=== PATIENT | female | born 1945 | race Caucasian/White ===

== ENCOUNTER 2017-07-25 11:30 | Outpatient (RCR) | payer MEDICARE, OTHER, SELFPAY ==
--- NOTE | 2017-07-02 10:59 | HP.PTEVAL ---
Patient's Visit Information MARLINE WOOD is a 72 year old F referred to Physical Therapy by MD ARCELIA Camacho with a diagnosis of Left Knee Pain. Date of Evaluation: 07/02/17 Physical Therapist: Riddhi Mcmahan - Visit Plan Frequency: 2x /Week Duration: 4 Weeks Plan: Focus on LE and core s/s- HEP with silver sneakers - Subjective Subjective: Left knee pain started about 4 weeks ago- insidious onset. Was going to [employer] and was finding herself sitting down and then limping at the end of the class. Went and saw MD who took x-rays and diagnosed with arthritis- gave her anti-inflammatries and sent her to PT. Pain is located along the back of the knee on the medial side- radiates down the lateral side of the calf. Eases: rolling over in bed, getting off her leg, anti-inflammatories Best: 0/10 Agg: walking to much, being on it, exercise class Worst: 8/10 Describes pain as achy and uncomfortable. Sleep: hard to get comfortable but does not wake her up. Feels its getting better. She goes to [employer] 3x a week on land (MWF). 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 Meds: metroprolol, atorvastatin, allopurinol, quinapril, amlodypine, pioglitazone - Objective posture: FH, RS, Increased kyphosis. Gait: no deviation noted. Stairs: asc/desc 8 recip with 2 HR but poor control. HR/TR: able- reports discomfort with TR. Balance: unable to SLS but can weight shift. Palpation: tender along posterior hamstring. ROM: 0-110 degrees. Strength: Ankle: 5/5, Knee: 4/5, Hip: 4/5 throughout Core: poor - Goals Goal 1:: Patient will be I with HEP and progression Goal Time Frame: 4-6 Weeks Goal 2:: Patient will asc/desc 8 stairs recip with 1 HR and good control Goal Time Frame: 4-6 Weeks Goal 3:: Patient will demo 4+/5 strength in all deficit areas to ease ADL's. Goal Time Frame: 4-6 Weeks Goal 4:: Patient will report 0/10 pain for 1 week with return to all normal activities. Goal Time Frame: 4-6 Weeks - Rehabilitation Potential Physical Therapy Diagnosis: Patient presents with hypomobility- she has decreased strength and muscular endurance- leading to poor posture and increased pain with ADL's. Rehabilitation Potential: Good - Anticipated Interventions Patient/Client Instruction: Educate patient on: Benefits of Fitness Program For the Purpose of:: To improve performance and independence with ADL's Therapeutic Exercise to Include: Strength training, Endurance training, Balance training, Agility training, Body mechanics, Postural training, Flexibilty training, Gait and locomotor training, Dynamic Lumbar Stabilization For the Purpose of:: To improve muscle performance and motor function TENS: Yes Cryotherapy (ice pack, ice massage): Yes Thermo therapy (hot pack): Yes Ultrasound (thermal/non thermal): Yes For the Purpose of:: To decrease pain, To decrease swelling/inflammation Thank you for the opportunity to evaluate your patient. For Medicare and Medicare HMO plans, please review the plan of care and approve it. It will need to be FAXED BACK to us at [phone] for Medicare purposes. Please let me know if there are questions or concerns regarding this plan of care. Physician Signature: Date:
--- NOTE | 2017-07-25 11:52 | HP.PTDCSUM_ITS ---
HP - PT D/C Summary It has been my pleasure to treat MARLINE WOOD under orders from Tara Estrada MD, for the diagnosis of Left Knee Pain for a total of 7 visit(s). Discharge Date: Please see the following information for a summary of their discharge status. - Subjective Subjective: Patient reports that the knee is a lot better. No pain when doing ADL's but does have achy pains. Feels its OA. [place] some exercises to keep the strength. Does silver sneakers 3x a week and went back yesterday and didn' t feel she was limping. - Pain L knee Pain Intensity (Out of 10): 1 - Overall Improvement % Improvement: 100 - Objective Objective/Function: Posture: good throughout. Gait: no deviation noted. Stairs :asc/desc 8 recip with 1 HR. Strength:4+/5 throughout - Goals Goal 1:: Patient will be I with HEP and progression Goal Progress: Goal Met Goal 2:: Patient will asc/desc 8 stairs recip with 1 HR and good control Goal Progress: Goal Met Goal 3:: Patient will demo 4+/5 strength in all deficit areas to ease ADL's. Goal Progress: Goal Met Goal 4:: Patient will report 0/10 pain for 1 week with return to all normal activities. Goal Progress: Goal Met - Plan Plan: Discharge to HEP - D/C Information If there are questions or concerns regarding this patient's physical therapy, please feel free to call me at [phone]. Thank you for the referral of this patient. Sincerely, Riddhi Mcmahan
== END 2017-07-25 14:49 | disposition home or self-care (01) ==
LOC: PT 11:30
PROVIDERS: Family Provider Nurse Practitioner Family; PCP Nurse Practitioner Family; Visit Provider Family Medicine
DX: M79.605 Pain in left leg (principal)
CPT/HCPCS: 97110; 97161; 97530

== ENCOUNTER → 2017-12-02 09:41 | Outpatient (CLI) | payer MEDICARE, OTHER, SELFPAY ==
--- NOTE | 2017-12-02 09:41 | DT_ITS ---
This patient was seen during an EMR downtime November 25, 2017 - December 02, 2017. This patient may have a combination of paper and electronic documentation or all paper documentation. All documentation is viewable within the e-chart portion of [facility] for each patient visit.
--- NOTE | 2017-12-02 09:45 | ECHOD_ITS ---
Version 2 Reason For Study: SOB Procedure This was a 2D Doppler, Color Flow transthoracic echocardiogram. Exam performed in department. Left Ventricle Normal LV size. Mild concentric left ventricular hypertrophy. Left ventricular systolic function is normal. The estimated ejection fraction is 63 %. Transmitral diastolic flow velocities suggest mild (stage 1) diastolic dysfunction (reversed pattern). No regional wall motion abnormalities noted. Right Ventricle Normal RV size. Normal systolic function. Atria Normal left atrium. Normal right atrium. Mitral Valve There is mild mitral annular calcification. Mild (1+) eccentric mitral valve insufficiency. Tricuspid Valve Normal tricuspid valve. Unable to estimate RV systolic pressure due to inadequate jet, pulmonary artery pressure probably normal. Aortic Valve Trisinus/trileaflet aortic valve. Mild focal aortic valve calcification. Peak aortic valve gradient 55 mmHg. Mean aortic valve gradient 30 mmHg. Calculated aortic valve area (continuity equation) is 1.1 cm2. Pulmonic Valve Normal pulmonic valve. Great Vessels Normal aortic root. The pulmonary artery is normal size. Normal inferior vena cava. Pericardium/Pleural No pericardial effusion. MMode/2D Measurements & Calculations LVIDd: 4.7 cm IVSd: 1.3 cm LVOT diam: 2.0 cm LVIDs: 2.5 cm LVPWd: 1.4 cm LVOT area: 3.0 cm2 RVDd: 3.1 cm FS: 47.3 % Ao root diam: 3.2 cm LAV(MOD-bp): 68.4 ml LA A4 area: 22.2 cm2 LA dimension: 4.8 cm LAV(MOD-bp) Indexed: 33.0 ml/m2 LAV(MOD-sp2): 60.3 ml LAV(MOD-sp4): 72.1 ml RA A4 area: 13.0 cm2 Doppler Measurements & Calculations MV E max mundo: 75.9 cm/sec Lat Peak E' Mundo: 5.2 cm/sec Med Peak E' Mundo: 6.3 cm/sec MV A max mundo: 96.3 cm/sec E/E' lat: 14.7 E/E' med: 12.1 MV E/A: 0.79 Ao V2 max: 369.9 cm/sec AI max mundo: 406.0 cm/sec LV V1 max: 130.5 cm/sec Ao max P.9 mmHg AI max P.9 mmHg LV V1 max P.8 mmHg Ao V2 mean: 261.5 cm/sec AI dec slope: 159.9 cm/sec2 LV V1 mean P.5 mmHg Ao mean P.3 mmHg AI P1/2t: 743.8 msec LV V1 mean: 87.5 cm/sec Ao V2 VTI: 99.1 cm LV V1 VTI: 37.6 cm KATHY(I,D): 1.1 cm2 KATHY(V,D): 1.1 cm2 SV(LVOT): 113.1 ml PA V2 max: 114.4 cm/sec Interpretation Summary Normal LV size. Mild concentric left ventricular hypertrophy. Left ventricular systolic function is normal. The estimated ejection fraction is 63 %. Transmitral diastolic flow velocities suggest mild (stage 1) diastolic dysfunction (reversed pattern). Mild (1+) eccentric mitral valve insufficiency. Calculated aortic valve area (continuity equation) is 1.1 cm2. Mild focal aortic valve calcification. Ordering Physician: Venkata Lopez Referring Physician: Frank Ramirez Performed By: Claire Blair RDCS
== END ==
PROVIDERS: Family Provider Nurse Practitioner Family; PCP Nurse Practitioner Family; Visit Provider Internal Medicine Cardiovascular Disease
DX: I35.0 Nonrheumatic aortic (valve) stenosis (principal); I10 Essential (primary) hypertension
CPT/HCPCS: 93306

== ENCOUNTER → 2018-04-09 14:14 | Outpatient (CLI) | payer MEDICARE, OTHER, SELFPAY ==
[2018-04-09 15:38] LABS: Hematocrit 37.1 % (37-47); Hemoglobin 11.6 g/dl (12.0-15.0); Mean Corp Hgb Conc 31.3 g/gl (32-36); Mean Corpuscular Hgb 30.9 pg (27.0-32.0); Mean Corpuscular Volume 98.7 fL (81-99); Platelet Count 302 K/mm3 (150-450); RBC Distribution Width CV 13.5 % (11.6-14.6); RBC Distribution Width SD 47.2 fl (35.1-43.9); Red Blood Count 3.76 M/mm3 (4.2-5.4); White Blood Count 7.6 K/mm3 (4.4-11.0)
[2018-04-09 15:50] LABS: Albumin, Serum 3.6 g/dL (3.2-5.0); BUN 42 mg/dL (7-18); BUN/Creat Ratio 23.6 RATIO (10-20); Calcium,Total 9.7 mg/dL (8.5-10.1); Chloride 105 mmol/L (98-107); Creatinine, Serum 1.78 mg/dL (0.55-1.02); EST Glomerular Filtration Rate 30 mL/min (>60); Est Glom Filt Rate - Afr Amer 36 mL/min (>60); Glucose 101 mg/dL (74-106); Phosphorus 4.1 mg/dL (2.5-4.9); Potassium 4.1 mmol/L (3.5-5.1); Sodium Level 142 mmol/L (136-145)
[2018-04-09 15:51] LABS: Microalbumin,Random Urine 85.2 mg/L (NO RANGE EST.); Microalbumin:Creatinine Ratio 70.4 mg/g CRE (<30 mg/g CRE)
[2018-04-09 15:54] LABS: Scan Indicated on CBC? Y/N NO
[2018-04-09 16:04] LABS: PTHIN 40.1 pg/mL (18.4-80.1); Vitamin D,25 Hydroxy 38.4 ng/mL (29.95-100.01)
== END ==
PROVIDERS: Family Provider Nurse Practitioner Family; PCP Nurse Practitioner Family; Referring Provider Internal Medicine Nephrology; Visit Provider Internal Medicine Nephrology
DX: N18.3 Chronic kidney disease, stage 3 (moderate) (principal)
CPT/HCPCS: 36415; 80069; 82043; 82306; 82570; 83970; 85027

== ENCOUNTER → 2018-12-16 | Outpatient (CLI) | payer MEDICARE, SELFPAY ==
[2018-07-18 08:27] VITALS: BMI 46.3
--- NOTE | 2018-12-16 12:55 | ECHOCS_ITS ---
Reason For Study: MURMUR Procedure This was a 2D Doppler, Color Flow transthoracic echocardiogram. Exam performed in department. Left Ventricle Normal LV size. Left ventricular systolic function is normal. The estimated ejection fraction is 65 %. Stage 2 diastolic dysfunction. No regional wall motion abnormalities noted. Right Ventricle Normal RV size. Normal systolic function. Atria Normal left atrium. Normal right atrium. Mitral Valve There is mild to moderate mitral annular calcification. Mild (1+) eccentric mitral valve insufficiency. Tricuspid Valve Normal tricuspid valve. Aortic Valve Trisinus/trileaflet aortic valve. Peak aortic valve gradient 67 mmHg. Mean aortic valve gradient 40 mmHg. Calculated aortic valve area (continuity equation) is 0.8 cm2. Severe aortic stenosis. Mild (1+) aortic valve insufficiency. Pulmonic Valve The pulmonic valve is not well visualized. Great Vessels Normal aortic root. Pericardium/Pleural No pericardial effusion. Medication 22 gauge I.V. with prn adaptor inserted into right arm. Diluted definity 3ml given slow IV push to enhance endocardial definition. MMode/2D Measurements & Calculations LVIDd: 5.0 cm IVSd: 0.96 cm LVOT diam: 2.0 cm LVIDs: 3.1 cm LVPWd: 0.96 cm RVDd: 3.4 cm FS: 38.7 % LVOT area: 3.0 cm2 Ao root diam: 3.0 cm LAV(MOD-bp): 52.5 ml LVAd ap4: 27.3 cm2 LAV(MOD-bp) Indexed: 25.0 ml/m2 EDV(MOD-sp4): 76.5 ml LAV(MOD-sp2): 59.7 ml EDV(sp4-el): 77.8 ml LAV(MOD-sp4): 42.9 ml LVAs ap4: 14.1 cm2 ESV(MOD-sp4): 26.1 ml ESV(sp4-el): 25.0 ml EF(MOD-sp4): 66.0 % EF(sp4-el): 67.9 % SV(MOD-sp4): 50.5 ml SV(sp4-el): 52.8 ml LA A4 area: 16.2 cm2 LA dimension(2D): 4.0 cm RA A4 area: 15.1 cm2 Time Measurements MV dec time: 0.19 sec Doppler Measurements & Calculations MV E max mundo: 94.5 cm/sec Lat Peak E' Mundo: 7.4 cm/sec Med Peak E' Mundo: 6.2 cm/sec MV A max mundo: 106.7 cm/sec E/E' lat: 12.7 E/E' med: 15.1 MV E/A: 0.89 Ao V2 max: 409.7 cm/sec AI max mundo: 481.8 cm/sec LV V1 max: 107.8 cm/sec Ao max P.2 mmHg AI max P.9 mmHg LV V1 max P.6 mmHg Ao V2 mean: 307.2 cm/sec AI dec slope: 280.6 cm/sec2 LV V1 mean P.6 mmHg Ao mean P.8 mmHg AI P1/2t: 502.9 msec LV V1 mean: 76.0 cm/sec Ao V2 VTI: 119.6 cm LV V1 VTI: 31.8 cm KATHY(I,D): 0.80 cm2 KATHY(V,D): 0.79 cm2 SV(LVOT): 96.1 ml PA V2 max: 114.0 cm/sec Interpretation Summary Normal LV size. Left ventricular systolic function is normal. The estimated ejection fraction is 65 %. Stage 2 diastolic dysfunction. Mean aortic valve gradient 40 mmHg. Calculated aortic valve area (continuity equation) is 0.8 cm2. Severe aortic stenosis. Compared to the previous the AV is worse. Ordering Physician: Venkata Lopez Referring Physician: Venkata Lopez Performed By: Cathy Torres RDCS
== END | disposition home or self-care (01) ==
LOC: CVS 12:54
PROVIDERS: Family Provider Nurse Practitioner Family; PCP Nurse Practitioner Family; Referring Provider Internal Medicine Cardiovascular Disease; Visit Provider Internal Medicine Cardiovascular Disease
DX: I35.0 Nonrheumatic aortic (valve) stenosis (principal)
CPT/HCPCS: 93306; Q9957; A4216; C8929

== ENCOUNTER → 2019-01-15 | Outpatient (CLI) | payer MEDICARE, OTHER, SELFPAY ==
[2018-07-18 08:27] VITALS: BMI 46.3
[2019-01-15 13:56] LABS: Hemoglobin 11.7 g/dL (12.0-15.0); Mean Corp Hgb Conc 31.6 g/dL (32-36); Mean Corpuscular Hgb 30.5 pg (27.0-32.0); Mean Corpuscular Volume 96.6 fL (81-99); Mean Platelet Vol. 9.6 fl (6.2-12.0); Platelet Count 295 K/mm3 (150-450); RBC Distribution Width CV 13.3 % (11.6-14.6); RBC Distribution Width SD 47.2 fl (35.1-43.9); Red Blood Count 3.83 M/mm3 (4.2-5.4); White Blood Count 8.5 K/mm3 (4.4-11.0)
[2019-01-15 14:03] LABS: Albumin, Serum 3.6 g/dL (3.2-5.0); BUN 37 mg/dL (7-18); BUN/Creat Ratio 21.8 RATIO (10-20); Calcium,Total 9.4 mg/dL (8.5-10.1); Chloride 105 mmol/L (98-107); EST Glomerular Filtration Rate 31 mL/min (>60); Est Glom Filt Rate - Afr Amer 38 mL/min (>60); Glucose 145 mg/dL (74-106); Phosphorus 3.7 mg/dL (2.5-4.9); Sodium Level 142 mmol/L (136-145)
[2019-01-15 14:15] LABS: PTHIN 45.1 pg/mL (18.4-80.1); Vitamin D,25 Hydroxy 31.1 ng/mL (29.95-100.01)
[2019-01-15 14:30] LABS: Protein, Urine (Random) 25.5 mg/dL (<11.9); Protein:Creat Ratio 159 mg/g CRE (0-200)
== END | disposition home or self-care (01) ==
LOC: LAB 13:22
PROVIDERS: Family Provider Nurse Practitioner Family; PCP Nurse Practitioner Family; Referring Provider Internal Medicine Nephrology; Visit Provider Internal Medicine Nephrology
DX: N18.3 Chronic kidney disease, stage 3 (moderate) (principal)
CPT/HCPCS: 36415; 80069; 82306; 82570; 83970; 84156; 85027

== ENCOUNTER → 2019-07-10 09:45 | Outpatient (CLI) | payer MEDICARE, OTHER, SELFPAY ==
[2019-01-20 12:41] VITALS: BMI 45.1
--- NOTE | 2019-07-10 09:47 | ECHOD_ITS ---
Reason For Study: AV DEISORDER Procedure This was a 2D Doppler, Color Flow transthoracic echocardiogram. The study was technically difficult. Exam performed in department. Left Ventricle Normal LV size. Moderate concentric left ventricular hypertrophy. Left ventricular systolic function is normal. The estimated ejection fraction is 65 %. No regional wall motion abnormalities noted. Right Ventricle Normal RV size. Normal systolic function. Atria Normal left atrium. Normal right atrium. Mitral Valve There is mild to moderate mitral annular calcification. Mild (1+) eccentric mitral valve insufficiency. Tricuspid Valve Normal tricuspid valve. Aortic Valve Trisinus/trileaflet aortic valve. Mild focal aortic valve calcification. Peak aortic valve gradient 53 mmHg. Mean aortic valve gradient 33.8 mmHg. Moderate aortic stenosis. Calculated aortic valve area (continuity equation) is 1,0 cm2. Mild (1+) aortic valve insufficiency. Pulmonic Valve Normal pulmonic valve. Great Vessels Normal aortic root. The pulmonary artery is normal size. Normal inferior vena cava. Pericardium/Pleural No pericardial effusion. MMode/2D Measurements & Calculations LVIDd: 4.7 cm IVSd: 1.4 cm LVOT diam: 2.0 cm LVIDs: 2.9 cm LVPWd: 1.4 cm LVOT area: 3.0 cm2 RVDd: 3.2 cm FS: 37.5 % Ao root diam: 2.9 cm LAV(MOD-bp): 58.2 ml LA A4 area: 16.8 cm2 LAV(MOD-bp) Indexed: 27.9 ml/m2 LAV(MOD-sp2): 73.5 ml LAV(MOD-sp4): 43.9 ml LA dimension(2D): 4.8 cm RA A4 area: 9.9 cm2 Time Measurements MV dec time: 0.17 sec Doppler Measurements & Calculations MV E max mundo: 88.1 cm/sec Lat Peak E' Mundo: 4.0 cm/sec Med Peak E' Mundo: 6.8 cm/sec MV A max mundo: 105.9 cm/sec E/E' lat: 22.0 E/E' med: 13.0 MV E/A: 0.83 MV V2 max: 93.2 cm/sec Ao V2 max: 364.8 cm/sec AI max mundo: 402.1 cm/sec MV max P.5 mmHg Ao max P.3 mmHg AI max P.7 mmHg MV V2 mean: 53.1 cm/sec Ao V2 mean: 279.6 cm/sec AI dec slope: 216.4 cm/sec2 MV mean P.3 mmHg Ao mean P.8 mmHg AI P1/2t: 544.1 msec MV V2 VTI: 35.6 cm Ao V2 VTI: 101.5 cm MVA(VTI): 2.9 cm2 KATHY(I,D): 1.0 cm2 KATHY(V,D): 0.98 cm2 LV V1 max: 118.7 cm/sec SV(LVOT): 104.5 ml MV P1/2t-pr_phl: 68.2 msec LV V1 max P.6 mmHg LV V1 mean P.1 mmHg LV V1 mean: 83.8 cm/sec LV V1 VTI: 34.7 cm Interpretation Summary Normal LV size. Moderate concentric left ventricular hypertrophy. Left ventricular systolic function is normal. The estimated ejection fraction is 65 %. Moderate aortic stenosis. Mild (1+) aortic valve insufficiency. There is mild to moderate mitral annular calcification. Mild (1+) eccentric mitral valve insufficiency. Compared to prior study, there is no significant change. Ordering Physician: Lucien Grossman/Venkata Lopez Referring Physician: CANDICE SHANNON Performed By: Laura Tirado, RDCS, RVT
== END ==
PROVIDERS: Family Provider Nurse Practitioner Family; PCP Nurse Practitioner Family; Referring Provider Nurse Practitioner Family; Visit Provider Nurse Practitioner Family
DX: I35.0 Nonrheumatic aortic (valve) stenosis (principal); R06.09 Other forms of dyspnea
CPT/HCPCS: 93306

== ENCOUNTER → 2019-07-17 11:40 | Outpatient (CLI) | payer MEDICARE, OTHER, SELFPAY ==
[2019-01-20 12:41] VITALS: BMI 45.1
[2019-07-17 12:36] LABS: Hematocrit 36.3 % (37-47); Hemoglobin 11.5 g/dL (12.0-15.0); Mean Corp Hgb Conc 31.7 g/dL (32-36); Mean Corpuscular Hgb 30.4 pg (27.0-32.0); Mean Platelet Vol. 9.8 fl (6.2-12.0); Platelet Count 276 K/mm3 (150-450); RBC Distribution Width CV 13.3 % (11.6-14.6); RBC Distribution Width SD 47.4 fl (35.1-43.9); Red Blood Count 3.78 M/mm3 (4.2-5.4); White Blood Count 6.9 K/mm3 (4.4-11.0)
[2019-07-17 12:47] LABS: Protein, Urine (Random) 26.2 mg/dL (<11.9); Protein:Creat Ratio 213 mg/g CRE (0-200)
[2019-07-17 13:16] LABS: Albumin, Serum 3.4 g/dL (3.2-5.0); BUN 43 mg/dL (7-18); BUN/Creat Ratio 23.6 RATIO (10-20); Calcium,Total 9.6 mg/dL (8.5-10.1); Chloride 105 mmol/L (98-107); Creatinine, Serum 1.82 mg/dL (0.55-1.02); EST Glomerular Filtration Rate 29 mL/min (>60); Est Glom Filt Rate - Afr Amer 35 mL/min (>60); Glucose 136 mg/dL (74-106); Phosphorus 3.5 mg/dL (2.5-4.9); Sodium Level 140 mmol/L (136-145)
[2019-07-17 13:23] LABS: Vitamin D,25 Hydroxy 35.4 ng/mL (29.95-100.01)
[2019-07-17 13:24] LABS: PTHIN 27.4 pg/mL (18.4-80.1)
== END ==
PROVIDERS: PCP Nurse Practitioner Family; Referring Provider Internal Medicine Nephrology; Visit Provider Internal Medicine Nephrology
DX: E55.9 Vitamin D deficiency, unspecified (principal); N18.3 Chronic kidney disease, stage 3 (moderate)
CPT/HCPCS: 36415; 80069; 82306; 82570; 83970; 84156; 85027

== ENCOUNTER → 2019-11-23 | Outpatient (CLI) | payer MEDICARE, OTHER, SELFPAY ==
[2019-11-23 06:13] VITALS: BMI 44.6
[2019-11-23 11:44] LABS: Hematocrit 38.6 % (37-47); Mean Corp Hgb Conc 31.1 g/dL (32-36); Mean Corpuscular Hgb 30.2 pg (27.0-32.0); Mean Corpuscular Volume 97.2 fL (81-99); Mean Platelet Vol. 9.5 fl (6.2-12.0); Platelet Count 299 K/mm3 (150-450); RBC Distribution Width CV 12.9 % (11.6-14.6); RBC Distribution Width SD 46.2 fl (35.1-43.9); Red Blood Count 3.97 M/mm3 (4.2-5.4); White Blood Count 6.8 K/mm3 (4.4-11.0)
[2019-11-23 12:25] LABS: AST(SGOT) 22 U/L (15-37); Alanine Aminotransfer ALT/SGPT 25 U/L (13-56); Albumin, Serum 3.5 g/dL (3.2-5.0); Alkaline Phosphatase 71 U/L (45-117); Anion Gap 7 (5-15); BUN 38 mg/dL (7-18); BUN/Creat Ratio 21.7 RATIO (10-20); Calcium,Total 9.5 mg/dL (8.5-10.1); Chloride 107 mmol/L (98-107); Cholesterol 146 mg/dL (200); Creatinine, Serum 1.75 mg/dL (0.55-1.02); EST Glomerular Filtration Rate 30 mL/min (>60); Est Glom Filt Rate - Afr Amer 37 mL/min (>60); Globulin 3.6 g/dL (2.2-4.2); Glucose 123 mg/dL (74-106); High Density Lipoprotein 50 mg/dL; Protein, Total 7.1 g/dL (6.4-8.2); Sodium Level 142 mmol/L (136-145); Triglycerides 99 mg/dL; Uric Acid 5.7 mg/dL (2.6-6.0); Very Low Density Lipoprotein 20 mg/dL (5-40)
[2019-11-23 13:30] LABS: Hemoglobin A1c 5.8 % (3.8-5.6)
== END | disposition home or self-care (01) ==
LOC: LAB 11:11
PROVIDERS: PCP Nurse Practitioner Family; Referring Provider Nurse Practitioner Family; Visit Provider Nurse Practitioner Family
DX: E11.9 Type 2 diabetes mellitus without complications (principal); I10 Essential (primary) hypertension; E78.5 Hyperlipidemia, unspecified; E55.9 Vitamin D deficiency, unspecified; M10.00 Idiopathic gout, unspecified site
CPT/HCPCS: 36415; 80053; 80061; 82306; 83036; 84550; 85027

== ENCOUNTER → 2020-01-15 | Outpatient (CLI) | payer MEDICARE, OTHER, SELFPAY ==
[2019-11-23 06:13] VITALS: BMI 44.6
[2020-01-15 14:49] LABS: Hematocrit 37.4 % (37-47); Hemoglobin 11.8 g/dL (12.0-15.0); Mean Corp Hgb Conc 31.6 g/dL (32-36); Mean Corpuscular Hgb 30.9 pg (27.0-32.0); Mean Corpuscular Volume 97.9 fL (81-99); Mean Platelet Vol. 9.7 fl (6.2-12.0); Platelet Count 308 K/mm3 (150-450); RBC Distribution Width CV 13.1 % (11.6-14.6); RBC Distribution Width SD 46.6 fl (35.1-43.9); Red Blood Count 3.82 M/mm3 (4.2-5.4)
[2020-01-15 15:22] LABS: Protein, Urine (Random) 22.3 mg/dL (<11.9); Protein:Creat Ratio 250 mg/g CRE (0-200)
[2020-01-15 15:24] LABS: PTHIN 34.3 pg/mL (18.4-80.1)
[2020-01-15 15:26] LABS: Albumin, Serum 3.5 g/dL (3.2-5.0); BUN 43 mg/dL (7-18); Calcium,Total 9.4 mg/dL (8.5-10.1); Chloride 105 mmol/L (98-107); Creatinine, Serum 1.79 mg/dL (0.55-1.02); EST Glomerular Filtration Rate 29 mL/min (>60); Est Glom Filt Rate - Afr Amer 36 mL/min (>60); Glucose 107 mg/dL (74-106); Phosphorus 3.7 mg/dL (2.5-4.9); Sodium Level 139 mmol/L (136-145)
[2020-01-15 15:27] LABS: Vitamin D,25 Hydroxy 50.5 ng/mL
== END | disposition home or self-care (01) ==
LOC: LAB 14:14
PROVIDERS: PCP Nurse Practitioner Family; Referring Provider Internal Medicine Nephrology; Visit Provider Internal Medicine Nephrology
DX: N18.3 Chronic kidney disease, stage 3 (moderate) (principal); E55.9 Vitamin D deficiency, unspecified
CPT/HCPCS: 36415; 80069; 82306; 82570; 83970; 84156; 85027

== ENCOUNTER → 2020-05-26 11:37 | Outpatient (CLI) | payer MEDICARE, OTHER, SELFPAY ==
[2020-03-03 13:00] VITALS: BMI 42.7
[2020-05-26 12:07] LABS: Hematocrit 37.3 % (37-47); Hemoglobin 11.1 g/dL (12.0-15.0); Mean Corp Hgb Conc 29.8 g/dL (32-36); Mean Corpuscular Hgb 29.8 pg (27.0-32.0); Mean Platelet Vol. 9.3 fl (6.2-12.0); Platelet Count 295 K/mm3 (150-450); RBC Distribution Width CV 13.2 % (11.6-14.6); RBC Distribution Width SD 48.4 fl (35.1-43.9); Red Blood Count 3.73 M/mm3 (4.2-5.4); White Blood Count 7.5 K/mm3 (4.4-11.0)
[2020-05-26 12:45] LABS: Vitamin D,25 Hydroxy 51.5 ng/mL
[2020-05-26 12:47] LABS: Hemoglobin A1c 5.5 % (3.8-5.6)
[2020-05-26 13:03] LABS: AST(SGOT) 23 U/L (15-37); Alanine Aminotransfer ALT/SGPT 23 U/L (13-56); Albumin, Serum 3.6 g/dL (3.2-5.0); Alkaline Phosphatase 75 U/L (45-117); Anion Gap 4 (5-15); BUN 37 mg/dL (7-18); BUN/Creat Ratio 22.6 RATIO (10-20); Calcium,Total 9.4 mg/dL (8.5-10.1); Chloride 108 mmol/L (98-107); Cholesterol 146 mg/dL (200); Creatinine, Serum 1.64 mg/dL (0.55-1.02); EST Glomerular Filtration Rate 33 mL/min (>60); Est Glom Filt Rate - Afr Amer 39 mL/min (>60); Globulin 3.5 g/dL (2.2-4.2); Glucose 118 mg/dL (74-106); High Density Lipoprotein 54 mg/dL; Potassium 4.1 mmol/L (3.5-5.1); Protein, Total 7.1 g/dL (6.4-8.2); Sodium Level 140 mmol/L (136-145); Triglycerides 90 mg/dL; Very Low Density Lipoprotein 18 mg/dL (5-40)
== END ==
PROVIDERS: PCP Nurse Practitioner Family; Referring Provider Nurse Practitioner Family; Visit Provider Nurse Practitioner Family
DX: E78.5 Hyperlipidemia, unspecified (principal); I12.9 Hypertensive chronic kidney disease with stage 1 through stage 4 chronic kidney disease, or unspecified chronic kidney disease; E11.22 Type 2 diabetes mellitus with diabetic chronic kidney disease; N18.4 Chronic kidney disease, stage 4 (severe)
CPT/HCPCS: 36415; 80053; 80061; 82306; 83036; 85027

== ENCOUNTER → 2020-07-12 11:55 | Outpatient (CLI) | payer MEDICARE, OTHER, SELFPAY ==
[2020-03-03 13:00] VITALS: BMI 42.7
[2020-07-12 12:41] LABS: Protein, Urine (Random) 31.3 mg/dL (<11.9); Protein:Creat Ratio 202 mg/g CRE (0-200)
[2020-07-12 13:06] LABS: Anion Gap 4 (5-15); BUN 38 mg/dL (7-18); BUN/Creat Ratio 21.1 RATIO (10-20); Calcium,Total 9.3 mg/dL (8.5-10.1); Chloride 106 mmol/L (98-107); EST Glomerular Filtration Rate 29 mL/min (>60); Est Glom Filt Rate - Afr Amer 35 mL/min (>60); Glucose 120 mg/dL (74-106); Potassium 3.8 mmol/L (3.5-5.1); Sodium Level 138 mmol/L (136-145)
== END ==
PROVIDERS: PCP Nurse Practitioner Family; Visit Provider Internal Medicine Nephrology
DX: N18.30 Chronic kidney disease, stage 3 unspecified (principal); R80.9 Proteinuria, unspecified
CPT/HCPCS: 36415; 80048; 82570; 84156

== ENCOUNTER 2020-08-22 08:51 | Outpatient (RCR) | payer MEDICARE, OTHER, SELFPAY ==
[2020-03-03 13:00] VITALS: BMI 42.7
== END 2020-08-22 23:59 ==
LOC: IMMUN 08:51
PROVIDERS: PCP Nurse Practitioner Family; Visit Provider Family Medicine
DX: Z23 Encounter for immunization (principal)
CPT/HCPCS: 0011A; 0012A

== ENCOUNTER → 2020-08-25 14:41 | Outpatient (CLI) | payer MEDICARE, OTHER, SELFPAY ==
[2020-03-03 13:00] VITALS: BMI 42.7
[2020-08-25 15:08] LABS: Hematocrit 39.8 % (37-47); Hemoglobin 12.2 g/dL (12.0-15.0); Mean Corp Hgb Conc 30.7 g/dL (32-36); Mean Corpuscular Hgb 30.3 pg (27.0-32.0); Mean Platelet Vol. 9.5 fl (6.2-12.0); Platelet Count 306 K/mm3 (150-450); RBC Distribution Width CV 12.8 % (11.6-14.6); RBC Distribution Width SD 46.5 fl (35.1-43.9); Red Blood Count 4.02 M/mm3 (4.2-5.4); White Blood Count 7.5 K/mm3 (4.4-11.0)
[2020-08-25 15:23] LABS: Hemoglobin A1c 5.6 % (3.8-5.6)
[2020-08-25 16:09] LABS: ALB/GLOB Ratio 0.9 RATIO (0.9-2.4); AST(SGOT) 23 U/L (15-37); Alanine Aminotransfer ALT/SGPT 22 U/L (13-56); Albumin, Serum 3.5 g/dL (3.2-5.0); Alkaline Phosphatase 84 U/L (45-117); Anion Gap 9 (5-15); BUN 40 mg/dL (7-18); Calcium,Total 9.8 mg/dL (8.5-10.1); Chloride 104 mmol/L (98-107); Creatinine, Serum 1.82 mg/dL (0.55-1.02); EST Glomerular Filtration Rate 29 mL/min (>60); Est Glom Filt Rate - Afr Amer 35 mL/min (>60); Globulin 3.7 g/dL (2.2-4.2); Glucose 135 mg/dL (74-106); Protein, Total 7.2 g/dL (6.4-8.2); Sodium Level 140 mmol/L (136-145)
== END ==
PROVIDERS: PCP Nurse Practitioner Family; Visit Provider Nurse Practitioner Family
DX: I12.9 Hypertensive chronic kidney disease with stage 1 through stage 4 chronic kidney disease, or unspecified chronic kidney disease (principal); E11.22 Type 2 diabetes mellitus with diabetic chronic kidney disease; N18.4 Chronic kidney disease, stage 4 (severe); D58.2 Other hemoglobinopathies
CPT/HCPCS: 36415; 80053; 83036; 85027

== ENCOUNTER → 2020-11-25 11:48 | Outpatient (CLI) | payer MEDICARE, OTHER, SELFPAY ==
[2020-03-03 13:00] VITALS: BMI 42.7
[2020-11-25 12:43] LABS: Hematocrit 37.6 % (37-47); Hemoglobin 11.9 g/dL (12.0-15.0); Mean Corp Hgb Conc 31.6 g/dL (32-36); Mean Corpuscular Hgb 30.4 pg (27.0-32.0); Mean Corpuscular Volume 96.2 fL (81-99); Mean Platelet Vol. 9.8 fl (6.2-12.0); Platelet Count 320 K/mm3 (150-450); RBC Distribution Width CV 12.9 % (11.6-14.6); RBC Distribution Width SD 45.2 fl (35.1-43.9); Red Blood Count 3.91 M/mm3 (4.2-5.4)
[2020-11-25 13:02] LABS: Hemoglobin A1c 5.7 % (3.8-5.6)
[2020-11-25 13:08] LABS: PTHIN 29.9 pg/mL (18.4-80.1)
[2020-11-25 13:13] LABS: Vitamin D,25 Hydroxy 39.2 ng/mL
[2020-11-25 13:18] LABS: ALB/GLOB Ratio 0.9 RATIO (0.9-2.4); AST(SGOT) 21 U/L (15-37); Alanine Aminotransfer ALT/SGPT 22 U/L (13-56); Albumin, Serum 3.4 g/dL (3.2-5.0); Alkaline Phosphatase 80 U/L (45-117); Anion Gap 7 (5-15); BUN 37 mg/dL (7-18); BUN/Creat Ratio 19.9 RATIO (10-20); Calcium,Total 9.5 mg/dL (8.5-10.1); Chloride 106 mmol/L (98-107); Cholesterol 146 mg/dL (200); Creatinine, Serum 1.86 mg/dL (0.55-1.02); EST Glomerular Filtration Rate 28 mL/min (>60); Est Glom Filt Rate - Afr Amer 34 mL/min (>60); Globulin 3.6 g/dL (2.2-4.2); Glucose 107 mg/dL (74-106); High Density Lipoprotein 53 mg/dL; Magnesium 2.2 mg/dL (1.6-2.6); Potassium 4.3 mmol/L (3.5-5.1); Sodium Level 141 mmol/L (136-145); T4 Free Direct 1.11 ng/dL (0.76-1.46); Thyroid Stim Hormone (TSH) 2.34 uIU/mL (0.358-3.74); Triglycerides 106 mg/dL; Very Low Density Lipoprotein 21 mg/dL (5-40)
[2020-11-30 20:28] LABS: Renin, Plasma 1.603 ng/mL/hr (0.167-5.380)
== END ==
PROVIDERS: PCP Nurse Practitioner Family; Visit Provider Nurse Practitioner Family
DX: E78.5 Hyperlipidemia, unspecified (principal); E21.3 Hyperparathyroidism, unspecified; E55.9 Vitamin D deficiency, unspecified; N18.4 Chronic kidney disease, stage 4 (severe); I12.9 Hypertensive chronic kidney disease with stage 1 through stage 4 chronic kidney disease, or unspecified chronic kidney disease; E11.22 Type 2 diabetes mellitus with diabetic chronic kidney disease
CPT/HCPCS: 36415; 80053; 80061; 82306; 83036; 83735; 83970; 84244; 84439; 84443; 85027

== ENCOUNTER → 2021-01-10 11:35 | Outpatient (CLI) | payer MEDICARE, OTHER, SELFPAY ==
[2020-03-03 13:00] VITALS: BMI 42.7
[2021-01-10 12:01] LABS: Hematocrit 35.9 % (37-47); Hemoglobin 11.5 g/dL (12.0-15.0); Mean Corpuscular Hgb 30.4 pg (27.0-32.0); Mean Platelet Vol. 9.6 fl (6.2-12.0); Platelet Count 307 K/mm3 (150-450); RBC Distribution Width CV 12.9 % (11.6-14.6); RBC Distribution Width SD 44.7 fl (35.1-43.9); Red Blood Count 3.78 M/mm3 (4.2-5.4); White Blood Count 7.8 K/mm3 (4.4-11.0)
[2021-01-10 12:38] LABS: Albumin, Serum 3.2 g/dL (3.2-5.0); BUN 28 mg/dL (7-18); BUN/Creat Ratio 17.2 RATIO (10-20); Calcium,Total 9.4 mg/dL (8.5-10.1); Chloride 107 mmol/L (98-107); Creatinine, Serum 1.63 mg/dL (0.55-1.02); EST Glomerular Filtration Rate 33 mL/min (>60); Est Glom Filt Rate - Afr Amer 40 mL/min (>60); Glucose 111 mg/dL (74-106); Sodium Level 140 mmol/L (136-145)
[2021-01-10 12:44] LABS: Vitamin D,25 Hydroxy 40.6 ng/mL
[2021-01-10 13:34] LABS: Protein, Urine (Random) 62.6 mg/dL (<11.9); Protein:Creat Ratio 362 mg/g CRE (0-200)
== END ==
PROVIDERS: PCP Nurse Practitioner Family; Referring Provider Internal Medicine Nephrology; Visit Provider Internal Medicine Nephrology
DX: E55.9 Vitamin D deficiency, unspecified (principal); N18.32 Chronic kidney disease, stage 3b; R80.9 Proteinuria, unspecified
CPT/HCPCS: 36415; 80069; 82306; 82570; 83970; 84156; 85027

== ENCOUNTER → 2021-03-20 12:57 | Outpatient (CLI) | payer MEDICARE, OTHER, SELFPAY ==
--- NOTE | 2021-03-20 13:01 | ECHOD_ITS ---
Reason For Study: Procedure This was a 2D Doppler, Color Flow transthoracic echocardiogram. Exam performed in department. Left Ventricle Normal LV size. Moderate concentric left ventricular hypertrophy. Left ventricular systolic function is normal. Stage 1 diastolic dysfunction. No regional wall motion abnormalities noted. Right Ventricle Normal RV size. Normal systolic function. Atria Normal left atrium. Normal right atrium. Mitral Valve Normal mitral valve. Tricuspid Valve Normal tricuspid valve. Aortic Valve Trisinus/trileaflet aortic valve. Moderate focal aortic valve calcification. Peak aortic valve gradient 63 mmHg. Mean aortic valve gradient 28 mmHg. Moderate aortic stenosis. Mild (1+) aortic valve insufficiency. Great Vessels Normal aortic root. The pulmonary artery is normal size. Normal inferior vena cava. Pericardium/Pleural No pericardial effusion. MMode/2D Measurements & Calculations LVIDd: 4.7 cm IVSd: 1.4 cm LVOT diam: 2.0 cm LVIDs: 2.7 cm LVPWd: 1.3 cm LVOT area: 3.0 cm2 FS: 41.0 % LA dimension: 4.5 cm LAV(MOD-bp): 60.2 ml LA A4 area: 19.9 cm2 LAV(MOD-bp) Indexed: 29.6 ml/m2 LAV(MOD-sp2): 61.6 ml LAV(MOD-sp4): 58.3 ml RA A4 area: 13.7 cm2 Time Measurements MV dec time: 0.21 sec Doppler Measurements & Calculations MV E max mundo: 85.2 cm/sec Lat Peak E' Mundo: 4.3 cm/sec Med Peak E' Mundo: 5.5 cm/sec MV A max mundo: 111.0 cm/sec E/E' lat: 20.0 E/E' med: 15.5 MV E/A: 0.77 MV V2 max: 115.6 cm/sec MV P1/2t max mundo: 109.8 cm/sec Ao V2 max: 395.7 cm/sec MV max P.3 mmHg MV P1/2t: 61.6 msec Ao max P.1 mmHg MV V2 mean: 73.2 cm/sec MV dec slope: 522.3 cm/sec2 Ao V2 mean: 244.6 cm/sec MV mean P.4 mmHg MVA(P1/2t): 3.6 cm2 Ao mean P.7 mmHg MV V2 VTI: 48.1 cm Ao V2 VTI: 109.5 cm MVA(VTI): 2.0 cm2 KATHY(I,D): 0.87 cm2 KATHY(V,D): 0.86 cm2 AI max mundo: 443.5 cm/sec LV V1 max: 113.1 cm/sec SV(LVOT): 95.2 ml AI max P.7 mmHg LV V1 max P.1 mmHg LV V1 mean P.7 mmHg AI dec slope: 225.6 cm/sec2 LV V1 mean: 76.8 cm/sec AI P1/2t: 575.7 msec LV V1 VTI: 31.8 cm ECHO/Echo Complete Interpretation Summary Normal LV size. Moderate concentric left ventricular hypertrophy. Left ventricular systolic function is normal. Stage 1 diastolic dysfunction. Moderate focal aortic valve calcification. Mean aortic valve gradient 28 mmHg. Moderate aortic stenosis. Compared to the previous the aortic valve mechanics probably the same. Ordering Physician: Iman Bains Referring Physician: Frank Ramirez Performed By: Yvan Santos RCS
== END ==
PROVIDERS: PCP Nurse Practitioner Family; Referring Provider Nurse Practitioner Gerontology; Visit Provider Nurse Practitioner Gerontology
DX: I35.2 Nonrheumatic aortic (valve) stenosis with insufficiency (principal)
CPT/HCPCS: 93306

== ENCOUNTER → 2021-05-29 11:50 | Outpatient (CLI) | payer MEDICARE, OTHER, SELFPAY ==
[2021-05-29 12:22] LABS: Hematocrit 33.4 % (37-47); Hemoglobin 10.7 g/dL (12.0-15.0); Mean Corpuscular Hgb 30.5 pg (27.0-32.0); Mean Corpuscular Volume 95.2 fL (81-99); Mean Platelet Vol. 9.3 fl (6.2-12.0); Platelet Count 323 K/mm3 (150-450); RBC Distribution Width CV 13.4 % (11.6-14.6); RBC Distribution Width SD 46.5 fl (35.1-43.9); Red Blood Count 3.51 M/mm3 (4.2-5.4); White Blood Count 7.8 K/mm3 (4.4-11.0)
[2021-05-29 12:44] LABS: Hemoglobin A1c 5.7 % (3.8-5.6)
[2021-05-29 13:02] LABS: PTHIN 36.7 pg/mL (18.4-80.1)
[2021-05-29 13:06] LABS: Vitamin D,25 Hydroxy 38.9 ng/mL
[2021-05-29 13:28] LABS: ALB/GLOB Ratio 0.9 RATIO (0.9-2.4); AST(SGOT) 27 U/L (15-37); Alanine Aminotransfer ALT/SGPT 26 U/L (13-56); Albumin, Serum 3.5 g/dL (3.2-5.0); Alkaline Phosphatase 82 U/L (45-117); Anion Gap 9 (5-15); BUN 42 mg/dL (7-18); BUN/Creat Ratio 22.2 RATIO (10-20); Calcium,Total 9.7 mg/dL (8.5-10.1); Chloride 107 mmol/L (98-107); Cholesterol 132 mg/dL (200); Creatinine, Serum 1.89 mg/dL (0.55-1.02); EST Glomerular Filtration Rate 28 mL/min (>60); Est Glom Filt Rate - Afr Amer 33 mL/min (>60); Globulin 3.7 g/dL (2.2-4.2); Glucose 125 mg/dL (74-106); High Density Lipoprotein 56 mg/dL; Potassium 4.2 mmol/L (3.5-5.1); Protein, Total 7.2 g/dL (6.4-8.2); Sodium Level 143 mmol/L (136-145); T4 Free Direct 1.39 ng/dL (0.76-1.46); Thyroid Stim Hormone (TSH) 1.98 uIU/mL (0.358-3.74); Triglycerides 108 mg/dL; Very Low Density Lipoprotein 22 mg/dL (5-40)
[2021-06-06 15:27] LABS: Renin, Plasma 1.284 ng/mL/hr (0.167-5.380)
== END ==
PROVIDERS: PCP Nurse Practitioner Family; Visit Provider Nurse Practitioner Family
DX: E78.5 Hyperlipidemia, unspecified (principal); I12.9 Hypertensive chronic kidney disease with stage 1 through stage 4 chronic kidney disease, or unspecified chronic kidney disease; E11.22 Type 2 diabetes mellitus with diabetic chronic kidney disease; E21.3 Hyperparathyroidism, unspecified; N18.4 Chronic kidney disease, stage 4 (severe); E55.9 Vitamin D deficiency, unspecified
CPT/HCPCS: 36415; 80053; 80061; 82306; 83036; 83970; 84244; 84439; 84443; 85027

== ENCOUNTER 2021-06-29 13:26 | Outpatient (CLI) | payer MEDICARE, OTHER, SELFPAY ==
[2021-06-29 14:24] LABS: Hematocrit 36.9 % (37-47); Hemoglobin 11.4 g/dL (12.0-15.0); Mean Corp Hgb Conc 30.9 g/dL (32-36); Mean Corpuscular Hgb 29.5 pg (27.0-32.0); Mean Corpuscular Volume 95.6 fL (81-99); Mean Platelet Vol. 9.9 fl (6.2-12.0); Platelet Count 343 K/mm3 (150-450); RBC Distribution Width CV 13.6 % (11.6-14.6); RBC Distribution Width SD 47.7 fl (35.1-43.9); RET-HE 33.9 pg (30-35); Red Blood Count 3.86 M/mm3 (4.2-5.4); Reticulocyte Count 2.32 % (0.5-1.5); White Blood Count 8.9 K/mm3 (4.4-11.0)
[2021-06-29 15:52] LABS: ALB/GLOB Ratio 0.8 RATIO (0.9-2.4); AST(SGOT) 21 U/L (15-37); Alanine Aminotransfer ALT/SGPT 25 U/L (13-56); Albumin, Serum 3.4 g/dL (3.2-5.0); Alkaline Phosphatase 85 U/L (45-117); Anion Gap 5 (5-15); BUN 35 mg/dL (7-18); BUN/Creat Ratio 20.3 RATIO (10-20); Calcium,Total 9.5 mg/dL (8.5-10.1); Chloride 107 mmol/L (98-107); Creatinine, Serum 1.72 mg/dL (0.55-1.02); EST Glomerular Filtration Rate 31 mL/min (>60); Est Glom Filt Rate - Afr Amer 37 mL/min (>60); Ferritin 308 ng/mL (8-252); Glucose 125 mg/dL (74-106); Iron 49 ug/dL (50-170); Iron Binding Capacity,Total 337 ug/dL (250-450); PERCENT IRON SATURATION 14.5 % (15.0-55.0); Potassium 4.1 mmol/L (3.5-5.1); Protein, Total 7.4 g/dL (6.4-8.2); Sodium Level 141 mmol/L (136-145)
== END 2021-06-29 23:59 | disposition short-term general hospital (02) ==
LOC: LAB 13:30
PROVIDERS: PCP Nurse Practitioner Family; Referring Provider Nurse Practitioner Family; Visit Provider Nurse Practitioner Family
DX: N18.4 Chronic kidney disease, stage 4 (severe) (principal); D63.1 Anemia in chronic kidney disease
CPT/HCPCS: 36415; 80053; 82728; 82746; 83540; 83550; 85027; 85045

== ENCOUNTER 2021-08-17 13:43 | Outpatient (CLI) | payer MEDICARE, OTHER, SELFPAY ==
[2021-08-17 14:28] LABS: Hematocrit 35.8 % (37-47); Hemoglobin 11.1 g/dL (12.0-15.0); Mean Corpuscular Hgb 29.2 pg (27.0-32.0); Mean Corpuscular Volume 94.2 fL (81-99); Platelet Count 301 K/mm3 (150-450); RBC Distribution Width CV 13.5 % (11.6-14.6); White Blood Count 6.6 K/mm3 (4.4-11.0)
[2021-08-17 14:59] LABS: Iron 47 ug/dL (50-170); Iron Binding Capacity,Total 307 ug/dL (250-450); PERCENT IRON SATURATION 15.3 % (15.0-55.0)
== END 2021-08-17 23:59 | disposition home or self-care (01) ==
LOC: LAB 13:45
PROVIDERS: PCP Nurse Practitioner Family; Referring Provider Nurse Practitioner Family; Visit Provider Nurse Practitioner Family
DX: R19.5 Other fecal abnormalities (principal); D50.9 Iron deficiency anemia, unspecified
CPT/HCPCS: 36415; 83540; 83550; 85027

== ENCOUNTER → 2021-11-28 | Outpatient (CLI) | payer MEDICARE, OTHER, SELFPAY ==
[2021-11-28 12:35] LABS: Hemoglobin 11.8 g/dL (12.0-15.0); Mean Corp Hgb Conc 31.9 g/dL (32-36); Mean Corpuscular Hgb 30.1 pg (27.0-32.0); Mean Corpuscular Volume 94.4 fL (81-99); Platelet Count 303 K/mm3 (150-450); RBC Distribution Width CV 13.2 % (11.6-14.6); RBC Distribution Width SD 45.5 fl (35.1-43.9); Red Blood Count 3.92 M/mm3 (4.2-5.4); White Blood Count 7.4 K/mm3 (4.4-11.0)
[2021-11-28 13:00] LABS: PTHIN 18.3 pg/mL (18.4-80.1)
[2021-11-28 13:04] LABS: Vitamin D,25 Hydroxy 49.5 ng/mL
[2021-11-28 13:07] LABS: AST(SGOT) 20 U/L (15-37); Alanine Aminotransfer ALT/SGPT 23 U/L (13-56); Albumin, Serum 3.5 g/dL (3.2-5.0); Alkaline Phosphatase 76 U/L (45-117); Anion Gap 7 (5-15); BUN 45 mg/dL (7-18); BUN/Creat Ratio 20.4 RATIO (10-20); Calcium,Total 10.1 mg/dL (8.5-10.1); Chloride 106 mmol/L (98-107); Cholesterol 145 mg/dL (200); Creatinine, Serum 2.21 mg/dL (0.55-1.02); EST Glomerular Filtration Rate 23 mL/min (>60); Est Glom Filt Rate - Afr Amer 28 mL/min (>60); Globulin 3.6 g/dL (2.2-4.2); Glucose 105 mg/dL (74-106); High Density Lipoprotein 58 mg/dL; Potassium 4.3 mmol/L (3.5-5.1); Protein, Total 7.1 g/dL (6.4-8.2); Sodium Level 141 mmol/L (136-145); Thyroid Stim Hormone (TSH) 2.24 uIU/mL (0.358-3.74); Triglycerides 85 mg/dL; Uric Acid 6.1 mg/dL (2.6-6.0); Very Low Density Lipoprotein 17 mg/dL (5-40)
[2021-11-28 13:21] LABS: Hemoglobin A1c 5.7 % (3.8-5.6)
== END | disposition home or self-care (01) ==
PROVIDERS: PCP Nurse Practitioner Family; Visit Provider Nurse Practitioner Family
DX: I12.9 Hypertensive chronic kidney disease with stage 1 through stage 4 chronic kidney disease, or unspecified chronic kidney disease (principal); E11.22 Type 2 diabetes mellitus with diabetic chronic kidney disease; N18.4 Chronic kidney disease, stage 4 (severe); E21.3 Hyperparathyroidism, unspecified; E78.5 Hyperlipidemia, unspecified; E55.9 Vitamin D deficiency, unspecified; M10.00 Idiopathic gout, unspecified site
CPT/HCPCS: 36415; 80053; 80061; 82306; 83036; 83970; 84443; 84550; 85027

== ENCOUNTER → 2022-01-31 | Outpatient (CLI) | payer MEDICARE, OTHER, SELFPAY ==
[2022-01-31 11:34] LABS: Protein, Urine (Random) 106.5 mg/dL (<11.9); Protein:Creat Ratio 852 mg/g CRE (0-200)
[2022-01-31 11:40] LABS: Anion Gap 6 (5-15); BUN 45 mg/dL (7-18); BUN/Creat Ratio 20.1 RATIO (10-20); Calcium,Total 10.5 mg/dL (8.5-10.1); Chloride 106 mmol/L (98-107); Creatinine, Serum 2.24 mg/dL (0.55-1.02); EST Glomerular Filtration Rate 23 mL/min (>60); Est Glom Filt Rate - Afr Amer 27 mL/min (>60); Glucose 121 mg/dL (74-106); Potassium 4.2 mmol/L (3.5-5.1); Sodium Level 141 mmol/L (136-145)
== END | disposition home or self-care (01) ==
PROVIDERS: PCP Nurse Practitioner Family; Visit Provider Internal Medicine Nephrology
DX: N18.32 Chronic kidney disease, stage 3b (principal)
CPT/HCPCS: 36415; 80048; 82570; 84156

== ENCOUNTER → 2022-03-16 | Outpatient (CLI) | payer MEDICARE, OTHER, SELFPAY ==
--- NOTE | 2022-03-16 11:56 | ECHOD_ITS ---
Reason For Study: Murmur Procedure This was a 2D Doppler, Color Flow transthoracic echocardiogram. Exam performed in department. Left Ventricle Normal LV size. Moderate concentric left ventricular hypertrophy. Left ventricular systolic function is normal. The estimated ejection fraction is 65 %. Stage 2 diastolic dysfunction. No regional wall motion abnormalities noted. Right Ventricle Normal RV size. Normal systolic function. Atria Normal left atrium. Normal right atrium. Mitral Valve There is moderate mitral annular calcification. Mild (1+) eccentric mitral valve insufficiency. Tricuspid Valve Normal tricuspid valve. Moderate (2+) tricuspid valve insufficiency. Pulmonary artery systolic pressure is 74 mmHg. Moderate pulmonary hypertension. Aortic Valve Trisinus/trileaflet aortic valve. Moderate diffuse aortic valve thickening. Peak aortic valve gradient 73 mmHg. Mean aortic valve gradient 43 mmHg. Moderately severe aortic stenosis. Mild (1+) aortic valve insufficiency. Pulmonic Valve Normal pulmonic valve. Great Vessels Normal aortic root. The pulmonary artery is normal size. Normal inferior vena cava. Pericardium/Pleural No pericardial effusion. Cystic liver noted. MMode/2D Measurements & Calculations LVIDd: 5.0 cm IVSd: 1.5 cm LVOT diam: 2.0 cm LVIDs: 3.0 cm LVPWd: 1.3 cm LVOT area: 3.0 cm2 RVDd: 3.3 cm FS: 40.5 % Ao root diam: 2.9 cm LAV(MOD-bp): 71.7 ml LVAd ap4: 21.9 cm2 LAV(MOD-bp) Indexed: 35.4 ml/m2 LVLd ap4: 7.7 cm LAV(MOD-sp2): 70.9 ml EDV(MOD-sp4): 51.6 ml LAV(MOD-sp4): 72.7 ml EDV(sp4-el): 53.1 ml LVAs ap4: 11.1 cm2 LVLs ap4: 6.3 cm ESV(MOD-sp4): 16.7 ml ESV(sp4-el): 16.4 ml EF(MOD-sp4): 67.5 % EF(sp4-el): 69.1 % SV(MOD-sp4): 34.8 ml SV(sp4-el): 36.7 ml LA A4 area: 22.7 cm2 LA dimension(2D): 4.7 cm RA A4 area: 11.8 cm2 Doppler Measurements & Calculations MV E max mundo: 100.4 cm/sec Lat Peak E' Mundo: 3.9 cm/sec Med Peak E' Mundo: 5.2 cm/sec MV A max mundo: 113.9 cm/sec E/E' lat: 25.8 E/E' med: 19.3 MV E/A: 0.88 Ao V2 max: 427.0 cm/sec AI max mundo: 426.6 cm/sec LV V1 max: 146.4 cm/sec Ao max P.0 mmHg AI max P.8 mmHg LV V1 max P.6 mmHg Ao V2 mean: 315.7 cm/sec LV V1 mean P.5 mmHg Ao mean P.3 mmHg AI dec slope: 253.8 cm/sec2 LV V1 mean: 112.2 cm/sec Ao V2 VTI: 124.0 cm AI P1/2t: 492.3 msec LV V1 VTI: 44.3 cm KATHY(I,D): 1.1 cm2 KATHY(V,D): 1.0 cm2 SV(LVOT): 133.1 ml PA V2 max: 107.1 cm/sec TR max mundo: 406.1 cm/sec TR max P.0 mmHg ECHO/Echo Complete Interpretation Summary Normal LV size. Moderate concentric left ventricular hypertrophy. Left ventricular systolic function is normal. The estimated ejection fraction is 65 %. Stage 2 diastolic dysfunction. Moderate diffuse aortic valve thickening. Mean aortic valve gradient 43 mmHg. Mild (1+) aortic valve insufficiency. Moderately severe aortic stenosis Moderate pulmonary hypertension. Ordering Physician: Venkata Lopez Referring Physician: Frank Ramirez Performed By: Rosalina Grossman, CORINE, RVT
== END | disposition home or self-care (01) ==
LOC: CVS 11:55
PROVIDERS: PCP Nurse Practitioner Family; Visit Provider Internal Medicine Cardiovascular Disease
DX: R01.1 Cardiac murmur, unspecified (principal); I35.2 Nonrheumatic aortic (valve) stenosis with insufficiency
CPT/HCPCS: 93306

== ENCOUNTER 2022-03-28 06:21 | Day surgery (SDC) | payer MEDICARE, OTHER, SELFPAY ==
[2022-03-27 07:26] VITALS: BMI 40.2
[2022-03-28 06:33] LABS: Hematocrit 34.5 % (37-47); Hemoglobin 10.9 g/dL (12.0-15.0); Mean Corp Hgb Conc 31.6 g/dL (32-36); Mean Corpuscular Hgb 30.1 pg (27.0-32.0); Mean Corpuscular Volume 95.3 fL (81-99); Platelet Count 346 K/mm3 (150-450); RBC Distribution Width CV 13.1 % (11.6-14.6); RBC Distribution Width SD 45.6 fl (35.1-43.9); Red Blood Count 3.62 M/mm3 (4.2-5.4); White Blood Count 8.1 K/mm3 (4.4-11.0)
[2022-03-28 06:46] LABS: Anion Gap 6 (5-15); BUN 45 mg/dL (7-18); BUN/Creat Ratio 23.9 RATIO (10-20); Chloride 109 mmol/L (98-107); Creatinine, Serum 1.88 mg/dL (0.55-1.02); EST Glomerular Filtration Rate 28 mL/min (>60); Est Glom Filt Rate - Afr Amer 34 mL/min (>60); Estimated Creatinine Clearance 20.45 ml/min; Glucose 121 mg/dL (74-106); Sodium Level 144 mmol/L (136-145)
--- NOTE | 2022-03-28 10:45 | OP.PCM_ITS ---
Problems Associated Problem List Diagnoses (1) Right renal artery stenosis: Report of Operation Date of Procedure: 03/28/22 Pre-Operative Diagnosis: Artery stenosis with hypertension and chronic kidney disease Post-Operative Diagnosis: The same Surgery/Procedure Performed:: 1. Ultrasound-guided access retrograde right common femoral artery. 2. Aortogram with selective right renal artery angiogram. 3. Stent the left renal artery with a 5 x 15 express SD and post balloon with this 5.5 Jerry balloon. 4. Closure with Mynx Surgeon: Albert Rose Type of Anesthesia: IV Sedation Description of Procedure: Patient brought to the [employer]. Underwent appropriate timeout consent. Underwent sedation. Was prepped and draped in a sterile fashion. We did ultrasound-guided access retrograde right common femoral artery. Put a 6 Fijian sheath in. Put a Glidewire and then a 6 RDC guiding catheter. We given 5000 units of heparin. Using the guide and a catheter guide into the renal artery. We took an oblique view and appeared to have a moderate to severe proximal focal stenosis. We can see plaque along this area. Try to bring in a quick cross catheter and I cannot pass through this stenosis in the ankle. Eventually switched over to an angled glide cath and wire and got this down into the renal artery. We then predilated with a 4 mm Jerry and then brought in the 5 x 15 express SD. We overinflated it. We then brought in a 5.5 balloon and overinflated as well. Completion was much improved with brisk flow through here and much improved filling up to the renal artery. Removed out the wire and catheter and then deployed a minx with good hemostasis. Brought to recovery stable condition. Sedation: This 76-year-old female underwent moderate sedation given by Dr. Albert Rose. She was monitored EKG blood pressure and pulse ox for over the 30 minutes of the procedure. See the EMR for the complete record.
== END 2022-03-28 15:20 | disposition home or self-care (01) ==
LOC: CLSP 06:23
PROVIDERS: PCP Nurse Practitioner Family; Referring Provider Surgery Vascular Surgery; Visit Provider Surgery Vascular Surgery
DX: I70.1 Atherosclerosis of renal artery (principal); I12.9 Hypertensive chronic kidney disease with stage 1 through stage 4 chronic kidney disease, or unspecified chronic kidney disease; N18.9 Chronic kidney disease, unspecified; Z79.899 Other long term (current) drug therapy; Z79.82 Long term (current) use of aspirin
CPT/HCPCS: 36251; 36415; 37236; 76937; 80048; 85027; 99152; 99153; C1725; C1760; J7040; Q9967; C1769; C1876; C1887

== ENCOUNTER → 2022-05-09 | Outpatient (CLI) | payer MEDICARE, OTHER, SELFPAY ==
[2022-05-09 10:02] LABS: Absolute Lymphocyte Count 0.68 X10^3/uL (0.83-4.51); Absolute Neutrophil Count 5.1 X10^3/uL (2.0-7.7); Basophil# 0.09 X10^3/uL; Basophil% 1.3 % (0-1); Eosinophil# 0.28 X10^3/uL; Eosinophils% 4.2 % (0-5); Hematocrit 31.6 % (37-47); Hemoglobin 9.7 g/dL (12.0-15.0); Lymphocyte # 0.68 X10^3/ul (0.83-4.51); Lymphocyte % 10.1 % (19-41); Mean Corp Hgb Conc 30.7 g/dL (32-36); Mean Corpuscular Hgb 30.4 pg (27.0-32.0); Mean Corpuscular Volume 99.1 fL (81-99); Mean Platelet Vol. 9.6 fl (6.2-12.0); Monocyte# 0.52 X10^3/uL; Monocyte% 7.8 % (0-10); NRBC Flagged by Analyzer 0 % (0-5); Neutrophil # 5.09 X10^3/uL (2.7-7.7); Platelet Count 292 K/mm3 (150-450); RBC Distribution Width CV 13.9 % (11.6-14.6); RBC Distribution Width SD 50.7 fl (35.1-43.9); Red Blood Count 3.19 M/mm3 (4.2-5.4); White Blood Count 6.7 K/mm3 (4.4-11.0)
[2022-05-09 10:23] LABS: Protein, Urine (Random) 145.5 mg/dL (<11.9); Protein:Creat Ratio 1491 mg/g CRE (0-200)
[2022-05-09 10:32] LABS: Vitamin D,25 Hydroxy 46.4 ng/mL
[2022-05-09 10:37] LABS: Anion Gap 9 (5-15); BUN 43 mg/dL (7-18); BUN/Creat Ratio 20.6 RATIO (10-20); Calcium,Total 10.2 mg/dL (8.5-10.1); Chloride 108 mmol/L (98-107); Creatinine, Serum 2.09 mg/dL (0.55-1.02); EST Glomerular Filtration Rate 25 mL/min (>60); Est Glom Filt Rate - Afr Amer 30 mL/min (>60); Glucose 141 mg/dL (74-106); Sodium Level 143 mmol/L (136-145)
[2022-05-09 10:38] LABS: PTHIN 30.5 pg/mL (18.4-80.1)
[2022-05-10 13:07] LABS: PROEL- A/G Ratio 1.3 (0.7-1.7); PROEL- Albumin 3.5 g/dL (2.9-4.4); PROEL- Alpha-1 Globulin 0.3 g/dL (0.0-0.4); PROEL- Alpha-2 Globulin 0.8 g/dL (0.4-1.0); PROEL- Beta Globulin 0.9 g/dL (0.7-1.3); PROEL- Gamma Globulin 0.7 g/dL (0.4-1.8); PROEL- Globulin, Total 2.7 g/dL (2.2-3.9); PROEL- TOTAL PROTEIN 6.2 g/dL (6.0-8.5)
== END | disposition home or self-care (01) ==
LOC: LAB 09:33
PROVIDERS: Internal Medicine Cardiovascular Disease; PCP Nurse Practitioner Family; Visit Provider Internal Medicine Nephrology
DX: N18.32 Chronic kidney disease, stage 3b (principal); R80.9 Proteinuria, unspecified; E55.9 Vitamin D deficiency, unspecified
CPT/HCPCS: 36415; 80048; 82306; 82570; 83970; 84156; 84165; 85025

== ENCOUNTER 2022-05-28 09:26 | Day surgery (SDC) | payer MEDICARE, OTHER, SELFPAY ==
--- NOTE | 2022-05-18 08:10 | RAD_ITS ---
EXAM: XR CHEST, 2 VIEWS CLINICAL INDICATION: sob TECHNIQUE: Frontal and lateral views of the chest. This report was created using [employer] report generation technology. COMPARISON: None. FINDINGS: LUNGS AND PLEURAL SPACES: Bilateral interstitial thickening the lungs which may represent acute or chronic interstitial lung disease. Blunting of the right costophrenic sulci consistent with minimal fluid or pleural scarring. No pneumothorax. HEART: Normal heart size. MEDIASTINUM: No mediastinal or hilar mass. BONES/JOINTS: No acute abnormality. SOFT TISSUES: Normal. RAD/Chest PA and Lateral IMPRESSION: Diffuse interstitial lung disease. Electronically Signed: Clark Kaminski MD at 9:35 EST ,
[2022-05-24 08:37] VITALS: BMI 42.9
--- NOTE | 2022-05-25 16:30 | HP.PCM_ITS ---
History and Physical Date of Admission: 05/28/22 MARLINE WOOD, is a 77 F who presents to the [facility] today for a left heart catheterization. She has a history of aortic valve stenosis, hypertension, hyperlipidemia, and diabetes type 2. From a cardiac standpoint, the patient is doing well. She denies any palpitations, chest pain, pressure or heaviness. She denies SOB, Orthopnea, and PND. She does not have bleeding issues; no blood in urine, stool or nosebleeds. She denies any decrease in energy level, myalgias, or claudication. She does not have edema, or sudden weight gain. She denies dizziness, lightheadedness, syncopal or near syncopal episodes, and headaches. She did see the vascular surgeon and had a bilateral renal artery duplex which demonstrated significant arterial stenosis involving the right renal artery. She is scheduled to see the vascular surgeon for a stent procedure. She denies any chest pain or paroxysmal nocturnal dyspnea or pedal edema. She completed an echocardiogram on 03/16/2022 that showed ejection fraction 65%, stage II diastolic dysfunction, no regional wall motion abnormalities, moderate tricuspid valve insufficiency, RVSP 74 mmHg, moderately severe aortic valve stenosis with a peak aortic valve gradient 73 mmHg, mean aortic valve gradient 43 mmHg, and aortic valve area 1.1/1.0 cm?, and mild aortic valve insufficiency. As part of aortic valve replacement work-up, she will proceed with heart catheterization. Her heart catheterization was delayed on account of renal artery stent placement with Dr. Rose. Intake Vital Signs: See EMR Intake Visit Reasons: [facility] Allergies erythromycin base [From Erythrocin] Allergy (Verified 03/13/22 12:29) Unknown Macrolide Antibiotics Allergy (Verified 03/13/22 12:29) Unknown Penicillins Allergy (Verified 03/13/22 12:29) Unknown Medications See EMR Ejection fraction %: 65 to 70 [facility] Medical History Anemia Chronic kidney disease (CKD) Chronic kidney disease (CKD) stage G3b/A1, moderately decreased glomerular filtration rate (GFR) between 30-44 mL/min/1.73 square meter and albuminuria creatinine ratio less than 30 mg/g Essential (primary) hypertension H/O renal calculi Hyperlipidemia Hyperparathyroidism Nonrheumatic aortic (valve) stenosis with insufficiency Obesity Obesity due to excess calories Right renal artery stenosis Type 2 diabetes mellitus without complications Surgical History H/O bilateral salpingectomy Hx of cholecystectomy Social History Smoking Status: Never smoker alcohol intake: current alcohol intake frequency: holidays/special occasions only ROS Const Const: Negative for fatigue, weakness, headache(s), frequent falls, difficulty sleeping or excessive sweating Eyes Eyes: Negative for loss of peripheral vision, transient loss of vision, blurry vision, double vision or tunnel vision ENT ENT: Negative for headache(s), dizziness, Nosebleed/epistaxis or balance problems Cardio Chest Pain: No Palpitations: No Edema: None Muscle aches with walking: None Resp Respiratory: Negative for SOB with activity, SOB at rest, SOB orthopnea\SOB lying down, Cough or paroxysmal nocturnal dyspnea GI GI: Negative nausea, vomiting, heartburn or black,tarry stools : Negative for hematuria Musc Musc: Negative for muscle aches/ myalgia, muscle weakness, joint pain or balance problems Skin Skin: Negative non-healing lesions, rash or unusual bruising Neuro Neuro: Negative for dizziness, lightheadedness, near syncope, syncope, orthostatic symptoms, frequent falls, headache(s), weakness, confusion, memory loss, blurry vision, double vision, vertigo or lack of coordination Shiv Hematologic/Lymphatic: Negative for easy bleeding or easy bruising Endo Endo: Negative for fatigue, excessive sweating, flushing or increased thirst/drinking Psych Psych: Negative for anxiety or depression Allergy Allergy/Immunology: Negative for hives and Negative for rash Cardiology Exam Const Appearance: cooperative and no acute distress Nutritional Appearance: obese Orientation: alert and oriented x3 Head Head: normal to inspection Ears: hearing grossly normal bilaterally Nose: external nose normal Face and Sinus: face symmetric Eyes General: appearance normal, both eyes and all related structures Eyelids: eyelids normal Conjunctivae: conjunctivae normal Pupils: PERRL and pupil size EOM: EOM intact bilaterally Neck Neck: normal visual inspection Carotids: Negative bruit Chest Chest inspection: normal inspection of the chest and normal respiratory effort Auscultation: Bilateral: Clear to Auscultation Cardio Palpation: normal PMI Rate: regular rate Rhythm: regular rhythm Heart sounds: S1 normal, S2 normal and murmur; Negative rub or gallop Murmur: Grade 4/6, harsh, mid systolic, LLSB and sternal notch GI GI: normal to inspection, soft and obese; Negative no hepatosplenomegaly Neuro General: patient alert, patient oriented x3 and CN's II-XI intact bilaterally Skin Skin: no rashes or lesions noted Extremities Pulses: Normal: Right Posterior Tibial Pulse, Left Posterior Tibial Pulse, Right Radial Pulse and Left Radial Pulse Lower Extremity Edema: None: Bilateral Psych Psychological: normal affect Supplemental Info Supplemental Information RENAL ARTERY DUPLEX 12/29/21 CONCLUSION Summary: 1. Hemodynamically significant arterial stenosis, involving the right renal artery. This is consistent with a greater than 60% stenosis. 2. There is evidence of an abnormal end diastolic ratio and/or resistive index value involving the right kidney, suggesting intrinsic kidney disease. 3. There is evidence of an abnormal end diastolic ratio and/or resistive index value involving the left kidney, suggesting intrinsic kidney disease Right renal: The right renal artery is consistent with 60%-90% stenosis by velocity criteria. RAR of 2.78 likely underestimated due to high velocities in the aorta. Greater than 200 cm/sec velocities noted at the origin of the right renal artery. The resistive indices appear abnormal which may suggest medical kidney disease. The end diastolic ratios appear abnormal which may suggest medical kidney disease. ? Left renal: The left renal artery is consistent with a less than 60% stenosis by velocity criteria, with an RAR of 1.2. The resistive indices appear abnormal which may suggest medical kidney disease. The end diastolic ratios appear abnormal which may suggest medical kidney disease. Echocardiogram from 03/16/2022: Interpretation Summary Normal LV size. Moderate concentric left ventricular hypertrophy. Left ventricular systolic function is normal. The estimated ejection fraction is 65 %. Stage 2 diastolic dysfunction. Moderate diffuse aortic valve thickening. Mean aortic valve gradient 43 mmHg. Mild (1+) aortic valve insufficiency. Moderately severe aortic stenosis Moderate pulmonary hypertension. Assessment and Plan Assessment and Plan (1) Right renal artery stenosis: Status: Acute Plan: She does have evidence of renal artery stenosis as noted above. We would reevaluate her after the vascular surgeon performs the procedure. (3) Nonrheumatic aortic (valve) stenosis with insufficiency: Status: Chronic Plan: Her echocardiogram on 03/16/2022 showed moderately severe aortic valve stenosis with a peak aortic valve gradient of 73 mmHg, mean aortic valve gradient of 43.3 mmHg, and aortic valve area 1.1/1.0 cm?. She will proceed with heart catheterization as part of her valve surgery work-up. (4) Essential (primary) hypertension: Status: Chronic Plan: Hopefully with her renal procedure this would be improved. (5) Hyperlipidemia: Status: Chronic Qualifiers: Hyperlipidemia type: unspecified Qualified Code(s): E78.5 - Hyperlipidemia, unspecified Plan: She does demonstrate evidence of hyperlipidemia. Her most recent lipid profile demonstrated total cholesterol 145, LDL of 70 HDL of 58 triglycerides which were normal. No other changes will be made.
--- NOTE | 2022-05-28 12:16 | CL.D_ITS ---
Patient Name: MARLINE WOOD Study Date: 05/28/2022 Performing: Venkata Lopez MD Ht: 61 inches 154.94 cm : 1945 Wt: 227.01 lbs 102.97 kg Age: 77 Gender: female BSA: 1.99 PROCEDURE(S) PERFORMED [id number])[facility] CLINICAL PROFILE AND INDICATIONS Indications: Valvular Disease Heart Failure: None Stress/Imaging Stress/Image Study Performed: No CAD Presentations: Symptom unlikely to be ischemic. CONCLUSIONS Non obstructive coronary arteries Aortic Valve Stenosis- Severe RECOMMENDATIONS Consider TAVR DESCRIPTION OF PROCEDURE The patient arrived to the procedure lab. The risks and benefits of the procedure as well as a full description of our services here and current unavailability of surgical backup were fully explained to the patient and/or their significant other prior to the catheterization. The Timeout was completed, verifying the correct patient and procedure. The patient's procedural site was prepped and draped in the usual fashion. Local anesthetic was given subcutaneously to right radial region with Lidocaine 2%. Using a modified Seldinger technique, arterial access was obtained via the right radial artery, a 6Fr sheath was inserted. Right Coronary Artery selective angiography was then performed in multiple views using a 5 Fr. 4.0 Onaway catheter. Left Coronary Artery selective angiography was performed in multiple views using a 5 Fr. 4.0 Onaway catheter.The arterial sheath was pulled and a TR Band was applied for hemostasis. The arterial sheath was pulled and a TR Band was applied for hemostasis CORONARY ANGIOGRAPHY DOMINANCE: Right Dominant LEFT HEART ASSESSMENT Left Ventricular Ejection Fraction: by Echo 60 % Normal Left Ventricular systolic function LEFT MAIN: Angiographically normal LEFT ANTERIOR DESCENDING ARTERY: No significant disease noted CIRCUMFLEX ARTERY: No significant disease noted RIGHT CORONARY ARTERY: No significant disease noted VALVE FINDINGS: Aortic Valve Calcification - severe Aortic Valve Stenosis - severe COMPLICATIONS No Complications PROCEDURE MEDICATIONS Fentanyl 50 mcg IV Versed 1 mg IV Versed 1 mg IV Oxygen: 2 L/min via nasal cannula Heparin given IA 05/28/2022 11:49:18 Verapamil 2.5mg, Ntg 100mcgs, 3000 units of Heparin given IA 05/28/2022 11:49:18 IV Fluids: .9 NaCl IV started @ 150 ml/hr 05/28/2022 09:45:52 SUMMARY OF HEMODYNAMIC DATA Time AIR REST ECG 09:47:57 Art 181/46 (98) 11:48:52 AO 174/44 (93) SA 11:54:11 Signed By Venkata Lopez MD On 05/28/2022 12:15:24 Venkata Lopez MD
== END 2022-05-28 16:09 | disposition home or self-care (01) ==
PROVIDERS: PCP Nurse Practitioner Family; Referring Provider Internal Medicine Cardiovascular Disease; Visit Provider Internal Medicine Cardiovascular Disease
DX: I70.1 Atherosclerosis of renal artery (principal); E11.22 Type 2 diabetes mellitus with diabetic chronic kidney disease; N18.32 Chronic kidney disease, stage 3b; I35.0 Nonrheumatic aortic (valve) stenosis; I36.1 Nonrheumatic tricuspid (valve) insufficiency; E78.5 Hyperlipidemia, unspecified; I12.9 Hypertensive chronic kidney disease with stage 1 through stage 4 chronic kidney disease, or unspecified chronic kidney disease; E66.9 Obesity, unspecified; Z79.82 Long term (current) use of aspirin; Z79.01 Long term (current) use of anticoagulants; Z79.899 Other long term (current) drug therapy; I51.89 Other ill-defined heart diseases
CPT/HCPCS: 71046; 93005; 93454; 99152; 99153; Q9967; C1769; C1887; C1894; J1940

== ENCOUNTER → 2022-06-04 | Outpatient (CLI) | payer MEDICARE, OTHER, SELFPAY ==
[2022-06-04 11:32] LABS: Anion Gap 6 (5-15); BUN 51 mg/dL (7-18); BUN/Creat Ratio 19.8 RATIO (10-20); Chloride 107 mmol/L (98-107); Creatinine, Serum 2.57 mg/dL (0.55-1.02); EST Glomerular Filtration Rate 19 mL/min (>60); Est Glom Filt Rate - Afr Amer 23 mL/min (>60); Glucose 122 mg/dL (74-106); Potassium 3.9 mmol/L (3.5-5.1); Sodium Level 142 mmol/L (136-145)
== END | disposition home or self-care (01) ==
LOC: LAB 10:13
PROVIDERS: PCP Nurse Practitioner Family; Referring Provider Internal Medicine Cardiovascular Disease; Visit Provider Internal Medicine Cardiovascular Disease
DX: E11.9 Type 2 diabetes mellitus without complications (principal); E78.5 Hyperlipidemia, unspecified; I10 Essential (primary) hypertension; I35.2 Nonrheumatic aortic (valve) stenosis with insufficiency; I51.7 Cardiomegaly
CPT/HCPCS: 36415; 80048

== ENCOUNTER → 2022-06-12 | Outpatient (CLI) | payer MEDICARE, OTHER, SELFPAY ==
[2022-06-12 11:24] LABS: Hematocrit 34.2 % (37-47); Hemoglobin 10.5 g/dL (12.0-15.0); Mean Corp Hgb Conc 30.7 g/dL (32-36); Mean Corpuscular Hgb 30.1 pg (27.0-32.0); Mean Platelet Vol. 9.3 fl (6.2-12.0); Platelet Count 356 K/mm3 (150-450); RBC Distribution Width CV 13.5 % (11.6-14.6); Red Blood Count 3.49 M/mm3 (4.2-5.4); White Blood Count 6.4 K/mm3 (4.4-11.0)
[2022-06-12 11:38] LABS: Hemoglobin A1c 5.6 % (3.8-5.6)
[2022-06-12 11:43] LABS: PTHIN 28.8 pg/mL (18.4-80.1)
[2022-06-12 11:47] LABS: Vitamin D,25 Hydroxy 43.5 ng/mL
[2022-06-12 11:55] LABS: ALB/GLOB Ratio 1.1 RATIO (0.9-2.4); AST(SGOT) 23 U/L (15-37); Alanine Aminotransfer ALT/SGPT 27 U/L (13-56); Albumin, Serum 3.7 g/dL (3.2-5.0); Alkaline Phosphatase 65 U/L (45-117); Anion Gap 6 (5-15); BUN 42 mg/dL (7-18); Chloride 104 mmol/L (98-107); Cholesterol 146 mg/dL (200); Creatinine, Serum 2.62 mg/dL (0.55-1.02); EST Glomerular Filtration Rate 19 mL/min (>60); Est Glom Filt Rate - Afr Amer 23 mL/min (>60); Free T3 2.5 pg/mL (2.18-3.98); Globulin 3.3 g/dL (2.2-4.2); Glucose 129 mg/dL (74-106); High Density Lipoprotein 60 mg/dL; Iron 58 ug/dL (50-170); Potassium 3.7 mmol/L (3.5-5.1); Sodium Level 142 mmol/L (136-145); T4 Free Direct 1.27 ng/dL (0.76-1.46); Thyroid Stim Hormone (TSH) 3.04 uIU/mL (0.358-3.74); Triglycerides 107 mg/dL; Very Low Density Lipoprotein 21 mg/dL (5-40)
[2022-06-20 21:18] LABS: Renin, Plasma 1.131 ng/mL/hr (0.167-5.380)
== END | disposition home or self-care (01) ==
LOC: LAB 11:02
PROVIDERS: PCP Nurse Practitioner Family; Referring Provider Internal Medicine Cardiovascular Disease; Visit Provider Internal Medicine Cardiovascular Disease
DX: I12.9 Hypertensive chronic kidney disease with stage 1 through stage 4 chronic kidney disease, or unspecified chronic kidney disease (principal); E11.22 Type 2 diabetes mellitus with diabetic chronic kidney disease; N18.4 Chronic kidney disease, stage 4 (severe)
CPT/HCPCS: 36415; 80053; 80061; 82306; 83036; 83540; 83970; 84244; 84439; 84443; 84481; 84550; 85027

== ENCOUNTER 2022-06-20 02:30 | Emergency (ER) | payer MEDICARE, OTHER, SELFPAY ==
[2022-06-20 02:31] VITALS: BP 222/70; PULSE 80; RESP 14; TEMP 36.3; O2SAT 99; BMI 41.9
--- NOTE | 2022-06-20 02:46 | EDS_ITS ---
HPI <Dr. Desiree Desir MD - Last Filed: 06/20/22 09:46> History of Present Illness Chief Complaint: Nosebleed Informant: patient Onset/Context/Timing Onset: Today Narrative Narrative: Patient presents with a right-sided nosebleed. She states she blew her nose about an hour ago and developed right-sided nosebleed. She is unable to get bleeding controlled. She is on baby aspirin and Plavix. She denies recent URI symptoms or trauma. [facility] <Dr. Desiree Desir MD - Last Filed: 06/20/22 09:46> [facility] Medical History Anemia Chronic kidney disease (CKD) Chronic kidney disease (CKD) stage G3b/A1, moderately decreased glomerular filtration rate (GFR) between 30-44 mL/min/1.73 square meter and albuminuria creatinine ratio less than 30 mg/g Essential (primary) hypertension H/O renal calculi Hyperlipidemia Hyperparathyroidism Left ventricular diastolic dysfunction Left ventricular hypertrophy Nonrheumatic aortic (valve) stenosis with insufficiency Obesity Obesity due to excess calories Right renal artery stenosis Secondary pulmonary arterial hypertension Type 2 diabetes mellitus without complications Home Medications amlodipine 5 mg tablet 5 mg PO QDAY 06/06/17 [History Last Taken 05/28/22] atorvastatin 20 mg tablet (Lipitor) 20 mg PO QHS 06/06/17 [History Last Taken Unknown] calcium carbonate 500 mg-vitamin D3 10 mcg (400 unit) tablet (Calcium 500 + D) 1 tab PO QDAY 06/06/17 [History Last Taken Unknown] ferrous sulfate 325 mg (65 mg iron) tablet 325 mg PO QDAY 06/06/17 [History Last Taken Unknown] metoprolol succinate 100 mg tablet,extended release 24 hr (Toprol XL) 100 mg PO QDAY 06/06/17 [History Last Taken 05/28/22] multivitamin,[id number] (Complete Multivitamin tablet) 1 tab PO QDAY 06/06/17 [History Last Taken Unknown] pioglitazone 30 mg tablet 30 mg PO DAILY 03/03/20 [History Last Taken Unknown] allopurinol 100 mg tablet 50 mg PO QDAY 03/08/21 [History Last Taken Unknown] aspirin 81 mg tablet,delayed release (Adult Aspirin Regimen) 81 mg PO DAILY 03/13/22 [History Last Taken 05/28/22] clopidogrel 75 mg tablet (Plavix) 75 mg PO DAILY 05/15/22 [History Last Taken 05/28/22] Allergy/AdvReac Type Severity Reaction Status Date / Time erythromycin base Allergy Unknown Verified 06/20/22 08:51 [From Erythrocin] Macrolide Antibiotics Allergy Unknown Verified 06/20/22 08:51 Penicillins Allergy Unknown Verified 06/20/22 08:51 Surgical History H/O bilateral salpingectomy History of stent insertion of renal artery (03/28/22) Hx of cholecystectomy Social History Smoking Status: Never smoker alcohol intake: current alcohol intake frequency: holidays/special occasions only ROS <Dr. Desiree Desir MD - Last Filed: 06/20/22 09:46> ROS ED Constitutional Constitutional ED: Denies chills or fever(s) Eyes Eyes: Denies change in vision or discharge from eye(s) ENT ENT ED: Reports other Details: Right-sided nosebleed ; Denies discharge from eye(s), rhinorrhea or sore throat Cardiovascular Cardiovascular: Denies chest pain or palpitations Respiratory/Chest Respiratory/Chest: Denies cough or dyspnea Gastrointestinal Gastrointestinal: Denies abdominal pain, nausea or vomiting Musculoskeletal Musculoskeletal: Denies back pain Integumentary Denies Abrasions or rash Neurologic Neurologic: Denies headache(s) or weakness Allergic/Immunologic Allergic/Immunologic ED: Denies lip swelling or urticaria EXAM <Dr. Desiree Desir MD - Last Filed: 06/20/22 09:46> Physical Exam Const Vital Signs: 06/20/22 02:31 06/20/22 03:10 06/20/22 04:12 Temperature 97.3 F L Temperature Source Temporal Pulse Rate 80 73 73 Respiratory Rate 14 15 15 Blood Pressure 222/70 H 186/70 H 186/65 H Blood Pressure Mean 120 108 105 Pulse Ox 99 99 96 Oxygen Delivery Method Room Air Room Air Room Air 06/20/22 08:00 Temperature Temperature Source Pulse Rate 75 Respiratory Rate 16 Blood Pressure 174/69 H Blood Pressure Mean 104 Pulse Ox 99 Oxygen Delivery Method Room Air Positive well nourished and well developed General Appearance ED: well developed HEENT Reports moist mucous membranes HEENT Narrative: Blood in the right nare. Eyes PERRL and EOMs intact bilaterally Neck no lymphadenopathy Chest Wall inspection of chest normal and palpation of chest normal Resp normal respiratory effort and clear to auscultation bilaterally Cardio regular rate and regular rhythm GI non-tender Extremity normal to inspection Neuro oriented x3 and no sensory deficits noted Motor Exam: strength 5/5 throughout Psych mental status grossly normal Skin no rashes or lesions noted <Dr. Christophe Flores MD - Last Filed: 06/20/22 11:09> Physical Exam Const Vital Signs: 06/20/22 02:31 06/20/22 03:10 06/20/22 04:12 Temperature 97.3 F L Temperature Source Temporal Pulse Rate 80 73 73 Respiratory Rate 14 15 15 Blood Pressure 222/70 H 186/70 H 186/65 H Blood Pressure Mean 120 108 105 Pulse Ox 99 99 96 Oxygen Delivery Method Room Air Room Air Room Air 06/20/22 08:00 Temperature Temperature Source Pulse Rate 75 Respiratory Rate 16 Blood Pressure 174/69 H Blood Pressure Mean 104 Pulse Ox 99 Oxygen Delivery Method Room Air MDM <Dr. Desiree Desir MD - Last Filed: 06/20/22 09:46> [facility] MDM Narrative Medical decision making narrative: Cottonball soaked in Afrin and Cetacaine was initially placed in the right nare. This was removed and Merisel sponge was placed. As I entered the room to reevaluate the patient she stated been doing well, but just then started bleeding through again. In light of this the Merisel packing was removed and a 5.5 cm Rhino Rocket was placed. On repeat evaluation patient states that she is now bleeding from left nare as well. I tried to ensure that the Rhino Rocket was adequately inflated but she continued to have bleeding from the left. Rhino Rocket was removed and Page nasal packing was applied to both naris where she would have an open tube to make breathing easier. Unfortunately continued have trouble breathing with the Page nasal packing in place bilaterally. I spoke with the ENT office this morning when they opened. Typically I would admit a patient with bilateral nasal packings we can monitor her airway. The hospital is at very high census and we are boarding admitted patients in the ER. I asked if they would be able to see the patient in the office today so she could be discharged and they advised that they would not see her until packing has been in place for 5 days. In light of this I removed the bilateral nasal packing and placed a 7.5 cm Rhino Rocket on the right. After further observations he continued to have some bleeding from the left. Merisel packing has been placed temporarily and we will try thrombin in the left nare. At this is unsuccessful she would likely need transfer to [facility] to be evaluated by ENT. Patient and are aware the plan. Care will be assumed by oncoming physician. Patient's morning blood pressure medications have been ordered for her. Nurse has been updated on plan of care as well. <Dr. Christophe Flores MD - Last Filed: 06/20/22 11:09> Other Procedures Procedure(s): Epistaxis care: I removed the left short anterior Merocel packing, leaving the 7.5 cm rapid Rhino in place on the right. The patient was not actively bleeding but she had left naris full of clots and was unable to move any air. I removed some of them with forceps, and the patient was able to blow some of them out but still clotted off the airway on the left nose, so I injected 3 cc of sterile water, some of it went into the patient's posterior oropharynx and she spat it out, she was then able to blow out the rest of the clots from her nose which was blowing clear. She had very mild bleeding, we then had her aspirate 2 cc of reconstituted thrombin into the left naris, she was able to snort it all the way back to the posterior oropharynx, and we observed her for another half hour. She had no recurrent bleeding, and felt well, moving air through the left side, tolerating the right rapid Rhino well. She is comfortable going home. Discharge Plan Triage Chief Complaint: Nosebleed ED Provider: Desiree Desir Dx/Rx/DC Orders Clinical Impression: Epistaxis Instructions: Nosebleed Prescriptions: No Action atorvastatin [Lipitor] 20 mg tablet 20 mg PO QHS amlodipine 5 mg tablet 5 mg PO QDAY metoprolol succinate [Toprol XL] 100 mg tablet extended release 24 hr 100 mg PO QDAY ferrous sulfate 325 mg (65 mg iron) tablet 325 mg PO QDAY calcium carbonate-vitamin D3 [Calcium 500 + D] 500 mg(1,250mg) -400 unit tablet 1 tab PO QDAY multivitamin,rd-masy-efktzdvr tablet tablet 1 tab PO QDAY allopurinol 100 mg tablet 50 mg PO QDAY pioglitazone 30 mg tablet 30 mg PO DAILY aspirin [Adult Aspirin Regimen] 81 mg tablet,delayed release (DR/EC) 81 mg PO DAILY clopidogrel [Plavix] 75 mg tablet 75 mg PO DAILY Primary Care Provider: Frank Ramirez NP Referrals: Francis Silver MD [Med Staff - Active Staff] - 3-5 Days (call for appt) Frank Ramirez NP, [facility] [Primary Care Provider] - Activity Restrictions/Additional Instructions: Get any [id number]-tfz-wjvtowy nasal decongestant spray containing oxymetazoline or phenylephrine. For moderate-severe nosebleed: 1 - gather supplies: nasal decongestant spray (above), cotton ball, box of tissues, garbage can, old towel that you can wrap around your chest/neck (to catch blood) 2 - soak a cotton ball in the nasal spray 3 - blow your nose, get all blood and clots out, keep chin down to prevent blood from going back into throat and forming clots 4 - after blowing the last time, quickly spray 2 sprays of the nasal spray into the affected side and sniff it back, immediately followed by twisting the soaked cotton ball into the front of your nose and then hold pressure with your fingers. 5 - if bleeding controlled, leave cotton ball in place for at least 20 min before checking to see if the bleeding is controlled by removing the cotton ball. If not able to control bleeding, always welcome to return to the ER for help. Disposition Disposition: Home, Self Care
[2022-06-20] MEDS: Tetracaine/Benzocaine/Butamben 1 APPLIC TOPICAL (03:09)
[2022-06-20] MEDS: Oxymetazoline 0.05% 1 SPRAY SPRAY.BTL 2 SPRAY NASAL (03:09)
[2022-06-20 03:10] VITALS: BP 186/70; PULSE 73; RESP 15; O2SAT 99
[2022-06-20 04:12] VITALS: BP 186/65; PULSE 73; RESP 15; O2SAT 96
[2022-06-20 08:00] VITALS: BP 174/69; PULSE 75; RESP 16; O2SAT 99
[2022-06-20] MEDS: amLODIPine 5 MG Tablet PO (10:18)
[2022-06-20] MEDS: Metoprolol(XL)Succ 100 MG Tablet PO (10:19)
[2022-06-20] MEDS: Thrombin 5,000 IU Kit (PSA) 5,000 IU Vial 5000 IU TOPICAL (10:19)
[2022-06-20 11:13] VITALS: BP 161/57; PULSE 82; RESP 16; O2SAT 97
== END 2022-06-20 11:13 | disposition home or self-care (01) ==
PROVIDERS: Emergency Provider Emergency Medicine; PCP Nurse Practitioner Family; Visit Provider Emergency Medicine
DX: R04.0 Epistaxis (principal); E11.22 Type 2 diabetes mellitus with diabetic chronic kidney disease; N18.32 Chronic kidney disease, stage 3b; I12.9 Hypertensive chronic kidney disease with stage 1 through stage 4 chronic kidney disease, or unspecified chronic kidney disease; E78.5 Hyperlipidemia, unspecified; Z79.82 Long term (current) use of aspirin; Z79.01 Long term (current) use of anticoagulants
CPT/HCPCS: 30901; 99282; A4216

== ENCOUNTER 2022-06-21 11:56 | Emergency (ER) | payer MEDICARE, OTHER, SELFPAY ==
[2022-06-21 11:57] VITALS: BP 161/47; PULSE 64; RESP 17; TEMP 36.5; O2SAT 99; BMI 41.1
--- NOTE | 2022-06-21 12:36 | EDS_ITS ---
HPI History of Present Illness Chief Complaint: Nosebleed Informant: patient Narrative Narrative: Patient is a 77 year old felame with history of heart murmur, renal artery stent placed within the last year and nasal septal defect. She was diagnosed with epistaxis yesterday and had packing placed. She has follow-up with Dr. Borrero next week but was told her back he needs to be in place for 5 days as she is still on her Plavix. Today she notes that her packing seem to shift and she came in for repeat evaluation of her nasal packing. She denies any significant discomfort. Is not currently on any antibiotics. Has no other complaints at this time. [facility] Medical History Anemia Chronic kidney disease (CKD) Chronic kidney disease (CKD) stage G3b/A1, moderately decreased glomerular filtration rate (GFR) between 30-44 mL/min/1.73 square meter and albuminuria creatinine ratio less than 30 mg/g Essential (primary) hypertension H/O renal calculi Hyperlipidemia Hyperparathyroidism Left ventricular diastolic dysfunction Left ventricular hypertrophy Nonrheumatic aortic (valve) stenosis with insufficiency Obesity Obesity due to excess calories Right renal artery stenosis Secondary pulmonary arterial hypertension Type 2 diabetes mellitus without complications Home Medications amlodipine 5 mg tablet 5 mg PO QDAY 06/06/17 [History Last Taken 05/28/22] atorvastatin 20 mg tablet (Lipitor) 20 mg PO QHS 06/06/17 [History Last Taken Unknown] calcium carbonate 500 mg-vitamin D3 10 mcg (400 unit) tablet (Calcium 500 + D) 1 tab PO QDAY 06/06/17 [History Last Taken Unknown] ferrous sulfate 325 mg (65 mg iron) tablet 325 mg PO QDAY 06/06/17 [History Last Taken Unknown] metoprolol succinate 100 mg tablet,extended release 24 hr (Toprol XL) 100 mg PO QDAY 06/06/17 [History Last Taken 05/28/22] multivitamin,[id number]-[id number] (Complete Multivitamin tablet) 1 tab PO QDAY [History Last Taken Unknown] pioglitazone 30 mg tablet 30 mg PO DAILY 03/03/20 [History Last Taken Unknown] allopurinol 100 mg tablet 50 mg PO QDAY 03/08/21 [History Last Taken Unknown] aspirin 81 mg tablet,delayed release (Adult Aspirin Regimen) 81 mg PO DAILY 03/13/22 [History Last Taken 05/28/22] clopidogrel 75 mg tablet (Plavix) 75 mg PO DAILY 05/15/22 [History Last Taken 05/28/22] cephalexin 500 mg capsule 500 mg PO Q12 #10 caps 06/21/22 [Rx Last Taken Unknown] Allergy/AdvReac Type Severity Reaction Status Date / Time erythromycin base Allergy Unknown Verified 06/21/22 11:57 [From Erythrocin] Macrolide Antibiotics Allergy Unknown Verified 06/21/22 11:57 Penicillins Allergy Unknown Verified 06/21/22 11:57 Surgical History H/O bilateral salpingectomy History of stent insertion of renal artery (03/28/22) Hx of cholecystectomy Social History Smoking Status: Never smoker alcohol intake: current alcohol intake frequency: holidays/special occasions only ROS ROS ED Constitutional Constitutional ED: Denies chills or fever(s) Eyes Eyes: Denies diplopia ENT ENT ED: Reports other Details: epistaxis with nasal packing on right Cardiovascular Cardiovascular: Denies chest pain or palpitations Respiratory/Chest Respiratory/Chest: Denies cough or dyspnea Gastrointestinal Gastrointestinal: Denies abdominal pain, nausea or vomiting Musculoskeletal Musculoskeletal: Denies myalgias Integumentary Denies rash Neurologic Neurologic: Denies headache(s) or weakness Hematologic/Lymphatic Hematologic/Lymphatic: Reports easy bleeding EXAM Physical Exam Const Vital Signs: 06/21/22 11:57 Temperature 97.7 F L Temperature Source Temporal Pulse Rate 64 Respiratory Rate 17 Blood Pressure 161/47 H Blood Pressure Mean 85 Pulse Ox 99 Oxygen Delivery Method Room Air Positive well nourished and well developed General Appearance ED: well developed and NAD; Negative for pallor HEENT Reports moist mucous membranes HEENT Narrative: nasal septal defect, nasal packing in place in the right naris. No active bleeding appreciated. Nasal packing is protruding slightly and it is removed. There is still some oozing of blood on exam. No obvious area for cautery. No blood noted in the oropharynx. Eyes PERRL and EOMs intact bilaterally Neck supple Chest Wall inspection of chest normal and palpation of chest normal Resp normal respiratory effort and clear to auscultation bilaterally Cardio regular rate and regular rhythm Cardio Narrative: Positive murmur GI normal to inspection, nondistended, normoactive bowel sounds Neuro oriented x3 Sensorium / Orientation: alert Motor Exam: Negative for general weakness Psych mental status grossly normal Skin no rashes or lesions noted General Skin Exam: Negative for pallor MDM MDM MDM Narrative Medical decision making narrative: Patient is evaluated as she is concerned that her nasal packing is coming out. Decision made to replace it as ENT recommended packing in place for 5 days as patient is still on Plavix. A new 5.5 cm anterior Rhino Rocket is placed. Patient tolerated this well. No immediate complications. Patient given on empty 10 cc syringe and has been counseled how to inflate and deflate the balloon in case it becomes dislodged again. They are counseled to deflate the balloon, pushed back in and then replaced the balloon as the patient tolerates. Abscess packing will be in place for more than 48 hours, will prescribe patient prophylactic Keflex. Patient has a documented penicillin allergy. Discharge Plan Triage Chief Complaint: Nosebleed ED Provider: Milly Miller Dx/Rx/DC Orders Clinical Impression: Epistaxis Instructions: ED Epistaxis (Adult) Prescriptions: New cephalexin 500 mg capsule 500 mg PO Q12 Qty: 10 0RF Rx Instructions: take while nasal packing in place No Action atorvastatin [Lipitor] 20 mg tablet 20 mg PO QHS amlodipine 5 mg tablet 5 mg PO QDAY metoprolol succinate [Toprol XL] 100 mg tablet extended release 24 hr 100 mg PO QDAY ferrous sulfate 325 mg (65 mg iron) tablet 325 mg PO QDAY calcium carbonate-vitamin D3 [Calcium 500 + D] 500 mg(1,250mg) -400 unit tablet 1 tab PO QDAY multivitamin,cc-ixni-ggaiijmh tablet tablet 1 tab PO QDAY allopurinol 100 mg tablet 50 mg PO QDAY pioglitazone 30 mg tablet 30 mg PO DAILY aspirin [Adult Aspirin Regimen] 81 mg tablet,delayed release (DR/EC) 81 mg PO DAILY clopidogrel [Plavix] 75 mg tablet 75 mg PO DAILY Primary Care Provider: Frank Ramirez NP Referrals: Frank Ramirez NP, FRONT END ENGINEER-C [Primary Care Provider] - Disposition Disposition: Home, Self Care
[2022-06-21 12:56] VITALS: BP 128/76; PULSE 66; RESP 18; TEMP 36.6; O2SAT 99
== END 2022-06-21 13:11 | disposition home or self-care (01) ==
PROVIDERS: Emergency Provider Emergency Medicine; PCP Nurse Practitioner Family; Visit Provider Emergency Medicine
DX: R04.0 Epistaxis (principal); E11.22 Type 2 diabetes mellitus with diabetic chronic kidney disease; N18.32 Chronic kidney disease, stage 3b; Z79.01 Long term (current) use of anticoagulants; I12.9 Hypertensive chronic kidney disease with stage 1 through stage 4 chronic kidney disease, or unspecified chronic kidney disease; J34.2 Deviated nasal septum; E78.5 Hyperlipidemia, unspecified
CPT/HCPCS: 30901; 99282

== ENCOUNTER → 2022-07-23 | Outpatient (CLI) | payer MEDICARE, OTHER, SELFPAY ==
[2022-07-23 15:40] LABS: Hematocrit 26.5 % (37-47); Hemoglobin 8.2 g/dL (12.0-15.0); Mean Corp Hgb Conc 30.9 g/dL (32-36); Mean Corpuscular Hgb 30.3 pg (27.0-32.0); Mean Corpuscular Volume 97.8 fL (81-99); Platelet Count 263 K/mm3 (150-450); Red Blood Count 2.71 M/mm3 (4.2-5.4); White Blood Count 7.3 K/mm3 (4.4-11.0)
[2022-07-23 16:16] LABS: Anion Gap 12 (5-15); BUN 38 mg/dL (7-18); BUN/Creat Ratio 15.8 RATIO (10-20); Calcium,Total 10.3 mg/dL (8.5-10.1); Chloride 108 mmol/L (98-107); EST Glomerular Filtration Rate 21 mL/min (>60); Est Glom Filt Rate - Afr Amer 25 mL/min (>60); Glucose 186 mg/dL (74-106); Potassium 4.1 mmol/L (3.5-5.1); Sodium Level 145 mmol/L (136-145)
== END | disposition home or self-care (01) ==
LOC: LAB 14:54
PROVIDERS: PCP Nurse Practitioner Family
DX: I35.0 Nonrheumatic aortic (valve) stenosis (principal)
CPT/HCPCS: 36415; 80048; 85027

== ENCOUNTER → 2022-09-10 | Outpatient (CLI) | payer MEDICARE, OTHER, SELFPAY ==
[2022-09-10 15:50] LABS: Absolute Lymphocyte Count 0.63 X10^3/uL (0.83-4.51); Absolute Neutrophil Count 5.1 X10^3/uL (2.0-7.7); Basophil% 1.5 % (0-1); Eosinophil# 0.25 X10^3/uL; Eosinophils% 3.8 % (0-5); Hematocrit 31.2 % (37-47); Hemoglobin 9.6 g/dL (12.0-15.0); Lymphocyte # 0.63 X10^3/ul (0.83-4.51); Lymphocyte % 9.6 % (19-41); Mean Corp Hgb Conc 30.8 g/dL (32-36); Mean Corpuscular Hgb 29.4 pg (27.0-32.0); Mean Corpuscular Volume 95.4 fL (81-99); Mean Platelet Vol. 9.8 fl (6.2-12.0); Monocyte# 0.49 X10^3/uL; Monocyte% 7.5 % (0-10); NRBC Flagged by Analyzer 0 % (0-5); Neutrophil # 5.06 X10^3/uL (2.7-7.7); Neutrophil % 77.1 % (47-70); Platelet Count 302 K/mm3 (150-450); RBC Distribution Width CV 13.4 % (11.6-14.6); RBC Distribution Width SD 46.7 fl (35.1-43.9); Red Blood Count 3.27 M/mm3 (4.2-5.4); White Blood Count 6.6 K/mm3 (4.4-11.0)
[2022-09-10 15:58] LABS: Protein, Urine (Random) 260.6 mg/dL (<11.9); Protein:Creat Ratio 2036 mg/g CRE (0-200)
[2022-09-10 16:10] LABS: Albumin, Serum 3.5 g/dL (3.2-5.0); BUN 32 mg/dL (7-18); BUN/Creat Ratio 14.7 RATIO (10-20); Calcium,Total 10.5 mg/dL (8.5-10.1); Chloride 107 mmol/L (98-107); Creatinine, Serum 2.17 mg/dL (0.55-1.02); EST Glomerular Filtration Rate 23 mL/min (>60); Est Glom Filt Rate - Afr Amer 28 mL/min (>60); Glucose 116 mg/dL (74-106); Iron 40 ug/dL (50-170); Iron Binding Capacity,Total 345 ug/dL (250-450); Phosphorus 3.2 mg/dL (2.5-4.9); Potassium 3.7 mmol/L (3.5-5.1); Sodium Level 142 mmol/L (136-145)
[2022-09-10 16:16] LABS: Vitamin D,25 Hydroxy 37.7 ng/mL
[2022-09-11 08:40] LABS: PTHIN 11.3 pg/mL (18.4-80.1)
== END | disposition home or self-care (01) ==
LOC: LAB 13:31
PROVIDERS: Physician Assistant Medical; PCP Nurse Practitioner Family; Visit Provider Internal Medicine Nephrology
DX: R80.9 Proteinuria, unspecified (principal); N18.32 Chronic kidney disease, stage 3b; E55.9 Vitamin D deficiency, unspecified; D50.9 Iron deficiency anemia, unspecified
CPT/HCPCS: 36415; 80069; 82306; 82570; 83540; 83550; 83970; 84156; 85025

== ENCOUNTER → 2022-10-12 | Outpatient (CLI) | payer MEDICARE, OTHER, SELFPAY ==
--- NOTE | 2022-10-12 08:46 | RDU_ITS ---
Reason For Study: Stenosis Right Renal Artery Left Renal Artery Right renal artery ostium Left renal artery ostium 117.1/23.3 170.1/40.8 RSV/EDV. PSV/EDV. Right renal artery proximal Unable to visualize prox and mid 134.5 /34.3 PSV/EDV. LRA. Right renal artery mid 147.5/40.8 Left renal artery distal 76.0/12.2 PSV/EDV. PSV/EDV. Right renal artery distal Left RAR 1.20. 121.6/37.5 PSV/EDV. Left Renal Parenchyma Right RAR 1.74. Left upper pole medulla 46.0/7.6 Right Renal Parenchyma PSV/EDV . Upper Pole Medula 39.1/6.2 PSV/EDV. Left upper pole medulla EDR 0.20 . Right upper pole medulla EDR 0.20 . Left upper pole medulla R.I. 0.84 . Right upper pole medulla R.I. UP Cortex 13.0/4.3 PSV/EDV. 0.84 . Left upper pole cortex EDR 0.30 . Upper Jag Cortx 21.5/5.6 PSV/EDV. Left upper pole cortex R.I. 0.67 . Right upper pole cortex EDR 0.30 . Left lower Pole medulla 30.5/5.6 Right upper pole cortex R.I. 0.74 . PSV/EDV . Right lower Pole medulla 47.4/8.1 Left lower pole medulla EDR 0.20 . PSV/EDV . Left lower pole medulla R.I. 0.82 . Right lower pole medulla EDR 0.20 . Lower Pole Cortx 12.2/5.6 PSV/EDV. Right lower pole medulla R.I. Left lower pole cortex EDR 0.50 . 0.83 . Left lower pole cortex R.I. 0.54 . Lower Pole Cortex 29.1/7.2 PSV/EDV. Left Renal Hilar Right lower pole cortex EDR 0.20 . LT Hilar avg 66.9/14.2 PSV/EDV . Right lower pole cortex R.I. 0.75 . Left hilar acceleration time 40 Right Renal Hilar m/sec. Right Hilar avg 102.1/23.6 PSV/EDV. Left Renal Dimensions Right hilar acceleration time 20 Left kidney size 10.60 cm . m/sec. Left cortical dimension 1.23 cm . Right Renal Dimensions Right kidney size 12.47 cm . Right cortical dimension 1.65 cm . Aorta Proximal abdominal aorta 2.01 x 2.04 cm . Distal abdominal aorta 1.28 x 1.27 cm . Proximal abdominal aorta peak systolic velocity is 100.1 cm/sec . Distal abdominal aorta peak systolic velocity is 97.9 cm/sec . Procedures Technically difficult study due to irregular heart rhythms. VL/Renal Artery Duplex Ultrasound Interpretation Summary Bilateral renals <60% where seen. Ordering Physician: Albert Rose Referring Physician: Frank Ramirez Performed By: Isrrael Jeffers RVT
--- NOTE | 2022-10-12 08:47 | ECHOD_ITS ---
Reason For Study: AFIB/FLUTTER Procedure This was a 2D Doppler, Color Flow transthoracic echocardiogram. Exam performed in department. Left Ventricle Normal LV size. Mild concentric left ventricular hypertrophy. Left ventricular systolic function is normal. The estimated ejection fraction is 60 %. Unable to assess diastolic dysfunction due to arrhythmia. No regional wall motion abnormalities noted. Right Ventricle Normal RV size. Normal systolic function. Atria Normal left atrium. Normal right atrium. Mitral Valve There is mild mitral annular calcification. Mild (1+) eccentric mitral valve insufficiency. Tricuspid Valve Normal tricuspid valve. Mild (1+) tricuspid valve insufficiency. Pulmonary artery systolic pressure is 50 mmHg. Mild pulmonary hypertension. Aortic Valve Peak aortic valve gradient 34 mmHg. Mean aortic valve gradient 17 mmHg. Normal prosthetic aortic valve. Pericardium/Pleural No pericardial effusion. MMode/2D Measurements & Calculations LVIDd: 4.9 cm IVSd: 1.3 cm LVOT diam: 2.0 cm LVIDs: 3.2 cm LVPWd: 1.2 cm LVOT area: 3.1 cm2 RVDd: 2.9 cm FS: 34.5 % LAV(MOD-bp): 68.9 ml EDV(MOD-sp4): 67.2 ml EDV(MOD-sp2): 90.5 ml ESV(MOD-sp4): 22.7 ml ESV(MOD-sp2): 38.1 ml LAV(MOD-bp) Indexed: 35.1 ml/m2 EF(MOD-sp4): 66.2 % EF(MOD-sp2): 57.8 % LAV(MOD-sp2): 73.9 ml LAV(MOD-sp4): 64.2 ml SV(MOD-sp4): 44.5 ml SV(MOD-sp2): 52.3 ml LA A4 area: 20.8 cm2 LA dimension(2D): 5.0 cm RA A4 area: 15.2 cm2 Doppler Measurements & Calculations MV E max pratibha: 125.1 cm/sec MV V2 max: 186.8 cm/sec Ao V2 max: 292.7 cm/sec MV max P.0 mmHg Ao max P.3 mmHg MV V2 mean: 97.1 cm/sec Ao V2 mean: 195.8 cm/sec MV mean P.6 mmHg Ao mean P.3 mmHg MV V2 VTI: 34.9 cm Ao V2 VTI: 58.3 cm MVA(VTI): 2.1 cm2 AV (velocity ratio): 0.40 KATHY(I,D): 1.2 cm2 KATHY(V,D): 1.0 cm2 LV V1 max: 98.4 cm/sec MR max pratibha: 610.6 cm/sec SV(LVOT): 71.9 ml LV V1 max P.9 mmHg MR max P.1 mmHg LV V1 mean P.4 mmHg LV V1 mean: 72.8 cm/sec LV V1 VTI: 23.1 cm PA V2 max: 114.5 cm/sec TR max pratibha: 339.9 cm/sec TR max P.2 mmHg ECHO/Echo Complete Interpretation Summary Normal LV size. Mild concentric left ventricular hypertrophy. Left ventricular systolic function is normal. The estimated ejection fraction is 60 %. Unable to assess diastolic dysfunction due to arrhythmia. Normal prosthetic aortic valve. Mean aortic valve gradient 17 mmHg. Compared to the previous there is a bioprosthetic aortic valve present now. Ordering Physician: ALFONSO SHANNON Referring Physician: ALFONSO SHANNON Performed By: Charissa Ren, CORINE, RVT
== END | disposition home or self-care (01) ==
LOC: CVS 08:45
PROVIDERS: PCP Nurse Practitioner Family; Visit Provider Surgery Vascular Surgery
DX: I48.91 Unspecified atrial fibrillation (principal); I70.1 Atherosclerosis of renal artery; I77.1 Stricture of artery; I51.7 Cardiomegaly; R94.31 Abnormal electrocardiogram [ECG] [EKG]; I10 Essential (primary) hypertension
CPT/HCPCS: 93306; 93975

== ENCOUNTER → 2022-10-24 | Outpatient (CLI) | payer MEDICARE, OTHER, SELFPAY | END | disposition home or self-care (01) | LOC: PSN 12:27 | PROVIDERS: PCP Nurse Practitioner Family; Referring Provider Physician Assistant Medical; Visit Provider Physician Assistant Medical | DX: I48.0 Paroxysmal atrial fibrillation (principal) | CPT/HCPCS: 93225; 93226 ==

== ENCOUNTER → 2022-12-19 | Outpatient (CLI) | payer MEDICARE, OTHER, SELFPAY ==
[2022-12-19 11:25] LABS: Hematocrit 32.3 % (37-47); Hemoglobin 10.1 g/dL (12.0-15.0); Mean Corp Hgb Conc 31.3 g/dL (32-36); Mean Corpuscular Hgb 29.2 pg (27.0-32.0); Mean Corpuscular Volume 93.4 fL (81-99); Mean Platelet Vol. 9.7 fl (6.2-12.0); Platelet Count 286 K/mm3 (150-450); RBC Distribution Width CV 13.9 % (11.6-14.6); RBC Distribution Width SD 47.6 fl (35.1-43.9); Red Blood Count 3.46 M/mm3 (4.2-5.4); White Blood Count 8.2 K/mm3 (4.4-11.0)
[2022-12-19 11:55] LABS: PTHIN 11.5 pg/mL (18.4-80.1)
[2022-12-19 11:58] LABS: Vitamin D,25 Hydroxy 52.6 ng/mL
[2022-12-19 12:24] LABS: ALB/GLOB Ratio 0.9 RATIO (0.9-2.4); AST(SGOT) 25 U/L (15-37); Alanine Aminotransfer ALT/SGPT 21 U/L (13-56); Albumin, Serum 3.3 g/dL (3.2-5.0); Alkaline Phosphatase 74 U/L (45-117); Anion Gap 6 (5-15); BUN 43 mg/dL (7-18); Calcium,Total 10.4 mg/dL (8.5-10.1); Chloride 109 mmol/L (98-107); Cholesterol 145 mg/dL (200); Creatinine, Serum 2.53 mg/dL (0.55-1.02); EST Glomerular Filtration Rate 20 mL/min (>60); Est Glom Filt Rate - Afr Amer 24 mL/min (>60); Globulin 3.6 g/dL (2.2-4.2); Glucose 104 mg/dL (74-106); High Density Lipoprotein 60 mg/dL; Potassium 3.9 mmol/L (3.5-5.1); Protein, Total 6.9 g/dL (6.4-8.2); Sodium Level 142 mmol/L (136-145); Thyroid Stim Hormone (TSH) 2.91 uIU/mL (0.358-3.74); Triglycerides 96 mg/dL; Very Low Density Lipoprotein 19 mg/dL (5-40)
[2023-01-03 22:07] LABS: Renin, Plasma 1.063 ng/mL/hr (0.167-5.380)
== END | disposition home or self-care (01) ==
PROVIDERS: PCP Nurse Practitioner Family; Referring Provider Nurse Practitioner Family; Visit Provider Nurse Practitioner Family
DX: N18.4 Chronic kidney disease, stage 4 (severe) (principal); E11.22 Type 2 diabetes mellitus with diabetic chronic kidney disease; I70.1 Atherosclerosis of renal artery; I12.9 Hypertensive chronic kidney disease with stage 1 through stage 4 chronic kidney disease, or unspecified chronic kidney disease; E78.5 Hyperlipidemia, unspecified
CPT/HCPCS: 36415; 80053; 80061; 82043; 82306; 83970; 84244; 84443; 85027

== ENCOUNTER → 2023-01-10 | Outpatient (CLI) | payer MEDICARE, OTHER, SELFPAY ==
[2023-01-10 17:01] LABS: Protein, Urine (Random) 241.8 mg/dL (<11.9); Protein:Creat Ratio 2445 mg/g CRE (0-200)
[2023-01-10 17:13] LABS: Anion Gap 6 (5-15); BUN 50 mg/dL (7-18); BUN/Creat Ratio 17.1 RATIO (10-20); Calcium,Total 10.6 mg/dL (8.5-10.1); Chloride 106 mmol/L (98-107); Creatinine, Serum 2.93 mg/dL (0.55-1.02); EST Glomerular Filtration Rate 17 mL/min (>60); Est Glom Filt Rate - Afr Amer 20 mL/min (>60); Glucose 156 mg/dL (74-106); Potassium 4.5 mmol/L (3.5-5.1); Sodium Level 138 mmol/L (136-145)
[2023-01-14 13:13] LABS: Immunoglobulin A 95 mg/dL (64-422); Immunoglobulin G 720 mg/dL (586-1602); Immunoglobulin M 73 mg/dL (26-217); PROEL- A/G Ratio 1.1 (0.7-1.7); PROEL- Albumin 3.5 g/dL (2.9-4.4); PROEL- Alpha-1 Globulin 0.4 g/dL (0.0-0.4); PROEL- Beta Globulin 0.9 g/dL (0.7-1.3); PROEL- Gamma Globulin 0.8 g/dL (0.4-1.8); PROEL- Globulin, Total 3.1 g/dL (2.2-3.9); PROEL- TOTAL PROTEIN 6.6 g/dL (6.0-8.5)
== END | disposition home or self-care (01) ==
LOC: LAB 15:55
PROVIDERS: PCP Nurse Practitioner Family; Referring Provider Internal Medicine Nephrology; Visit Provider Internal Medicine Nephrology
DX: N18.32 Chronic kidney disease, stage 3b (principal); R80.9 Proteinuria, unspecified
CPT/HCPCS: 36415; 80048; 82570; 82784; 84156; 84165; 86334

== ENCOUNTER → 2023-02-01 | Outpatient (CLI) | payer MEDICARE, OTHER, SELFPAY ==
--- NOTE | 2023-02-01 09:04 | RDU_ITS ---
Reason For Study: CKD Right Renal Artery Left Renal Artery Right renal artery ostium Left renal artery ostium 118.1/19.7 151.8/19.7 RSV/EDV. PSV/EDV. Right renal artery proximal Left renal artery proximal PSV/EDV 107.8/24.9 PSV/EDV. 92.2/17.11 . Right renal artery mid 113/27.5 Left renal artery mid 97/12.2 PSV/EDV. PSV/EDV . Right renal artery distal Left renal artery distal 124.3/17 123.5/15.7 PSV/EDV. PSV/EDV. Right Renal Parenchyma Left Renal Parenchyma Upper Pole Medula 28.6/4.1 PSV/EDV. Left upper pole medulla 33.7/6.1 Right upper pole medulla EDR 0.1 . PSV/EDV . Right upper pole medulla R.I. Left upper pole medulla EDR 0.2 . 0.86 . Left upper pole medulla R.I. 0.82 . Upper Jag Cortx 14.9/4.1 PSV/EDV. UP Cortex 18.4/5.5 PSV/EDV. Right upper pole cortex EDR 0.3 . Left upper pole cortex EDR 0.3 . Right upper pole cortex R.I. 0.73 . Left upper pole cortex R.I. 0.70 . Right lower Pole medulla 24.4/4.5 Left lower Pole medulla 25.1/4.9 PSV/EDV . PSV/EDV . Right lower pole medulla EDR 0.2 . Left lower pole medulla EDR 0.2 . Right lower pole medulla R.I. Left lower pole medulla R.I. 0.81 . 0.81 . Lower Pole Cortx 14.7/4.9 PSV/EDV. Lower Pole Cortex 16.3/3.6 PSV/EDV. Left lower pole cortex EDR 0.3 . Right lower pole cortex EDR 0.2 . Left lower pole cortex R.I. 0.67 . Right lower pole cortex R.I. 0.78 . Left Renal Hilar Right Renal Hilar LT Hilar avg 84/9.4 PSV/EDV . Right Hilar avg 59.4/9.7 PSV/EDV. Left hilar acceleration time 70 Right hilar acceleration time 50 m/sec. m/sec. Left Renal Dimensions Right Renal Dimensions Left kidney size 12.13 cm . Right kidney size 12.47 cm . Left cortical dimension 1.52 cm . Right cortical dimension 1.98 cm . Aorta Proximal abdominal aorta 1.32 x 1.30 cm . Proximal abdominal aorta peak systolic velocity is 149.1 cm/sec . Distal abdominal aorta 1.20 x 1.17 cm . Distal abdominal aorta peak systolic velocity is 156.3 cm/sec . VL/Renal Artery Duplex Ultrasound Interpretation Summary Bilateral renal artery <60% stenosis. Ordering Physician: Leigh Delaney Referring Physician: Frank Ramirez Performed By: Madyson Davies RVT
== END | disposition home or self-care (01) ==
LOC: CVS 09:03
PROVIDERS: PCP Nurse Practitioner Family; Referring Provider Nurse Practitioner Adult Health; Visit Provider Nurse Practitioner Adult Health
DX: I12.9 Hypertensive chronic kidney disease with stage 1 through stage 4 chronic kidney disease, or unspecified chronic kidney disease (principal); N18.9 Chronic kidney disease, unspecified
CPT/HCPCS: 93975

== ENCOUNTER → 2023-02-20 | Outpatient (CLI) | payer MEDICARE, OTHER, SELFPAY ==
[2023-02-20 10:43] LABS: Hematocrit 30.7 % (37-47); Hemoglobin 9.4 g/dL (12.0-15.0); Mean Corp Hgb Conc 30.6 g/dL (32-36); Mean Corpuscular Hgb 29.7 pg (27.0-32.0); Mean Corpuscular Volume 97.2 fL (81-99); Mean Platelet Vol. 9.7 fl (6.2-12.0); Platelet Count 309 K/mm3 (150-450); RBC Distribution Width CV 14.2 % (11.6-14.6); RBC Distribution Width SD 51.1 fl (35.1-43.9); Red Blood Count 3.16 M/mm3 (4.2-5.4); White Blood Count 9.2 K/mm3 (4.4-11.0)
[2023-02-20 11:08] LABS: Albumin, Serum 3.4 g/dL (3.2-5.0); BUN 63 mg/dL (7-18); Calcium,Total 9.5 mg/dL (8.5-10.1); Chloride 107 mmol/L (98-107); Creatinine, Serum 3.31 mg/dL (0.55-1.02); EST Glomerular Filtration Rate 14 mL/min (>60); Est Glom Filt Rate - Afr Amer 17 mL/min (>60); Glucose 138 mg/dL (74-106); Phosphorus 3.3 mg/dL (2.5-4.9); Potassium 4.2 mmol/L (3.5-5.1); Sodium Level 139 mmol/L (136-145)
[2023-02-20 11:09] LABS: PTHIN 64.6 pg/mL (18.4-80.1)
[2023-02-20 11:21] LABS: Protein, Urine (Random) 101.4 mg/dL (<11.9); Protein:Creat Ratio 966 mg/g CRE (0-200)
== END | disposition home or self-care (01) ==
LOC: LAB 10:06
PROVIDERS: PCP Nurse Practitioner Family; Referring Provider Nurse Practitioner Adult Health; Visit Provider Nurse Practitioner Adult Health
DX: N18.32 Chronic kidney disease, stage 3b (principal)
CPT/HCPCS: 36415; 80069; 82306; 82570; 83970; 84156; 85027

== ENCOUNTER 2023-02-22 16:33 | Emergency (ER) | payer MEDICARE, OTHER, SELFPAY ==
[2023-02-22 16:34] VITALS: BP 143/76; PULSE 71; RESP 16; TEMP 36.2; O2SAT 99; BMI 37.4
--- NOTE | 2023-02-22 16:50 | EDS_ITS ---
HPI History of Present Illness Chief Complaint: Abn Labs Narrative Narrative: Patient was sent in here by her primary physician for some worsening creatinine. Patient states she has a long history of kidney problems. She has had a stent in 1 kidney. She has seen Dr. Kohler for many years. Evidently it sounds like a couple weeks ago she was started on Lasix for ankle swelling. She does not know what dose of Lasix this was. She takes it once a day. She has never had congestive heart failure. She has not had dyspnea. The ankle swelling is better. But blood work was rechecked and her kidney function is worse after being on Lasix. This blood work was done yesterday. I do have results of this sent in on the paper and I have also reviewed her current results from yesterday and prior blood work on the computer. Of note, the patient's calcium sodium potassium are normal. Her hemoglobin is low at 9.4 but this is about her baseline. Her protein to creatinine ratio is actually better now than it was on her last check. Patient's not having any acute symptoms today. She states when her kidney function is worse she gets some itching of her skin but this is a not uncommon feature. She is not having dyspnea or weakness. She has no nausea vomiting diarrhea. She is able to eat and drink. [facility] Medical History Anemia Chronic kidney disease (CKD) Chronic kidney disease (CKD) stage G3b/A1, moderately decreased glomerular filtration rate (GFR) between 30-44 mL/min/1.73 square meter and albuminuria creatinine ratio less than 30 mg/g Essential (primary) hypertension H/O renal calculi History of transcatheter aortic valve replacement (TAVR) (~07/09/22) Hyperlipidemia Hyperparathyroidism Left ventricular diastolic dysfunction Left ventricular hypertrophy Nonrheumatic aortic (valve) stenosis with insufficiency Obesity Obesity due to excess calories PAF (paroxysmal atrial fibrillation) Right renal artery stenosis Secondary pulmonary arterial hypertension Type 2 diabetes mellitus without complications Home Medications atorvastatin 20 mg tablet (Lipitor) 20 mg PO QHS 06/06/17 [History Last Taken Unknown] calcium carbonate 500 mg-vitamin D3 10 mcg (400 unit) tablet (Calcium 500 + D) 1 tab PO QDAY 06/06/17 [History Last Taken Unknown] ferrous sulfate 325 mg (65 mg iron) tablet 325 mg PO QDAY 06/06/17 [History Last Taken Unknown] metoprolol succinate 100 mg tablet,extended release 24 hr (Toprol XL) 100 mg PO QDAY 06/06/17 [History Last Taken 05/28/22] multivitamin,dy-wicd-gqhlaqob (Complete Multivitamin tablet) 1 tab PO QDAY 06/06/17 [History Last Taken Unknown] allopurinol 100 mg tablet 50 mg PO QDAY 03/08/21 [History Last Taken Unknown] aspirin 81 mg tablet,delayed release (Adult Aspirin Regimen) 81 mg PO DAILY 03/13/22 [History Last Taken 05/28/22] losartan 100 mg tablet 100 mg PO DAILY #90 tabs 07/12/22 [Rx Last Taken Unknown] apixaban 5 mg tablet (Eliquis) 5 mg PO BID #180 tabs 12/03/22 [Rx Last Taken Unknown] pioglitazone 15 mg tablet tablet PO 12/12/22 [History Last Taken Unknown] amlodipine 10 mg tablet 10 mg PO QDAY #90 tabs 12/20/22 [Rx Last Taken Unknown] Allergy/AdvReac Type Severity Reaction Status Date / Time erythromycin base Allergy Unknown Verified 02/22/23 16:34 [From Erythrocin] Macrolide Antibiotics Allergy Unknown Verified 02/22/23 16:34 Penicillins Allergy Unknown Verified 02/22/23 16:34 Surgical History H/O bilateral salpingectomy History of stent insertion of renal artery (03/28/22) Hx of cholecystectomy Social History Smoking Status: Never smoker alcohol intake: current alcohol intake frequency: holidays/special occasions only ROS ROS ED ROS Narrative A complete review of systems was performed and is negative except as documented in the history of present illness. Some specific details below. Constitutional: No recent fevers or chills. No malaise. She overall feels about at her baseline except a little more itching. EYE: No visual complaints or pain. ENT: No difficulty swallowing. No swelling. No pain. CV: No chest pain or palpitations. No syncope or presyncope. No lightheadedness. Respiratory: No dyspnea. No hemoptysis. No difficulty taking breaths. GI: No diarrhea or vomiting. She is eating and drinking normally : No frequency dysuria or hematuria. No notable change in urine output but her urine output was increased on the Lasix. When she is not taking Lasix it is normal. Musculoskeletal: No recent trauma. No pains. She had some isolated ankle swelling but that is better. Skin: No rash. Nondiaphoretic. She does have some itching diffusely but no rash. Neuro: No weakness or numbness. Endocrine: No polyuria or polydipsia. EXAM Physical Exam Narrative Exam Narrative: General: Patient awake alert appropriate sitting quietly in the room. No acute distress carries on normal conversation. HEENT shows mucous membranes are still moist. Eyes show no icterus Lungs are clear although at the bases. No pain with a deep breath. Her saturations are normal at 99% on room air showing no hypoxia. Heart is regular. Rate about 70-75. I hear a 2 out of 6 murmur which is evidently not new. Pulses are normal distally. Abdomen is mildly obese but overall benign otherwise. Extremities show no pitting. Const Vital Signs: 02/22/23 16:34 Temperature 97.1 F L Temperature Source Temporal Pulse Rate 71 Respiratory Rate 16 Blood Pressure 143/76 H Blood Pressure Mean 98 Pulse Ox 99 MDM MDM MDM Narrative Medical decision making narrative: This patient has asymptomatic worsening of her renal function after starting on a diuretic. The diuretic was started for peripheral edema but not for congestive heart failure. I am going to contact her welfare case worker to go over options at this time. I was able to contact Dr. Kohler about this patient. The concern was if she was feeling too weak or worn out. But we know why her creatinine worsened. We can hold her Lasix. I talked with the patient and her . She states she feels maybe a little bit more tired than normal but she is much prefer going home and just holding the Lasix and rechecking her blood work. We will go with this plan. We did discuss that if she has nausea vomiting diarrhea weakness lightheadedness or any other concerns over the weekend she should return but at this point repeating blood work today is not really going to add a lot to this. We know why her kidney function worsened and we have the ability to stop the Lasix at this time and recheck. Discharge Plan Triage Chief Complaint: Abn Labs ED Provider: Ronnie Tavares Dx/Rx/DC Orders Clinical Impression: Worsening renal function, Chronic kidney disease (CKD), Medication adverse effect, Dehydration Instructions: ED Chronic Kidney Disease (CKD), ED Dehydration (Adult) Prescriptions: No Action atorvastatin [Lipitor] 20 mg tablet 20 mg PO QHS metoprolol succinate [Toprol XL] 100 mg tablet extended release 24 hr 100 mg PO QDAY ferrous sulfate 325 mg (65 mg iron) tablet 325 mg PO QDAY calcium carbonate-vitamin D3 [Calcium 500 + D] 500 mg(1,250mg) -400 unit tablet 1 tab PO QDAY multivitamin,je-xtcm-esdvnzeb tablet tablet 1 tab PO QDAY allopurinol 100 mg tablet 50 mg PO QDAY aspirin [Adult Aspirin Regimen] 81 mg tablet,delayed release (DR/EC) 81 mg PO DAILY amlodipine 10 mg tablet 10 mg PO QDAY Qty: 90 3RF pioglitazone 15 mg tablet PO losartan 100 mg tablet 100 mg PO DAILY Qty: 90 3RF Eliquis 5 mg tablet 5 mg PO BID Qty: 180 3RF Primary Care Provider: Frank Ramirez NP Referrals: Frank Ramirez NP, AGILE PROJECT MANAGER-C [Primary Care Provider] - Evette Kohler MD [Med Staff - Consulting] - 3-5 Days Activity Restrictions/Additional Instructions: Contact your primary care provider or Dr. Kohler about recheck of blood work this Saturday. Disposition Disposition: Home, Self Care
== END 2023-02-22 17:26 | disposition home or self-care (01) ==
LOC: ED 17:23
PROVIDERS: Emergency Provider Emergency Medicine; PCP Nurse Practitioner Family; Visit Provider Emergency Medicine
DX: N18.32 Chronic kidney disease, stage 3b (principal); E86.0 Dehydration
CPT/HCPCS: 99282

== ENCOUNTER → 2023-02-27 | Outpatient (CLI) | payer MEDICARE, OTHER, SELFPAY ==
[2023-02-27 11:11] LABS: Hematocrit 28.9 % (37-47); Mean Corp Hgb Conc 31.1 g/dL (32-36); Mean Corpuscular Hgb 29.5 pg (27.0-32.0); Mean Corpuscular Volume 94.8 fL (81-99); Mean Platelet Vol. 9.4 fl (6.2-12.0); Platelet Count 320 K/mm3 (150-450); RBC Distribution Width CV 14.3 % (11.6-14.6); RBC Distribution Width SD 49.4 fl (35.1-43.9); Red Blood Count 3.05 M/mm3 (4.2-5.4); White Blood Count 8.3 K/mm3 (4.4-11.0)
[2023-02-27 11:17] LABS: Protein, Urine (Random) 112.8 mg/dL (<11.9); Protein:Creat Ratio 1044 mg/g CRE (0-200)
[2023-02-27 11:30] LABS: PTHIN 58.3 pg/mL (18.4-80.1)
[2023-02-27 11:32] LABS: Albumin, Serum 3.2 g/dL (3.2-5.0); BUN 51 mg/dL (7-18); BUN/Creat Ratio 17.8 RATIO (10-20); Calcium,Total 9.3 mg/dL (8.5-10.1); Chloride 108 mmol/L (98-107); Creatinine, Serum 2.86 mg/dL (0.55-1.02); EST Glomerular Filtration Rate 17 mL/min (>60); Est Glom Filt Rate - Afr Amer 21 mL/min (>60); Glucose 133 mg/dL (74-106); Phosphorus 3.1 mg/dL (2.5-4.9); Potassium 4.7 mmol/L (3.5-5.1); Sodium Level 139 mmol/L (136-145)
[2023-02-27 11:35] LABS: Vitamin D,25 Hydroxy 46.3 ng/mL
== END | disposition home or self-care (01) ==
LOC: LAB 10:06
PROVIDERS: PCP Nurse Practitioner Family; Referring Provider Internal Medicine Nephrology; Visit Provider Internal Medicine Nephrology
DX: N18.32 Chronic kidney disease, stage 3b (principal)
CPT/HCPCS: 36415; 80069; 82306; 82570; 83970; 84156; 85027

== ENCOUNTER → 2023-03-22 | Outpatient (CLI) | payer MEDICARE, OTHER, SELFPAY ==
[2023-03-22 10:35] LABS: Hematocrit 29.3 % (37-47); Hemoglobin 9.2 g/dL (12.0-15.0); Mean Corp Hgb Conc 31.4 g/dL (32-36); Mean Corpuscular Hgb 30.8 pg (27.0-32.0); Mean Platelet Vol. 9.2 fl (6.2-12.0); Platelet Count 309 K/mm3 (150-450); RBC Distribution Width CV 14.6 % (11.6-14.6); RBC Distribution Width SD 51.8 fl (35.1-43.9); Red Blood Count 2.99 M/mm3 (4.2-5.4); White Blood Count 8.1 K/mm3 (4.4-11.0)
[2023-03-22 11:09] LABS: Anion Gap 4 (5-15); BUN 46 mg/dL (7-18); BUN/Creat Ratio 17.3 RATIO (10-20); Calcium,Total 9.7 mg/dL (8.5-10.1); Chloride 109 mmol/L (98-107); Creatinine, Serum 2.66 mg/dL (0.55-1.02); EST Glomerular Filtration Rate 19 mL/min (>60); Est Glom Filt Rate - Afr Amer 22 mL/min (>60); Glucose 141 mg/dL (74-106); Potassium 4.6 mmol/L (3.5-5.1); Sodium Level 139 mmol/L (136-145)
== END | disposition home or self-care (01) ==
LOC: LAB 10:13
PROVIDERS: PCP Nurse Practitioner Family; Referring Provider Internal Medicine Nephrology; Visit Provider Internal Medicine Nephrology
DX: N18.32 Chronic kidney disease, stage 3b (principal)
CPT/HCPCS: 36415; 80048; 85027

== ENCOUNTER → 2023-04-05 | Outpatient (CLI) | payer MEDICARE, OTHER, SELFPAY ==
[2023-04-05 11:15] LABS: Hematocrit 28.6 % (37-47); Hemoglobin 8.8 g/dL (12.0-15.0); Mean Corp Hgb Conc 30.8 g/dL (32-36); Mean Corpuscular Hgb 30.9 pg (27.0-32.0); Mean Corpuscular Volume 100.4 fL (81-99); Mean Platelet Vol. 9.3 fl (6.2-12.0); Platelet Count 294 K/mm3 (150-450); RBC Distribution Width CV 14.5 % (11.6-14.6); RBC Distribution Width SD 52.1 fl (35.1-43.9); Red Blood Count 2.85 M/mm3 (4.2-5.4); White Blood Count 8.4 K/mm3 (4.4-11.0)
[2023-04-05 11:59] LABS: Albumin, Serum 3.5 g/dL (3.2-5.0); BUN 57 mg/dL (7-18); BUN/Creat Ratio 19.5 RATIO (10-20); Calcium,Total 9.5 mg/dL (8.5-10.1); Chloride 108 mmol/L (98-107); Creatinine, Serum 2.93 mg/dL (0.55-1.02); EST Glomerular Filtration Rate 17 mL/min (>60); Est Glom Filt Rate - Afr Amer 20 mL/min (>60); Glucose 199 mg/dL (74-106); Phosphorus 3.5 mg/dL (2.5-4.9); Potassium 4.2 mmol/L (3.5-5.1); Sodium Level 141 mmol/L (136-145)
[2023-04-05 12:09] LABS: Protein, Urine (Random) 119.1 mg/dL (<11.9); Protein:Creat Ratio 709 mg/g CRE (0-200)
[2023-04-05 12:44] LABS: PTHIN 40.2 pg/mL (18.4-80.1)
[2023-04-05 12:48] LABS: Vitamin D,25 Hydroxy 46.7 ng/mL
== END | disposition home or self-care (01) ==
LOC: LAB 10:53
PROVIDERS: PCP Nurse Practitioner Family; Referring Provider Internal Medicine Nephrology; Visit Provider Internal Medicine Nephrology
DX: N18.32 Chronic kidney disease, stage 3b (principal)
CPT/HCPCS: 36415; 80069; 82306; 82570; 83970; 84156; 85027

== ENCOUNTER → 2023-07-01 | Outpatient (CLI) | payer MEDICARE, OTHER, SELFPAY ==
--- OUTSIDE RECORDS SUMMARY | 2023-07-01 10:36 | XMS RPT_ITS | CCD ---
Author Name Unknown Address [address] [place] [address] Organization [facility] Care Team Providers Care Drug Discovery Informatics Specialist Name Role Phone Estrada, Yazmin Y Unavailable Reed Molina Y Unavailable Unavailable Estrada, Yazmin Y Unavailable Melanie RN, Suyapa Coy Unavailable Unavailable Melanie ZARATE, Suyapa Coy Unavailable Unavailable Estrada, Yazmin Y Unavailable FRANK DAN APRN, CNP Primary Care [facility] MARGI RAJAN Attending Unavailable YOSSI QUISPE Attending Unavailable JARED LOPEZRIL Referring Unavailable ALEYDA CAI Attending Unavailable MIRTHA, FRANK Primary Care Unavailable ALEYDA CAI Attending Unavailable MIRTHA, FRANK Primary Care Unavailable ROSALIND QUISPE Attending Unavailable YOSSI QUISPE Attending Unavailable ALEYDA CAI Attending Unavailable ALEYDA CAI Referring Unavailable MIRTHA, FRANK Primary Care Unavailable YOSSI QUISPE Admitting Unavailable YOSSI QUISPE Attending Unavailable ALEYDA CAI Attending Unavailable ALEYDA CAI Referring Unavailable MIRTHAKRISTOFER GMABOA - FRANK JOHNSON Primary Care U navailable MIRTHA BEE - ELIZABETH, FRANK Marquis Attending U navailable MIRTHA CASTING MACHINE OPERATOR - AIRLINE ATTENDANTFRANK Attending U navailable MIRTHA BEE - FRANK JOHNSON Primary Care U navailable MIRTHA CASTING MACHINE OPERATOR - AIRLINE ATTENDANT, FRANK Marquis Attending U navailable MIRTHAKRISTOFER GAMBOA - ELIZABETH, FRANK Marquis Primary Care U navailable Allergies Allergy Classification Reported Allergen(s) Allergy Type Date of Onset Reaction(s) Facility (6 sources) Macrolides (Antibiotic) drug allergy 7 unknown [facility] Work Phone: (6 sources) penicillin drug allergy 7 unknown [email or web address] Work Phone: (11 sources) ERYTHROMYCIN BASE; Translations: [Erythromycin] drug allergy 7 Nausea (finding) [facility] Work Phone: (5 sources) Penicillins; Translations: [penicillins] Drug allergy Weal (disorder) [facility] Medications Current Medications Medication Drug Class(es) Dates Sig (Normalized) Sig (Original) acetaminophen 500 mg oral tablet (1 source) Start: 02-02-2022 End: 02-16-2022 Tylenol Extra Strength 500 mg oral tablet Dose : 1,000 mg = 2 tab(s), Oral, q6hr, PRN as needed for pain, X 14 day(s), # 100 tab(s), 0 Refill(s), 02/16/22 13:10:00 EDT, other reason (Rx), Pain of left lower leg Start Date: 02/02/22 Stop Date: 02/16/22 Status: Ordered allopurinol 100 mg oral tablet (11 sources) Xanthine Oxidase Inhibitor Start: 12-27-2022 allopurinol 100 mg oral tablet Dose : 50 mg = 0.5 tab(s), Oral, qDay, # 45 tab(s), 1 Refill(s), Pharmacy: [facility] Mail Delivery, 155, cm, 12/27/22 13:38:00 EDT, Height, kg, 12/27/22 13:38:00 EDT, Dosing Weight Start Date: 12/27/22 Status: Ordered Completed/Discontinued Medications Medication Drug Class(es) Dates Sig (Normalized) Sig (Original) Calcium Carbonate / Vitamin D (6 sources) Start: 01-30-2017 take 1 tablet by mouth once daily CALCIUM 500 + D 500-125 MG-UNIT TABS One tablet by mouth daily CALCIUM CARBONATE-VITAMIN D [id number] Suyapa Navarro RN Problems Problem Classification Problem Date Documented Da te Episodic/Chronic Acquired foot deformities (2 sources) Talipes planus 11-23-2022 Episodic Chronic kidney disease (11 sources) Chronic kidney disease stage 3; Translations: [Chronic kidney disease stage 4] Onset: 01-30-2017 01-30-2017 Chronic Deficiency and other anemia (5 sources) Hemoglobin low 02-09-2019 Episodic Deficiency and other anemia (5 sources) Iron deficiency anemia 07-06-2021 Episodic Deficiency and other anemia (2 sources) Anemia 12-27-2022 Episodic Diabetes mellitus without complication (11 sources) Type 2 diabetes mellitus without complications; Translations: [Type 2 diabetes mellitus] 01-30-2017 Chronic Disorders of lipid metabolism (11 sources) Hyperlipidemia; Translations: [Hyperlipidemia, unspecified] 01-30-2017 Chronic Essential hypertension (12 sources) Hypertensive disorder; Translations: [Essential (primary) hypertension] 01-30-2017 Chronic Heart valve disorders (12 sources) Nonrheumatic aortic (valve) stenosis with insufficiency; Translations: [Nonrheumatic aortic (valve) stenosis] Onset: 01-30-2017 01-30-2017 Chronic Results Test Name Value Interpretation Reference Range Facil ity Vital Signs Date Time Vital Sign Value Performing Clinician Tracy moore 02-06-2017 11:31-0400 Heart rate 53 /min [facility] Work Phone: 02-06-2017 11:23-0400 BMI (Body Mass Index) 45.98 kg/m2 [facility] Work Phone: 02-06-2017 11:23-0400 BP Diastolic 82 mm[Hg] [facility] Work Phone: 02-06-2017 11:23-0400 BP Systolic 128 mm[Hg] [facility] Work Phone: 02-06-2017 11:23-0400 Height 157.48 cm [facility] Work Phone: 02-06-2017 11:23-0400 Pulse (Heart Rate) 52 /min [facility] Work Phone: 02-06-2017 11:23-0400 Respiratory Rate 20 /min [facility] Work Phone: 02-06-2017 11:23-0400 Weight 114.04 kg [facility] Work Phone: Encounters Encounter Date Encounter Type Care Provider Facility Start: 03-25-2023 End: 03-26-2023 ambulatory FRANK LIRAPKINS CASTING MACHINE OPERATOR - AIRLINE ATTENDANT Facility:B Start: 03-25-2023 End: 03-25-2023 Patient encounter procedure FRANK RAMIREZ CASTING MACHINE OPERATOR - AIRLINE ATTENDANT [facility] Start: 01-04-2023 End: 01-05-2023 ambulatory FRANK LIRAPKINS CASTING MACHINE OPERATOR - AIRLINE ATTENDANT Facility:A Start: 01-04-2023 End: 01-04-2023 Patient encounter procedure FRANK RAMIREZ CASTING MACHINE OPERATOR - AIRLINE ATTENDANT [facility] Start: 08-16-2022 End: 08-17-2022 ambulatory [facility] Start: 07-19-2022 End: 07-19-2022 ambulatory [facility] Start: 07-09-2022 End: 07-10-2022 Evaluation and management of inpatient [facility] Start: 06-27-2022 End: 06-27-2022 ambulatory ROSALIND [facility] Start: 06-27-2022 End: 06-28-2022 ambulatory [facility] Start: 06-27-2022 End: 06-28-2022 ambulatory [facility] Start: 06-05-2022 End: 06-05-2022 ambulatory [facility] Start: 05-14-2022 End: 05-15-2022 ambulatory FRANK LIRAPKINS CASTING MACHINE OPERATOR - AIRLINE ATTENDANT Facility:B Start: 05-14-2022 End: 05-14-2022 Patient encounter procedure FRANK LIRAPKINS CASTING MACHINE OPERATOR - AIRLINE ATTENDANT [facility] Start: 02-02-2022 End: 02-02-2022 Patient encounter procedure FRANK LIRAPKINS CASTING MACHINE OPERATOR - AIRLINE ATTENDANT [facility] Start: 12-29-2021 End: 12-29-2021 Patient encounter procedure FRANK RAMIREZ CASTING MACHINE OPERATOR - AIRLINE ATTENDANT [facility] Procedures Date Procedure Procedure Detail Performing Clinician Start: 06-24-2017 Echocardiography GURVINDER RAMIREZ CASTING MACHINE OPERATOR - AIRLINE ATTENDANT Start: 02-06-2017 End: 02-06-2017 ALIYA Lopez MD Start: 02-06-2017 End: 02-06-2017 Follow Up Appt 4 months Demarco Floyd Start: 02-06-2017 End: 02-06-2017 ALIYA Lopez MD Start: 02-06-2017 End: 02-06-2017 Follow Up Appt 4 months Demarco Floyd Plan of Treatment Date Care Activity Detail Author Start: 06-07-2017 End: 06-07-2017 Appointment Appointment [facility] Work Phone: Start: 02-06-2017 End: 02-06-2017 *BMP *BMP [facility] Work Phone: Start: 02-06-2017 End: 02-06-2017 GLUE LINE OPERATOR ALIYA [facility] Work Phone: Start: 02-06-2017 End: 02-06-2017 Ecg routine ecg w/least 12 lds w/i&r EKG (In office) [facility] Work Phone: Start: 02-06-2017 End: 02-06-2017 Echocardiography Echocardiogram (complete) [facility] Work Phone: Start: 02-06-2017 End: 02-06-2017 Follow Up Appt 4 months Follow Up Appt 4 months [facility] Work Phone: Start: 02-06-2017 End: 02-06-2017 Appointment Appointment [facility] Work Phone: Start: 02-06-2017 End: 02-06-2017 *BMP *BMP [facility] Work Phone: Start: 02-06-2017 End: 02-06-2017 GLUE LINE OPERATOR GLUE LINE OPERATOR [facility] Work Phone: Start: 02-06-2017 End: 02-06-2017 Echocardiography Echocardiogram (complete) [facility] Work Phone: Start: 02-06-2017 End: 02-06-2017 Electrocardiogram, complete EKG (In office) [facility] Work Phone: Start: 02-06-2017 End: 02-06-2017 Follow Up Appt 4 months Follow Up Appt 4 months [facility] Work Phone: Immunizations Immunization Date Immunization Notes Care Provider Fa [facility] 04-01-2022 influenza virus vacc ine, unspecified formulation FRANK RAMIREZ CASTING MACHINE OPERATOR - AIRLINE ATTENDANT [facility] 09-24-2021 SARS-CoV-2 (COVID-19 ) mRNA-1273 vaccine FRANK LIRAPKINS CASTING MACHINE OPERATOR - AIRLINE ATTENDANT [facility] 05-31-2021 SARS-CoV-2 (COVID-19 ) mRNA-1273 vaccine FRANK RAMIREZ CASTING MACHINE OPERATOR - AIRLINE ATTENDANT [facility] 03-22-2021 influenza virus vacc ine, unspecified formulation FRANK LIRAPKINS CASTING MACHINE OPERATOR - AIRLINE ATTENDANT [facility] [employer] 09-19-2020 SARS-CoV-2 (COVID-19 ) mRNA-1273 vaccine FRANK LIRAPKINS CASTING MACHINE OPERATOR - AIRLINE ATTENDANT [facility] [employer] 08-22-2020 SARS-CoV-2 (COVID-19 ) mRNA-1273 vaccine FRANK LIRAPKINS CASTING MACHINE OPERATOR - AIRLINE ATTENDANT [facility] 02-27-2019 influenza, injectabl e, quadrivalent, preservative free; Translations: [Fluad ] FRANK RAMIREZ CASTING MACHINE OPERATOR - AIRLINE ATTENDANT [facility] 03-24-2018 influenza virus vacc ine, unspecified formulation FRANK RAMIREZ CASTING MACHINE OPERATOR - AIRLINE ATTENDANT [facility] 03-24-2017 influenza virus vacc ine, unspecified formulation FRANK LIRAPKINS CASTING MACHINE OPERATOR - AIRLINE ATTENDANT [facility] 04-14-2016 influenza virus vacc ine, unspecified formulation FRANK LIRAPKINS CASTING MACHINE OPERATOR - AIRLINE ATTENDANT [facility] 03-15-2015 influenza virus vacc ine, unspecified formulation FRANK LIRAPKINS CASTING MACHINE OPERATOR - AIRLINE ATTENDANT [facility] 01-13-2015 pneumococcal conjuga te vaccine, 13 valent FRANK LIRAPKINS CASTING MACHINE OPERATOR - AIRLINE ATTENDANT [facility] 03-24-2014 influenza virus vacc ine, unspecified formulation FRANK RAMRIEZ CASTING MACHINE OPERATOR - AIRLINE ATTENDANT [facility] 04-24-2013 pneumococcal polysaccharide vaccine, 23 valent FRANK ORELLANAKINS CASTING MACHINE OPERATOR - AIRLINE ATTENDANT [facility] 02-20-1999 diphtheria and tetan us toxoids, adsorbed for pediatric use FRANK LIRAPKINS CASTING MACHINE OPERATOR - AIRLINE ATTENDANT [facility] Payers Date Payer Category Payer Unknown [id number] 2022 Medicare [id number] 2021 Unknown [id number] 2014 Medicare [id number] 1945 Unknown [id number] 1945 Unknown [id number] 1945 Unknown [id number] Social History Date Type Detail Facility Start: 02-09-2019 Tobacco smoking status Never s moked tobacco (finding) [facility] Clinical Notes 03-13-2021 to 01-04-2023 LaboratoryRadiologyLaboratoryRadiologyLaboratoryLaboratoryLaboratory Note Date & Type Note Facility 01-04-2023 Note ORIGINAL EXAMINATION: PARATHYROID SCINTIGRAPHY01/04/2023 2:54 pm TECHNIQUE: The patient received an intravenous injection of 29.6 mCi of Tc-99m sestamibi. Early and delayed high resolution images of the anterior neck and upper thorax were then acquired. Emission tomographic (SPECT) images were also acquired in the delayed phase. Low dose CT was acquired for attenuation correction and localization. COMPARISON: [facility] HISTORY: ORDERING SYSTEM PROVIDED HISTORY: Reason for Exam: hyperparathyroidism with uncontrolled HTN FINDINGS: No focal radiopharmaceutical accumulation is seen in the neck or upper mediastinum to suggest a parathyroid adenoma. Low-dose CT demonstrates aortic valvular prosthesis and coronary calcifications. IMPRESSION: Negative study for localization of parathyroid adenoma. Interpreted by: Gio Reina DO Preliminary Report By: Gio Reina DO Electronically signed By Gio Reina DO Dictated Date: 01/04/2023 3:38:55 PM Prelim Date: 01/04/2023 3:49:39 PM Sign Date: 01/04/2023 3:49:39 PM Ordering Provider: FRANK RAMIREZ [facility] 01-04-2023 Note ORIGINAL EXAMINATION: PARATHYROID SCINTIGRAPHY01/04/2023 2:54 pm TECHNIQUE: The patient received an intravenous injection of 29.6 mCi of Tc-99m sestamibi. Early and delayed high resolution images of the anterior neck and upper thorax were then acquired. Emission tomographic (SPECT) images were also acquired in the delayed phase. Low dose CT was acquired for attenuation correction and localization. COMPARISON: [facility] HISTORY: ORDERING SYSTEM PROVIDED HISTORY: Reason for Exam: hyperparathyroidism with uncontrolled HTN FINDINGS: No focal radiopharmaceutical accumulation is seen in the neck or upper mediastinum to suggest a parathyroid adenoma. Low-dose CT demonstrates aortic valvular prosthesis and coronary calcifications. IMPRESSION: Negative study for localization of parathyroid adenoma. Interpreted by: Gio Reina DO Preliminary Report By: Gio Reina DO Electronically signed By Gio Reina DO Dictated Date: 01/04/2023 3:38:55 PM Prelim Date: 01/04/2023 3:49:39 PM Sign Date: 01/04/2023 3:49:39 PM Ordering Provider: FRANK MIRTHA [facility] 07-10-2022 Note Attestation signed by Yossi Quispe MD at 07/11/2022 10:35 AM I, Dr. Yossi Quispe, saw and evaluated the patient on 07/10/21. I personally obtained the zamudio and critical portions of the history and physical exam. I reviewed the chart including labs and imaging studies and discussed the patient with the JOEY. I agree with the JOEY's medical decision making and the note reflects my HPI, PMH, PSH, ROS, FH, SH as well as my additions. For my exam and A/P please see below. PHYSICAL EXAM: General Appearance: []WDWN [x]Obese []Cachectic []Thin []ill Neck: JVD [x]Present []Absent Lungs: [x]Clear []Crackles []Wheezes []Rhonchi / Respiratory effort []Labored []Non-Labored Heart: [x]RRR []Irregularly Irregular []Murmur present [x]Murmur absent/ Peripheral Edema []Absent [x]Present Assessment/Plan Doing well s/p TF TAVR. Ok to discharge home today. Total time spent on this patient's discharge was >30 minutes. Of note patient has diagnoses of CKD stage 4 as well as Morbid obesity (BMI ? 40) Yossi Quispe MD Name: Winirfed Wood Date of : 1945 Date of Admission: 07/09/2022 Date of Discharge: 07/10/2022 Admitting physician: Yossi Quispe MD Discharge Attending: Rosalind Quispe APRN - ELIZABETH Primary Care Physician: Frnak Ramirez Reason for Admission: Severe Symptomatic Aortic Stenosis Consultants: Cardiac Rehab HOSPITAL ADMISSION PROBLEM LIST: Patient Active Problem List Diagnosis Severe aortic stenosis Aortic stenosis, severe Aortic stenosis Review of Systems Review of Systems Constitutional: Negative for chills and fever. Eyes: Negative for visual disturbance. Respiratory: Negative for cough and shortness of breath. Cardiovascular: Negative for chest pain, palpitations and leg swelling. Gastrointestinal: Negative for abdominal pain, blood in stool and vomiting. Genitourinary: Negative for difficulty urinating and hematuria. Neurological: Negative for dizziness and syncope. Psychiatric/Behavioral: Negative for confusion. Physical Exam Physical Exam Constitutional: Appearance: Normal appearance. HENT: Head: Normocephalic. Eyes: General: No scleral icterus. Right eye: No discharge. Left eye: No discharge. Cardiovascular: Rate and Rhythm: Normal rate and regular rhythm. Pulses: Normal pulses. Radial pulses are 2+ on the right side. Dorsalis pedis pulses are 2+ on the right side. Posterior tibial pulses are 2+ on the right side. Heart sounds: Normal heart sounds. No murmur heard. Comments: R radial cath site without hematoma, ecchymosis or oozing. R hand with brisk capillary refill R femoral cath site without hematoma, ecchymosis, oozing or bruit Pulmonary: Effort: Pulmonary effort is normal. Breath sounds: Normal breath sounds. Abdominal: General: Abdomen is flat. Palpations: Abdomen is soft. Musculoskeletal: General: Normal range of motion. Cervical back: Normal range of motion. Right lower leg: Edema present. Left lower leg: Edema present. Skin: General: Skin is warm and dry. Capillary Refill: Capillary refill takes less than 2 seconds. Neurological: Mental Status: She is alert and oriented to person, place, and time. Psychiatric: Mood and Affect: Mood normal. Procedures: Transfemoral transcatheter AVR with 23 mm Stephon S3 valve under moderate sedation Transthoracic echocardiogram HOSPITAL COURSE : The patient was admitted to the hospital for elective TAVR on 07/09/22 . A 23 Stephon S3 valve was implanted. The patient returned to U for recovery. Vital signs and labs were stable. There were no groin complications. The patient was ambulatory the evening of the procedure. Post procedure echocardiogram demonstrated : Left Ventricle: Left ventricle size is normal. Mildly increased wall thickness. Findings consistent with mild concentric hypertrophy. Normal left ventricular systolic function. Normal wall motion. Right Ventricle: Right ventricle size is normal. Normal systolic function. Aortic Valve: Walters Stephon 3 Ultra porcine bioprosthetic aortic valve that is well-seated with a size of 23 mm. AV mean gradient is 7 mmHg. No regurgitation. AV mean gradient is 7 mmHg. AV peak gradient is 13 mmHg. LVOT:AV VTI Index is 0.63. Structural Heart Pre Procedure: Severe aortic valve stenosis. Peak and mean gardients 72 and 42 mm Hg. Moderate 2+ mitral valve regurgitation. This echo was done to assist in the successful placement of a TAVR valve. Complete echo to follow Patient education including SBE prophylaxis, activity, access site care, follow up appointments, and medications was provided. The patient verbalized understanding, questions were answered. The patient was discharged home in good condition. Referral to (more content not included)... [facility] 07-10-2022 Note Received referral an d reviewed chart. Unable to discuss Phase II Cardiac Rehab Referral with Winifred Dasha Wood at this time. Will follow to discuss cardiac rehab when appropriate. Patient will be contacted at home if discharged prior to discussion. [facility] 07-09-2022 Note Patient: Winifred Wood Procedure Summary Date: 07/09/22 Room / Location: [facility] Operating Room Anesthesia Start: 1418 Anesthesia Stop: 1637 Procedures: TAVR/TTE TRANSCATHETER AORTIC VALVE REPLACEMENT (TAVR) - OR (Chest) Diagnosis: Nonrheumatic aortic valve stenosis (Aortic stenosis [I35.0]) Surgeons: Yossi Quispe MD; Francis Hardin MD Responsible Provider: Case Ward DO Anesthesia Type: TIVA ASA Status: 4 Anesthesia Type: TIVA Vitals Value Taken Time BP 150/49 07/09/22 1641 Temp 36.5 ?C (97.7 ?F) 07/09/22 1641 Pulse 58 07/09/22 1641 Resp 18 07/09/22 1641 SpO2 99 % 07/09/22 1641 Anesthesia Post Evaluation Patient location during evaluation: ICU Patient participation: complete - patient participated Level of consciousness: awake and alert Pain management: adequate Airway patency: patent Dental Injury: no Cardiovascular status: acceptable and hemodynamically stable Respiratory status: acceptable, room air and spontaneous ventilation Hydration status: acceptable Nausea/Vomiting: controlled No notable events documented. Patient can be discharged once all PACU criteria has been met. [facility] 07-09-2022 Note Patient: Winifred Wood Procedure Summary Date: 07/09/22 Room / Location: [facility] Operating Room Anesthesia Start: 1418 Anesthesia Stop: 1637 Procedures: TAVR/TTE TRANSCATHETER AORTIC VALVE REPLACEMENT (TAVR) - OR (Chest) Diagnosis: Nonrheumatic aortic valve stenosis (Aortic stenosis [I35.0]) Surgeons: Yossi Quispe MD; Francis Hardin MD Responsible Provider: Case Ward DO Anesthesia Type: TIVA ASA Status: 4 Anesthesia Type: TIVA Vitals Value Taken Time BP 150/49 07/09/22 1641 Temp 36.5 ?C (97.7 ?F) 07/09/22 1641 Pulse 58 07/09/22 1641 Resp 18 07/09/22 1641 SpO2 99 % 07/09/22 1641 Anesthesia Post Evaluation Patient location during evaluation: ICU Patient participation: complete - patient participated Level of consciousness: awake and alert (sedated/intubated) Pain score: 0 Pain management: adequate Airway patency: patent Two or more strategies used to mitigate risk of obstructive sleep apnea Cardiovascular status: hemodynamically stable Respiratory status: acceptable, room air and spontaneous ventilation Hydration status: acceptable No notable events documented. MIPS #430 PONV Patient did not receive an inhalational anesthetic ([id number] MIPS # 424 Perioperative Temperature Management Anesthesia time was 60 minutes or longer (4255F) Anesthesai administered was Genearl (inhalational or TIVA) or Neuraxial block Patient received MAC At least one body temperature greater than 95.8F/35.5C achieved within the 30 mins immediately prior to or the 15 minutes immediately following anesthesia end time ([id number]) MIPS #477 Multimodal Pain Management Not emergent case Patient was not administered multimodal pain management Patient reports no pain in PACU MIPS #404 Anesthesiology Smoking Abstinence The patient is not a current smoker (e.g. cigarette, cigar, pipe, e-cigarette/vaping/marijuana) I completed my handoff to the receiving clinician during which we: 1. Identified the patient 2. Identified the responsible provider 3. Reviewed the pertinent medical history 4. Discussed the surgical course 5. Reviewed intra-op anesthesia management and issues during anesthesia 6. Set expectations for post-procedure period 7. Allowed opportunity for questions and acknowledgement of understanding. [facility] 07-05-2022 Note Attestation signed by Yossi Quispe MD at 07/09/2022 11:59 AM I have examined the patient on admission and confirm that the necessity for the procedure is still present . The patient's condition has not changed since the History & Physical was originally completed. Yossi Quispe MD 07/09/2022 [facility] [address] [facility] [address] Dept: [phone] Dept Loc: [phone] Visit type: Established patient Reason for Visit: Pre-op Exam (Updated H & P prior to TAVR) Assessment and Plan 1. Severe aortic stenosis Assessment & Plan: Symptomatic severe aortic stenosis-scheduled for TAVR on 07/09/22. Pre procedure labs, CTA and CXR to be done today. Pre procedure instructions reviewed with patient and written instructions were provided. All questions answered. She is agreeable to the plan Winifred Wood participated in a shared decision making process regarding treatment of aortic stenosis. Winifred Wood was made aware of the techniques for aortic valve implantation, the risks and benefits for both forms of AVR therapy, medical management or a palliative care strategy, and the multidisciplinary team's recommendations to facilitate achieving the best outcome given specific risk, characteristics, and goals of care. Winifred Wood was engaged in the decision and expressed understanding and acceptance of the plan. Follow up in about 1 month (around 07/28/2022) for COMMUNITY RELATIONS OFFICER follow up. Subjective HPI Winifred Wood is a 77 y.o. female known to Dr. Lopez with aortic stenosis (ejection fraction 65%, peak/mean 73/43, 1+ AI), HTN, hyperlipidemia, diabetes, CKD, renal artery stenosis status post right renal stent. She was evaluated in the [facility] where she reported worsening shortness of breath and lower extremity edema over the past several months. Echocardiogram revealed severe aortic stenosis. Cardiac catheterization revealed no significant coronary disease. Plan is to pursue TAVR. Today she feels well and reports her SOB is at baseline. Denies worsening dyspnea. Denies angina, orthopnea, dizziness, syncope or bleeding. LE edema is at baseline. Pre procedure labs, CXR and CTA with IV hydration will be completed today. She does have a history of CKD and is followed by Dr. Barrow. Review of Systems Constitutional: Positive for fatigue. Negative for chills and fever. Respiratory: Positive for shortness of breath. Negative for cough. Cardiovascular: Positive for leg swelling. Negative for chest pain and palpitations. Gastrointestinal: Negative for abdominal pain, blood in stool and vomiting. Genitourinary: Negative for difficulty urinating and hematuria. Neurological: Negative for dizziness and syncope. Psychiatric/Behavioral: Positive for confusion. Allergies Allergen Reactions Erythromycin Nausea And Vomiting and Unknown Penicillins Rash and Unknown Medications Prior to Visit Outpatient Medications Prior to Visit Medication Sig Dispense Refill acetaminophen (Tylenol) 325 MG tablet Take 2 tablets by mouth every 8 hours as needed. allopurinol (Zyloprim) 100 MG tablet Take 0.5 tablets by mouth Every 24 hours. amLODIPine (Norvasc) 5 MG tablet Take 1 tablet by mouth Every 24 hours. ascorbic acid (Vitamin C) 500 MG chewable tablet Chew 1 tablet Every 24 hours. aspirin 81 MG EC tablet Take 1 tablet by mouth Every 24 hours. atorvastatin (Lipitor) 20 MG tablet Take 1 tablet by mouth Every 24 hours. Calcium 600-10 MG-MCG chewable tablet Chew 1 tablet daily. clopidogrel (Plavix) 75 MG tablet Take 75 mg by mouth daily. docusate sodium (Colace) 100 MG capsule Take 1 capsule by mouth Nightly. ferrous sulfate 324 (65 Fe) MG EC tablet Take 1 tablet by mouth daily. furosemide (Lasix) 40 MG tablet TAKE 1 TABLET BY MOUTH ONCE DAILY FOR 14 DAYS losartan (Cozaar) 25 MG tablet Take 50 mg by mouth. metoprolol succinate XL (Toprol-XL) 100 MG 24 hr tablet 100 mg daily. MULTIPLE VITAMIN PO Take 1 tablet by mouth daily. pioglitazone (Actos) 30 MG tablet Take 30 mg by mouth daily. Facility-Administered Medications Prior to Visit Medication Dose Route Frequency Provider Last Rate Last Admin [COMPLETED] sodium chloride 0.9 % bolus 500 mL 500 mL IntraVENous Once Yossi Quispe MD Stopped at 06/27/22 8388 Medical History Past Medical History: Diagnosis Date Anemia Aortic valve stenosis CKD (chronic kidney disease) Diabetes mellitus (HCC) Hyperlipidemia Hypertension Obesity Renal calculi Right renal artery stenosis (CMS/HCC) (HCC) Social History Tobacco Use Smoking status: Never Passive exposure: Never Smokeless tobacco: Never Substance Use Topics Alcohol use: Not Currently Surgical History Past Surgical History: Procedure Laterality Date (more content not included)... [facility] 07-05-2022 Note Attestation signed by Yossi Quispe MD at 07/09/2022 11:59 AM I have examined the patient on admission and confirm that the necessity for the procedure is still present . The patient's condition has not changed since the History & Physical was originally completed. Yossi Quispe MD 07/09/2022 [facility] [address] [facility] [address] Dept: [phone] Dept Loc: [phone] Visit type: Established patient Reason for Visit: Pre-op Exam (Updated H & P prior to TAVR) Assessment and Plan 1. Severe aortic stenosis Assessment & Plan: Symptomatic severe aortic stenosis-scheduled for TAVR on 07/09/22. Pre procedure labs, CTA and CXR to be done today. Pre procedure instructions reviewed with patient and written instructions were provided. All questions answered. She is agreeable to the plan Winifred Wood participated in a shared decision making process regarding treatment of aortic stenosis. Winifred Wood was made aware of the techniques for aortic valve implantation, the risks and benefits for both forms of AVR therapy, medical management or a palliative care strategy, and the multidisciplinary team's recommendations to facilitate achieving the best outcome given specific risk, characteristics, and goals of care. Winifred Wood was engaged in the decision and expressed understanding and acceptance of the plan. Follow up in about 1 month (around 07/28/2022) for COMMUNITY RELATIONS OFFICER follow up. Subjective HPI Winifred Wood is a 77 y.o. female known to Dr. Lopez with aortic stenosis (ejection fraction 65%, peak/mean 73/43, 1+ AI), HTN, hyperlipidemia, diabetes, CKD, renal artery stenosis status post right renal stent. She was evaluated in the [facility] where she reported worsening shortness of breath and lower extremity edema over the past several months. Echocardiogram revealed severe aortic stenosis. Cardiac catheterization revealed no significant coronary disease. Plan is to pursue TAVR. Today she feels well and reports her SOB is at baseline. Denies worsening dyspnea. Denies angina, orthopnea, dizziness, syncope or bleeding. LE edema is at baseline. Pre procedure labs, CXR and CTA with IV hydration will be completed today. She does have a history of CKD and is followed by Dr. Barrow. Review of Systems Constitutional: Positive for fatigue. Negative for chills and fever. Respiratory: Positive for shortness of breath. Negative for cough. Cardiovascular: Positive for leg swelling. Negative for chest pain and palpitations. Gastrointestinal: Negative for abdominal pain, blood in stool and vomiting. Genitourinary: Negative for difficulty urinating and hematuria. Neurological: Negative for dizziness and syncope. Psychiatric/Behavioral: Positive for confusion. Allergies Allergen Reactions Erythromycin Nausea And Vomiting and Unknown Penicillins Rash and Unknown Medications Prior to Visit Outpatient Medications Prior to Visit Medication Sig Dispense Refill acetaminophen (Tylenol) 325 MG tablet Take 2 tablets by mouth every 8 hours as needed. allopurinol (Zyloprim) 100 MG tablet Take 0.5 tablets by mouth Every 24 hours. amLODIPine (Norvasc) 5 MG tablet Take 1 tablet by mouth Every 24 hours. ascorbic acid (Vitamin C) 500 MG chewable tablet Chew 1 tablet Every 24 hours. aspirin 81 MG EC tablet Take 1 tablet by mouth Every 24 hours. atorvastatin (Lipitor) 20 MG tablet Take 1 tablet by mouth Every 24 hours. Calcium 600-10 MG-MCG chewable tablet Chew 1 tablet daily. clopidogrel (Plavix) 75 MG tablet Take 75 mg by mouth daily. docusate sodium (Colace) 100 MG capsule Take 1 capsule by mouth Nightly. ferrous sulfate 324 (65 Fe) MG EC tablet Take 1 tablet by mouth daily. furosemide (Lasix) 40 MG tablet TAKE 1 TABLET BY MOUTH ONCE DAILY FOR 14 DAYS losartan (Cozaar) 25 MG tablet Take 50 mg by mouth. metoprolol succinate XL (Toprol-XL) 100 MG 24 hr tablet 100 mg daily. MULTIPLE VITAMIN PO Take 1 tablet by mouth daily. pioglitazone (Actos) 30 MG tablet Take 30 mg by mouth daily. Facility-Administered Medications Prior to Visit Medication Dose Route Frequency Provider Last Rate Last Admin [COMPLETED] sodium chloride 0.9 % bolus 500 mL 500 mL IntraVENous Once Yossi Quispe MD Stopped at 06/27/22 1535 Medical History Past Medical History: Diagnosis Date Anemia Aortic valve stenosis CKD (chronic kidney disease) Diabetes mellitus (HCC) Hyperlipidemia Hypertension Obesity Renal calculi Right renal artery stenosis (CMS/HCC) (HCC) Social History Tobacco Use Smoking status: Never Passive exposure: Never Smokeless tobacco: Never Substance Use Topics Alcohol use: Not Currently Surgical History Past Surgical History: Procedure Laterality Date (more content not included)... [facility] 07-05-2022 Note Pre TAVR phone call placed. Reviewed, procedure, instructions and meds. Pt verbalizes understanding. Pt knows to call [phone] with any concerns. [facility] 07-04-2022 Note Patient: Winifred Wood Procedure Information Date/Time: 07/09/22 1245 Procedures: TAVR/TTE TRANSCATHETER AORTIC VALVE REPLACEMENT (TAVR) - OR (Chest) Location: [facility] Operating Room Surgeons: Yossi Quispe MD; Francis Hardin MD Cath Non-obstr CAD Echo Mod pulm HTN Mod-sev . Nml LV fxn Relevant Problems Cardio (+) Severe aortic stenosis Past Medical History: Past Medical History: No date: Anemia No date: Aortic valve stenosis No date: CKD (chronic kidney disease) No date: Diabetes mellitus (HCC) No date: Hyperlipidemia No date: Hypertension No date: Obesity No date: Renal calculi No date: Right renal artery stenosis (CMS/HCC) (HCC) Past Surgical History: Past Surgical History: No date: CHOLECYSTECTOMY 06/27/2022: CT HEART CORONARY ANGIOGRAM - WITH PROVISIONAL FFR-CT Comment: CT ANGIOGRAM TAVR 06/27/[address]22 [facility] CT IMAGING No date: SALPINGECTOMY; Bilateral Social History: TOBACCO: reports that she has never smoked. She has never been exposed to tobacco smoke. She has never used smokeless tobacco. ETOH: reports that she does not currently use alcohol. Social History Substance and Sexual Activity Drug Use Never Family History: Family History Problem Relation Name Age of Onset ? Dementia Mother ? No Known Problems Father Screening: unknown Clinical information reviewed: Physical Exam Airway Mallampati: II Cardiovascular Dental (+) Missing Pulmonary Abdominal Anesthesia Plan ASA 4 TIVA The patient is not a current smoker. Anesthetic plan and risks discussed with patient. patient is NPO none aortic stenosis (ejection fraction 65%, peak/mean 73/43, 1+ AI) JESSICA Screening Labs: Lab Results Component Value Date WBC 6.6 06/27/2022 HGB 10.0 (L) 06/27/2022 HCT 30.9 (L) 06/27/2022 MCV 93.9 06/27/2022 PLT 284 06/27/2022 Lab Results Component Value Date NA 141 06/27/2022 K 3.8 06/27/2022 CL 107 06/27/2022 CO2 25 06/27/2022 BUN 44 (H) 06/27/2022 CREATININE 2.27 (H) 06/27/2022 GLUCOSE 180 (H) 06/27/2022 CALCIUM 10.2 06/27/2022 PROT 6.9 06/27/2022 ALKPHOS 63 06/27/2022 AST 41 06/27/2022 ALT 22 06/27/2022 EGFR 21.9 (L) 06/27/2022 No components found for: LVEF, LVEFMODE No echocardiogram results found for the past 14 days 06/05/22 ECG 12-LEAD 06/06/2022 10:00 PM (Final) Narrative Sinus Rhythm -Left axis -anterior fascicular block. Voltage criteria for LVH (R(aVL) exceeds 1.26 mV). -Nonspecific ST depression + Nonspecific T-abnormality -Seen with left ventricular hypertrophy (strain) or digitalis effect. ABNORMAL Signed by: Yossi Quispe MD on 06/06/2022 10:00 PM [facility] 06-28-2022 Note Symptomatic severe a ortic stenosis-scheduled for TAVR on 07/09/22. Pre procedure labs, CTA and CXR to be done today. Pre procedure instructions reviewed with patient and written instructions were provided. All questions answered. She is agreeable to the plan Winifred Wood participated in a shared decision making process regarding treatment of aortic stenosis. Winifred Lou Drewkathryn was made aware of the techniques for aortic valve implantation, the risks and benefits for both forms of AVR therapy, medical management or a palliative care strategy, and the multidisciplinary team's recommendations to facilitate achieving the best outcome given specific risk, characteristics, and goals of care. Winifred Wood was engaged in the decision and expressed understanding and acceptance of the plan. [facility] 06-01-2022 Note Referral Date: Appoi ntment Date(s): 06/08/2022 DEMOGRAPHICS Name: Winifred Wood : 1945 Age: 77 y.o. Ht: 5'1 /155.448 cm Wt: 227 lb/102.96 kg PCP: Frank Ramirez Nursing Informatics Analyst: Clinic IC: Clinic CTS: STS score: MEDICAL HISTORY Symptom presentation of : NYHA Class: HPI: PMH: Aortic stenosis, HTN, hyperlipidemia, DM2, CKD stage G3b/A1, hyperparathyroidism, obesity, right renal artery stenosis PSH: Prior CABG/Valve Surgery/Dates/Type: Meds: Amlodipine, atorvastatin, calcium, ferrous sulfate, metoprolol succinate, multivitamin, pioglitazone, quinapril, allopurinol, aspirin Social: ETOH/Tobacco/Illicit drugs: Never smoker, alcohol special occasions DIAGNOSTICS: Echo: SVI: LVEF: DSE: KATHY: Peak/Mean: Peak Velocity: DI: AI: RVSP: MVA: Peak/Mean: MR: ERO: COLT Cath CTA LM/RCA Height: R L Iliofemoral diameters: Carotids: R: L: PFT: Other: Hgb/Hct/Date: 9.7 (05/09/2022) EKG: Creat/GFR/Date: 2.09 (05/09/2022) High Risk EKG: FUNCTIONAL ASSESSMENT >6= frail 5?Meter gait speed: ____ Tsai ADLs score: /6 (<4/6)=frail) KCCQ done: Serum Albumin: (<3.5mg/dL) 6 minute walk (mitral): ft SIS score: ____ (>2 = cog. Impairment Mobility aids: (type), Fall within 6 mo: (Y/N) Living situation:(home/apartment, independent living) Social, and home support: (family/friends/community/mandaeism) Comments/Plan: Same Day Candidate: Y or N COMPLETE TAVR Candidate: Y or N 24h00 [facility] 05-14-2022 Note ORIGINAL EXAMINATION: BONE DENSITOMETRY 05/14/2022 1:15 pm TECHNIQUE: A bone density dual x-ray absorptiometry (DEXA) scan was performed of the lumbar spine and left hip. COMPARISON: February 26, 2020. HISTORY: ORDERING SYSTEM PROVIDED HISTORY: Reason for Exam: Osteoporosis Screening FINDINGS: T Score Left Femoral Neck: -0.2 Left Femoral Neck: 0.831 (g/cm2) T Score Left Hip: -0.4 Left Hip: 0.896 (g/cm2) T Score Lumbar Spine: 4.6 Lumbar Spine: 1.552 (g/cmd2) Osteophytosis and sclerosis likely artificially increases lumbar spine score. *By the World Health Organization standards: Osteopenia is present when the bone mineral density is greater than 1 standard deviation (SD) but less than 2.5 SDs below a young normal sex matched population. Osteoporosis is present when the bone mineral density is equal to or greater than 2.5 SDs below a young normal sex matched population. BMD Change from previous: No significant change. IMPRESSION: Normal bone mineral density by WHO criteria. *By the World Health Organization criteria: (Comparing with young normal sex matched population) - Normal: T-score at or above -1 SD (standard deviation) - Osteopenia: T-score between -1 and -2.5 SD - Osteoporosis: T-score at or below -2.5 SD Interpreted by: Gio Reina DO Preliminary Report By: Gio Reina DO Electronically signed By Gio Reina DO Dictated Date: 05/14/2022 2:48:55 PM Prelim Date: 05/14/2022 2:50:51 PM Sign Date: 05/14/2022 2:50:51 PM Ordering Provider: FRANK RAMIREZ [facility] 05-14-2022 Note ORIGINAL EXAMINATION: BONE DENSITOMETRY 05/14/2022 1:15 pm TECHNIQUE: A bone density dual x-ray absorptiometry (DEXA) scan was performed of the lumbar spine and left hip. COMPARISON: February 26, 2020. HISTORY: ORDERING SYSTEM PROVIDED HISTORY: Reason for Exam: Osteoporosis Screening FINDINGS: T Score Left Femoral Neck: -0.2 Left Femoral Neck: 0.831 (g/cm2) T Score Left Hip: -0.4 Left Hip: 0.896 (g/cm2) T Score Lumbar Spine: 4.6 Lumbar Spine: 1.552 (g/cmd2) Osteophytosis and sclerosis likely artificially increases lumbar spine score. *By the World Health Organization standards: Osteopenia is present when the bone mineral density is greater than 1 standard deviation (SD) but less than 2.5 SDs below a young normal sex matched population. Osteoporosis is present when the bone mineral density is equal to or greater than 2.5 SDs below a young normal sex matched population. BMD Change from previous: No significant change. IMPRESSION: Normal bone mineral density by WHO criteria. *By the World Health Organization criteria: (Comparing with young normal sex matched population) - Normal: T-score at or above -1 SD (standard deviation) - Osteopenia: T-score between -1 and -2.5 SD - Osteoporosis: T-score at or below -2.5 SD Interpreted by: Gio Reina DO Preliminary Report By: Gio Reina DO Electronically signed By Gio Reina DO Dictated Date: 05/14/2022 2:48:55 PM Prelim Date: 05/14/2022 2:50:51 PM Sign Date: 05/14/2022 2:50:51 PM Ordering Provider: FRANK RAMIREZ [facility] 03-17-2021 Note HNO ID: [id number] Author: Saundra Dowling RN Service: ? Author Type: Registered Nurse Type: Nursing Progress Note Filed: 03/17/2021 8:24 AM Note Text: Dr. Diamond notified of patient's high blood pressures. [facility] 03-13-2021 Note HNO ID: [id number] Author: Kirstin Diamond MD Service: ? Author Type: Physician Type: Progress Notes Filed: 03/13/2021 1:58 PM Note Text: HISTORY AND PHYSICAL Winifred Wood 1945 REFERRING PHYSICIAN: Darrell Mclaughlin CHIEF COMPLAINT: Consult (Colonoscopy) HPI: The patient is a 75 year old female resents for consideration of surveillance colonoscopy for history of colon polyps She had undergone colonoscopy in 2016 with findings of serrated tubular adenoma and another tubular adenoma, both < 1cm The patient denies blood in stools, denies abdominal pain, and denies changes in bowel habits. The patient notes no colon cancer in immediate family. PAST MEDICAL HISTORY Diagnosis Date - Anemia - CKD (chronic kidney disease) stage 3, GFR 30-59 ml/min ([facility]) - DM type 2 (diabetes mellitus, type 2) ([facility]) - Heart murmur - HTN (hypertension) - Hyperlipidemia - Hyperparathyroidism (HCC) - Snoring PAST SURGICAL HISTORY Procedure Laterality Date - COLONOSCOP W/ OR W/O BRSH SPEC 06/07/2016 repeat 5 yrs/ tubular adeoma - PAST SURGICAL HISTORY OF Gallbladder Current Outpatient Medications Medication Sig - ferrous sulfate (IRON ORAL) Take by mouth. - amLODIPine (NORVASC) 5 mg tablet Take 5 mg by mouth once daily. - metoprolol succinate ER (TOPROL XL) 200 mg 24 hr tablet Take 200 mg by mouth once daily. - pioglitazone (ACTOS) 45 mg tablet Take 45 mg by mouth once daily. - atorvastatin (LIPITOR) 20 mg tablet Take 20 mg by mouth once daily. - Quinapril HCl 40 mg tablet Take 40 mg by mouth twice daily. - allopurinol (ZYLOPRIM) 100 mg tablet Take 100 mg by mouth once daily. - peg 3350-Electrolytes (GOLYTELY) 236-22.74-6.74 -5.86 gram suspension Take 4,000 mL by mouth one time only for 1 dose. Refer to printed prep instructions from your provider. ALLERGIES: Erythromycin and Penicillins PERSONAL HISTORY: Social History Tobacco Use - Smoking status: Never Smoker - Smokeless tobacco: Never Used Substance Use Topics - Alcohol use: Yes Comment: twice a year or less - Drug use: No FAMILY HISTORY Problem Relation Age of Onset - Breast Cancer Maternal Aunt - Allergies Sister The review of systems data was entered by the nurse and reviewed by hi Nursing Notes: Loly Perez LPN 03/13/2021 1:40 PM Signed REVIEW OF SYSTEMS: General: The patient denies fatigue, denies weight loss, denies weight gain, denies feeling hot, and denies feelings of cold. Eyes: The patient denies glaucoma, denies eye injury/surgery, wears glasses or contacts. Ear/Nose/Throat: The patient denies allergies, denies hayfever, denies ear infections, and denies bloody noses. Cardiovascular: The patient denies chest pain, denies heart disease, NOTES high blood pressure,denies cardiac stent, denies prior heart attack, denies irregular heart beat, NOTES high cholesterol, denies poor circulation, denies heart failure, other cardiac issues, denies claudication, denies cold feet, denies peripheral arterial stent. Respiratory: The patient denies tuberculosis, denies pneumonia, denies frequent cough, denies pulmonary embolism, denies shortness of breath, and denies coughing up blood. Gastrointestinal: The patient denies difficulty swallowing, denies acid reflux, denies ulcers, denies vomiting, denies jaundice/hepatitis, denies gallbladder problems, denies black or tarry stools, denies hemorrhoids, denies bleeding from rectum, denies diverticulitis, denies constipation, denies diarrhea, denies loss of stool control, and denies hernias. Kidney/Bladder: The patient NOTES kidney stones, denies urine infections, and denies bloody urine. Skin: The patient denies a history of skin cancer, denies bleeding/changing moles, and denies a history of skin rash. Neurologic: The patient denies a history of epilepsy/convulsions, denies headaches, denies head/spinal injuries, and denies stroke/TIA. Psychiatric: The patient denies psychiatric medications, denies depression, and denies voices, denies substance abuse. Endocrine: The patient denies thyroid disorders, NOTES diabetes, and denies hormonal problems. Hematologic: The patient denies a history of bruising, denies bleeding, and NOTES anemia, denies blood clots. Infections: The patient denies a history of measles and mumps, denies rheumatic fever, and denies sexually transmitted diseases. Musculoskeletal: The patient denies back pain/injury, denies back problems, denies sciatica, denies knee/foot trouble, denies arthritis, or denies gout. When was patient's last Mammogram screening? 02/2020 Last Colonoscopy: 2015 Loly Perez LPN PHYSICAL EXAMINATION: General: The patient is 75 year old female, well nourished, well hydrated in no acute distress. The patient is oriented to time, place, and person. VITALS: Blood pressure 168/64, pulse 66, temperature 36.7 ?C (98.1 ?F), height 156.2 cm (5' 1.5 ), weight 106.1 kg (234 lb), SpO2 9 (more content not included)... [facility] Evaluation + Plan note Future Appointments Appointment Date:01/08/2022 11:00:00 AM Scheduled Provider:FRANK RAMIREZ APRN, CNP Location:[facility] Appointment Type: OV Follow Up Appointment Date:02/20/2022 02:00:00 PM Scheduled Provider:FRANK RAMIREZ APRN, CNP Location:[facility] Appointment Type: Wellness Medicare Appointment Date:06/26/2022 01:40:00 PM Scheduled Provider:FRANK RAMIREZ CASTING MACHINE OPERATOR - AIRLINE ATTENDANT Location:[facility] Appointment Type:PC OV Follow Up Future Scheduled TestsRenin, Plasma 06/19/22Iron Level 06/19/22Thyroid Stimulating Hormone 06/19/22Free T4 06/19/22Uric Acid 06/19/22A1C Hemoglobin 06/19/22Complete Blood Count 06/19/22Free T3 06/19/22Lipid Profile 06/19/22Microalbumin Level Urine 06/19/22PTH, Intact 06/19/22Vitamin D Level 06/19/22Complete Metabolic Panel 06/19/22BD Bone Density DEXA Axial Skeleton 02/17/21 [facility] Evaluation + Plan note Future Appointments Appointment Date:02/20/2022 02:00:00 PM Scheduled Provider:FRANK RAMIREZ CASTING MACHINE OPERATOR - AIRLINE ATTENDANT Location:[facility] Appointment Type:PC Wellness Medicare Appointment Date:06/26/2022 01:40:00 PM Scheduled Provider:FRANK RAMIREZ CASTING MACHINE OPERATOR - AIRLINE ATTENDANT Location:[facility] Appointment Type: OV Follow Up Future Scheduled TestsRenin, Plasma 06/19/22Renin, Plasma 07/11/22Iron Level 06/19/22Thyroid Stimulating Hormone 06/19/22Thyroid Stimulating Hormone 07/11/22Free T4 06/19/22Uric Acid 06/19/22A1C Hemoglobin 06/19/22A1C Hemoglobin 07/11/22Complete Blood Count 06/19/22Complete Blood Count 07/11/22Free T3 06/19/22Lipid Profile 06/19/22Lipid Profile 07/11/22Microalbumin Level Urine 06/19/22Microalbumin Level Urine 07/11/22PTH, Intact 06/19/22PTH, Intact 07/11/22Vitamin D Level 06/19/22Vitamin D Level 07/11/22Complete Metabolic Panel 06/19/22Complete Metabolic Panel 07/11/22BD Bone Density DEXA Axial Skeleton 02/17/21 [facility] Evaluation + Plan note Future Appointments Appointment Date:06/26/2022 01:40:00 PM Scheduled Provider:FRANK RAMIREZ APRN, CNP Location:[facility] Appointment Type:PC OV Follow Up Future Scheduled TestsRenin, Plasma 06/19/22Renin, Plasma 07/11/22Iron Level 06/19/22Thyroid Stimulating Hormone 06/19/22Thyroid Stimulating Hormone 07/11/22Free T4 06/19/22Uric Acid 06/19/22A1C Hemoglobin 06/19/22A1C Hemoglobin 07/11/22Complete Blood Count 06/19/22Complete Blood Count 07/11/22Free T3 06/19/22Lipid Profile 06/19/22Lipid Profile 07/11/22Microalbumin Level Urine 06/19/22Microalbumin Level Urine 07/11/22PTH, Intact 06/19/22PTH, Intact 07/11/22Vitamin D Level 06/19/22Vitamin D Level 07/11/22Complete Metabolic Panel 06/19/22Complete Metabolic Panel 07/11/22 [facility] Evaluation + Plan note Future Appointments Appointment Date:01/10/2023 01:40:00 PM Scheduled Provider:FRANK RAMIREZ APRN, CNP Location:[facility] [facility] Appointment Type:PC OV Follow Up Appointment Date:07/04/2023 01:40:00 PM Scheduled Provider:FRAKN RAMIREZ APRN, CNP Location:[facility] Appointment Type:PC OV Follow Up Future Scheduled TestsRenin, Plasma 06/29/23Renin, Plasma 07/11/22Renin, Plasma 12/24/22Ferritin 06/29/23Iron Level 06/29/23Iron Level 12/24/22Thyroid Stimulating Hormone 06/29/23Uric Acid 06/29/23A1C Hemoglobin 06/29/23A1C Hemoglobin 07/11/22A1C Hemoglobin 12/24/22Complete Blood Count 06/29/23Complete Blood Count 12/24/22Lipid Profile 06/29/23Lipid Profile 12/24/22Albumin/Creatinine Ratio, Random Urine 06/29/23Microalbumin Level Urine 06/19/22Microalbumin Level Urine 12/24/22PTH, Intact 06/29/23PTH, Intact 12/24/22Vitamin D Level 06/29/23Vitamin D Level 12/24/22Complete Metabolic Panel 06/29/23Complete Metabolic Panel 12/24/22TIBC 06/29/23TIBC 12/24/22 [facility] Plan note Future Appointments Appointment Date:07/04/2023 01:40:00 PM Scheduled Provider:FRANK RAMIREZ APRN, CNP Location:[facility] Appointment Type:PC OV Follow Up Future Scheduled TestsRenin, Plasma 06/29/23Renin, Plasma 12/24/22Ferritin 06/29/23Iron Level 06/29/23Iron Level 12/24/22Thyroid Stimulating Hormone 06/29/23Uric Acid 06/29/23A1C Hemoglobin 06/29/23A1C Hemoglobin 07/11/22A1C Hemoglobin 12/24/22Complete Blood Count 06/29/23Complete Blood Count 12/24/22Lipid Profile 06/29/23Lipid Profile 12/24/22Albumin/Creatinine Ratio, Random Urine 06/29/23Microalbumin Level Urine 06/19/22Microalbumin Level Urine 12/24/22PTH, Intact 06/29/23PTH, Intact 12/24/22Vitamin D Level 06/29/23Vitamin D Level 12/24/22Complete Metabolic Panel 06/29/23Complete Metabolic Panel 12/24/22TIBC 06/29/23TIBC 12/24/22 [facility] course Narrative No data available for this section [facility] Discharge instructions No data available for this section [facility] Progress note No data available for this section [facility] Summary Purpose Family History No Family History Records FoundNo Family History Records Found No data available for this section No Family History Records Found Advance Directives No Advanced Directives Records FoundNo Advanced Directives Records FoundNo Advanced Directives Records Found Additional Source Comments INFORMATION SOURCE (unrecogn ized section and content) DATE CREATED AUTHOR AUTHOR'S ORGANIZ ATION 08/18/2022 [facility] DATE CREATED AUTHOR AUTHOR'S ORGANIZ ATION 04/04/[address] [facility] ([place]) Care Team (unrecognized sect ion and content) Care Team Personnel Name: FRANK RAMIREZ APRN, CNP Position: P4 Advanced Practice Nurse Med Service: Employed Provider Member Role: Primary Care Physician Address: Address: [address] [place] [address]- Care Team Related Persons Name: JANICE WOOD Address: Home [address], [place] [id number] Care Team Personnel Name: FRANK RAMIREZ APRN, CNP Position: P4 Advanced Practice Nurse Med Service: Employed Provider Member Role: Primary Care Physician Address: Address: [address] [place] [id number] [place] [address] Care Team Related Persons Name: JANICE WOOD Address: Home [address], [place] [id number] [place] Care Team Personnel Name: FRANK RAMIREZ APRN, CNP Position: P4 Advanced Practice Nurse Member Role: Primary Care Physician Address: Address: [address] [place] [phone]- Care Team Related Persons Name: JANICE WOOD Address: Home [address], [place] [id number] Patient Care team informatio n (unrecognized section and content) Care Team Personnel Name: FRANK RAMIREZ APRN, CNP Position: P4 [employer] Member Role: Primary Care Physician Address: Address: [address] [place] [id number]- Care Team Related Persons Name: JANICE WOOD Address: Home [address], [place] [id number] [place] Care Team Personnel Name: FRANK RAMIREZ APRN, CNP Position: P4 [employer] Member Role: Primary Care Physician Address: Address: [address] [place] [phone]- Care Team Related Persons Name: JANICE WOOD Address: Home [address], [place] [id number] [place] FOR RECORDS PERTAINING TO PATIENTS WHO ARE OR HAVE BEEN ENROLLED IN A CHEMICAL DEPENDENCY/SUBSTANCEABUSE PROGRAM, SOME INFORMATION MAY BE OMITTED. This clinical summary was aggregated from multiple sources. Caution should be exercised in using it in the provision of clinical care. This summary normalizes information from multiple sources, and as a consequence, information in this document may materially change the coding, format and clinical context of patient data. In addition, data may be omitted in some cases. CLINICAL DECISIONS SHOULD BE BASED ON THE PRIMARY CLINICAL RECORDS. [facility]. provides no warranty or guarantee of the accuracy or completeness of information in this document.
[2023-07-01 11:11] LABS: Hematocrit 29.3 % (37-47); Hemoglobin 9.1 g/dL (12.0-15.0); Mean Corp Hgb Conc 31.1 g/dL (32-36); Mean Corpuscular Volume 93.3 fL (81-99); Platelet Count 304 K/mm3 (150-450); RBC Distribution Width CV 13.9 % (11.6-14.6); RBC Distribution Width SD 46.9 fl (35.1-43.9); Red Blood Count 3.14 M/mm3 (4.2-5.4); White Blood Count 9.6 K/mm3 (4.4-11.0)
[2023-07-01 11:26] LABS: Protein, Urine (Random) 71.1 mg/dL (<11.9); Protein:Creat Ratio 769 mg/g CRE (0-200)
[2023-07-01 11:32] LABS: PTHIN 32.7 pg/mL (18.4-80.1)
[2023-07-01 12:02] LABS: Vitamin D,25 Hydroxy 51.2 ng/mL
[2023-07-01 12:15] LABS: Albumin, Serum 3.4 g/dL (3.2-5.0); BUN 40 mg/dL (7-18); BUN/Creat Ratio 13.3 RATIO (10-20); Calcium,Total 9.8 mg/dL (8.5-10.1); Chloride 110 mmol/L (98-107); Cholesterol 131 mg/dL (200); EST Glomerular Filtration Rate 16 mL/min (>60); Est Glom Filt Rate - Afr Amer 20 mL/min (>60); Ferritin 170 ng/mL (8-252); Glucose 117 mg/dL (74-106); High Density Lipoprotein 59 mg/dL; Iron 59 ug/dL (50-170); Iron Binding Capacity,Total 286 ug/dL (250-450); PERCENT IRON SATURATION 20.6 % (15.0-55.0); Phosphorus 3.8 mg/dL (2.5-4.9); Potassium 3.8 mmol/L (3.5-5.1); Sodium Level 141 mmol/L (136-145); Thyroid Stim Hormone (TSH) 3.67 uIU/mL (0.358-3.74); Triglycerides 97 mg/dL; Uric Acid 5.9 mg/dL (2.6-6.0); Very Low Density Lipoprotein 19 mg/dL (5-40)
[2023-07-09 14:09] LABS: Renin, Plasma 2.415 ng/mL/hr (0.167-5.380)
== END | disposition home or self-care (01) ==
PROVIDERS: PCP Nurse Practitioner Family; Referring Provider Internal Medicine Nephrology; Visit Provider Internal Medicine Nephrology
DX: E11.22 Type 2 diabetes mellitus with diabetic chronic kidney disease (principal); N18.4 Chronic kidney disease, stage 4 (severe); E21.3 Hyperparathyroidism, unspecified; E78.5 Hyperlipidemia, unspecified; D63.1 Anemia in chronic kidney disease; E55.9 Vitamin D deficiency, unspecified; M10.00 Idiopathic gout, unspecified site
CPT/HCPCS: 36415; 80061; 80069; 82306; 82570; 82728; 83036; 83540; 83550; 83970; 84156; 84244; 84443; 84550; 85027

== ENCOUNTER → 2023-07-04 | Outpatient (CLI) | payer MEDICARE, OTHER, SELFPAY ==
--- NOTE | 2023-07-04 11:01 | ECHOD_ITS ---
Reason For Study: VALVE REPLACEMENT EVAL Procedure This was a 2D Doppler, Color Flow transthoracic echocardiogram. Exam performed in department. Left Ventricle Normal LV size. Mild concentric left ventricular hypertrophy. Left ventricular systolic function is normal. The estimated ejection fraction is 65 %. Stage 1 diastolic dysfunction. No regional wall motion abnormalities noted. Right Ventricle Normal RV size. Normal systolic function. Mitral Valve There is mild to moderate mitral annular calcification. Mild (1+) eccentric mitral valve insufficiency. Tricuspid Valve Normal tricuspid valve. Mild tricuspid valve insufficiency. Pulmonary artery systolic pressure is 33 mmHg. Aortic Valve Peak aortic valve gradient 39 mmHg. Mean aortic valve gradient 22 mmHg. Bioprosthetic aortic valve. Pulmonic Valve Normal pulmonic valve. Great Vessels Normal aortic root. The pulmonary artery is normal size. Normal inferior vena cava. Pericardium/Pleural No pericardial effusion. MMode/2D Measurements & Calculations LVIDd: 5.2 cm IVSd: 1.3 cm LVOT diam: 2.0 cm LVIDs: 3.2 cm LVPWd: 1.3 cm LVOT area: 3.1 cm2 RVDd: 3.5 cm FS: 38.7 % Ao root diam: 3.2 cm LAV(MOD-bp): 56.8 ml LVAd ap4: 28.1 cm2 LAV(MOD-bp) Indexed: 29.7 ml/m2 LVLd ap4: 7.7 cm LAV(MOD-sp2): 54.3 ml EDV(MOD-sp4): 85.4 ml LAV(MOD-sp4): 59.5 ml EDV(sp4-el): 87.2 ml LVAs ap4: 15.6 cm2 LVLs ap4: 6.6 cm ESV(MOD-sp4): 31.4 ml ESV(sp4-el): 31.5 ml EF(MOD-sp4): 63.3 % EF(sp4-el): 63.8 % SV(MOD-sp4): 54.0 ml SV(sp4-el): 55.6 ml LA A4 area: 19.9 cm2 LA dimension(2D): 4.1 cm RA A4 area: 15.1 cm2 Time Measurements MV dec time: 0.27 sec Doppler Measurements & Calculations MV E max mundo: 106.1 cm/sec Lat Peak E' Mundo: 6.2 cm/sec Med Peak E' Mundo: 6.5 cm/sec MV A max munod: 108.1 cm/sec E/E' lat: 17.2 E/E' med: 16.2 MV E/A: 0.98 MV V2 max: 137.7 cm/sec Ao V2 max: 312.3 cm/sec LV V1 max: 173.3 cm/sec MV max P.6 mmHg Ao max P.0 mmHg LV V1 max P.0 mmHg MV V2 mean: 82.2 cm/sec Ao V2 mean: 218.9 cm/sec LV V1 mean P.5 mmHg MV mean P.0 mmHg Ao mean P.6 mmHg LV V1 mean: 128.9 cm/sec MV V2 VTI: 47.1 cm Ao V2 VTI: 83.4 cm LV V1 VTI: 51.5 cm AV (velocity ratio): 0.62 MVA(VTI): 3.4 cm2 KATHY(I,D): 1.9 cm2 KATHY(V,D): 1.7 cm2 SV(LVOT): 158.4 ml PA V2 max: 107.9 cm/sec TR max mundo: 276.3 cm/sec TR max P.5 mmHg ECHO/Echo Complete Interpretation Summary Normal LV size. Left ventricular systolic function is normal. The estimated ejection fraction is 65 %. Mild concentric left ventricular hypertrophy. Stage 1 diastolic dysfunction. Mild (1+) eccentric mitral valve insufficiency. Bioprosthetic aortic valve. Mean aortic valve gradient 22 mmHg. Ordering Physician: Magui Culver/Venkata Lopez Referring Physician: ALFONSO SHANNON Performed By: Cathy Torres RDCS
--- OUTSIDE RECORDS SUMMARY | 2023-07-04 12:42 | XMS RPT_ITS | CCD ---
Author Name Unknown Address [address] [place] [address] Organization [facility] Care Team Providers Care Lobby Concierge Name Role Phone Estrada, Yazmin Y Unavailable Reed Molina Y Unavailable Unavailable Estrada, Yazmin Y Unavailable Melanie RN, Suyapa Coy Unavailable Unavailable Melanie ZARATE, Suyapa Coy Unavailable Unavailable Estrada, Yazmin Y Unavailable FRANK DAN APRN, CNP Primary Care [facility] MARGI RAJAN Attending Unavailable YOSSI QUISPE [...] Attending Unavailable ALEYDA CAI Referring Unavailable MIRTHAKRISTOFER GAMBOA - FRANK JOHNSON Primary Care U navailable MIRTHA FOUNDRY METALLURGIST - ELIZABETH, FRANK Marquis Attending U navailable MIRTHA FOUNDRY METALLURGIST - AIRPORT UTILITY WORKERFRANK Attending U navailable MIRTHA BEE - FRANK JOHNSON Primary Care U navailable MIRTHA FOUNDRY METALLURGIST - AIRPORT UTILITY WORKER, FRANK Marquis Attending U navailable MIRTHAKRISTOFER GAMBOA - ELIZABETH, FRANK Marquis Primary Care U navailable Allergies Allergy Classification Reported Allergen(s) Allergy Type Date of Onset Reaction(s) Facility (6 sources) Macrolides (Antibiotic) drug allergy 7 unknown [facility] Work Phone: (6 sources) penicillin drug allergy 7 unknown [facility] Work Phone: (11 sources) ERYTHROMYCIN BASE; Translations: [Erythromycin] drug allergy 7 Nausea (finding) [facility] Work Phone: (5 sources) Penicillins; Translations: [penicillins] Drug allergy Weal (disorder) [facility] Medications Current Medications Medication Drug Class(es) Dates [...] qDay, # 45 tab(s), 1 Refill(s), Pharmacy: [facility] Mail Delivery, 155, cm, 12/27/22 13:38:00 EDT, Height, kg, 12/27/22 13:38:00 EDT, Dosing Weight Start Date: 12/27/22 Status: Ordered Completed/Discontinued Medications Medication Drug Class(es) Dates Sig (Normalized) Sig (Original) Calcium Carbonate / Vitamin D (6 sources) Start: 01-30-2017 take 1 tablet by mouth once daily CALCIUM 500 + D 500-125 MG-UNIT TABS One tablet by mouth daily CALCIUM CARBONATE-VITAMIN D [id number] Suyapa Navarro RN Problems Problem Classification Problem [...] Start: 03-25-2023 End: 03-26-2023 ambulatory FRANK LIRAPKINS FOUNDRY METALLURGIST - AIRPORT UTILITY WORKER Facility:B Start: 03-25-2023 End: 03-25-2023 Patient encounter procedure FRANK RAMIREZ FOUNDRY METALLURGIST - AIRPORT UTILITY WORKER [facility] Start: 01-04-2023 End: 01-05-2023 ambulatory FRANK LIRAPKINS FOUNDRY METALLURGIST - AIRPORT UTILITY WORKER Facility:[facility] Start: 01-04-2023 End: 01-04-2023 Patient encounter procedure FRANK RAMIREZ FOUNDRY METALLURGIST - AIRPORT UTILITY WORKER [facility] Start: 08-16-2022 End: 08-17-2022 ambulatory [facility] Start: 07-19-2022 End: 07-19-2022 ambulatory [facility] Start: 07-09-2022 End: 07-10-2022 Evaluation and management of inpatient [facility] Start: 06-27-2022 End: 06-27-2022 ambulatory ROSAL[facility] Start: 06-27-2022 End: 06-28-2022 ambulatory [facility] Start: 06-27-2022 End: 06-28-2022 ambulatory [facility] Start: 06-05-2022 End: 06-05-2022 ambulatory MARGI KELLENSaeed [facility] Start: 05-14-2022 End: 05-15-2022 ambulatory FRANK LIRAPKINS FOUNDRY METALLURGIST - AIRPORT UTILITY WORKER Facility:[facility] Start: 05-14-2022 End: 05-14-2022 Patient encounter procedure FRANK LIRAPKINS FOUNDRY METALLURGIST - AIRPORT UTILITY WORKER [facility] Start: 02-02-2022 End: 02-02-2022 Patient encounter procedure FRANK LIRAPKINS FOUNDRY METALLURGIST - AIRPORT UTILITY WORKER [facility] Start: 12-29-2021 End: 12-29-2021 Patient encounter procedure FRANK RAMIREZ FOUNDRY METALLURGIST - AIRPORT UTILITY WORKER [facility] Procedures Date Procedure Procedure Detail Performing Clinician Start: 06-24-2017 Echocardiography GURVINDER RAMIREZ FOUNDRY METALLURGIST - AIRPORT UTILITY WORKER Start: 02-06-2017 End: 02-06-2017 ALIYA Lopez MD Start: 02-06-2017 End: 02-06-2017 Follow Up Appt 4 months Demarco Floyd Start: 02-06-2017 End: 02-06-2017 ALIYA Lopez MD Start: 02-06-2017 End: 02-06-2017 Follow Up Appt 4 months Demarco Floyd Plan of Treatment Date Care Activity Detail Author Start: 06-07-2017 End: 06-07-2017 Appointment Appointment [facility] Work Phone: Start: 02-06-2017 End: 02-06-2017 *BMP *BMP [facility] Work Phone: Start: 02-06-2017 End: 02-06-2017 CARD MOUNTER ALIYA [facility] Work Phone: Start: 02-06-2017 End: 02-06-2017 Ecg routine ecg w/least 12 lds w/i&r EKG (In office) [facility] Work Phone: Start: 02-06-2017 End: 02-06-2017 Echocardiography Echocardiogram (complete) [facility] Work Phone: Start: 02-06-2017 End: 02-06-2017 Follow Up Appt 4 months Follow Up Appt 4 months [facility] Work Phone: Start: 02-06-2017 End: 02-06-2017 Appointment Appointment [facility] Work Phone: Start: 02-06-2017 End: 02-06-2017 *BMP *BMP [facility] Work Phone: Start: 02-06-2017 End: 02-06-2017 CARD MOUNTER CARD MOUNTER [facility] Work Phone: Start: 02-06-2017 End: 02-06-2017 Echocardiography Echocardiogram (complete) [facility] Work Phone: Start: 02-06-2017 End: 02-06-2017 Electrocardiogram, complete EKG (In office) [facility] Work Phone: Start: 02-06-2017 End: 02-06-2017 Follow Up Appt 4 months Follow Up Appt 4 months [facility] Work Phone: Immunizations Immunization Date Immunization Notes Care Provider [facility] 04-01-2022 influenza virus vacc ine, unspecified formulation FRANK RAMIREZ FOUNDRY METALLURGIST - AIRPORT UTILITY WORKER [facility] [employer] 09-24-2021 SARS-CoV-2 (COVID-19 ) mRNA-1273 vaccine FRANK LIRAPKINS FOUNDRY METALLURGIST - AIRPORT UTILITY WORKER [facility] [employer] 05-31-2021 SARS-CoV-2 (COVID-19 ) mRNA-1273 vaccine FRANK RAMIREZ FOUNDRY METALLURGIST - AIRPORT UTILITY WORKER [facility] [employer] 03-22-2021 influenza virus vacc ine, unspecified formulation FRANK LIRAPKINS FOUNDRY METALLURGIST - AIRPORT UTILITY WORKER [facility] [employer] 09-19-2020 SARS-CoV-2 (COVID-19 ) mRNA-1273 vaccine FRANK LIRAPKINS FOUNDRY METALLURGIST - AIRPORT UTILITY WORKER [facility] [employer] 08-22-2020 SARS-CoV-2 (COVID-19 ) mRNA-1273 vaccine FRANK LIRAPKINS FOUNDRY METALLURGIST - AIRPORT UTILITY WORKER [facility] 02-27-2019 influenza, injectabl e, quadrivalent, preservative free; Translations: [Fluad ] FRANK RAMIREZ FOUNDRY METALLURGIST - AIRPORT UTILITY WORKER [facility] 03-24-2018 influenza virus vacc ine, unspecified formulation FRANK RAMIREZ FOUNDRY METALLURGIST - AIRPORT UTILITY WORKER [facility] 03-24-2017 influenza virus vacc ine, unspecified formulation FRANK LIRAPKINS FOUNDRY METALLURGIST - AIRPORT UTILITY WORKER [facility] 04-14-2016 influenza virus vacc ine, unspecified formulation FRANK LIRAPKINS FOUNDRY METALLURGIST - AIRPORT UTILITY WORKER [facility] 03-15-2015 influenza virus vacc ine, unspecified formulation FRANK LIRAPKINS FOUNDRY METALLURGIST - AIRPORT UTILITY WORKER [facility] 01-13-2015 pneumococcal conjuga te vaccine, 13 valent FRANK LIRAPKINS FOUNDRY METALLURGIST - AIRPORT UTILITY WORKER [facility] 03-24-2014 influenza virus vacc ine, unspecified formulation FRANK RAMIREZ FOUNDRY METALLURGIST - AIRPORT UTILITY WORKER [facility] 04-24-2013 pneumococcal polysaccharide vaccine, 23 valent FRANK ORELLANAKINS FOUNDRY METALLURGIST - AIRPORT UTILITY WORKER [facility] 02-20-1999 diphtheria and tetan us toxoids, adsorbed for pediatric use FRANK LIRAPKINS FOUNDRY METALLURGIST - AIRPORT UTILITY WORKER [facility] Payers Date Payer Category Payer Unknown [id number] 2022 Medicare [id number] 2021 Unknown [id number] 2014 Medicare [id number] 1945 Unknown [id number] 1945 Unknown [id number] 1945 Unknown [id number] Social History Date Type Detail Facility Start: 02-09-2019 Tobacco smoking status Never s moked tobacco (finding) [facility] Clinical Notes 03-13-2021 to 01-04-2023 LaboratoryRadiologyLaboratoryRadiologyLaboratoryLaboratoryLaboratory Note [...] 01/04/2023 3:49:39 PM Ordering Provider: FRANK RAMIREZ [facility] 01-04-2023 Note ORIGINAL EXAMINATION: PARATHYROID SCINTIGRAPHY01/04/2023 2:54 [...] 01/04/2023 3:49:39 PM Ordering Provider: FRANK MIRTHA [facility] 07-10-2022 Note Attestation signed by Yossi Quispe [...] (BMI ? 40) Yossi Quispe MD Name: Winifred Wood Date of : 1945 Date of Admission: 07/09/2022 Date of Discharge: 07/10/2022 Admitting physician: Yossi Quispe MD Discharge Attending: Rosalind Quispe APRN - ELIZABETH Primary Care Physician: Frank Ramirez Reason for Admission: Severe Symptomatic Aortic [...] condition. Referral to (more content not included)... [facility] 07-10-2022 Note Received referral an d reviewed chart. Unable to discuss Phase II Cardiac Rehab Referral with Winifred Dasha Wood at this time. Will follow to discuss cardiac rehab when appropriate. Patient will be contacted at home if discharged prior to discussion. [facility] 07-09-2022 Note Patient: Winifred Wood Procedure Summary Date: 07/09/22 [place] / [place] [facility] [place] Room Anesthesia Start: 1418 Anesthesia Stop: [...] once all PACU criteria has been met. [facility] 07-09-2022 Note Patient: Winifred Wood Procedure Summary Date: 07/09/22 Room / Location: [facility] Operating Room Anesthesia Start: 1418 Anesthesia Stop: [...] opportunity for questions and acknowledgement of understanding. [facility] 07-05-2022 Note Attestation signed by Yossi Quispe MD at 07/09/2022 11:59 AM I have examined the patient on admission and confirm that the necessity for the procedure is still present . The patient's condition has not changed since the History & Physical was originally completed. Yossi Quispe MD 07/09/2022 [facility] [address] [facility] [address] Dept: [phone] Dept Loc: [phone] Visit type: Established patient Reason for Visit: [...] in about 1 month (around 07/28/2022) for CUT OFF TENDER GLASS follow up. Subjective HPI Winifred Wood is [...] Once Yossi Quispe MD Stopped at 06/27/22 1668 Medical History Past Medical History: Diagnosis Date Anemia Aortic valve stenosis CKD (chronic kidney disease) Diabetes mellitus (HCC) Hyperlipidemia Hypertension Obesity Renal calculi Right renal artery stenosis (CMS/HCC) (HCC) Social History Tobacco Use Smoking status: Never Passive exposure: Never Smokeless tobacco: Never Substance Use Topics Alcohol use: Not Currently Surgical History Past Surgical History: Procedure Laterality Date (more content not included)... [facility] 07-05-2022 Note Attestation signed by Yossi Quispe MD at 07/09/2022 11:59 AM I have examined the patient on admission and confirm that the necessity for the procedure is still present . The patient's condition has not changed since the History & Physical was originally completed. Yossi Quispe MD 07/09/2022 [facility] [address] [facility] [address] Dept: [phone] Dept Loc: [phone] Visit type: Established patient Reason for Visit: [...] in about 1 month (around 07/28/2022) for CUT OFF TENDER GLASS follow up. Subjective HPI Winifred Wood is [...] Once Yossi Quispe MD Stopped at 06/27/22 8481 Medical History Past Medical History: Diagnosis Date Anemia Aortic valve stenosis CKD (chronic kidney disease) Diabetes mellitus (HCC) Hyperlipidemia Hypertension Obesity Renal calculi Right renal artery stenosis (CMS/HCC) (HCC) Social History Tobacco Use Smoking status: Never Passive exposure: Never Smokeless tobacco: Never Substance Use Topics Alcohol use: Not Currently Surgical History Past Surgical History: Procedure Laterality Date (more content not included)... [facility] 07-05-2022 Note Pre TAVR phone call placed. Reviewed, procedure, instructions and meds. Pt verbalizes understanding. Pt knows to call [phone] with any concerns. [facility] 07-04-2022 Note Patient: Winifred Wood Procedure Information Date/Time: 07/09/22 1245 Procedures: TAVR/TTE TRANSCATHETER AORTIC VALVE REPLACEMENT (TAVR) - OR (Chest) Location: [facility] Operating Room Surgeons: Yossi Quispe MD; Francis [...] PROVISIONAL FFR-CT Comment: CT ANGIOGRAM TAVR 06/27/[address] [facility] [address] IMAGING No date: SALPINGECTOMY; Bilateral Social [...] Yossi Quispe MD on 06/06/2022 10:00 PM [facility] 06-28-2022 Note Symptomatic severe a ortic stenosis-scheduled [...] expressed understanding and acceptance of the plan. [facility] 06-01-2022 Note Referral Date: Appoi ntment Date(s): 06/08/2022 DEMOGRAPHICS Name: Winifred Wood : 1945 Age: 77 y.o. 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 [employer] Dusting: Clinic IC: Clinic CTS: STS score: MEDICAL [...] situation:(home/apartment, independent living) Social, and home support: (family/friends/community/jewish) Comments/Plan: Same Day Candidate: Y or N COMPLETE TAVR Candidate: Y or N [employer] [facility] 05-14-2022 Note ORIGINAL EXAMINATION: BONE DENSITOMETRY [...] Sign Date: 05/14/2022 2:50:51 PM Ordering Provider: FARNK RAMIREZ [facility] 05-14-2022 Note ORIGINAL EXAMINATION: BONE DENSITOMETRY 05/14/2022 [...] By: Gio Reina DO Electronically signed By Goi Reina DO Dictated Date: 05/14/2022 2:48:55 PM Prelim Date: 05/14/2022 2:50:51 PM Sign Date: 05/14/2022 2:50:51 PM Ordering Provider: FRANK RAMIREZ [facility] 03-17-2021 Note HNO ID: [id number] Author: Saundra Dowling RN Service: ? Author Type: Registered Nurse Type: Nursing Progress Note Filed: 03/17/2021 8:24 AM Note Text: Dr. Diamond notified of patient's high blood pressures. [facility] 03-13-2021 Note HNO ID: [id number] Author: Kirstin Diamond MD Service: ? Author [...] kidney disease) stage 3, GFR 30-59 ml/min ([facility]) - DM type 2 (diabetes mellitus, type 2) ([facility]) - Heart murmur - HTN (hypertension) [...] entered by the nurse and reviewed by mt Nursing Notes: Loly Perez LPN 03/13/2021 1:40 [...] lb), SpO2 9 (more content not included)... [facility] Evaluation + Plan note Future Appointments Appointment Date:01/08/2022 11:00:00 AM Scheduled Provider:FRANK RAMIREZ APRN, CNP Location:[facility] Appointment Type: OV Follow Up Appointment Date:02/20/2022 02:00:00 PM Scheduled Provider:FRANK RAMIREZ APRN, CNP Location:[facility] Appointment Type: Wellness Medicare Appointment Date:06/26/2022 01:40:00 PM Scheduled Provider:FRANK RAMIREZ FOUNDRY METALLURGIST - AIRPORT UTILITY WORKER Location:[facility] Appointment Type:PC OV Follow Up Future Scheduled TestsRenin, Plasma 06/19/22Iron Level 06/19/22Thyroid Stimulating Hormone 06/19/22Free T4 06/19/22Uric Acid 06/19/22A1C Hemoglobin 06/19/22Complete Blood Count 06/19/22Free T3 06/19/22Lipid Profile 06/19/22Microalbumin Level Urine 06/19/22PTH, Intact 06/19/22Vitamin D Level 06/19/22Complete Metabolic Panel 06/19/22BD Bone Density DEXA Axial Skeleton 02/17/21 [facility] Evaluation + Plan note Future Appointments Appointment Date:02/20/2022 02:00:00 PM Scheduled Provider:FRANK RAMIREZ FOUNDRY METALLURGIST - AIRPORT UTILITY WORKER Location:[facility] Appointment Type:PC Wellness Medicare Appointment Date:06/26/2022 01:40:00 PM Scheduled Provider:FRANK RAMIREZ FOUNDRY METALLURGIST - AIRPORT UTILITY WORKER Location:[facility] Appointment Type: OV Follow Up [...] 07/11/22BD Bone Density DEXA Axial Skeleton 02/17/21 [facility] Evaluation + Plan note Future Appointments Appointment [...] 07/11/22Complete Metabolic Panel 06/19/22Complete Metabolic Panel 07/11/22 [facility] Evaluation + Plan note Future Appointments Appointment Date:01/10/2023 01:40:00 PM Scheduled Provider:FRANK RAMIREZ APRN, CNP Location:[facility] Appointment Type:PC OV Follow Up Appointment Date:07/04/2023 01:40:00 PM Scheduled Provider:FRANK RAMIREZ [...] Panel 06/29/23Complete Metabolic Panel 12/24/22TIBC 06/29/23TIBC 12/24/22 [facility] Evaluation + Plan note Future Appointments Appointment Date:07/04/2023 01:40:00 PM Scheduled Provider:RFANK RAMIREZ APRN, CNP [facility] Appointment Type:PC OV Follow Up Future [...] Panel 06/29/23Complete Metabolic Panel 12/24/22TIBC 06/29/23TIBC 12/24/22 [facility] Hospital course Narrative No data available for this section [facility] Hospital Discharge instructions No data available for this section [facility] Progress note No data available for this section [facility] Summary Purpose Family History No Family History Records FoundNo Family History Records Found No data available for this section No Family History Records Found Advance Directives No Advanced Directives Records FoundNo Advanced Directives Records FoundNo Advanced Directives Records Found Additional Source Comments INFORMATION SOURCE (unrecogn ized section and content) DATE CREATED AUTHOR AUTHOR'S ORGANIZ ATION 08/18/2022 [facility] DATE CREATED AUTHOR AUTHOR'S ORGANIZ ATION 04/04/2023 [facility] ([place]) Care Team (unrecognized sect ion and content) Care Team Personnel Name: FRANK RAMIREZ APRN, CNP Position: P4 Advanced Practice Nurse Med Service: Employed Provider Member Role: Primary Care Physician Address: Address: [address] [place] [address]- Care Team Related Persons Name: JANICE WOOD Address: Home [address] [place], [place] [id number] Care Team Personnel Name: FRANK RAMIREZ APRN, CNP Position: P4 Advanced Practice Nurse Med Service: Employed Provider Member Role: Primary Care Physician Address: Address: [address] [place] [id number] [place] [address] Care Team Related Persons Name: JANICE WOOD Address: Home [address] [place], [place] [id number] [place] Care Team Personnel Name: FRANK RAMIREZ APRN, CNP Position: P4 Advanced Practice Nurse Member Role: Primary Care Physician Address: Address: [address] [place] [id number]- Care Team Related Persons Name: JANICE WOOD Address: Home [address] [place], [place] [id number] Patient Care team informatio n (unrecognized section and content) Care Team Personnel Name: FRANK RAMIREZ APRN, CNP Position: P4 Advanced Reconnaissance Man Member Role: Primary Care Physician Address: Address: [address] [place] [address]- Care Team Related Persons Name: JANICE WOOD Address: Home [address] [place], [place] [phone] [place] Care Team Personnel Name: FRANK RAMIREZ APRN, CNP Position: P4 Advanced Reconnaissance Man Member Role: Primary Care Physician Address: Address: [address] [place] [id number]- Care Team Related Persons Name: JANICE WOOD Address: Home [address] [place], [place] [phone] [place] FOR RECORDS PERTAINING TO PATIENTS WHO [...] BE BASED ON THE PRIMARY CLINICAL RECORDS. [facility] [employer] [facility]. provides no warranty or guarantee of the accuracy or completeness of information in this document.
== END | disposition home or self-care (01) ==
LOC: CVS 11:00
PROVIDERS: PCP Nurse Practitioner Family; Referring Provider Physician Assistant Medical; Visit Provider Physician Assistant Medical
DX: I35.2 Nonrheumatic aortic (valve) stenosis with insufficiency (principal)
CPT/HCPCS: 93306

== ENCOUNTER 2023-08-06 14:04 | Emergency (ER) | payer MEDICARE, OTHER, SELFPAY ==
[2023-08-06 14:06] VITALS: BP 171/48; PULSE 63; RESP 18; TEMP 35.7; O2SAT 100
[2023-08-06 14:25] VITALS: BMI 35.7
--- NOTE | 2023-08-06 15:10 | ED.VIS.LOWEX ---
HPI History of Present Illness Chief Complaint: Lower Extremity Injury Informant: patient and spouse/S.O. Narrative Narrative: Patient complains of pain in the left buttock around the left hip area. Patient does have a history of significant arthritis. She has been using a rollator since March. She just had her second injection in her left knee recently. The knee is not bothering her. 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 But her toe does not hurt. But she leaned forward in the sink and she had a pain in the left buttock area. It radiated around the side of the hip and a little bit around the front and lateral side of the thigh. It did not go quite to prison. She states just laying in bed it does not hurt. No actual fall or impact recently although she did fall some months ago. Of note, she is on Eliquis but has not had any bleeding issues. There is no numbness tingling distally. No bowel or bladder dysfunction. No abdominal pain. She has had no recent infection or fevers. [facility] Medical History (Updated 08/06/23 @ 17:[address] Ronnie Tavares MD) Anemia Chronic kidney disease (CKD) stage G3b/A1, moderately decreased glomerular filtration rate (GFR) between 30-44 mL/min/1.73 square meter and albuminuria creatinine ratio less than 30 mg/g Essential (primary) hypertension H/O renal calculi History of transcatheter aortic valve replacement (TAVR) (~07/09/22) Hyperlipidemia Hyperparathyroidism Left ventricular diastolic dysfunction Nonrheumatic aortic (valve) stenosis with insufficiency Obesity Obesity due to excess calories PAF (paroxysmal atrial fibrillation) Right renal artery stenosis Secondary pulmonary arterial hypertension Type 2 diabetes mellitus without complications Home Medications atorvastatin 20 mg tablet (Lipitor) 20 mg PO QHS 06/06/17 [History Last Taken Unknown] ferrous sulfate 325 mg (65 mg iron) tablet 325 mg PO QDAY 06/06/17 [History Last Taken Unknown] metoprolol succinate 100 mg tablet,extended release 24 hr (Toprol XL) 100 mg PO QDAY 06/06/17 [History Last Taken 05/28/22] multivitamin,dg-jlie-uasomoeo (Complete Multivitamin tablet) 1 tab PO QDAY 06/06/17 [History Last Taken Unknown] allopurinol 100 mg tablet 50 mg PO QDAY 03/08/21 [History Last Taken Unknown] aspirin 81 mg tablet,delayed release (Adult Aspirin Regimen) 81 mg PO DAILY 03/13/22 [History Last Taken 05/28/22] pioglitazone 15 mg tablet tablet PO 12/12/22 [History Last Taken Unknown] amlodipine 10 mg tablet 10 mg PO QDAY #90 tabs 12/20/22 [Rx Last Taken Unknown] losartan 100 mg tablet 100 mg PO DAILY #90 tabs 07/01/23 [Rx Last Taken Unknown] apixaban 2.5 mg tablet (Eliquis) 2.5 mg PO BID 08/06/23 [History Last Taken Unknown] tramadol 25 mg tablet 25 mg PO Q6H PRN pain 3 days #10 tabs 08/06/23 [Rx Last Taken Unknown] Allergy/AdvReac Type Severity Reaction Status Date / Time erythromycin base Allergy Unknown Verified 08/06/23 14:06 [From Erythrocin] Macrolide Antibiotics Allergy Unknown Verified 08/06/23 14:06 Penicillins Allergy Unknown Verified 08/06/23 14:06 Surgical History H/O bilateral salpingectomy History of stent insertion of renal artery (03/28/22) Hx of cholecystectomy Social History Smoking Status: Never smoker alcohol intake: current alcohol intake frequency: holidays/special occasions only ROS ROS ED Constitutional Constitutional ED: Denies chills, fever(s) or subjective Eyes Eyes: Denies change in vision Cardiovascular Cardiovascular: Denies chest pain or palpitations Respiratory/Chest Respiratory/Chest: Denies cough or dyspnea Gastrointestinal Gastrointestinal: Denies abdominal pain, diarrhea, nausea or vomiting Genitourinary Genitourinary ED: Denies dysuria, hematuria or urinary frequency Musculoskeletal Musculoskeletal: Reports arthralgias and other Details: See history of present illness. ; Denies neck pain Integumentary Denies rash Neurologic Neurologic: Denies paresthesias or weakness Hematologic/Lymphatic Hematologic/Lymphatic: Reports easy bleeding and easy bruising EXAM Physical Exam Narrative Exam Narrative: General: Patient is awake alert no acute distress she is sitting comfortably in bed and carries on normal conversation. HEENT shows no trauma Neck is supple. Heart sounds regular. She has a history of atrial fibrillation but her rate is about 70. It does sound to be in a normal rhythm. Lungs are clear bilaterally. No pain with a deep breath. Saturations are normal at 100% on room air showing no hypoxia. Abdomen is soft absolutely no tenderness including none toward the left flank or left lower quadrant. Back shows no cervical thoracic or lumbar tenderness. No paraspinal tenderness. No rashes. Extremity: Was able to rotate her hip without any notable pain. Both knees look normal and they are not red or inflamed. She has bilateral lower extremity edema which is not new. There is no sign of lesions sores abscess or vesicles on the buttock. She does have some sciatic notch tenderness though. Const Vital Signs: 08/06/23 14:06 Temperature 96.2 F L Temperature Source Temporal Pulse Rate 63 Respiratory Rate 18 Blood Pressure 171/48 H Blood Pressure Mean 89 Pulse Ox 100 Oxygen Delivery Method Room Air MDM MDM MDM Narrative Medical decision making narrative: My independent interpretation of her three-view x-ray shows mild arthritic changes but no acute bony abnormality or fracture final reading is negative. Patient still has some discomfort. I reexamined her. There is no fullness or bruising. I explained that it is possible she had some bleeding into that area. But she is not tachycardic or hypotensive. No bruising is developed. There is no swelling. I do not think she needs imaging or blood work at this point. She should rest we will give her meds for pain. We discussed reasons to come back. Radiography Diagnostic Testing: Clinical Impression(s) from Imaging Studies Hip/Pelvis X-Ray 08/06/23 15:35 IMPRESSION: No evidence of displaced pelvic or hip fracture. Electronically Signed: Rachid Nelson MD at 16:21 EST , Discharge Plan Triage Chief Complaint: Lower Extremity Injury ED Provider: Ronnie Tavares Dx/Rx/DC Orders Clinical Impression: Sciatica of left side without back pain, Left buttock pain Instructions: ED Sciatica Prescriptions: New tramadol 25 mg tablet 25 mg PO Q6H PRN (Reason: pain) 3 Days Qty: 10 0RF No Action atorvastatin [Lipitor] 20 mg tablet 20 mg PO QHS metoprolol succinate [Toprol XL] 100 mg tablet extended release 24 hr 100 mg PO QDAY ferrous sulfate 325 mg (65 mg iron) tablet 325 mg PO QDAY multivitamin,qv-yfzi-zzseernk tablet tablet 1 tab PO QDAY allopurinol 100 mg tablet 50 mg PO QDAY aspirin [Adult Aspirin Regimen] 81 mg tablet,delayed release (DR/EC) 81 mg PO DAILY amlodipine 10 mg tablet 10 mg PO QDAY Qty: 90 3RF pioglitazone 15 mg tablet PO Eliquis 2.5 mg tablet 2.5 mg PO BID losartan 100 mg tablet 100 mg PO DAILY Qty: 90 3RF Primary Care Provider: Frank Ramirez NP Referrals: Frank Ramirez NP, [facility] [Primary Care Provider] - 3-5 Days if not improving Disposition Disposition: Home, Self Care
--- NOTE | 2023-08-06 15:35 | RAD_ITS ---
INDICATION: pain EXAMINATION/TECHNIQUE: X-RAY - XR Hip Unilateral with Pelvis when performed; 2-3 Views COMPARISON: No relevant prior comparison study available FINDINGS: PELVIC BONES: No displaced fracture, destructive or sclerotic lesions. Note that overlapping bowel shadows may however obscure fine detail. Sacroiliac joints are unremarkable. No widening of the pubic symphysis. HIPS: Mild narrowing of the left hip joint No displaced fracture seen in this frontal view. SOFT TISSUES: Vascular calcifications. RAD/HIP, UNI W/ Pelvis 2-3 Views IMPRESSION: No evidence of displaced pelvic or hip fracture. Electronically Signed: Rachid Nelson MD at 16:21 EST ,
[2023-08-06] MEDS: traMADol 50 MG Tablet PO (17:27)
[2023-08-06 17:33] VITALS: BP 171/48; PULSE 63; RESP 18; TEMP 35.7; O2SAT 100
== END 2023-08-06 17:34 | disposition home or self-care (01) ==
PROVIDERS: Emergency Provider Emergency Medicine; PCP Nurse Practitioner Family; Visit Provider Emergency Medicine
DX: M54.32 Sciatica, left side (principal); E11.22 Type 2 diabetes mellitus with diabetic chronic kidney disease; I48.0 Paroxysmal atrial fibrillation; N18.32 Chronic kidney disease, stage 3b; I12.9 Hypertensive chronic kidney disease with stage 1 through stage 4 chronic kidney disease, or unspecified chronic kidney disease; E78.5 Hyperlipidemia, unspecified; Z79.899 Other long term (current) drug therapy; Z79.01 Long term (current) use of anticoagulants
CPT/HCPCS: 73502; 99282

== ENCOUNTER 2023-08-09 13:02 | Outpatient (CLI) | payer MEDICARE, OTHER, SELFPAY ==
[2023-08-09] MEDS: 0.9% NaCl IVPB Med Flush (250 mL) 15 ML IV (13:09)
[2023-08-09] MEDS: 0.9% NaCl Peripheral Flush Adult/Peds IV (13:09)
[2023-08-09] MEDS: Iron Sucrose Complex 300 MG in 0.9% Normal Saline (250mL Bag) 250 ML 177 MG IV (13:10)
[2023-08-09 13:14] VITALS: BP 152/53; PULSE 61; RESP 16; TEMP 36; O2SAT 100; BMI 36.2
--- OUTSIDE RECORDS SUMMARY | 2023-08-09 13:21 | XMS RPT_ITS | CCD ---
Author Name Unknown Address [address] [place] [address] Organization [facility] Care Team Providers Care [employer] Developer Name Role Phone Estrada, Yazmin Y Unavailable Reed Molina Y Unavailable Unavailable Estrada, Yazmin Y Unavailable Suyapa Navarro RN Unavailable Unavailable Suyapa Navarro RN Unavailable Unavailable Estrada, Yazmin Y Unavailable FRANK DAN APRN, CNP [facility] MARGI RAJAN Attending Unavailable YOSSI QUISPE Attending Unavailable JARED LOPEZRIL Referring Unavailable ALEYDA CAI Attending Unavailable JAMES, FRANK Primary Care Unavailable ALEYDA CAI Attending Unavailable JAMES, FRANK Primary Care Unavailable ROSALIND QUISPE Attending Unavailable YOSSI QUISPE Attending Unavailable ALEYDA CAI Attending Unavailable ALEYDA CAI Referring Unavailable JAMES, FRANK Primary Care Unavailable YOSSI QUISPE Admitting Unavailable YOSSI QUISPE Attending Unavailable ALEYDA CAI Attending Unavailable ALEYDA CAI Referring Unavailable JAMESKRISTOFER GAMBOA - FRANK JOHNSON Primary Care U navailable JAMES DRY ICE MACHINE OPERATOR - ELIZABETH, FRANK Marquis Attending U navailable JAMES DRY ICE MACHINE OPERATOR - POULTRY OFFAL WORKER, FRANK Marquis Attending U navailable JAMES DRY ICE MACHINE OPERATOR - ELIZABETH, FRANK Marquis Primary Care U navailable JAMES DRY ICE MACHINE OPERATOR - FRANK JOHNSON Attending U navailable JAMESKRISTOFER GAMBOA - FRANK JOHNSON Primary Care U navailable JamesFrank mg CNP Primary Care Provider FRANK RAMIREZ Primary Care Unavailable GARRETT VAUGHN Referring Unavailable FRANK RAMIREZ Primary Care Unavailable GARRETT VAUGHN Attending Unavailable Allergies Allergy Classification Reported Allergen(s) Allergy Type Date of Onset Reaction(s) Facility (6 sources) Macrolides (Antibiotic) drug allergy 7 unknown [facility] Work Phone: (6 sources) penicillin drug allergy 7 unknown [facility] Work Phone: [phone] (11 sources) ERYTHROMYCIN BASE; Translations: [Erythromycin] drug allergy 7 Nausea (finding) [facility] Work Phone: (6 sources) Penicillins; Translations: [penicillins] Drug allergy 6 Weal (disorder) [facility] (2 sources) Erythromycin; Translations: [ERYTHROMYCIN] Drug Allergy [address] [facility] (1 source) Penicillins Propensity to adverse reactions to drug [address] [facility] Medications Current Medications Medication Drug Class(es) Dates Sig (Normalized) Sig (Original) acetaminophen 500 mg oral tablet (2 sources) Start: 02-02-2022 End: 02-16-2022 Tylenol Extra Strength 500 mg oral tablet Dose : 1,000 mg = 2 tab(s), Oral, q6hr, PRN as needed for pain, X 14 day(s), # 100 tab(s), 0 Refill(s), 02/16/22 13:10:00 EDT, other reason (Rx), Pain of left lower leg Start Date: 02/02/22 Stop Date: 02/16/22 Status: Ordered Completed/Discontinued Medications Medication Drug Class(es) Dates Sig (Normalized) Sig (Original) apixaban 2.5 mg oral tablet (3 sources) Factor Xa Inhibitor Start: 06-04-2023 take 1 tablet by mouth twice daily ELIQUIS 2.5 mg tab(s) Take 2.5 mg by mouth two times a day. 0 06/04/2023 Active Problems Problem Classification Problem Date Documented Da te Episodic/Chronic Acquired foot deformities (2 sources) Talipes planus 11-23-2022 Episodic Chronic kidney disease (15 sources) Chronic kidney disease stage 3; Translations: [Chronic kidney disease stage 4] Onset: 01-30-2017 01-30-2017 Chronic Deficiency and other anemia (5 sources) Hemoglobin low 02-09-2019 Episodic Deficiency and other anemia (5 sources) Iron deficiency anemia 07-06-2021 Episodic Deficiency and other anemia (4 sources) Anemia; Translations: [Anemia, unspecified] Onset: 08-01-2023 12-27-2022 Episodic Deficiency and other anemia (1 source) Anemia, unspecified; Translations: [Anemia, unspecified type] Onset: 08-01-2023 Episodic Diabetes mellitus without complication (11 sources) [...] Vital Sign Value Performing Clinician Tracy moore 08-01-2023 10:31-0500 Body height 154.9 cm Garrett Vaughn Work Phone: [facility] 08-01-2023 10:31-0500 Body temperature 97.9 [degF] Garrett Vaughn Work Phone: [facility] 08-01-2023 10:31-0500 Body weight 87.54 kg Garrett Vaughn Work Phone: [facility] 08-01-2023 10:31-0500 Diastolic blood pressure 60 mm[Hg] Garrett Vaughn Work Phone: [facility] 08-01-2023 10:31-0500 Heart rate 58 /min Garrett Vaughn Work Phone: [facility] 08-01-2023 10:31-0500 Respiratory rate 12 /min Garrett Vaughn Work Phone: [facility] 08-01-2023 10:31-0500 SaO2% (BldA) [Mass fraction] 99 % Garrett Vaughn Work Phone: [facility] 08-01-2023 10:31-0500 Systolic blood pressure 152 mm[Hg] Garrett Johana Work Phone: [facility] 02-06-2017 11:31-0400 Heart rate 53 /min [facility] Work Phone: 02-06-2017 11:23-0400 BMI (Body Mass Index) 45.98 kg/m2 [facility] Work Phone: 02-06-2017 11:23-0400 BP Diastolic 82 mm[Hg] [facility] Work Phone: 02-06-2017 11:23-0400 BP Systolic 128 mm[Hg] [facility] Work Phone: 02-06-2017 11:23-0400 Height 157.48 cm [facility] Work Phone: 02-06-2017 11:23-0400 Pulse (Heart Rate) 52 /min [facility] Work Phone: 02-06-2017 11:23-0400 Respiratory Rate 20 /min [facility] Work Phone: 02-06-2017 11:23-0400 Weight 114.04 kg [facility] Work Phone: Encounters Encounter Date Encounter Type Care Provider Facility Start: 08-01-2023 End: 08-02-2023 ambulatory FRANK RAMIREZ Facility:[facility] Start: 08-01-2023 End: 08-01-2023 ambulatory FRANK RAMIREZ Facility:[facility] Start: 08-01-2023 End: 08-01-2023 ambulatory Garrett Vaughn Work Phone: Hematology/Oncology Procedures Date Procedure Procedure Detail Performing Clinician Start: 06-24-2017 Echocardiography GURVINDER RAMIREZ DRY ICE MACHINE OPERATOR - POULTRY OFFAL WORKER Start: 02-06-2017 End: 02-06-2017 ALIYA Lopez MD Start: 02-06-2017 End: 02-06-2017 Follow Up Appt 4 months Demarco Floyd Start: 02-06-2017 End: 02-06-2017 INSULATION MECHANIC Venkata Lopez MD Start: 02-06-2017 End: 02-06-2017 Follow Up Appt 4 months Demarco Floyd Plan of Treatment Date Care Activity Detail Author Start: 07-10-2025 Diabetes Screening Diabetes Screening [facility] Start: 08-01-2024 Complete blood count Hemoglobin/Hematocrit [facility] Start: 07-10-2023 Creatinine measurement Serum Creatinine [facility] Start: 06-24-2023 Advance Directive Discussion Advance Directive Discussion [facility] Start: 06-24-2023 Depression Assessment Depression Assessment [facility] Start: 02-22-2023 Covid-19 Vaccine () Covid-19 Vaccine () [facility] Start: 06-07-2017 End: 06-07-2017 Appointment Appointment [facility] Work Phone: Start: 02-06-2017 End: 02-06-2017 *BMP *BMP [facility] Work Phone: Start: 02-06-2017 End: 02-06-2017 INSULATION MECHANICHemanth PISANO [facility] Work Phone: Start: 02-06-2017 End: 02-06-2017 Ecg routine ecg w/least 12 lds w/i&r EKG (In office) [facility] Work Phone: Start: 02-06-2017 End: 02-06-2017 Echocardiography Echocardiogram (complete) [facility] Work Phone: Start: 02-06-2017 End: 02-06-2017 Follow Up Appt 4 months Follow Up Appt 4 months [facility] Work Phone: Start: 02-06-2017 End: 02-06-2017 Appointment Appointment [facility] Work Phone: Start: 02-06-2017 End: 02-06-2017 *BMP *BMP [facility] Work Phone: Start: 02-06-2017 End: 02-06-2017 INSULATION MECHANIC INSULATION MECHANIC [facility] Work Phone: Start: 02-06-2017 End: 02-06-2017 Echocardiography Echocardiogram (complete) [email or web address] Work Phone: Start: 02-06-2017 End: 02-06-2017 Electrocardiogram, complete EKG (In office) [email or web address] Work Phone: Start: 02-06-2017 End: 02-06-2017 Follow Up Appt 4 months Follow Up Appt 4 months [facility] Work Phone: Start: 2011 Screening for osteoporosis Bone Density Screening [facility] Start: 02-20-2009 Urine microalbumin profile DTaP,Tdap,Td Vaccine (2 - Tdap) [facility] Start: 2006 RSV Vaccine (1 - 1-dose 60+ series) RSV Vaccine (1 - 1-dose 60+ series) [facility] Start: 1964 Annual PCP Team Chronic Disease Visit Annual PCP Team Chronic Disease Visit [facility] Start: 1964 Hepatitis C screening Hepatitis C Screening [facility] Immunizations Immunization Date Immunization Notes Care Provider Fa cility 04-01-2022 influenza virus vacc ine, unspecified formulation FRANK RAMIREZ DRY ICE MACHINE OPERATOR - POULTRY OFFAL WORKER [facility] 09-24-2021 SARS-CoV-2 (COVID-19 ) mRNA-1273 vaccine FRANK RAMIREZ DRY ICE MACHINE OPERATOR - POULTRY OFFAL WORKER [facility] [place] 05-31-2021 SARS-CoV-2 (COVID-19 ) mRNA-1273 vaccine FRANK RAMIREZ DRY ICE MACHINE OPERATOR - POULTRY OFFAL WORKER [facility] 03-22-2021 influenza virus vacc ine, unspecified formulation FRANK RAMIREZ DRY ICE MACHINE OPERATOR - POULTRY OFFAL WORKER [facility] 09-19-2020 SARS-CoV-2 (COVID-19 ) mRNA-1273 vaccine FRANK RAMIREZ DRY ICE MACHINE OPERATOR - POULTRY OFFAL WORKER [facility] 08-22-2020 SARS-CoV-2 (COVID-19 ) mRNA-1273 vaccine FRANK RAMIREZ DRY ICE MACHINE OPERATOR - POULTRY OFFAL WORKER [facility] 02-27-2019 influenza, injectabl e, quadrivalent, preservative free; Translations: [Fluad ] FRANK LIRAPKINS DRY ICE MACHINE OPERATOR - POULTRY OFFAL WORKER [facility] 03-24-2018 influenza virus vacc ine, unspecified formulation FRANK RAMIREZ DRY ICE MACHINE OPERATOR - POULTRY OFFAL WORKER [facility] 03-24-2017 influenza virus vacc ine, unspecified formulation FRANK LIRAPKINS DRY ICE MACHINE OPERATOR - POULTRY OFFAL WORKER [facility] 04-14-2016 influenza virus vacc ine, unspecified formulation FRANK LIRAPKINS DRY ICE MACHINE OPERATOR - POULTRY OFFAL WORKER [facility] 03-15-2015 influenza virus vacc ine, unspecified formulation FRANK RAMIREZ DRY ICE MACHINE OPERATOR - POULTRY OFFAL WORKER [facility] 01-13-2015 pneumococcal conjuga te vaccine, 13 valent FRANK LIRAPKINS DRY ICE MACHINE OPERATOR - POULTRY OFFAL WORKER [facility] 03-24-2014 influenza virus vacc ine, unspecified formulation FRANK LIRAPKINS DRY ICE MACHINE OPERATOR - POULTRY OFFAL WORKER [facility] 04-24-2013 pneumococcal polysaccharide vaccine, 23 valent FRANK JAMES DRY ICE MACHINE OPERATOR - POULTRY OFFAL WORKER [facility] 08-30-1999 diphtheria and tetan us toxoids, adsorbed for pediatric use FRANK ORELLANAKINS DRY ICE MACHINE OPERATOR - POULTRY OFFAL WORKER [facility] Payers Date Payer Category Payer Unknown [id number] 2022 Medicare [id number] 2015 Private Health Insurance [facility] A[employer] SUPPLEMENT [id number] 2015-Present [phone] [address] [place] [address] Indemnity [id number] 2015 Unknown [id number] 2011 Medicare [id number] 2011 Medicare MEDICARE MEDICAR E A AND B [id number] 2011-Present [phone] [place] [address] Medicare [id number] 1945 Unknown [id number] 1945 Unknown [id number] 1945 Unknown [id number] Social History Date Type Detail Facility Start: 02-09-2019 End: 03-13-2021 Tobacco smoking status Never smoked tobacco (finding) [facility] Clinical Notes 05-14-2022 to 08-01-2023 Patient InstructionsGarrett Vaughn - 08/01/2023 10:30 AM ESTLaboratoryRadiologyLaboratoryRadiologyLaboratoryLaboratoryLaboratory Note Date & Type Note Facility 08-01-2023 Note HNO ID: [id number] Author: GARRETT VAUGHN, ? Service: ? Author Type: Nurse Practitioner Type: Progress Notes Filed: 08/02/2023 12:13 Note Text: Hematology Consult Note Winifred Wood 1945 Encounter date: 08/01/2023 Cancer Staging No matching staging information was found for the patient. HPI: Winifred Wood is a 78 year old female with a PHMx of CKD, Stage 3, no dialysis as of yet but has been told by her field recorder that it is likely coming soon, HTN, T2DM, osteoarthritis, hyperlipidemia, and anemia. She was referred to hematology by her field recorder for further management of her anemia. BP elevated in the office has been running good at home 120s/60s, SPEP drawn by field recorder without m spike. No SOB, CP. Denies palpitations, Afib after COVID end of last August 2021, started on eliquis. No further issues with afib and she has been release by cardiology. Denies any bony aches or pains. Knees have been bothersome for many years. She states that she was unable to have replacement d/t kidney disease. Ortho is following her, receives joint injections q3 months, but she had not needed one for 6 months. PO iron BID for several years, tolerates well. She is scheduled for IV iron this week per nephrology. She was told that she would receive weekly doses x4. IV iron at [facility], no current record for this. Last T sat 20.4. Has had appropriate GI workup. Denies abd pains. No constipation, diarrhea, hematochezia, black or tarry stools. Appetite is good. Does not follow any particular dietary restrictions. No PICA or ice cravings. Denies rash, itching or skin changes. Chronic LE edema. Rx for compression stockings. Mother still living, 100 yrs old. One of 14 siblings. No known personal or family hx of cancer. Stepbrother with cancer Her and her like to go on cruises. She no longer drives. PAST MEDICAL HISTORY Diagnosis Date Anemia Arthritis CKD (chronic kidney disease) stage 3, GFR 30-59 ml/min (HCC) DM type 2 (diabetes mellitus, type 2) (HCC) Heart murmur HTN (hypertension) Hyperlipidemia Hyperparathyroidism (HCC) Snoring PAST SURGICAL HISTORY Procedure Laterality Date ABDOMINAL SURGERY HX COLONOSCOPY FLX DX W/COLLJ SPEC WHEN PFRMD 06/07/2016 repeat 5 yrs/ tubular adeoma COLONOSCOPY FLX DX W/COLLJ SPEC WHEN PFRMD 03/17/2021 PAST SURGICAL HISTORY OF Gallbladder TONSILLECTOMY HX Current Outpatient Medications Medication Sig Dispense Refill multivitamin (MULTIPLE VITAMINS ORAL) Take 1 tablet by mouth once daily. acetaminophen (TYLENOL) 325 mg tablet 1 tablet as needed Orally every 4 hrs ELIQUIS 2.5 mg tab(s) Take 2.5 mg by mouth two times a day. docusate sodium (DULCOLAX STOOL SOFTENER, DSS,) 100 mg capsule Take 100 mg by mouth once daily. aspirin, enteric coated (ECOTRIN LOW STRENGTH) 81 mg EC tablet Take 81 mg by mouth once daily. ascorbic acid, vitamin C, (VITAMIN C) 500 mg tablet Take 500 mg by mouth once daily. ferrous sulfate (IRON ORAL) Take 65 mg by mouth. amLODIPine (NORVASC) 5 mg tablet Take 5 mg by mouth once daily. 10 MG by mouth daily metoprolol succinate ER (TOPROL XL) 200 mg 24 hr tablet Take 200 mg by mouth once daily. 100 MG by mouth daily pioglitazone (ACTOS) 45 mg tablet Take 45 mg by mouth once daily. 15 MG by mouth daily atorvastatin (LIPITOR) 20 mg tablet Take 20 mg by mouth once daily. allopurinol (ZYLOPRIM) 100 mg tablet Take 100 mg by mouth once daily. 0.5 tablet daily losartan (COZAAR) 100 mg tablet Take 100 mg by mouth once daily. Quinapril HCl 40 mg tablet Take 40 mg by mouth twice daily. (Patient not taking: Reported on 08/01/2023) No current facility-administered medications for this visit. ALLERGIES Allergen Reactions Erythromycin Unknown Penicillins Unknown FAMILY HISTORY Problem Relation Age of Onset Breast Cancer Maternal Aunt Allergies Sister Social History Tobacco Use Smoking status: Never Smokeless tobacco: Never Vaping Use Vaping Use: Never used Substance Use Topics Alcohol use: Not Currently Comment: twice a year or less Drug use: Never Review of Systems: Negative except as noted in HPI reviewed 08/01/2023 Physical Exam: BP 152/60[Right arm. Provider notifiied of blood pressure.[ Pulse 58[Provider notifiied of pulse[ Temp (Src) 97.9 (Temporal) Resp 12 Ht 5' 1 (1.55m) Wt 193 lb (87.5kg) SpO2 99% BMI 36.49 kg/(m2). Pain Intensity: 8/10, knee pain getting injection tomorrow. General: Age-appropriate well developed. Appears well. HEENT: Normocephalic, no sclera icterus, external ears normal, oral cavity clear. Neck: Supple, no thyroid nodules, no JVD. Chest: Clear bilaterally, no wheezes, not labored. Heart: Normal S1 and S2, no abnormal sounds Abdomen: Soft, nontender, nondistended, bowel sounds present, no organomegaly or mass, no rigidity. Extremities: No cyanosis, clubbing, gross deformities, or palpable cords. Neurological: Cran (more content not included)... [facility] 08-01-2023 Instructions Garrett Vaughn - 08/01/2023 11:27 AM EST PO iron ferrous sulfate every other day OR Saturday documented in this encounter [facility] 08-01-2023 History of Present illness Narrative Hematology Consult Note Winifred Wood 1945 Encounter date: 08/01/2023 Cancer Staging No matching staging information was found for the patient. HPI: Winifred Wood is a 78 year old female with a PHMx of CKD, Stage 3, no dialysis as of yet but has been told by her field recorder that it is likely coming soon, HTN, T2DM, osteoarthritis, hyperlipidemia, and anemia. She was referred to hematology by her field recorder for further management of her anemia. BP elevated in the office has been running good at home 120s/60s, SPEP drawn by field recorder without m spike. No SOB, CP. Denies palpitations, Afib after COVID end of last August 2021, started on eliquis. No further issues with afib and she has been release by cardiology. Denies any bony aches or pains. Knees have been bothersome for many years. She states that she was unable to have replacement d/t kidney disease. Ortho is following her, receives joint injections q3 months, but she had not needed one for 6 months. PO iron BID for several years, tolerates well. She is scheduled for IV iron this week per nephrology. She was told that she would receive weekly doses x4. IV iron at [facility], no current record for this. Last T sat 20.4. Has had appropriate GI workup. Denies abd pains. No constipation, diarrhea, hematochezia, black or tarry stools. Appetite is good. Does not follow any particular dietary restrictions. No PICA or ice cravings. Denies rash, itching or skin changes. Chronic LE edema. Rx for compression stockings. Mother still living, 100 yrs old. One of 14 siblings. No known personal or family hx of cancer. Stepbrother with cancer Her and her like to go on cruises. She no longer drives. PAST MEDICAL HISTORY Diagnosis Date Anemia Arthritis CKD (chronic kidney disease) stage 3, GFR 30-59 ml/min (HCC) DM type 2 (diabetes mellitus, type 2) (HCC) Heart murmur HTN (hypertension) Hyperlipidemia Hyperparathyroidism (HCC) Snoring PAST SURGICAL HISTORY Procedure Laterality Date ABDOMINAL SURGERY HX COLONOSCOPY FLX DX W/COLLJ SPEC WHEN PFRMD 06/07/2016 repeat 5 yrs/ tubular adeoma COLONOSCOPY FLX DX W/COLLJ SPEC WHEN PFRMD 03/17/2021 PAST SURGICAL HISTORY OF Gallbladder TONSILLECTOMY HX Current Outpatient Medications Medication Sig Dispense Refill multivitamin (MULTIPLE VITAMINS ORAL) Take 1 tablet by mouth once daily. acetaminophen (TYLENOL) 325 mg tablet 1 tablet as needed Orally every 4 hrs ELIQUIS 2.5 mg tab(s) Take 2.5 mg by mouth two times a day. docusate sodium (DULCOLAX STOOL SOFTENER, DSS,) 100 mg capsule Take 100 mg by mouth once daily. aspirin, enteric coated (ECOTRIN LOW STRENGTH) 81 mg EC tablet Take 81 mg by mouth once daily. ascorbic acid, vitamin C, (VITAMIN C) 500 mg tablet Take 500 mg by mouth once daily. ferrous sulfate (IRON ORAL) Take 65 mg by mouth. amLODIPine (NORVASC) 5 mg tablet Take 5 mg by mouth once daily. 10 MG by mouth daily metoprolol succinate ER (TOPROL XL) 200 mg 24 hr tablet Take 200 mg by mouth once daily. 100 MG by mouth daily pioglitazone (ACTOS) 45 mg tablet Take 45 mg by mouth once daily. 15 MG by mouth daily atorvastatin (LIPITOR) 20 mg tablet Take 20 mg by mouth once daily. allopurinol (ZYLOPRIM) 100 mg tablet Take 100 mg by mouth once daily. 0.5 tablet daily losartan (COZAAR) 100 mg tablet Take 100 mg by mouth once daily. Quinapril HCl 40 mg tablet Take 40 mg by mouth twice daily. (Patient not taking: Reported on 08/01/2023) No current facility-administered medications for this visit. ALLERGIES Allergen Reactions Erythromycin Unknown Penicillins Unknown FAMILY HISTORY Problem Relation Age of Onset Breast Cancer Maternal Aunt Allergies Sister Social History Tobacco Use Smoking status: Never Smokeless tobacco: Never Vaping Use Vaping Use: Never used Substance Use Topics Alcohol use: Not Currently Comment: twice a year or less Drug use: Never Review of Systems: Negative except as noted in HPI reviewed 08/01/2023 Physical Exam: BP 152/60[Right arm. Provider notifiied of blood pressure.[ Pulse 58[Provider notifiied of pulse[ Temp (Src) 97.9 (Temporal) Resp 12 Ht 5' 1 (1.55m) Wt 193 lb (87.5kg) SpO2 99% BMI 36.49 kg/(m^2). Pain Intensity: 8/10, knee pain getting injection tomorrow. General: Age-appropriate well developed. Appears well. HEENT: Normocephalic, no sclera icterus, external ears normal, oral cavity clear. Neck: Supple, no thyroid nodules, no JVD. Chest: Clear bilaterally, no wheezes, not labored. Heart: Normal S1 and S2, no abnormal sounds Abdomen: Soft, nontender, nondistended, bowel sounds present, no organomegaly or mass, no rigidity. Extremities: No cyanosis, clubbing, gross deformities, or palpable cords. Neurological: Cranial nerves II through XII are intact bilaterally, strength normal in the upper and lower extremities, no focal deficits. Skin: Warm and dry with no rashes or ulcerations. Nodes: No palpable adenopathy in the cervical, supraclavicular, infraclavicular, or axillary regions. Hematologic: no bruising or petechiae. Psychiatric: Alert and oriented x3. Emotional well-being assessment was performed. Pt denies depression, distress, and or problems with coping or adjustment. No results found for: WBC , HB , MCV , PLT No results found for: NA , K , CO2 , BUN , CREAT , TBILI , TPROT , ALB , ALKPHOS , ALT , AST LABS: OSH labs [facility] Assessment and Plan: Ms. Wood is a pleasant 78 year old woman with history of CKD, st4, anemia. Anemia of chronic kidney disease - Reviewed symptoms, causes and management of anemia in detail today. Pt acknowledged - Appropriate GI workup completed - following with local field recorder for management of CKD, not currently on dialysis. - neph has her scheduled for receive IV iron, last t stat 20.4 - reports that she is scheduled for 4 doses at [facility] - Would recommend 1 tab ferrous sulfate PO iron every other day for better absorption, tolerating PO well however iron studies inadequate for GOME[facility] - Hgb has been generally stable for last few years. Per OSH lab 9.1 on 07/01/2023 - reviewed treatment/side effects/schedule of tx with GOMEZ with patient, pt acknowledged - some concern re: need for frequent visits as she no longer drives. Plan: - Will repeat CBC, iron studies, b12, folate, light chains today for stability and completeness. - continue with IV iron per neph. - plan for aranesp for hgb <10, pending labs, auth Garrett Vaughn APRN.POULTRY OFFAL WORKER I spent >60 minutes in the visit, with more than 50% of the total [id number] time of the visit in counseling / coordination of care. Portions of this note including HPI, ROS, impression/plan may have been copied forward as to provide important historical information essential in contributing to medical decision making. Documentation has been reviewed and edited as necessary to support clinical decision making for today's visit and to reflect my own independent evaluation of this patient. documented in this encounter [facility] 01-04-2023 Note ORIGINAL EXAMINATION: PARATHYROID SCINTIGRAPHY01/04/2023 [...] Sign Date: 01/04/2023 3:49:39 PM Ordering Provider: [facility] 01-04-2023 Note ORIGINAL EXAMINATION: PARATHYROID SCINTIGRAPHY01/04/2023 [...] Sign Date: 01/04/2023 3:49:39 PM Ordering Provider: [facility] 07-10-2022 Note Attestation signed by Yossi [...] valve was implanted. The patient returned to [facility] for recovery. Vital signs and labs were [...] condition. Referral to (more content not included)... [facility] 07-10-2022 Note Received referral an d reviewed chart. Unable to discuss Phase II Cardiac Rehab Referral with Winifred Wood at this time. Will follow to discuss cardiac rehab when appropriate. Patient will be contacted at home if discharged prior to discussion. [facility] 07-09-2022 Note Patient: Winifred Wood Procedure Summary Date: 07/09/22 Room / Location: [facility] Operating Room Anesthesia Start: 1417 Anesthesia Stop: 1636 Procedures: TAVR/TTE TRANSCATHETER AORTIC VALVE REPLACEMENT (TAVR) [...] once all PACU criteria has been met. [facility] 07-09-2022 Note Patient: Winifred Wood Procedure Summary Date: 07/09/22 Room / Location: [facility] Operating Room Anesthesia Start: 1417 Anesthesia Stop: 1636 Procedures: TAVR/TTE TRANSCATHETER AORTIC VALVE REPLACEMENT (TAVR) [...] opportunity for questions and acknowledgement of understanding. [facility] 07-05-2022 Note Attestation signed by Yossi Quispe MD at 07/09/2022 11:59 AM I have examined the patient on admission and confirm that the necessity for the procedure is still present . The patient's condition has not changed since the History & Physical was originally completed. Yossi Quispe MD 07/09/2022 [facility] [address] [facility] [address] Dept: [phone] Dept Loc: [phone] Visit type: Established patient Reason for Visit: [...] in about 1 month (around 07/28/2022) for YOUTH AGENT follow up. Subjective GEN Wood is a 77 y.o. female known [...] Once Yossi Quispe MD Stopped at 06/27/22 5536 Medical History Past Medical History: Diagnosis Date Anemia Aortic valve stenosis CKD (chronic kidney disease) Diabetes mellitus (HCC) Hyperlipidemia Hypertension Obesity Renal calculi Right renal artery stenosis (CMS/HCC) ([facility]) Social History Tobacco Use Smoking status: Never Passive exposure: Never Smokeless tobacco: Never Substance Use Topics Alcohol use: Not Currently Surgical History Past Surgical History: Procedure Laterality Date (more content not included)... [facility] 07-05-2022 Note Attestation signed by Yossi Quispe MD at 07/09/2022 11:59 AM I have examined the patient on admission and confirm that the necessity for the procedure is still present . The patient's condition has not changed since the History & Physical was originally completed. Yossi Quispe MD 07/09/2022 [facility] [address] [facility] [address] Dept: [phone] Dept Loc: [phone] Visit type: Established patient Reason for Visit: [...] process regarding treatment of aortic stenosis. Winifred Wodo was made aware of the techniques for [...] in about 1 month (around 07/28/2022) for YOUTH AGENT follow up. Subjective HPI Winifred Wood is [...] Once Yossi Quispe MD Stopped at 06/27/22 1518 Medical History Past Medical History: Diagnosis Date Anemia Aortic valve stenosis CKD (chronic kidney disease) Diabetes mellitus (HCC) Hyperlipidemia Hypertension Obesity Renal calculi Right renal artery stenosis (CMS/HCC) (HCC) Social History Tobacco Use Smoking status: Never Passive exposure: Never Smokeless tobacco: Never Substance Use Topics Alcohol use: Not Currently Surgical History Past Surgical History: Procedure Laterality Date (more content not included)... [facility] 07-05-2022 Note Pre TAVR phone call placed. Reviewed, procedure, instructions and meds. Pt verbalizes understanding. Pt knows to call [phone] with any concerns. [facility] 07-04-2022 Note Patient: Winifred Wood Procedure Information Date/Time: 07/09/22 1245 Procedures: TAVR/TTE TRANSCATHETER AORTIC VALVE REPLACEMENT (TAVR) - OR (Chest) Location: [facility] Operating Room Surgeons: Yossi Quispe MD; Francis [...] PROVISIONAL FFR-CT Comment: CT ANGIOGRAM TAVR 06/27/[address] [address] IMAGING No date: SALPINGECTOMY; Bilateral Social [...] Yossi Quispe MD on 06/06/2022 10:00 PM [facility] 06-28-2022 Note Symptomatic severe a ortic stenosis-scheduled [...] expressed understanding and acceptance of the plan. [facility] 06-01-2022 Note Referral Date: Appoi ntment Date(s): 06/08/2022 DEMOGRAPHICS Name: Winifred Wood : 1945 Age: 77 y.o. 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[employer]: Clinic IC: Clinic CTS: STS score: MEDICAL [...] situation:(home/apartment, independent living) Social, and home support: (family/friends/community/samaritan) Comments/Plan: Same Day Candidate: Y or N COMPLETE TAVR Candidate: Y or N [facility] 05-14-2022 Note ORIGINAL EXAMINATION: BONE [...] 05/14/2022 2:50:51 PM Ordering Provider: FRANK RAMIREZ [facility] 05-14-2022 Note ORIGINAL EXAMINATION: BONE DENSITOMETRY 05/14/2022 [...] 05/14/2022 2:50:51 PM Ordering Provider: FRANK RAMIREZ [facility] Evaluation + Plan note Future Appointments Appointment Date:01/08/2022 11:00:00 AM Scheduled Provider:FRANK RAMIREZ APRN, CNP Location:[facility] Appointment Type:PC OV Follow Up Appointment Date:02/20/2022 02:00:00 PM Scheduled Provider:FRANK RAMIREZ APRN, CNP Location:[facility] Appointment Type:PC Wellness Medicare Appointment Date:06/26/2022 01:40:00 PM Scheduled Provider:FRANK RAMIREZ DRY ICE MACHINE OPERATOR - POULTRY OFFAL WORKER Location:[facility] Appointment Type:PC OV Follow Up Future Scheduled TestsRenin, Plasma 06/19/22Iron Level 06/19/22Thyroid Stimulating Hormone 06/19/22Free T4 06/19/22Uric Acid 06/19/22A1C Hemoglobin 06/19/22Complete Blood Count 06/19/22Free T3 06/19/22Lipid Profile 06/19/22Microalbumin Level Urine 06/19/22PTH, Intact 06/19/22Vitamin D Level 06/19/22Complete Metabolic Panel 06/19/22BD Bone Density DEXA Axial Skeleton 02/17/21 [facility] Evaluation + Plan note Future Appointments Appointment Date:02/20/2022 02:00:00 PM Scheduled Provider:FRANK RAMIREZ DRY ICE MACHINE OPERATOR - POULTRY OFFAL WORKER Location:[facility] Appointment Type:PC Wellness Medicare Appointment Date:06/26/2022 01:40:00 PM Scheduled Provider:FRANK RAMIREZ DRY ICE MACHINE OPERATOR - POULTRY OFFAL WORKER Location:[facility] Appointment Type: OV Follow Up Future Scheduled TestsRenin, Plasma 06/19/22Renin, Plasma 07/11/22Iron Level 06/19/22Thyroid Stimulating Hormone 06/19/22Thyroid Stimulating Hormone 07/11/22Fr T4 06/19/22Uric Acid 06/19/22A1C Hemoglobin 06/19/22A1C Hemoglobin 07/11/22Complete Blood Count 06/19/22Complete Blood Count 07/11/22Free T3 06/19/22Lipid Profile 06/19/22Lipid Profile 07/11/22Microalbumin Level Urine 06/19/22Microalbumin Level Urine 07/11/22PTH, Intact 06/19/22PTH, Intact 07/11/22Vitamin D Level 06/19/22Vitamin D Level 07/11/22Complete Metabolic Panel 06/19/22Complete Metabolic Panel 07/11/22BD Bone Density DEXA Axial Skeleton 02/17/21 [facility] Evaluation + Plan note Future Appointments [...] 07/11/22Complete Metabolic Panel 06/19/22Complete Metabolic Panel 07/11/22 [facility] Evaluation + Plan note Future Appointments Appointment Date:01/10/2023 01:40:00 PM Scheduled Provider:FRANK RAMIREZ APRN - POULTRY OFFAL WORKER Location:[facility] Appointment Type:PC OV Follow Up Appointment Date:07/04/2023 01:40:00 PM Scheduled Provider:FRANK RAMIREZ APRN - [facility]IZ[facility] Location:[facility] Appointment Type:PC OV Follow Up Future [...] Panel 06/29/23Complete Metabolic Panel 12/24/22TIBC 06/29/23TIBC 12/24/22 [facility] Evaluation + Plan note Future Appointments Appointment Date:07/04/2023 01:40:00 PM Scheduled Provider:FRANK RAMIREZ APRN, CNP Location:[facility] Appointment Type:PC OV Follow Up Future [...] Panel 06/29/23Complete Metabolic Panel 12/24/22TIBC 06/29/23TIBC 12/24/22 [facility] Narrative No data available for this section [facility] Hospital Discharge instructions No data available for this section [facility] Progress note No data available for this section [facility] Summary Purpose Family History No Family History Records Found No data available for this section No Family History Records FoundNo Family History Records Found Advance Directives No Advanced Directives Records FoundNo Advanced Directives Records FoundNo Advanced Directives Records Found Additional Source Comments Care Team (unrecognized sect ion and content) Care Team Personnel Name: FRANK RAMIREZ APRN, CNP Position: P4 Advanced Practice Nurse Med Service: Employed Provider Member Role: Primary Care Physician Address: Address: [address] [place] [address] Care Team Related Persons Name: JANICE WOOD Address: Home [address], [place] [id number] Care Team Personnel Name: FRANK RAMIREZ APRN - POULTRY OFFAL WORKER Position: P4 Advanced Practice Nurse Med Service: Employed Provider Member Role: Primary Care Physician Address: Address: [address] [place] [address] Care Team Related Persons Name: JANICE WOOD Address: Home [address], [place] [id number] Care Team Personnel Name: FRANK RAMIREZ APRN - POULTRY OFFAL WORKER Position: P4 Advanced Practice Nurse Member Role: Primary Care Physician Address: Address: [address] [place] [address] Care Team Related Persons Name: JANICE WOOD Address: Home [address], [place] [id number] INFORMATION SOURCE (unrecogn ized section and content) DATE CREATED AUTHOR AUTHOR'S ORGANIZ ATION 04/04/2023 [facility] ([place]) DATE CREATED AUTHOR AUTHOR'S ORGANIZ ATION 08/03/2023 [facility] Patient Care team informatio n (unrecognized section and content) Source Comments (unrecognize d section and content) In the event this informatio n is protected by the Federal Confidentiality of Alcohol and Drug Abuse Patient Records regulations: The Federal rules restrict any use of the information to criminally investigate or prosecute any alcohol or drug abuse patient.[facility] Reason for Visit (unrecogniz ed section and content) FOR RECORDS PERTAINING TO PATIENTS WHO ARE [...] BE BASED ON THE PRIMARY CLINICAL RECORDS. [facility] [employer] [facility]. provides no warranty or guarantee of the accuracy or completeness of information in this document.
[2023-08-09 15:24] VITALS: BP 158/44; PULSE 60; RESP 16; TEMP 36.1; O2SAT 100
== END 2023-08-09 13:03 | disposition home or self-care (01) ==
LOC: MEDOUTP 13:02
PROVIDERS: PCP Nurse Practitioner Family; Referring Provider Internal Medicine Nephrology; Visit Provider Internal Medicine Nephrology
DX: N18.4 Chronic kidney disease, stage 4 (severe) (principal); D64.9 Anemia, unspecified
CPT/HCPCS: 96365; 96366; J1756; J7050; A4216

== ENCOUNTER → 2023-08-15 | Outpatient (CLI) | payer MEDICARE, OTHER, SELFPAY ==
--- NOTE | 2023-08-15 13:02 | VDLE_ITS ---
Reason For Study: Left leg pain RIGHT LEFT CFV is compressible, spontaneous, phasic, GSV is normal. competent and demonstrates normal CFV is compressible, spontaneous, phasic, augmentation. competent, and demonstrates normal Procedure augmentation. This is a venous duplex using B-mode, color FV is compressible, spontaneous, phasic, flow and spectral Doppler. competent and demonstrates normal Exam performed in department. augmentation. A preliminary report was called and/or faxed POP V is compressible, spontaneous, phasic, to James WATER PLANT PUMP OPERATOR SUPERVISOR-C. competent and demonstrates normal augmentation. T/P Trunk is compressible. PTV is compressible. LT PerV is compressible. VL/Venous Duplex US, Unilateral Interpretation Summary There is no evidence of left lower extremity deep vein thrombosis. Left great s aphenous vein appears patent and compressible segmentally. Normal flow patterns right common femoral vein Ordering Physician: Frank Ramirez Referring Physician: Frank Ramirez Performed By: Madyson Davies RVT
== END | disposition home or self-care (01) ==
LOC: CVS 13:01
PROVIDERS: PCP Nurse Practitioner Family; Referring Provider Nurse Practitioner Family; Visit Provider Nurse Practitioner Family
DX: M79.662 Pain in left lower leg (principal)
CPT/HCPCS: 93971

== ENCOUNTER 2023-08-16 12:20 | Outpatient (CLI) | payer MEDICARE, OTHER, SELFPAY ==
[2023-08-16] MEDS: 0.9% NaCl Peripheral Flush Adult/Peds IV (12:27)
[2023-08-16] MEDS: 0.9% NaCl IVPB Med Flush (250 mL) 15 ML IV (12:28)
[2023-08-16 12:30] VITALS: BP 153/60; PULSE 90; RESP 16; TEMP 36.5; O2SAT 94
[2023-08-16] MEDS: Iron Sucrose Complex 300 MG in 0.9% Normal Saline (250mL Bag) 250 ML 177 MG IV (12:37)
--- OUTSIDE RECORDS SUMMARY | 2023-08-16 12:54 | XMS RPT_ITS | CCD ---
Author Name Unknown Address [address] [place] [address] Organization [facility] Care Team Providers Care Tennis Net Maker Name Role Phone Estrada, Yazmin Y Unavailable Reed Molina Y Unavailable Unavailable Estrada, Yazmin Y Unavailable Suyapa Navarro RN Unavailable Unavailable Suyapa Navarro RN Unavailable Unavailable Estrada, Yazmin Y Unavailable JAMES GAMBOA - FRANK JOHNSON Primary Care [facility] MARGI RAJAN Attending Unavailable YOSSI QUISPE Attending Unavailable RENÉE, VENKATA Referring Unavailable ALEYDA CAI Attending Unavailable JAMES, FRANK Primary Care Unavailable ALEYDA CAI Attending Unavailable JAMES, FRANK Primary Care Unavailable ROSALIND QUISPE Attending Unavailable YOSSI QUISPE Attending Unavailable ALEYDA CAI Attending Unavailable ALEYDA CAI Referring Unavailable JAMES, FRANK Primary Care Unavailable YOSSI QUISPE Admitting Unavailable YOSSI QUISPE Attending Unavailable ALEYDA CAI Attending Unavailable ALEYDA CAI Referring Unavailable JAMESKRISTOFER GAMBOA - ELIZABETH, FRANK Marquis Primary Care U navailable JAMES MOTORCYCLE TECHNICIAN - ELIZABETH, FRANK Marquis Attending U navailable JAMES MOTORCYCLE TECHNICIAN - ACLS SPECIALIST, FRANK Marquis Attending U navailable JAMES MOTORCYCLE TECHNICIAN - ELIZABETH, FRANK Marquis Primary Care U navailable JAMES MOTORCYCLE TECHNICIAN - FRANK JOHNSON Attending U navailable JAMES BEE - FRANK JOHNSON Primary Care U navailable JamesFrank mg CNP Primary Care Provider GARRETT VAUGHN Referring Unavailable FRANK RAMIREZ Primary Care Unavailable GARRETT VAUGHN Referring Unavailable FRANK RAMIREZ Primary Care Unavailable FRANK RAMIREZ Primary Care Unavailable GARRETT VAUGHN Referring Unavailable GARRETT VAUGHN Attending Unavailable FRANK RAMIREZ Primary Care Unavailable Allergies Allergy Classification Reported Allergen(s) Allergy Type Date of Onset Reaction(s) Facility (6 sources) Macrolides (Antibiotic) drug allergy 7 unknown [facility] Work Phone: (6 sources) penicillin drug allergy 7 unknown [facility] Work Phone: [phone] (11 sources) ERYTHROMYCIN BASE; Translations: [Erythromycin] drug allergy 7 Nausea (finding) [facility] Work Phone: [phone] (6 sources) Penicillins; Translations: [penicillins] Drug allergy 6 Weal (disorder) [facility] (3 sources) Erythromycin; Translations: [ERYTHROMYCIN] Drug Allergy 6 Unknown [facility] (2 sources) Penicillins Propensity to adverse reactions to drug 6 Unknown [facility] Medications Current Medications Medication Drug Class(es) Dates Sig (Normalized) Sig (Original) acetaminophen 500 mg oral tablet (3 sources) Start: 02-02-2022 End: 02-16-2022 Tylenol Extra [...] Sig (Original) apixaban 2.5 mg oral tablet (4 sources) Factor Xa Inhibitor Start: 06-04-2023 take 1 tablet by mouth twice daily ELIQUIS 2.5 mg tab(s) Take 2.5 mg by mouth two times a day. 0 06/04/2023 Active Problems Problem Classification Problem Date Documented Da te Episodic/Chronic Acquired foot deformities (2 sources) Talipes planus 11-23-2022 Episodic Chronic kidney disease (18 sources) Chronic kidney disease stage 3; Translations: [Chronic kidney disease stage 4] Onset: 01-30-2017 01-30-2017 Chronic Deficiency and other anemia (5 sources) Hemoglobin low 02-09-2019 Episodic Deficiency and other anemia (5 sources) Iron deficiency anemia 07-06-2021 Episodic Deficiency and other anemia (6 sources) Anemia; Translations: [Anemia, unspecified] Onset: 08-01-2023 [...] height 154.9 cm Garrett Vaughn Work Phone: [facility] 08-01-2023 10:31-0500 Body temperature 97.9 [degF] Garrett Vaughn Work Phone: [facility] 08-01-2023 10:31-0500 Body weight 87.54 kg Garrett Vaughn Work Phone: [facility] 08-01-2023 10:31-0500 Diastolic blood pressure 60 mm[Hg] Garrett Vaughn Work Phone: [facility] 08-01-2023 10:31-0500 Heart rate 58 /min Garrett Vaughn Work Phone: [facility] 08-01-2023 10:31-0500 Respiratory rate 12 /min Garrett Vaughn Work Phone: [facility] 08-01-2023 10:31-0500 SaO2% (BldA) [Mass fraction] 99 % Garrett Vaughn Work Phone: [facility] 08-01-2023 10:31-0500 Systolic blood pressure 152 mm[Hg] Garrett Vaughn Work Phone: [facility] 02-06-2017 11:31-0400 Heart rate 53 /min [facility] Work Phone: 02-06-2017 11:23-0400 BMI [...] Date Encounter Type Care Provider Facility Start: 08-13-2023 End: 08-14-2023 ambulatory GARRETT VAUGHN Facility:[facility] Start: 08-12-2023 Orders Only Garrett Vaughn Work Phone: Hematology/Oncology Procedures Date Procedure Procedure Detail Performing Clinician Start: 06-24-2017 Echocardiography GURVINDER RAMIREZ MOTORCYCLE TECHNICIAN - ACLS SPECIALIST Start: 02-06-2017 End: 02-06-2017 SOLE MOLDER Venkata Lopez MD Start: 02-06-2017 End: 02-06-2017 Follow Up Appt 4 months Demarco Floyd Start: 02-06-2017 End: 02-06-2017 SOLE MOLDER Venkata Lopez MD Start: 02-06-2017 End: 02-06-2017 Follow Up Appt 4 months Demarco Floyd Plan of Treatment Date Care Activity Detail Author Start: 07-10-2025 Diabetes Screening Diabetes Screening [facility] Start: 08-01-2024 Complete blood count Hemoglobin/Hematocrit [facility] Start: 07-10-2023 Creatinine measurement Serum Creatinine [facility] Start: 06-24-2023 Advance Directive Discussion Advance Directive Discussion [facility] Start: 06-24-2023 Depression Assessment Depression Assessment [facility] Start: 02-22-2023 Covid-19 Vaccine () Covid-19 Vaccine () [facility] Start: 06-07-2017 End: 06-07-2017 Appointment Appointment [facility] Work Phone: Start: 02-06-2017 End: 02-06-2017 *BMP *BMP [facility] Work Phone: Start: 02-06-2017 End: 02-06-2017 ALIYA PISANO [facility] Work Phone: Start: 02-06-2017 End: 02-06-2017 Ecg routine ecg w/least 12 lds w/i&r EKG (In office) [facility] Work Phone: Start: 02-06-2017 End: 02-06-2017 Echocardiography Echocardiogram (complete) [facility] Work Phone: Start: 02-06-2017 End: 02-06-2017 Follow Up Appt 4 months Follow Up Appt 4 months [facility] Work Phone: Start: 02-06-2017 End: 02-06-2017 Appointment Appointment [facility] Work Phone: Start: 02-06-2017 End: 02-06-2017 *BMP *BMP [facility] Work Phone: Start: 02-06-2017 End: 02-06-2017 SOLE MOLDER SOLE MOLDER [facility] Work Phone: Start: 02-06-2017 End: 02-06-2017 Echocardiography Echocardiogram (complete) [facility] Work Phone: Start: 02-06-2017 End: 02-06-2017 Electrocardiogram, complete EKG (In office) [facility] Work Phone: Start: 02-06-2017 End: 02-06-2017 Follow Up Appt 4 months Follow Up Appt 4 months [facility] Work Phone: Start: 2011 Screening for osteoporosis Bone Density Screening [facility] Start: 02-20-2009 Urine microalbumin profile DTaP,Tdap,Td Vaccine (2 - Tdap) [facility] Start: 2006 RSV Vaccine (1 - 1-dose 60+ series) RSV Vaccine (1 - 1-dose 60+ series) [facility] Start: 1964 Annual PCP Team Chronic Disease Visit Annual PCP Team Chronic Disease Visit [facility] Start: 1964 Hepatitis C screening Hepatitis C Screening [facility] End: 08-11-2024 CBC W Auto Differential panel - Blood CBC + DIFF Lab STAT Anemia, unspecified type Chronic kidney disease, stage 4, severely decreased GFR (HCC) Every other week for 25 Occurrences starting 08/12/2023 until 08/11/2024 [facility] Work Phone: Immunizations Immunization Date Immunization Notes Care Provider Fa cili 04-01-2022 influenza virus vacc ine, unspecified formulation FRANK RAMIREZ MOTORCYCLE TECHNICIAN - ACLS SPECIALIST [facility] 09-24-2021 SARS-CoV-2 (COVID-19 ) mRNA-1273 vaccine FRANK RAMIREZ MOTORCYCLE TECHNICIAN - ACLS SPECIALIST [facility] 05-31-2021 SARS-CoV-2 (COVID-19 ) mRNA-1273 vaccine FRANK RAMIREZ MOTORCYCLE TECHNICIAN - ACLS SPECIALIST [facility] [place] 03-22-2021 influenza virus vacc ine, unspecified formulation FRANK RAMIREZ MOTORCYCLE TECHNICIAN - ACLS SPECIALIST [facility] 09-19-2020 SARS-CoV-2 (COVID-19 ) mRNA-1273 vaccine FRANK RAMIREZ MOTORCYCLE TECHNICIAN - ACLS SPECIALIST [facility] 08-22-2020 SARS-CoV-2 (COVID-19 ) mRNA-1273 vaccine FRANK LIRAPKINS MOTORCYCLE TECHNICIAN - ACLS SPECIALIST [facility] 02-27-2019 influenza, injectabl e, quadrivalent, preservative free; Translations: [Fluad ] FRANK LIRAPKINS MOTORCYCLE TECHNICIAN - ACLS SPECIALIST [facility] [place] 03-24-2018 influenza virus vacc ine, unspecified formulation FRANK LIRAPKINS MOTORCYCLE TECHNICIAN - ACLS SPECIALIST [facility] 03-24-2017 influenza virus vacc ine, unspecified formulation FRANK LIRAPKINS MOTORCYCLE TECHNICIAN - ACLS SPECIALIST [facility] [place] 04-14-2016 influenza virus vacc ine, unspecified formulation FRANK LIRAPKINS MOTORCYCLE TECHNICIAN - ACLS SPECIALIST [facility] [place] 03-15-2015 influenza virus vacc ine, unspecified formulation FRANK LIRAPKINS MOTORCYCLE TECHNICIAN - ACLS SPECIALIST [facility] 01-13-2015 pneumococcal conjuga te vaccine, 13 valent FRANK LIRAPKINS MOTORCYCLE TECHNICIAN - ACLS SPECIALIST [facility] 03-24-2014 influenza virus vacc ine, unspecified formulation FRANK LIRAPKINS MOTORCYCLE TECHNICIAN - [facility] 04-24-2013 pneumococcal polysaccharide vaccine, 23 valent FRANK LIRAPKINS MOTORCYCLE TECHNICIAN - ACLS SPECIALIST [facility] [place] 02-20-1999 diphtheria and tetan us toxoids, adsorbed for pediatric use FRANK LIRAPKINS MOTORCYCLE TECHNICIAN - ACLS SPECIALIST [facility] [place] Payers Date Payer Category Payer Unknown [id number] 2022 Medicare [id number] 2015 Private Health Insurance [facility] AARP SUPPLEMENT [id number] 2015-Present [phone] [address] [place] [address] Indemnity [id number] 2015 Unknown [id number] 2011 Medicare [id number] 2011 Medicare MEDICARE MEDICAR E A AND B [id number] 2011-Present [phone] [address] [address] [place] [address] Medicare [id number] 1945 Unknown [id number] 1945 Unknown [id number] 1945 Unknown [id number] Social History Date Type Detail Facility Start: 02-09-2019 End: 03-13-2021 Tobacco smoking status Never smoked tobacco (finding) [facility] Clinical Notes 05-14-2022 to 08-01-2023 Patient Elroy Garrett - 08/01/2023 10:30 AM ESTLaboratoryRadiologyLaboratoryRadiologyLaboratoryLaboratoryLaboratory Note Date & Type Note Facility 08-01-2023 Note HNO ID: [id number] Author: GARRETT VAUGHN, ? Service: ? Author [...] yet but has been told by her rubber liner that it is likely coming soon, HTN, T2DM, osteoarthritis, hyperlipidemia, and anemia. She was referred to hematology by her rubber liner for further management of her anemia. BP elevated in the office has been running good at home 120s/60s, SPEP drawn by rubber liner without m spike. No SOB, CP. Denies [...] receive weekly doses x4. IV iron at [facility], no current record for this. Last [...] kidney disease) stage 3, GFR 30-59 ml/min ([facility]) DM type 2 (diabetes mellitus, type 2) [...] cords. Neurological: Cran (more content not included)... [facility] 08-01-2023 Instructions Garrett Vaughn - 08/01/2023 11:27 AM EST PO iron ferrous sulfate every other day OR Saturday documented in this encounter [facility] 08-01-2023 History of Present illness Narrative Hematology Consult Note Winifred Wood 1945 Encounter date: 08/01/2023 Cancer Staging No matching staging information was found for the patient. HPI: Winifred Wood is a 78 year old female with a PHMx of CKD, Stage 3, no dialysis as of yet but has been told by her rubber liner that it is likely coming soon, HTN, T2DM, osteoarthritis, hyperlipidemia, and anemia. She was referred to hematology by her rubber liner for further management of her anemia. BP elevated in the office has been running good at home 120s/60s, SPEP drawn by rubber liner without m spike. No SOB, CP. Denies [...] receive weekly doses x4. IV iron at [facility], no current record for this. Last [...] , AST LABS: OSH labs reviewed in careeverywhere Assessment and Plan: Ms. Wood is a pleasant 78 year old woman with history of CKD, st4, anemia. Anemia of chronic kidney disease - Reviewed symptoms, causes and management of anemia in detail today. Pt acknowledged - Appropriate GI workup completed - following with local rubber liner for management of CKD, not currently on dialysis. - neph has her scheduled for receive IV iron, last t stat 20.4 - reports that she is scheduled for 4 doses at [facility] - Would recommend 1 tab ferrous [...] hgb <10, pending labs, auth Garrett Vaughn APRN.ACLS SPECIALIST I spent >60 minutes in the visit, with more than 50% of the total [id number] time of the visit in counseling / [...] of this patient. documented in this encounter [facility] 01-04-2023 Note ORIGINAL EXAMINATION: PARATHYROID SCINTIGRAPHY01/04/2023 [...] Sign Date: 01/04/2023 3:49:39 PM Ordering Provider: [facility] 01-04-2023 Note ORIGINAL EXAMINATION: PARATHYROID SCINTIGRAPHY01/04/2023 [...] Sign Date: 01/04/2023 3:49:39 PM Ordering Provider: [facility] 07-10-2022 Note Attestation signed by Yossi [...] condition. Referral to (more content not included)... [facility] 07-10-2022 Note Received referral an d reviewed chart. Unable to discuss Phase II Cardiac Rehab Referral with Winifred Wood at this time. Will follow to discuss cardiac rehab when appropriate. Patient will be contacted at home if discharged prior to discussion. [facility] 07-09-2022 Note Patient: Winifred Wood Procedure Summary Date: 07/09/22 Room / Location: [facility] Operating Room Anesthesia Start: 1418 Anesthesia Stop: [...] once all PACU criteria has been met. [facility] 07-09-2022 Note Patient: Winifred Wood Procedure Summary Date: 07/09/22 Room / Location: [facility] Operating Room Anesthesia Start: 1418 Anesthesia Stop: [...] 18 07/09/22 1641 SpO2 99 % 07/09/22 164 Anesthesia Post Evaluation Patient location during evaluation: [...] opportunity for questions and acknowledgement of understanding. [facility] 07-05-2022 Note Attestation signed by Yossi Quispe MD at 07/09/2022 11:59 AM I have examined the patient on admission and confirm that the necessity for the procedure is still present . The patient's condition has not changed since the History & Physical was originally completed. Yossi Quispe MD 07/09/2022 [facility] [address] [facility] [address] Dept: [phone] Dept Loc: [phone] Visit type: Established patient Reason for Visit: [...] in about 1 month (around 07/28/2022) for ROOF SLATER follow up. Subjective HPI Winifred Wood is [...] Procedure Laterality Date (more content not included)... [facility] 07-05-2022 Note Attestation signed by Yossi Quispe MD at 07/09/2022 11:59 AM I have examined the patient on admission and confirm that the necessity for the procedure is still present . The patient's condition has not changed since the History & Physical was originally completed. Yossi Quispe MD 07/09/2022 [facility] [address] [facility] [facility] [address] Dept: [phone] Dept Loc: [phone] Visit type: Established patient Reason for Visit: [...] She is agreeable to the plan Winifred Dasha Fickes participated in a shared decision making process [...] in about 1 month (around 07/28/2022) for ROOF SLATER follow up. Subjective HPI Winifred Wood is [...] Once Yossi Quispe MD Stopped at 06/27/22 5415 Medical History Past Medical History: Diagnosis Date Anemia Aortic valve stenosis CKD (chronic kidney disease) Diabetes mellitus (HCC) Hyperlipidemia Hypertension Obesity Renal calculi Right renal artery stenosis (CMS/HCC) (HCC) Social History Tobacco Use Smoking status: Never Passive exposure: Never Smokeless tobacco: Never Substance Use Topics Alcohol use: Not Currently Surgical History Past Surgical History: Procedure Laterality Date (more content not included)... [facility] 07-05-2022 Note Pre TAVR phone call placed. Reviewed, procedure, instructions and meds. Pt verbalizes understanding. Pt knows to call [phone] with any concerns. [facility] 07-04-2022 Note Patient: Winifred Wood Procedure Information Date/Time: 07/09/22 1245 Procedures: TAVR/TTE TRANSCATHETER AORTIC VALVE REPLACEMENT (TAVR) - OR (Chest) Location: [facility] Operating Room Surgeons: Yossi Quispe MD; Francis [...] Yossi Quispe MD on 06/06/2022 10:00 PM [facility] 06-28-2022 Note Symptomatic severe a ortic [...] expressed understanding and acceptance of the plan. [facility] 06-01-2022 Note Referral Date: Appoi ntment Date(s): 06/08/2022 DEMOGRAPHICS Name: Winifred Wood : 1945 Age: 77 y.o. Ht: 5'1 /155.448 cm Wt: 227 lb/102.96 kg PCP: Frank Ramirez Organic Chemistry Teacher: Clinic IC: Clinic CTS: STS score: MEDICAL [...] situation:(home/apartment, independent living) Social, and home support: (family/friends/community/congregational) Comments/Plan: Same Day Candidate: Y or N COMPLETE TAVR Candidate: Y or N [facility] 05-14-2022 Note ORIGINAL EXAMINATION: BONE DENSITOMETRY [...] Date: 05/14/2022 2:50:51 PM Ordering Provider: FRANK LIRAPKINS [facility] 05-14-2022 Note ORIGINAL EXAMINATION: BONE DENSITOMETRY 05/14/2022 [...] Date: 05/14/2022 2:50:51 PM Ordering Provider: FRANK LIRAPKINS [facility] Evaluation + Plan note Future Appointments Appointment Date:01/08/2022 11:00:00 AM Scheduled Provider:FRANK RAMIREZ APRN - ACLS SPECIALIST Location:[facility] Appointment Type:PC OV Follow Up [...] 06/19/22BD Bone Density DEXA Axial Skeleton 02/17/21 [facility] Evaluation + Plan note Future Appointments Appointment [...] 07/11/22BD Bone Density DEXA Axial Skeleton 02/17/21 [facility] Evaluation + Plan note Future Appointments Appointment Date:06/26/2022 01:40:00 PM Scheduled Provider:FRANK RAMIREZ APRN - ELIZABETH Location:[facility] Appointment Type:PC OV Follow Up Future Scheduled TestsRenin, Plasma 06/19/22Renin, Plasma 07/11/22Iron Level 06/19/22Thyroid Stimulating Hormone 06/19/22Thyroid Stimulating Hormone 07/11/22Free T4 06/19/22Uric Acid 06/19/22A1C Hemoglobin 06/19/22A1C Hemoglobin 07/11/22Complete Blood Count 06/19/22Complete Blood Count 07/11/22Fr T3 06/19/22Lipid Profile 06/19/22Lipid Profile 07/11/22Microalbumin Level Urine 06/19/22Microalbumin Level Urine 07/11/22PTH, Intact 06/19/22PTH, Intact 07/11/22Vitamin D Level 06/19/22Vitamin D Level 07/11/22Complete Metabolic Panel 06/19/22Complete Metabolic Panel 07/11/22 [facility] Evaluation + Plan note Future Appointments Appointment Date:01/10/2023 01:40:00 PM Scheduled Provider:FRANK RAMIREZ APRN - ACLS SPECIALIST Location:[facility] Appointment Type:PC OV Follow Up Appointment Date:07/04/2023 01:40:00 PM Scheduled Provider:FRANK RAMIREZ APRN - ACLS SPECIALIST Location:[facility] Appointment Type:PC OV Follow Up Future [...] Panel 06/29/23Complete Metabolic Panel 12/24/22TIBC 06/29/23TIBC 12/24/22 [facility] Evaluation + Plan note Future Appointments Appointment Date:07/04/2023 01:40:00 PM Scheduled Provider:FRANK RAMIREZ APRN, CNP Location:[facility] Appointment Type: OV Follow Up Future [...] Panel 06/29/23Complete Metabolic Panel 12/24/22TIBC 06/29/23TIBC 12/24/22 [facility] Anemia, unspecified type- Primary Chronic kidney disease, stage 4, severely decreased GFR (HCC) Chronic kidney disease, Stage IV (severe) [facility] Narrative No data available for this section [facility] Hospital Discharge instructions No data available for this section [facility] Progress note No data available for this section [facility] Summary Purpose Family History No Family History Records Found No data available for this section No Family History Records FoundNo Family History Records Found Advance Directives No Advanced Directives Records FoundNo Advanced Directives Records FoundNo Advanced Directives Records Found Additional Source Comments Care Team (unrecognized sect ion and content) Care Team Personnel Name: FRANK RAMIREZ APRN - ELIZABETH Position: P4 Advanced Practice Nurse Med Service: Employed Provider Member Role: Primary Care Physician Address: Address: [address] [place] [address] Care Team Related Persons Name: JANICE WOOD Address: Home [address] [place], [place] [id number] [place] Care Team Personnel Name: FRANK RAMIREZ APRN - ACLS SPECIALIST Position: P4 Advanced Practice Nurse Med Service: Employed Provider Member Role: Primary Care Physician Address: Address: [address] [place] [address] Care Team Related Persons Name: JANICE WOOD Address: Home [address] [place], [place] [id number] [place] Care Team Personnel Name: FRANK RAMIREZ APRN - ACLS SPECIALIST Position: P4 Advanced Practice Nurse Member Role: Primary Care Physician Address: Address: [address] [place] [address] Care Team Related Persons Name: JANICE WOOD Address: Home [address] [place], [place] [id number] INFORMATION SOURCE (unrecogn ized section and content) DATE CREATED AUTHOR AUTHOR'S ORGANIZ ATION 04/04/2023 [facility] ([place]) DATE CREATED AUTHOR AUTHOR'S ORGANIZ ATION 08/14/2023 [facility] Patient Care team informatio n (unrecognized section and content) Tennis Net Maker Relationship Specialty Start Date End Date Frank Ramirez CNP [address] [place] [address] PCP - General Family Medicine 05/21/16 Source Comments (unrecognize d section and content) In the event this informatio n is protected by the Federal Confidentiality of Alcohol and Drug Abuse Patient Records regulations: The Federal rules restrict any use of the information to criminally investigate or prosecute any alcohol or drug abuse patient.[facility] the event this information is protected by the Federal Confidentiality of Alcohol and Drug Abuse Patient Records regulations: The Federal rules restrict any use of the information to criminally investigate or prosecute any alcohol or drug abuse patient.[facility] Reason for Visit (unrecogniz ed section [...] BE BASED ON THE PRIMARY CLINICAL RECORDS. [employer] [facility]. provides no warranty or guarantee of the accuracy or completeness of information in this document.
[2023-08-16 14:41] VITALS: BP 163/60; PULSE 56; RESP 16; TEMP 36.3; O2SAT 97
== END 2023-08-16 12:21 | disposition home or self-care (01) ==
LOC: MEDOUTP 12:21
PROVIDERS: PCP Nurse Practitioner Family; Referring Provider Internal Medicine Nephrology; Visit Provider Internal Medicine Nephrology
DX: D64.9 Anemia, unspecified (principal); N18.4 Chronic kidney disease, stage 4 (severe)
CPT/HCPCS: 96365; 96366; J1756; J7050; A4216

== ENCOUNTER 2023-08-23 10:48 | Outpatient (CLI) | payer MEDICARE, OTHER, SELFPAY ==
[2023-08-23 11:07] VITALS: BP 173/53; PULSE 53; RESP 16; TEMP 35.9; O2SAT 100; BMI 36.2
[2023-08-23] MEDS: 0.9% NaCl Peripheral Flush Adult/Peds IV (11:20)
[2023-08-23] MEDS: 0.9% NaCl IVPB Med Flush (250 mL) 15 ML IV (11:20)
[2023-08-23] MEDS: Iron Sucrose Complex 300 MG in 0.9% Normal Saline (250mL Bag) 250 ML 177 MG IV (11:22)
[2023-08-23 13:17] VITALS: BP 163/49; PULSE 55; RESP 16; TEMP 35.9; O2SAT 100
== END 2023-08-23 10:49 | disposition home or self-care (01) ==
LOC: MEDOUTP 10:48
PROVIDERS: PCP Nurse Practitioner Family; Referring Provider Internal Medicine Nephrology; Visit Provider Internal Medicine Nephrology
DX: D64.9 Anemia, unspecified (principal); N18.4 Chronic kidney disease, stage 4 (severe)
CPT/HCPCS: 96365; 96366; J1756; J7050; A4216

== ENCOUNTER 2023-08-30 10:57 | Outpatient (CLI) | payer MEDICARE, OTHER, SELFPAY ==
[2023-08-30 11:31] VITALS: BP 159/77; PULSE 63; RESP 16; TEMP 36.5; O2SAT 100; BMI 36.2
[2023-08-30] MEDS: 0.9% NaCl Peripheral Flush Adult/Peds IV (11:31)
[2023-08-30] MEDS: 0.9% NaCl IVPB Med Flush (250 mL) 15 ML IV (11:31)
[2023-08-30] MEDS: Iron Sucrose Complex 300 MG in 0.9% Normal Saline (250mL Bag) 250 ML 177 MG IV (11:42)
[2023-08-30 13:35] VITALS: BP 155/65; PULSE 56; RESP 16; TEMP 36.3; O2SAT 99
== END 2023-08-30 10:58 | disposition home or self-care (01) ==
LOC: MEDOUTP 10:57
PROVIDERS: PCP Nurse Practitioner Family; Referring Provider Internal Medicine Nephrology; Visit Provider Internal Medicine Nephrology
DX: D64.9 Anemia, unspecified (principal); N18.4 Chronic kidney disease, stage 4 (severe)
CPT/HCPCS: 96365; 96366; J1756; J7050; A4216

== ENCOUNTER → 2023-09-03 | Outpatient (CLI) | payer MEDICARE, OTHER, SELFPAY ==
[2023-09-03 10:32] LABS: Hematocrit 28.5 % (37-47); Hemoglobin 8.6 g/dL (12.0-15.0); Mean Corp Hgb Conc 30.2 g/dL (32-36); Mean Corpuscular Hgb 29.4 pg (27.0-32.0); Mean Corpuscular Volume 97.3 fL (81-99); Mean Platelet Vol. 9.8 fl (6.2-12.0); Platelet Count 284 K/mm3 (150-450); RBC Distribution Width CV 16.7 % (11.6-14.6); Red Blood Count 2.93 M/mm3 (4.2-5.4); White Blood Count 7.7 K/mm3 (4.4-11.0)
[2023-09-03 10:47] LABS: Protein, Urine (Random) 118.7 mg/dL (<11.9); Protein:Creat Ratio 1681 mg/g CRE (0-200)
[2023-09-03 10:55] LABS: PTHIN 31.2 pg/mL (18.4-80.1)
[2023-09-03 10:56] LABS: Albumin, Serum 3.3 g/dL (3.2-5.0); BUN 44 mg/dL (7-18); BUN/Creat Ratio 17.1 RATIO (10-20); Calcium,Total 9.6 mg/dL (8.5-10.1); Chloride 115 mmol/L (98-107); Creatinine, Serum 2.58 mg/dL (0.55-1.02); EST Glomerular Filtration Rate 19 mL/min (>60); Est Glom Filt Rate - Afr Amer 23 mL/min (>60); Glucose 110 mg/dL (74-106); Phosphorus 3.2 mg/dL (2.5-4.9); Potassium 4.1 mmol/L (3.5-5.1); Sodium Level 144 mmol/L (136-145)
--- OUTSIDE RECORDS SUMMARY | 2023-09-03 22:34 | XMS RPT_ITS | CCD ---
Author Name Unknown Address [address] [place] [address] Organization [facility] Care Team Providers Care Outside Industrial Sales Representative Name Role Phone Estrada, Yazmin Y Unavailable Reed Molina Y Unavailable Unavailable Estrada, Yazmin Y Unavailable Suyapa Navarro RN Unavailable Unavailable Suyapa Navarro RN Unavailable Unavailable Estrada, Yazmin Y Unavailable FRANK DAN APRN, CNP Primary Care [facility] MARGI RAJAN Attending Unavailable YOSSI QUISPE Attending Unavailable RENÉE, GUNNAR Referring Unavailable ALEYDA CAI Attending Unavailable JAMES, [...] FRANK Marquis Primary Care U navailable JAMES AUTO DAMAGE ESTIMATOR - ELIZABETH, FRANK Marquis Attending U navailable JAMES AUTO DAMAGE ESTIMATOR - SPECIAL EDUCATION AIDE, FRANK Marquis Attending U navailable JAMES AUTO DAMAGE ESTIMATOR - ELIZABETH, FRANK Marquis Primary Care U navailable JAMES AUTO DAMAGE ESTIMATOR - FRANK JOHNSON Attending U navailable JAMES BEE - FRANK JOHNSON Primary Care U navailable JamesFrank mg CNP Primary Care Provider 1( [phone] FRANK RAMIREZ Primary Care Unavailable GARRETT VAUGHN Referring Unavailable FRANK RAMIREZ Primary Care Unavailable GARRETT VAUGHN Referring Unavailable FRANK RAMIREZ Primary Care Unavailable GARRETT VAUGHN Attending Unavailable JAMES, FRANK D Primary Care Unavailable GARRETT VAUGHN Referring Unavailable FRANK RAMIREZ Primary Care Unavailable GARRETT VAUGHN Referring Unavailable GARRETT VAUGHN Attending Unavailable FRANK RAMIREZ Primary Care Unavailable GARRETT VAUGHN Referring Unavailable FRANK RAMIREZ Primary Care Unavailable GARRETT VAUGHN Referring Unavailable Allergies Allergy Classification Reported Allergen(s) Allergy Type Date of Onset Reaction(s) Facility (6 sources) Macrolides (Antibiotic) drug allergy 7 unknown [facility] Work Phone: (6 sources) penicillin drug allergy 7 unknown [facility] Work Phone: [phone] (11 sources) ERYTHROMYCIN BASE; Translations: [Erythromycin] drug allergy 7 Nausea (finding) [facility] Work Phone: [phone] (6 sources) Penicillins; Translations: [penicillins] Drug allergy 6 Weal (disorder) [facility] (8 sources) Erythromycin; Translations: [ERYTHROMYCIN] Drug Allergy 6 Unknown [facility] (7 sources) Penicillins Propensity to adverse reactions to drug 6 Unknown [facility] Medications Current Medications Medication Drug Class(es) Dates Sig (Normalized) Sig (Original) acetaminophen 500 mg oral tablet (8 sources) Start: 02-02-2022 End: 02-16-2022 Tylenol Extra [...] Class(es) Dates Sig (Normalized) Sig (Original) acetaminophen 325 mg / HYDROcodone bitartrate 5 mg oral tablet (5 sources) Opioid Agonist take 1 tablet by belem th every six hours as needed HYDROcodone-acetami nophen (NORCO) 5-325 mg per tablet Take 1 tablet by mouth every 6 hours as needed for pain. 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 Episodic Chronic kidney disease (20 sources) Chronic kidney disease stage 3; Translations: [Chronic kidney disease stage 4] Onset: 01-30-2017 01-30-2017 Chronic Deficiency and other anemia (5 sources) Hemoglobin low 02-09-2019 Episodic Deficiency and other anemia (5 sources) Iron deficiency anemia 07-06-2021 Episodic Deficiency and other anemia (14 sources) Anemia; Translations: [Anemia, unspecified] Onset: 08-01-2023 [...] Date Time Vital Sign Value Performing Clinician Facility 08-29-2023 09:17-0500 Diastolic blood pressure 64 mm[Hg] Garrett Vaughn Work Phone: [facility] 08-29-2023 09:17-0500 Systolic blood pressure 178 mm[Hg] Garrett Vaughn Work Phone: [facility] 08-29-2023 08:52-0500 Body temperature 97.3 [degF] Garrett Vaughn Work Phone: [facility] 08-29-2023 08:52-0500 Body weight 87.09 kg Garrett Vaughn Work Phone: [facility] 08-29-2023 08:52-0500 Heart rate 61 /min Garrett Vaughn Work Phone: [facility] 08-29-2023 08:52-0500 Respiratory rate 14 /min Garrett Vaughn Work Phone: [facility] 08-29-2023 08:52-0500 SaO2% (BldA) [Mass fraction] 99 % Garrett Vaughn Work Phone: [facility] 08-13-2023 10:54-0500 Body temperature 98.01 [degF] Injection Wstr Work Phone: [facility] 08-13-2023 10:54-0500 Body weight 87.09 kg Injection Wstr Work Phone: [facility] 08-13-2023 10:54-0500 Diastolic blood pressure 67 mm[Hg] Injection Wstr Work Phone: [facility] 08-13-2023 10:54-0500 Heart rate 73 /min Injection Wstr Work Phone: [facility] 08-13-2023 10:54-0500 SaO2% (BldA) [Mass fraction] 98 % Injection Wstr Work Phone: [facility] 08-13-2023 10:54-0500 Systolic blood pressure 164 mm[Hg] Injection Wstr Work Phone: [facility] 08-01-2023 10:31-0500 Body height 154.9 cm Garrett Vaughn Work Phone: [facility] 08-01-2023 10:31-0500 Body temperature 97.9 [degF] Garrett Vaughn Work Phone: [facility] 08-01-2023 10:31-0500 Body weight 87.54 kg Garrett Vaughn Work Phone: [facility] 08-01-2023 10:31-0500 Diastolic blood pressure 60 mm[Hg] Garrett Vaughn Work Phone: [facility] 08-01-2023 10:31-0500 Heart rate 58 /min Garrett Vaughn Work Phone: [facility] 08-01-2023 10:31-0500 Respiratory rate 12 /min Garrett Vaughn Work Phone: [facility] 08-01-2023 10:31-0500 SaO2% (BldA) [Mass fraction] 99 % Garrett Vaughn Work Phone: [facility] 08-01-2023 10:31-0500 Systolic blood pressure 152 mm[Hg] Garrett Vaughn Work Phone: [facility] 02-06-2017 11:31-0400 Heart rate 53 /min [facility] Work Phone: 02-06-2017 11:23-0400 BMI (Body Mass Index) 45.98 kg/m2 [facility] Work Phone: 02-06-2017 11:23-0400 BP Diastolic 82 mm[Hg] Yazmin Estrada [facility] Work Phone: 02-06-2017 11:23-0400 BP Systolic 128 mm[Hg] [facility] Work Phone: 02-06-2017 11:23-0400 Height 157.48 cm [facility] Work Phone: 02-06-2017 11:23-0400 Pulse (Heart Rate) 52 /min [facility] Work Phone: 02-06-2017 11:23-0400 Respiratory Rate 20 /min [facility] Work Phone: 02-06-2017 11:23-0400 Weight 114.04 kg [facility] Work Phone: Encounters Encounter Date Encounter Type Care Provider Facility Start: 08-29-2023 End: 08-30-2023 ambulatory FRANK RAMIREZ Facility:[facility] Start: 08-29-2023 End: 08-29-2023 ambulatory Injection [facility] Work Phone: Hematology/Oncology Procedures Date Procedure Procedure Detail Performing Clinician Start: 06-24-2017 Echocardiography GURVINDER RAMIREZ AUTO DAMAGE ESTIMATOR - SPECIAL EDUCATION AIDE Start: 02-06-2017 End: 02-06-2017 ALIYA Lopez MD Start: 02-06-2017 End: 02-06-2017 Follow Up Appt 4 months Demarco Floyd Start: 02-06-2017 End: 02-06-2017 ALIYA Lopez MD Start: 02-06-2017 End: 02-06-2017 Follow Up Appt 4 months Demarco Floyd Plan of Treatment Date Care Activity Detail Author Start: 07-10-2025 Diabetes Screening Diabetes Screenin [facility] Start: 08-28-2024 Complete blood count Hemoglobin/Shiv [facility] Start: 08-13-2024 Complete blood count Hemoglobin/Hsiv [facility] Start: 08-01-2024 Complete blood count Hemoglobin/Shiv [facility] Start: 09-12-2023 End: 12-12-2023 Ferritin [Mass/volume] in Serum or Plasma [facility] Lab Routine Anemia, unspecified type Expected: 09/12/2023 (Approximate), Expires: 12/12/2023 [facility] Work Phone: Immunizations Immunization Date Immunization Notes Care Provider Fa [facility] 04-01-2022 influenza virus vacc ine, unspecified formulation FRANK RAMIREZ AUTO DAMAGE ESTIMATOR - SPECIAL EDUCATION AIDE [facility] 09-24-2021 SARS-CoV-2 (COVID-19 ) mRNA-1273 vaccine FRANK RAMIREZ AUTO DAMAGE ESTIMATOR - SPECIAL EDUCATION AIDE [facility] 05-31-2021 SARS-CoV-2 (COVID-19 ) mRNA-1273 vaccine FRANK RAMIREZ AUTO DAMAGE ESTIMATOR - SPECIAL EDUCATION AIDE [facility] 03-22-2021 influenza virus vacc ine, unspecified formulation FRANK RAMIREZ AUTO DAMAGE ESTIMATOR - SPECIAL EDUCATION AIDE [facility] 09-19-2020 SARS-CoV-2 (COVID-19 ) mRNA-1273 vaccine FRANK RAMIREZ AUTO DAMAGE ESTIMATOR - SPECIAL EDUCATION AIDE [facility] 08-22-2020 SARS-CoV-2 (COVID-19 ) mRNA-1273 vaccine FRANK RAMIREZ AUTO DAMAGE ESTIMATOR - SPECIAL EDUCATION AIDE [facility] 02-27-2019 influenza, injectabl e, quadrivalent, preservative free; Translations: [Fluad ] FRANK LIRAPKINS AUTO DAMAGE ESTIMATOR - SPECIAL EDUCATION AIDE [facility] 03-24-2018 influenza virus vacc ine, unspecified formulation FRANK LIRAPKINS AUTO DAMAGE ESTIMATOR - SPECIAL EDUCATION AIDE [facility] 03-24-2017 influenza virus vacc ine, unspecified formulation FRANK LIRAPKINS AUTO DAMAGE ESTIMATOR - SPECIAL EDUCATION AIDE [facility] 04-14-2016 influenza virus vacc ine, unspecified formulation FRANK RAMIREZ AUTO DAMAGE ESTIMATOR - SPECIAL EDUCATION AIDE [facility] 03-15-2015 influenza virus vacc ine, unspecified formulation FRANK LIRAPKINS AUTO DAMAGE ESTIMATOR - SPECIAL EDUCATION AIDE [facility] 01-13-2015 pneumococcal conjuga te vaccine, 13 valent FARNK RAMIREZ AUTO DAMAGE ESTIMATOR - SPECIAL EDUCATION AIDE [facility] 03-24-2014 influenza virus vacc ine, unspecified formulation FRANK LIRAPKINS AUTO DAMAGE ESTIMATOR - SPECIAL EDUCATION AIDE [facility] 04-24-2013 pneumococcal polysaccharide vaccine, 23 valent FRANK RAMIREZ AUTO DAMAGE ESTIMATOR - SPECIAL EDUCATION AIDE [facility] 02-20-1999 diphtheria and tetan us toxoids, adsorbed for pediatric use FRANK LIRAPKINS AUTO DAMAGE ESTIMATOR - SPECIAL EDUCATION AIDE [facility] Payers Date Payer Category Payer Unknown [id number] 2022 Medicare [id number] 2015 Private Health Insurance [facility] AARP SUPPLEMENT [id number] 2015-Present [phone] [address] [place] [address] Indemnity [id number] 2015 Unknown [id number] 2011 Medicare [id number] 2011 Medicare MEDICARE MEDICAR E A AND B [id number] 2011-Present [phone] [address] [address] [place] [address] Medicare [id number] 1945 Unknown [id number] 1945 Unknown [id number] 1945 Unknown [id number] Social History Date Type Detail Facility Start: 02-09-2019 End: 03-13-2021 Tobacco smoking status Never smoked tobacco (finding) [facility] Clinical Notes 05-14-2022 to 08-29-2023 Ramila Coombs LPN - 08/29/2023 9:53 AM Garrett Esquivel - 08/29/2023 9:00 AM ESTTelemikel Singh - Karin Easley LISW - 08/26/2023 3:39 PM Ramila Chilel, ORE DRESSING ENGINEER - 08/13/2023 10:56 AM EST Note Date & Type Note Facility 08-29-2023 Note HNO ID: [id number] Author: GARRETT VAUGHN, ? Service: ? Author Type: Nurse Practitioner Type: Progress Notes Filed: 08/29/2023 13:35 Note Text: Hematology Progress Note Winifred Wood 1945 Encounter date: 08/29/2023 HPI: Winifred Wood is a 78 year old female with a PHMx of CKD, Stage 3, no dialysis as of yet but has been told by her office machine embossograph operator that it is likely coming soon, HTN, T2DM, osteoarthritis, hyperlipidemia, and anemia. She was referred to hematology by her office machine embossograph operator for further management of her anemia. BP elevated in the office has been running good at home 120s/60s, SPEP drawn by office machine embossograph operator without m spike. No SOB, CP. Denies [...] receive weekly doses x4. IV iron at [facility], no current record for this. Last [...] go on cruises. She no longer drives. Interval History: Ms. Wood presents today for follow up and possible aranesp injection. She reports feeling well. No recent illnesses, fevers, chills or NS. She is progressing through PT really well. No longer using rollator to get around, has switched to cane last week and is feeling stronger and more confident. Was able to complete a few laps around [employer] this week. Knee pain and sciatic pain resolved. BP high today, took her BP meds this morning about an hour ago. She states 125/70s at home always higher when she is at doctors offices. Denies JIMENEZ, dizziness, SOB, CP or changes in vision. No N/V/C/D. Has 1 remaining IV iron infusion at [facility] tomorrow. Denies bleeding or bruising. Has started driving again now that she is feeling better. Has cruise scheduled the 13 of September. F/u with neph scheduled SaturdaySeptember 08 PAST MEDICAL HISTORY Diagnosis Date Anemia Arthritis [...] Current Outpatient Medications Medication Sig Dispense Refill HYDROcodone-acetaminophen (NORCO) 5-325 mg per tablet Take 1 tablet by mouth every 6 hours as needed for pain. multivitamin (MULTIPLE VITAMINS ORAL) Take 1 tablet by mouth once daily. acetaminophen (TYLENOL) 325 mg tablet 1 tablet as needed Orally every 4 hrs ELIQUIS 2.5 mg tab(s) Take 2.5 mg by mouth two times a day. docusate sodium (DULCOLAX STOOL SOFTENER, DSS,) 100 mg capsule Take 100 mg by mouth once daily. losartan (COZAAR) 100 mg tablet Take 100 mg by mouth once daily. aspirin, enteric coated (ECOTRIN LOW STRENGTH) 81 mg EC tablet Take 81 mg by mouth once daily. ascorbic acid, vitamin C, (VITAMIN C) 500 mg tablet Take 500 mg by mouth once daily. ferrous sulfate (IRON ORAL) Take 65 mg by mouth. Sat, sat, sat amLODIPine (NORVASC) 5 mg tablet Take 5 [...] by mouth once daily. 0.5 tablet daily Quinapril HCl 40 mg tablet Take 40 mg by mouth twice daily. (Patient not taking: Reported on 08/01/2023) No current facility-administered medications for this visit. Facility-Administered Medications Ordered in Other Visits Medication Dose Route Frequency Provider Last Rate Last Admin Darbepoetin Marco In Polysorbat 200 mcg injection (ARANESP) 200 mcg SUBCUTANEOUS ONCE Garrett Vaughn ALLERGIES Allergen Reactions Erythromycin Unknown Penicillins Unknown FAMILY HISTORY Problem Relatio (more content not included)... [facility] 08-29-2023 Nurse Note Injection deferred per physician discretion, elevated blood pressure. Ramila Coombs LPN documented in this encounter [facility] 08-29-2023 History of Present illness Narrative Hematology Progress Note Winifred Wood 1945 Encounter date: 08/29/2023 HPI: Winifred Wood is a 78 year old female with a PHMx of CKD, Stage 3, no dialysis as of yet but has been told by her office machine embossograph operator that it is likely coming soon, HTN, T2DM, osteoarthritis, hyperlipidemia, and anemia. She was referred to hematology by her office machine embossograph operator for further management of her anemia. BP elevated in the office has been running good at home 120s/60s, SPEP drawn by office machine embossograph operator without m spike. No SOB, CP. Denies [...] receive weekly doses x4. IV iron at [facility], no current record for this. Last [...] go on cruises. She no longer drives. Interval History: Ms. Wood presents today for follow up and possible aranesp injection. She reports feeling well. No recent illnesses, fevers, chills or NS. She is progressing through PT really well. No longer using rollator to get around, has switched to cane last week and is feeling stronger and more confident. Was able to complete a few laps around [employer] this week. Knee pain and sciatic pain resolved. BP high today, took her BP meds this morning about an hour ago. She states 125/70s at home always higher when she is at doctors offices. Denies JIMENEZ, dizziness, SOB, CP or changes in vision. No N/V/C/D. Has 1 remaining IV iron infusion at [facility] tomorrow. Denies bleeding or bruising. Has started driving again now that she is feeling better. Has cruise scheduled the 13 of September. F/u with neph scheduled SaturdaySeptember 08 PAST MEDICAL HISTORY Diagnosis Date Anemia Arthritis [...] Current Outpatient Medications Medication Sig Dispense Refill HYDROcodone-acetaminophen (NORCO) 5-325 mg per tablet Take 1 tablet by mouth every 6 hours as needed for pain. multivitamin (MULTIPLE VITAMINS ORAL) Take 1 tablet by mouth once daily. acetaminophen (TYLENOL) 325 mg tablet 1 tablet as needed Orally every 4 hrs ELIQUIS 2.5 mg tab(s) Take 2.5 mg by mouth two times a day. docusate sodium (DULCOLAX STOOL SOFTENER, DSS,) 100 mg capsule Take 100 mg by mouth once daily. losartan (COZAAR) 100 mg tablet Take 100 mg by mouth once daily. aspirin, enteric coated (ECOTRIN LOW STRENGTH) 81 mg EC tablet Take 81 mg by mouth once daily. ascorbic acid, vitamin C, (VITAMIN C) 500 mg tablet Take 500 mg by mouth once daily. ferrous sulfate (IRON ORAL) Take 65 mg by mouth. Mon, wed, fri amLODIPine (NORVASC) 5 mg tablet Take 5 [...] by mouth once daily. 0.5 tablet daily Quinapril HCl 40 mg tablet Take 40 mg by mouth twice daily. (Patient not taking: Reported on 08/01/2023) No current facility-administered medications for this visit. Facility-Administered Medications Ordered in Other Visits Medication Dose Route Frequency Provider Last Rate Last Admin Darbepoetin Marco In Polysorbat 200 mcg injection (ARANESP) 200 mcg SUBCUTANEOUS ONCE Garrett Vaughn ALLERGIES Allergen Reactions Erythromycin Unknown Penicillins Unknown FAMILY HISTORY Problem Relation Age of Onset Breast Cancer Maternal Aunt Allergies Sister Social History Tobacco Use Smoking status: Never Smokeless tobacco: Never Vaping Use Vaping Use: Never used Substance Use Topics Alcohol use: Not Currently Comment: twice a year or less Drug use: Never Review of Systems: Negative except as noted in HPI reviewed 08/29/2023 Physical Exam: BP 178/64 Pulse 61 Temp 97.3 Resp 14 Wt 192 lb (87.1kg) SpO2 99% Pain Intensity: 0/10 General: Age-appropriate well developed. Appears well. HEENT: Normocephalic, no sclera icterus, external ears normal, oral cavity clear. Neck: Supple, no thyroid nodules, no JVD. Chest: Clear bilaterally, no wheezes, not labored. Heart: Normal S1 and S2, no abnormal sounds Abdomen: Soft, nontender, nondistended, Extremities: No cyanosis, clubbing, gross deformities, or [...] and or problems with coping or adjustment. I have performed the physical exam today (08/29/2023) and have edited the note to correlate with current findings. Lab Results Component Value Date WBC 8.27 08/29/2023 HB 9.0 (L) 08/29/2023 MCV 96.1 08/29/2023 PLT 303 08/29/2023 No results found for: NA , K [...] GI workup completed - following with local office machine embossograph operator for management of CKD, not currently on dialysis. - neph has her scheduled for receive IV iron, last t stat 14 - Would recommend 1 tab ferrous sulfate [...] frequent visits as she no longer drives. - b12, folate unremarkable. Plan: - continue with IV iron per neph. Last scheduled infusion tomorrow, 08/30/23 - plan for aranesp for hgb <10 - hold injection today for elevated BP, tsat inadequate - plan to reassess in 2 weeks with next scheduled appt. Follow up on iron studies at that time. Garrett Vaughn APRN.SPECIAL EDUCATION AIDE I spent >30 minutes in the visit, with more than 50% of the total [id number] time of the visit in counseling / [...] of this patient. documented in this encounter [facility] 08-26-2023 Miscellaneous Notes Pt noted on [facility] 1st time treatment report. Pt has a non-oncology regimen. No social work follow up indicated. PHYLLIS Churchill-S documented in this encounter [facility] 08-23-2023 Miscellaneous Notes Reviewed patient on the 1st time tx report. The patient does not have a cancer dx or a chemo/radiation regimen. The patient has Medicare A & B primary and [facility] AARP Supplement secondary. No further FN intervention is needed at this time. documented in this encounter [facility] 08-13-2023 Nurse Note Patient presents with: Imm/Inj Pt is identified by name and birthdate: Yes. Allergies and medications reviewed. Latex allergy? No. Does this patient have: Unplanned weight loss or gain of greater than 10 pounds, or a change of appetite over the last year? No Does the patient have any concerns about safety in the home/falls? At risk due to: imbalance Has the patient fallen in the past year? Yes: Patient has the following symptoms: provider notified and no symptoms at this time Does the patient have difficulty performing or completing routine daily living activities? No Does this patient have concerns about personal safety? No Is patient having pain? Pain: No=0 (pain 0 on a scale of 0-10). Health Maintenance: Reviewed and updated. Does patient have MyChart access or Caregiver proxy: no Pt/Caregiver willingness and readiness to learn assessed: Yes. Barriers: none Initial start, pt. Observed for 15 mins, no adverse reactions noted Aranesp injection administered, left arm, tolerated well. Ramila Coombs LPN documented in this encounter [facility] 08-01-2023 Note HNO ID: [id number] Author: GARRETT VAUGHN, ? Service: ? Author [...] yet but has been told by her office machine embossograph operator that it is likely coming soon, HTN, T2DM, osteoarthritis, hyperlipidemia, and anemia. She was referred to hematology by her office machine embossograph operator for further management of her anemia. BP elevated in the office has been running good at home 120s/60s, SPEP drawn by office machine embossograph operator without m spike. No SOB, CP. Denies [...] receive weekly doses x4. IV iron at [facility], no current record for this. Last [...] cords. Neurological: Cran (more content not included)... [facility] 08-01-2023 Instructions Garrett Vaughn - 08/01/2023 11:27 AM EST PO iron ferrous sulfate every other day OR Saturday documented in this encounter [facility] 08-01-2023 History of Present illness Narrative Hematology Consult Note Winifred Wood 1945 Encounter date: 08/01/2023 Cancer Staging No matching staging information was found for the patient. HPI: Winifred Wood is a 78 year old female with a PHMx of CKD, Stage 3, no dialysis as of yet but has been told by her office machine embossograph operator that it is likely coming soon, HTN, T2DM, osteoarthritis, hyperlipidemia, and anemia. She was referred to hematology by her office machine embossograph operator for further management of her anemia. BP elevated in the office has been running good at home 120s/60s, SPEP drawn by office machine embossograph operator without m spike. No SOB, CP. Denies [...] receive weekly doses x4. IV iron at [facility], no current record for this. Last [...] DM type 2 (diabetes mellitus, type 2) ([facility]) Heart murmur HTN (hypertension) Hyperlipidemia Hyperparathyroidism (HCC) [...] GI workup completed - following with local office machine embossograph operator for management of CKD, not currently on dialysis. - neph has her scheduled for receive IV iron, last t stat 20.4 - reports that she is scheduled for 4 doses at [facility] - Would recommend 1 tab ferrous [...] hgb <10, pending labs, auth Garrett Vaughn APRN.SPECIAL EDUCATION AIDE I spent >60 minutes in the visit, with more than 50% of the total [id number] time of the visit in counseling / [...] of this patient. documented [facility] [facility]04[facility]23 Note ORIGINAL EXAMINATION: PARATHYROID SCINTIGRAPHY01/04/2023 2:54 [...] 01/04/2023 3:49:39 PM Ordering Provider: FRANK RAMIREZ [facility] 01-04-2023 Note ORIGINAL EXAMINATION: PARATHYROID SCINTIGRAPHY01/04/2023 2:54 [...] 01/04/2023 3:49:39 PM Ordering Provider: FRANK RAMIREZ [facility] 07-10-2022 Note Attestation signed by Yossi Quispe [...] ? 40) Yossi Quispe MD Name: Winifred Lou Ricardo Date of : 1945 Date of Admission: [...] condition. Referral to (more content not included)... [facility] 07-10-2022 Note Received referral an d reviewed chart. Unable to discuss Phase II Cardiac Rehab Referral with Winifred Dasha Wood at this time. Will follow to discuss cardiac rehab when appropriate. Patient will be contacted at home if discharged prior to discussion. [facility] 07-09-2022 Note Patient: Winifred Wood Procedure Summary Date: 07/09/22 Room / Location: [facility] Operating Room Anesthesia Start: 1418 Anesthesia Stop: [...] once all PACU criteria has been met. [facility] 07-09-2022 Note Patient: Winifred Wood Procedure Summary Date: 07/09/22 Room / Location: [facility] Operating Room Anesthesia Start: 1417 Anesthesia Stop: [...] opportunity for questions and acknowledgement of understanding. [facility] 07-05-2022 Note Attestation signed by Yossi Quispe MD at 07/09/2022 11:59 AM I have examined the patient on admission and confirm that the necessity for the procedure is still present . The patient's condition has not changed since the History & Physical was originally completed. 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 Subjective HPI Winifred Wood is [...] Procedure Laterality Date (more content not included)... [facility] 07-05-2022 Note Attestation signed by Yossi Quispe MD at 07/09/2022 11:59 AM I have examined the patient on admission and confirm that the necessity for the procedure is still present . The patient's condition has not changed since the History & Physical was originally completed. 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 Subjective HPI Winifred Wood is [...] Procedure Laterality Date (more content not included)... [facility] 07-05-2022 Note Pre TAVR phone call placed. Reviewed, procedure, instructions and meds. Pt verbalizes understanding. Pt knows to call [phone] with any concerns. [facility] 07-04-2022 Note Patient: Winifred Wood Procedure Information Date/Time: 07/09/22 1245 Procedures: TAVR/TTE TRANSCATHETER AORTIC VALVE REPLACEMENT (TAVR) - OR (Chest) Location: [facility] Operating Room Surgeons: Yossi Quispe MD; [...] Yossi Quispe MD on 06/06/2022 10:00 PM [facility] 06-28-2022 Note Symptomatic severe a ortic [...] expressed understanding and acceptance of the plan. [facility] 06-01-2022 Note Referral Date: Appoi ntment Date(s): 06/08/2022 DEMOGRAPHICS Name: Winifred Wood : 1945 Age: 77 y.o. Ht: 5'1 /155.448 cm Wt: 227 lb/102.96 kg PCP: Frank Ramirez Drafting Supervisor: Clinic IC: Clinic CTS: STS score: MEDICAL [...] situation:(home/apartment, independent living) Social, and home support: (family/friends/community/sabianist) Comments/Plan: Same Day Candidate: Y or N COMPLETE TAVR Candidate: Y or N [facility] 05-14-2022 Note ORIGINAL EXAMINATION: BONE DENSITOMETRY [...] 05/14/2022 2:50:51 PM Ordering Provider: FRANK RAMIREZ [facility] 05-14-2022 Note ORIGINAL EXAMINATION: BONE DENSITOMETRY [...] 05/14/2022 2:50:51 PM Ordering Provider: FRANK RAMIREZ [facility] Evaluation + Plan note Future Appointments Appointment Date:01/08/2022 11:00:00 AM Scheduled Provider:FRANK RAMIREZ AUTO DAMAGE ESTIMATOR - SPECIAL EDUCATION AIDE Location:[facility] Appointment Type:PC OV Follow Up Appointment Date:02/20/2022 02:00:00 PM Scheduled Provider:FRANK RAMIREZ AUTO DAMAGE ESTIMATOR - SPECIAL EDUCATION AIDE Location:[facility] Appointment Type: Wellness Medicare Appointment Date:06/26/2022 01:40:00 PM Scheduled Provider:FRANK RAMIREZ AUTO DAMAGE ESTIMATOR - SPECIAL EDUCATION AIDE Location:[facility] Appointment Type:PC OV Follow Up Future Scheduled TestsRenin, Plasma 06/19/22Iron Level 06/19/22Thyroid Stimulating Hormone 06/19/22Free T4 06/19/22Uric Acid 06/19/22A1C Hemoglobin 06/19/22Complete Blood Count 06/19/22Free T3 06/19/22Lipid Profile 06/19/22Microalbumin Level Urine 06/19/22PTH, Intact 06/19/22Vitamin D Level 06/19/22Complete Metabolic Panel 06/19/22BD Bone Density DEXA Axial Skeleton 02/17/21 [facility] Evaluation + Plan note Future Appointments Appointment Date:02/20/2022 02:00:00 PM Scheduled Provider:FRANK RAMIREZ AUTO DAMAGE ESTIMATOR - SPECIAL EDUCATION AIDE Location:[facility] Appointment Type: Wellness Medicare Appointment Date:06/26/2022 01:40:00 PM Scheduled Provider:FRANK RAMIREZ APRN - SPECIAL EDUCATION AIDE Location:[facility] Appointment Type:PC OV Follow Up [...] 07/11/22BD Bone Density DEXA Axial Skeleton 02/17/21 [facility] Evaluation + Plan note Future Appointments Appointment Date:06/26/2022 01:40:00 PM Scheduled Provider:FRANK RAMIREZ APRN - SPECIAL EDUCATION AIDE Location:[facility] Appointment Type:PC OV Follow Up Future Scheduled TestsRenin, Plasma 06/19/22Renin, Plasma 07/11/22Iron Level 06/19/22Thyroid Stimulating Hormone 06/19/22Thyroid Stimulating Hormone 07/11/22Fr T4 06/19/22Uric Acid 06/19/22A1C Hemoglobin 06/19/22A1C Hemoglobin 07/11/22Complete Blood Count 06/19/22Complete Blood Count 07/11/22Free T3 06/19/22Lipid Profile 06/19/22Lipid Profile 07/11/22Microalbumin Level Urine 06/19/22Microalbumin Level Urine 07/11/22PTH, Intact 06/19/22PTH, Intact 07/11/22Vitamin D Level 06/19/22Vitamin D Level 07/11/22Complete Metabolic Panel 06/19/22Complete Metabolic Panel 07/11/22 [facility] Evaluation + Plan note Future Appointments Appointment Date:01/10/2023 01:40:00 PM Scheduled Provider:FRANK RAMIREZ APRN - SPECIAL EDUCATION AIDE Location:[facility] Appointment Type:PC OV Follow Up Appointment Date:07/04/2023 01:40:00 PM Scheduled Provider:FRANK RAMIREZ APRN - [facility] Location:[employer] [facility] Appointment Type:PC OV Follow Up Future [...] Panel 06/29/23Complete Metabolic Panel 12/24/22TIBC 06/29/23TIBC 12/24/22 [facility] Evaluation + Plan note Future Appointments Appointment Date:07/04/2023 01:40:00 PM Scheduled Provider:FRANK RAMIREZ APRN - [place] Location:[facility] Appointment Type: OV Follow Up Future [...] Panel 06/29/23Complete Metabolic Panel 12/24/22TIBC 06/29/23TIBC 12/24/22 [facility] documented in this encounter [facility] note* Diagnosis Anemia, unspecified type- Primary Chronic kidney disease, stage 4, severely decreased GFR (HCC) Chronic kidney disease, Stage IV (severe) documented in this encounter [facility] note* Diagnosis Anemia, unspecified type- Primary Chronic kidney disease, stage 4, severely decreased GFR (HCC) Chronic kidney disease, Stage IV (severe) documented in this encounter [facility] note* Diagnosis Anemia, unspecified type- Primary Chronic kidney disease, stage 4, severely decreased GFR (HCC) Chronic kidney disease, Stage IV (severe) documented in this encounter [facility] note* Diagnosis Anemia, unspecified type- Primary Chronic kidney disease, stage 4, severely decreased GFR (HCC) Chronic kidney disease, Stage IV (severe) [facility] course Narrative No data available for this section [facility] Hospital Discharge instructions No data available for this section [facility] Progress note No data available for this section [facility] Summary Purpose Family History No Family History Records Found No data available for this section No Family History Records FoundNo Family History Records Found Advance Directives No Advanced Directives Records FoundNo Advanced Directives Records FoundNo Advanced Directives Records Found Additional Source Comments Care Team (unrecognized sect ion and content) Care Team Personnel Name: FRANK RAMIREZ APRN SPECIAL EDUCATION AIDE Position: P4 Advanced Practice Nurse Med Service: Employed Provider Member Role: Primary Care Physician Address: Address: [address] [place] [address]- Care Team Related Persons Name: GLYNNELDAJANICE Address: [address] [phone] Care Team Personnel Name: FRANK RAMIREZ APRN - SPECIAL EDUCATION AIDE Position: P4 Advanced Practice Nurse Med Service: Employed Provider Member Role: Primary Care Physician Address: Address: [address] [place] [id number]- Care Team Related Persons Name: JANICE WOOD Address: Home [address] [place], [place] [id number] Care Team Personnel Name: FRANK RAMIREZ AUTO DAMAGE ESTIMATOR - SPECIAL EDUCATION AIDE Position: P4 Advanced Practice Nurse Member Role: Primary Care Physician Address: Address: [address] [place] [address]- Care Team Related Persons Name: JANICE WOOD Address: Home [address] [place], [place] [id number] INFORMATION SOURCE (unrecogn ized section and content) DATE CREATED AUTHOR AUTHOR'S ORGANIZ ATION 04/04/2023 [facility] ([place]) DATE CREATED AUTHOR AUTHOR'S ORGANIZ ATION 08/30/2023 [facility] Patient Care team informatio n (unrecognized section and content) Outside Industrial Sales Representative Relationship Specialty Start Date End Date Frank Ramirez CNP [address] [place] [address] PCP - General Family Medicine 05/21/16 Outside Industrial Sales Representative Relationship Specialty Start Date End Date Frank Ramirez CNP [address] [place] [id number] PCP - General Family Medicine 05/21/16 Outside Industrial Sales Representative Relationship Specialty Start Date End Date Frank Ramirez CNP [address] [place] [id number] PCP - General Family Medicine 05/21/16 Outside Industrial Sales Representative Relationship Specialty Start Date End Date Frank Ramirez CNP [address] [place] [address] PCP - General Family Medicine 05/21/16 Outside Industrial Sales Representative Relationship Specialty Start Date End Date Frank Ramirez CNP [address] [place] [address] PCP - General Family Medicine 05/21/16 Source Comments (unrecognize d section and content) In the event this informatio n is protected by the Federal Confidentiality of Alcohol and Drug Abuse Patient Records regulations: The Federal rules restrict any use of the information to criminally investigate or prosecute any alcohol or drug abuse patient.[facility] the event this information is protected by the Federal Confidentiality of Alcohol and Drug Abuse Patient Records regulations: The Federal rules restrict any use of the information to criminally investigate or prosecute any alcohol or drug abuse patient.[facility] the event this information is protected by the Federal Confidentiality of Alcohol and Drug Abuse Patient Records regulations: The Federal rules restrict any use of the information to criminally investigate or prosecute any alcohol or drug abuse patient.[facility] the event this information is protected by the Federal Confidentiality of Alcohol and Drug Abuse Patient Records regulations: The Federal rules restrict any use of the information to criminally investigate or prosecute any alcohol or drug abuse patient.[facility] the event this information is protected by the Federal Confidentiality of Alcohol and Drug Abuse Patient Records regulations: The Federal rules restrict any use of the information to criminally investigate or prosecute any alcohol or drug abuse patient.[facility] the event this information is protected by the Federal Confidentiality of Alcohol and Drug Abuse Patient Records regulations: The Federal rules restrict any use of the information to criminally investigate or prosecute any alcohol or drug abuse patient.[facility] the event this information is protected by the Federal Confidentiality of Alcohol and Drug Abuse Patient Records regulations: The Federal rules restrict any use of the information to criminally investigate or prosecute any alcohol or drug abuse patient.[facility] Reason for Visit (unrecogniz ed section and content) Reason Comments Benefits Investigation Reason Comments Imm/Inj Specialty Diagnoses / Procedures Referred By Contac t Referred To Contact Diagnoses Anemia, unspecified type Chronic kidney disease, stage 4, severely decreased GFR (HCC) Procedures DARBEPOETIN MARCO, NON-ESRD Vaughn, Garrett [address] [place] [address] [facility] [address] [place] [address] Referral ID Status Reason Start Date Expiration Date V isits Requested Visits Authorized [id number] Authorized 08/01/2023 08/29/2023 99 99 Reason Comments Social Work Services Reason Comments Established Patient 1 month OV, labs, po ssible injection Inactive Administered Medications - up to 3 most recent administrations Administered Medications (un recognized section and content) FOR RECORDS PERTAINING TO [...] BE BASED ON THE PRIMARY CLINICAL RECORDS. [employer] provides no warranty or guarantee of the accuracy or completeness of information in this document.
== END | disposition home or self-care (01) ==
LOC: LAB 09:47
PROVIDERS: PCP Nurse Practitioner Family; Referring Provider Nurse Practitioner Adult Health; Visit Provider Nurse Practitioner Adult Health
DX: I12.9 Hypertensive chronic kidney disease with stage 1 through stage 4 chronic kidney disease, or unspecified chronic kidney disease (principal); N18.4 Chronic kidney disease, stage 4 (severe); E55.9 Vitamin D deficiency, unspecified; R80.9 Proteinuria, unspecified
CPT/HCPCS: 36415; 80069; 82306; 82570; 83970; 84156; 85027

== ENCOUNTER 2023-09-10 10:00 | Outpatient (RCR) | payer MEDICARE, OTHER, SELFPAY ==
--- NOTE | 2023-05-12 18:51 | HP.PTEVAL ---
Patient's Visit Information Visit Information Visit Information: MARLINE WOOD is a 78 year old F referred to Physical Therapy by Dr. Hemal Schwartz DO with a diagnosis of PRIMARY OA L KNEE. Date of Evaluation: 05/07/23 Physical Therapist: Teena Jin PT, Cert MDT Visit Plan Frequency: 2-3x /Week Duration: 4-6 Weeks Plan: IMPROVE STRENGTH OF QUADS, HAMSTRINGS AND HIPS OF EVAN LE'S. PROGRESS FUNCTIONAL MOBILITY WITH GAIT AND TRANSFERS. BALANCE TRAINING. HEP INSTRUCTION. Subjective Subjective: Work/Leisure: RETIRED. 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 Present symptoms: L KNEE PAIN/ACHY. NO NUMBNESS OR TINGLING. Present since: CHRONIC KNEE PAIN - BONE ON BONE. MAY NOT BE A GOOD CANDIDATE FOR TKR DUE TO KIDNEY PROBLEMS. MAY NEED TO HAVE DIALYSIS. STATES SHE HAS HAD A LOT OF MEDICAL CONDITIONS TO DEAL WITH LATELY. 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 HAS HAD TWO FALLS: BOTH IN MARCH 2023. SINCE THEN GOT A REGULAR WALKER THAT STABILIZED HER AND NOW HAS A ROLLATOR AND REALLY LIKES IT. Pain Scale: WORST 4/10, LEAST 2/10, CURRENTLY 2/10. Is it getting better, worse or staying the same: GETTING BETTER Commenced as a result of: ARTHRITIS BUT FLARED UP WITH RECENT FALLS. PULLED MUSCLE IN CALF WITH FIRST FALL AND THAT HEALED FINALLY. Worse: AT THE END OF THE DAY. BEING ON IT A LOT. Better: BRACE HELPS A LITTLE BIT AND STAYING OFF OF IT. Disturbed sleep: NO Previous history/Previous treatment: NO SURGERY. Treatment this episode: SHOTS IN L KNEE BY DR. SCHWARTZ EVERY 3 MONTHS. NO SHOTS SINCE THE FALLS BUT DID GET THE BRACE AND WALKER. Bowel or Bladder Dysfunction: NO Accidents: NO Unexplained weight loss: NO Imaging: X-RAYS AND MRI OF L LE SHOWING BONE ON BONE L KNEE PER PATIENT REPORT. NO BLOOD CLOTS OR TORN M'S PER PATIENT REPORT. PMH/Recent major surgery: SEE [facility] EMR. Pain L knee: Pain Intensity (Out of 10): 2 Pain Intensity Range: 2 and 4 Objective Objective: GAIT: THIS PATIENT AMBULATES INDEP'LY INTO PT TODAY WITH A ROLLATOR, DECREASED CADANCE AND A MILD LIMP ON THE LLE. NO LOB. WEARING L KNEE BRACE. TU.84 WITH ROLLATOR PALPATION/SWELLING: NO GROSS TENDERNESS L KNEE AND MILD SWELLING. L knee flexion AROM: 116 DEG L knee ext AROM: - -17 DEG STRENGTH: L knee flex 14.3, R 15.3 L knee ext 12.8, R 13.9 L hip FLEX 12.9, R 14.5 30 SEC STS TEST - 5 WITH EVAN UE ASSIST THEN PATIENT UNABLE TO STAND ALL THE WAY UP STRAIGHT AND BECAME MILDY SOB. Sensory deficit: EVAN LE LIGHT TOUCH SENSATION GROSSLY INTACT AND SYMMETRICAL. TREATMENT: TRANSFER TRAINING. PATIENT PLOPS IN CHAIRS. CUEING TO REACH BACK TO LET HERSELF DOWN EASIER AND TO USE HER LEGS TO GET UP AND DOWN FROM CHAIRS MUCH POSSIBLE. ALSO INSTRUCTED PATIENT IN SEATED HEEL/TOE RAISES, MARCHING AND LAE'S 2X10, 2-3 TIMES A DAY. PATIENT DEMO'D GOOD EX TECHNIQUE AND TOLERATED WELL. Balance/Special Test Scores Lower Extremity Functional Score: 22 Goals Goal 1:: PATIENT WILL REPORT AT LEAST 25% IMPROVEMENT IN ADL'S. Goal Time Frame: 4-6 Weeks Goal 2:: PATIENT WILL COMPLETE 6 STANDS IN 30 SECS WITH ONE UE ASSIST TO DEMONSTRATE IMPROVED FUNCTIONAL STRENGTH Goal Time Frame: 4-6 Weeks Goal 3:: PATIENT WILL COMPLETE TUG IN < 15 SECS WITH ROLLATOR OR LRD TO DEMONSTRATE IMPROVED GAIT STABILITY Goal Time Frame: 4-6 Weeks Goal 4:: PATIENTS LEFS SCORE WILL IMPROVE BY 10 PTS TO SHOW IMPROVMENT TOWARDS PLOF. Goal Time Frame: 4-6 Weeks Goal 5:: PATIENT WILL BE INDEP WITH A HEP FOR CONTINUED IMPROVEMENT ONCE FORMAL PHYSICAL THERAPY CONCLUDES. Goal Time Frame: 4-6 Weeks Rehabilitation Potential Physical Therapy Diagnosis: L KNEE PAIN, HYPOMOBILITY AND WEAKNESS. DIFFICULTY WALKING. Rehabilitation Potential: Good Anticipated Interventions Patient/Client Instruction: Educate patient on: Condition, Plan of Care and Risk Factors For the Purpose of:: To improve self management Therapeutic Exercise to Include: Strength training, Endurance training, Balance training, Body mechanics, Flexibilty training and Gait and locomotor training For the Purpose of:: To decrease pain, To increase ROM, To improve muscle performance and motor function, To improve ability to perform ADL's, To increase tolerance to activity/condition/position, To improve ability of physical actions for home/community/work/leisure and To improve gait and locomotor functions Text: Thank you for the opportunity to evaluate your patient. For Medicare and Medicare HMO plans, please review the plan of care and approve it. It will need to be FAXED BACK to us at [phone] for Medicare purposes. For Medicare only, by signing this I certify the plan of care. Please let me know if there are questions or concerns regarding this plan of care. Physician Signature: Date:
--- NOTE | 2023-05-12 18:54 | HP.PTEVAL_ITS ---
Patient's Visit Information Visit Information Visit Information: MARLINE WOOD is a 78 year old F referred to Physical Therapy by Dr. Hemal Schwartz DO with a diagnosis of PRIMARY OA L KNEE. Date of Evaluation: 05/07/23 Physical Therapist: Teena Jin PT, Cert MDT Visit Plan Frequency: 2-3x /Week Duration: 4-6 Weeks Plan: IMPROVE STRENGTH OF QUADS, HAMSTRINGS AND HIPS OF EVAN LE'S. PROGRESS FU NCTIONAL MOBILITY WITH GAIT AND TRANSFERS. BALANCE TRAINING. HEP INSTRUCTION. Subjective Subjective: Work/Leisure: RETIRED. 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 Present symptoms: L KNEE PAIN/ACHY. NO NUMBNESS OR TINGLING. Present since: CHRONIC KNEE PAIN - BONE ON BONE. MAY NOT BE A GOOD CANDIDATE FOR TKR DUE TO KIDNEY PROBLEMS. MAY NEED TO HAVE DIALYSIS. STATES SHE HAS HAD A LOT OF MEDICAL CONDITIONS TO DEAL WITH LATELY. 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 HAS HAD TWO FALLS: B OTH IN MARCH 2023. SINCE THEN GOT A REGULAR WALKER THAT STABILIZED HER AND NOW HAS A ROLLATOR AND REALLY LIKES IT. Pain Scale: WORST 4/10, LEAST 2/10, CURRENTLY 2/10. Is it getting better, worse or staying the same: GETTING BETTER Commenced as a result of: ARTHRITIS BUT FLARED UP WITH RECENT FALLS. PULLED MUSCLE IN CALF WITH FIRST FALL AND THAT HEALED FINALLY. Worse: AT THE END OF THE DAY. BEING ON IT A LOT. Better: BRACE HELPS A LITTLE BIT AND STAYING OFF OF IT. Disturbed sleep: NO Previous history/Previous treatment: NO SURGERY. Treatment this episode: SHOTS IN L KNEE BY DR. SCHWARTZ EVERY 3 MONTHS. NO SHOTS SINCE THE FALLS BUT DID GET THE BRACE AND WALKER. Bowel or Bladder Dysfunction: NO Accidents: NO Unexplained weight loss: NO Imaging: X-RAYS AND MRI OF L LE SHOWING BONE ON BONE L KNEE PER PATIENT REPORT. NO BLOOD CLOTS OR TORN M'S PER PATIENT REPORT. PMH/Recent major surgery: SEE [facility] EMR. Pain L knee: Pain Intensity (Out of 10): 2 Pain Intensity Range: 2 and 4 Objective Objective: GAIT: THIS PATIENT AMBULATES INDEP'LY INTO PT TODAY WITH A ROLLATOR, DECREASED CADANCE AND A MILD LIMP ON THE LLE. NO LOB. WEARING L KNEE BRACE. TU.84 WITH ROLLATOR PALPATION/SWELLING: NO GROSS TENDERNESS L KNEE AND MILD SWELLING. L knee flexion AROM: 116 DEG L knee ext AROM: - -17 DEG STRENGTH: L knee flex 14.3, R 15.3 L knee ext 12.8, R 13.9 L hip FLEX 12.9, R 14.5 30 SEC STS TEST - 5 WITH EVAN UE ASSIST THEN PATIENT UNABLE TO STAND ALL THE WAY UP STRAIGHT AND BECAME MILDY SOB. Sensory deficit: EVAN LE LIGHT TOUCH SENSATION GROSSLY INTACT AND SYMMETRICAL. TREATMENT: TRANSFER TRAINING. PATIENT PLOPS IN CHAIRS. CUEING TO REACH BACK TO LET HERSELF DOWN EASIER AND TO USE HER LEGS TO GET UP AND DOWN FROM CHAIRS MUCH POSSIBLE. ALSO INSTRUCTED PATIENT IN SEATED HEEL/TOE RAISES, MARCHING AND LAE'S 2X10, 2-3 TIMES A DAY. PATIENT DEMO'D GOOD EX TECHNIQUE AND TOLERATED WELL. Balance/Special Test Scores Lower Extremity Functional Score: 22 Goals Goal 1:: PATIENT WILL REPORT AT LEAST 25% IMPROVEMENT IN ADL'S. Goal Time Frame: 4-6 Weeks Goal 2:: PATIENT WILL COMPLETE 6 STANDS IN 30 SECS WITH ONE UE ASSIST TO DEMONSTRATE IMPROVED FUNCTIONAL STRENGTH Goal Time Frame: 4-6 Weeks Goal 3:: PATIENT WILL COMPLETE TUG IN < 15 SECS WITH ROLLATOR OR LRD TO DEMONSTRATE IMPROVED GAIT STABILITY Goal Time Frame: 4-6 Weeks Goal 4:: PATIENTS LEFS SCORE WILL IMPROVE BY 10 PTS TO SHOW IMPROVMENT TOWARDS PLOF. Goal Time Frame: 4-6 Weeks Goal 5:: PATIENT WILL BE INDEP WITH A HEP FOR CONTINUED IMPROVEMENT ONCE FORMAL PHYSICAL THERAPY CONCLUDES. Goal Time Frame: 4-6 Weeks Rehabilitation Potential Physical Therapy Diagnosis: L KNEE PAIN, HYPOMOBILITY AND WEAKNESS. DIFFICULTY WALKING. Rehabilitation Potential: Good Anticipated Interventions Patient/Client Instruction: Educate patient on: Condition, Plan of Care and Risk Factors For the Purpose of:: To improve self management Therapeutic Exercise to Include: Strength training, Endurance training, Balance training, Body mechanics, Flexibilty training and Gait and locomotor training For the Purpose of:: To decrease pain, To increase ROM, To improve muscle performance and motor function, To improve ability to perform ADL's, To increase tolerance to activity/condition/position, To improve ability of physical actions for home/community/work/leisure and To improve gait and locomotor functions Text: Thank you for the opportunity to evaluate your patient. For Medicare and Medicare HMO plans, please review the plan of care and approve it. It will need to be FAXED BACK to us at [phone] for Medicare purposes. For Medicare only, by signing this I certify the plan of care. Please let me know if there are questions or concerns regarding this plan of care. Physician Signature: ___Date:
--- NOTE | 2023-06-06 14:02 | HP.PTREVAL ---
Re-Evaluation Intro: Dr. Hemal Schwartz, DO, It has been my pleasure to treat MARLINE WOOD over the last 10 visits for PRIMARY OA L KNEE. Please see the progress note below for an update on the physical therapy plan of care! Subjective Subjective: PATIENT REPORTS SHE CAN SEE PROGRESS AND WOULD LIKE TO CONTINUE. STATES SHE ISN'T WALKING ACROSS THE ROOM WITHOUT SUPPORT BUT IS STANDING IN THE KITCHEN AND AT THE COUCH WITHOUT SUPPORT NOW. PATIENT ALSO REPORTS IT IS EASIER TO GET IN/OUT OF SHOWER WITHOUT LEGS QUIVERING. REPORTS COMPLIANCE WITH HEP. PATIENT DENIES ANY FALLS SINCE STARTING PT. Objective Objective/Function: PATIENT WAS SEEN TODAY FOR RE-ASSESSMENT OF PROGRESS TOWARD THE SET PT GOALS AND THE NEED FOR FURTHER PHYSICAL THERAPY VS READINESS FOR DISCHARGE. PATIENT IS MAKING SLOW PROGRESS AND IS A GOOD CANDIDATE TO CONTINUE PT. PATIENT IS AGREEABLE. CURRENT POC IS STILL APPROPRIATE. UPON EXAM TODAY: LEFS SCORE: 31 TUG TIME: 20.35 SEC. STS TEST: 5 WITH ONE UE ASSIST Plan Plan Plan: IMPROVE STRENGTH OF QUADS, HAMSTRINGS AND HIPS OF EVAN LE'S. PROGRESS FUNCTIONAL MOBILITY WITH GAIT AND TRANSFERS. BALANCE TRAINING. HEP INSTRUCTION. Balance/Gait/Functional tests Balance/Special Test Scores Lower Extremity Functional Score: 31 Goals Goals Goal 1:: PATIENT WILL REPORT AT LEAST 25% IMPROVEMENT IN ADL'S. Goal Time Frame: 4-6 Weeks Goal Progress: Progressing Goal 2:: PATIENT WILL COMPLETE 6 STANDS IN 30 SECS WITH ONE UE ASSIST TO DEMONSTRATE IMPROVED FUNCTIONAL STRENGTH Goal Time Frame: 4-6 Weeks Goal Progress: Progressing Goal 3:: PATIENT WILL COMPLETE TUG IN < 15 SECS WITH ROLLATOR OR LRD TO DEMONSTRATE IMPROVED GAIT STABILITY Goal Time Frame: 4-6 Weeks Goal Progress: Progressing Goal 4:: PATIENTS LEFS SCORE WILL IMPROVE BY 10 PTS TO SHOW IMPROVMENT TOWARDS PLOF. Goal Time Frame: 4-6 Weeks Goal Progress: Progressing Goal 5:: PATIENT WILL BE INDEP WITH A HEP FOR CONTINUED IMPROVEMENT ONCE FORMAL PHYSICAL THERAPY CONCLUDES. Goal Time Frame: 4-6 Weeks Goal Progress: Progressing Anticipated Interventions Anticipated Interventions Patient/Client Instruction: Educate patient on: Condition, Plan of Care and Risk Factors For the Purpose of:: To improve self management Therapeutic Exercise to Include: Strength training, Endurance training, Balance training, Body mechanics, Flexibilty training and Gait and locomotor training For the Purpose of:: To decrease pain, To increase ROM, To improve muscle performance and motor function, To improve ability to perform ADL's, To increase tolerance to activity/condition/position, To improve ability of physical actions for home/community/work/leisure and To improve gait and locomotor functions Re-Evaluation Ending Re-evaluation ending: Please do not hesitate to contact me at [phone] by phone or if you have questions or concerns regarding this new plan of care! Sincerely, Teena Jin, PT, Cert MDT
--- NOTE | 2023-07-11 14:12 | HP.PTREVAL ---
Re-Evaluation Intro: Dr. Hemal Schwartz, DO, It has been my pleasure to treat MARLINE WOOD over the last 20 visits for PRIMARY OA L KNEE. Please see the progress note below for an update on the physical therapy plan of care! Subjective Subjective: PATIENT REPORTS SHE IS 75% BETTER. SHE STATES SHE IS GETTING BETTER BUT NOT THERE YET. SHE REPORTS SHE DOESN'T HAVE THE SENSE OF FALLING ANYMORE. PATIENT STATES SHE WOULD LIKE TO STAY IN REHAB TO SEE IF SHE CAN TRANSITION TO A CANE. SHE REPORTS BEING ABLE TO WALK AT HOME WITHOUT ANY AD BUT NOT WITH MUCH CONFIDENCE YET. STATES SHE IS STILL USING HER ROLLATOR IN HER HOUSE UNLESS SHE ACCIDENTALLY FORGETS. STATES SHE IS NO LONGER WEARING HER KNEE BRACE. SHE REPORTS THE PAIN IN HER L KNEE THAT SHE CAME HERE FOR IS GONE. SHE REPORTS GENERAL LEG MUSCLE SORENESS FROM GETTING STRONGER. Objective Objective/Function: PATIENT WAS SEEN TODAY FOR RE-ASSESSMENT OF PROGRESS TOWARD THE SET PT GOALS AND THE NEED FOR FURTHER PHYSICAL THERAPY VS READINESS FOR DISCHARGE. PATIENT IS MAKING GOOD PROGRESS WITH PT AND IS A GOOD CANDIDATE TO CONTINUE PT BASED ON PROGRESS MADE AND ROOM FOR FURTHER IMPROVEMENT. PATIENT HAD TWO FALLS APPROX MAR 2023 AND PRIOR TO THOSE SHE WAS WALKING WITHOUT ANY AD'S. AFTER THE FIRST FALL SHE STARTED USING A CANE AND AFTER THE SECOND FALL SHE STARTED USING THE ROLLATOR. UPON EXAM TODAY: THIS PATIENT AMBULATES INDEP'LY INTO PT TODAY WITH A ROLLATOR, GOOD CADANCE AND SYMMETRICAL LE WEIGHT BEARING TIME. NO KNEE BRACE. NO LOB AND NOT DEPENDENT ON ROLLATOR. INITIATED GAIT TRAINING WITH STRAIGHT CANE. PATIENT IS UNABLE TO WALK WITH STRAIGHT CANE SAFELY INDEP'LY WITH GOOD BALANCE, CONFIDENCE AND SEQUENCING AND WILL NEED FURTHER TRAINING. INSTRUCTED PATIENT IN CONTINUED USE OF ROLLATOR FOR SAFETY AT THIS TIME. PATIENT AGREEABLE. TU.47 WITH ROLLATOR PALPATION/SWELLING: NO GROSS TENDERNESS L KNEE AND MILD SWELLING. L knee flexion AROM: 117 DEG L knee ext AROM: -6 DEG STRENGTH: L knee flex 17.3 L knee ext 15.8 L hip FLEX 14.5 30 SEC STS TEST - 7 WITHOUT UE ASSIST. LEFS SCORE: 52 Plan Plan Plan: *CONTINUE GAIT BELT* CONTINUE PT 2X'S A WK X 10 VISITS. CONTINUE TO FOCUS ON IMPROVING STRENGTH OF QUADS, HAMSTRINGS AND HIPS OF EVAN LE'S. PROGRESS FUNCTIONAL MOBILITY WITH GAIT AND TRANSFERS. BALANCE TRAINING. HEP INSTRUCTION. CONTINUE USE OF GAIT BELT DURING GAIT TRAINING TRYING TO TRANSITION TO CANE FOR SAFETY. Balance/Gait/Functional tests Balance/Special Test Scores Lower Extremity Functional Score: 52 Goals Goals Goal 1:: PATIENT WILL REPORT AT LEAST 25% IMPROVEMENT IN ADL'S. Goal Time Frame: 4-6 Weeks Goal Progress: Goal Met Goal 2:: PATIENT WILL COMPLETE 6 STANDS IN 30 SECS WITH ONE UE ASSIST TO DEMONSTRATE IMPROVED FUNCTIONAL STRENGTH Goal Time Frame: 4-6 Weeks Goal Progress: Goal Met Goal 3:: PATIENT WILL COMPLETE TUG IN < 15 SECS WITH ROLLATOR OR LRD TO DEMONSTRATE IMPROVED GAIT STABILITY Goal Time Frame: 4-6 Weeks Goal Progress: Progressing Goal 4:: PATIENTS LEFS SCORE WILL IMPROVE BY 10 PTS TO SHOW IMPROVMENT TOWARDS PLOF. Goal Time Frame: 4-6 Weeks Goal Progress: Goal Met Goal 5:: PATIENT WILL BE INDEP WITH A HEP FOR CONTINUED IMPROVEMENT ONCE FORMAL PHYSICAL THERAPY CONCLUDES. Goal Time Frame: 4-6 Weeks Goal Progress: Progressing Anticipated Interventions Anticipated Interventions Patient/Client Instruction: Educate patient on: Condition, Plan of Care and Risk Factors For the Purpose of:: To improve self management Therapeutic Exercise to Include: Strength training, Endurance training, Balance training, Body mechanics, Flexibilty training and Gait and locomotor training For the Purpose of:: To decrease pain, To increase ROM, To improve muscle performance and motor function, To improve ability to perform ADL's, To increase tolerance to activity/condition/position, To improve ability of physical actions for home/community/work/leisure and To improve gait and locomotor functions Re-Evaluation Ending Re-evaluation ending: Please do not hesitate to contact me at [phone] by phone or if you have questions or concerns regarding this new plan of care! Sincerely, Teena Jin, PT, Cert MDT
--- NOTE | 2023-08-22 14:53 | HP.PTREVAL ---
Re-Evaluation Intro: Dr. Hemal Schwartz, DO, It has been my pleasure to treat MARLINE OWOD over the last 27 visits for PRIMARY OA L KNEE. Please see the progress note below for an update on the physical therapy plan of care! Subjective Subjective: PATIENT REPORTS HER L KNEE PAIN IS GONE. SHE REPORTS THAT NOW SHE HAS FIGURED OUT HOW TO USE THE CANE SHE IS DOING REALLY GOOD. STATES SHE HAS BEEN USING IT IN HER GARAGE TO GET AROUD THE CAR AND EVEN IN THE HOUSE. ALSO USING THE CANE ON THE STEPS TO GET IN AND OUT OF HER HOUSE (PLUS THERE IS A GRAB BAR AT THE STEPS). SHE APPARENTLY REC'D A STEROID INJECTION FROM DR. SCHWARTZ 08/02/23 IN HER L KNEE AND THAT TOOK HER L KNEE PAIN AWAY BUT ON 08/06/23 SHE CAUGHT HER L FOOT ON THE RUG IN HER KITCHEN AND SHE SUDDENLY GO [employer]. SHE WENT TO THE ED AND EVENTUALLY HAD A TEST FOR BLOOD CLOT TOO WHICH WAS NORMAL. SHE REPORTS THE ONLY PAIN SHE HAS NOW IS SOME PAIN IN THE BACK OF HER L THIGH WITH A KICK EX IN SILVER SNEAKERS SO SHE IS JUST TAKING IT EASY. SHE REPORTS SHE IS GETTING STRONGER AND GETTING AROUND A LOT BETTER SINCE STARTING PT. SHE STATES SHE CAN BEND HER KNEE AND GET UP AND DOWN SO MUCH BETTER - IT DOESN'T HURT ANYMORE. REPORTS SHE SAW A FOOT YESTERDAY AND HER TOLD HER TO GET COMPRESSION SOCKS AT [facility] AND SHE IS GOING TO GET THEM TODAY. Objective Objective/Function: PATIENT WAS SEEN TODAY FOR RE-ASSESSMENT OF PROGRESS TOWARD THE SET PT GOALS AND THE NEED FOR FURTHER PHYSICAL THERAPY VS READINESS FOR DISCHARGE. PATIENT IS MAKING GOOD PROGRESS WITH PT AND IS A GOOD CANDIDATE TO CONTINUE PT BASED ON PROGRESS MADE AND ROOM FOR FURTHER IMPROVEMENT. PATIENT HAD TWO FALLS APPROX MAR 2023 AND PRIOR TO THOSE SHE WAS WALKING WITHOUT ANY AD'S. AFTER THE FIRST FALL SHE STARTED USING A CANE AND AFTER THE SECOND FALL SHE STARTED USING THE ROLLATOR. SHE IS CURRENTLY PROGRESSING BACK TO A CANE BUT HAS NOT COMPLETELY TRANSITIONED TO IT YET. SHE WOULD BENEFIT FROM FURTHER PT TO TRY TO HELP HER SUCCESSFULLY FULLY TRANSITION TO A CANE. UPON EXAM TODAY: THIS PATIENT AMBULATES INDEP'LY INTO PT TODAY WITH A ROLLATOR, GOOD CADANCE AND SYMMETRICAL LE WEIGHT BEARING TIME. SHE DID NOT BRING HER CANE IN BUT WE USED OUR DEPARTMENT CANE FOR TESTING. NO KNEE BRACE. NO LOB AND NOT DEPENDENT ON ROLLATOR. TU.[address] CANE AND SUPERVISION PALPATION/SWELLING: NO GROSS TENDERNESS L KNEE. SIGNIFICANT L CALF SWELLING. PATIENT REPORTS HER DOCTORS SAID THE SWELLING IS FROM HER KIDNEYS AND RECENT BLOOD CLOT TESTING WAS NEGATIVE. GOING TO GET COMPRESSION STOCKINGS RECOMMENDED BY FOOT TODAY. L knee flexion AROM: 115 DEG L knee ext AROM: FULL STRENGTH: L knee flex 18.3 Peak Force L knee ext 17.4 Peak Force L hip FLEX 13.2 Peak Force 30 SEC STS TEST - 8 WITHOUT UE ASSIST. LEFS SCORE: 56 Plan Plan Plan: *CONTINUE GAIT BELT* CONTINUE PT 2X'S A WK X 8 VISITS. GAIT TRAINING WITH CANE OUTSIDE. CONTINUE TO FOCUS ON IMPROVING STRENGTH OF QUADS, HAMSTRINGS AND HIPS OF EVAN LE'S. PROGRESS FUNCTIONAL MOBILITY WITH GAIT AND TRANSFERS. BALANCE TRAINING. HEP INSTRUCTION. CONTINUE USE OF GAIT BELT DURING GAIT TRAINING TRYING TO TRANSITION TO CANE FOR SAFETY. Balance/Gait/Functional tests Balance/Special Test Scores Lower Extremity Functional Score: 56 Goals Goals Goal 1:: PATIENT WILL REPORT AT LEAST 25% IMPROVEMENT IN ADL'S. Goal Time Frame: 4-6 Weeks Goal Progress: Goal Met Goal 2:: PATIENT WILL COMPLETE 6 STANDS IN 30 SECS WITH ONE UE ASSIST TO DEMONSTRATE IMPROVED FUNCTIONAL STRENGTH Goal Time Frame: 4-6 Weeks Goal Progress: Goal Met Goal 3:: PATIENT WILL COMPLETE TUG IN < 15 SECS WITH ROLLATOR OR LRD TO DEMONSTRATE IMPROVED GAIT STABILITY Goal Time Frame: 4-6 Weeks Goal Progress: Progressing Goal 4:: PATIENTS LEFS SCORE WILL IMPROVE BY 10 PTS TO SHOW IMPROVMENT TOWARDS PLOF. Goal Time Frame: 4-6 Weeks Goal Progress: Goal Met Goal 5:: PATIENT WILL BE INDEP WITH A HEP FOR CONTINUED IMPROVEMENT ONCE FORMAL PHYSICAL THERAPY CONCLUDES. Goal Time Frame: 4-6 Weeks Goal Progress: Progressing Anticipated Interventions Anticipated Interventions Patient/Client Instruction: Educate patient on: Condition, Plan of Care and Risk Factors For the Purpose of:: To improve self management Therapeutic Exercise to Include: Strength training, Endurance training, Balance training, Body mechanics, Flexibilty training and Gait and locomotor training For the Purpose of:: To decrease pain, To increase ROM, To improve muscle performance and motor function, To improve ability to perform ADL's, To increase tolerance to activity/condition/position, To improve ability of physical actions for home/community/work/leisure and To improve gait and locomotor functions Re-Evaluation Ending Re-evaluation ending: Please do not hesitate to contact me at [phone] by phone or if you have questions or concerns regarding this new plan of care! Sincerely, Teena Jin, PT, Cert MDT
--- NOTE | 2023-09-12 14:34 | HP.PTDCSUM_ITS ---
Discharge Summary D/C summary: It has been my pleasure to treat MARLINE WOOD referred by Dr. Hemal Schwartz DO, with the diagnosis of PRIMARY OA L KNEE for a total of 33 visit(s). Discharge Date: 09/12/23 Please see the following information for a summary of their discharge status. Subjective Subjective: PATIENT REPORTS SHE IS GETTING AROUND GOOD WITH HER CANE. SHE DENIES ANY FALLS, ANY NEAR FALLS AND ANY FEAR OF FALLING AT THIS POINT. Pain L knee: Pain Intensity (Out of 10): 0 Overall Improvement % Improvement: 90 Objective Objective/Function: PATIENT WAS SEEN TODAY FOR RE-ASSESSMENT OF PROGRESS TOWARD THE SET PT GOALS AND THE NEED FOR FURTHER PHYSICAL THERAPY VS READINESS FOR DISCHARGE. THIS PATIENT IS MAKING GREAT PROGRESS WITH PT AND IS LEAVING FOR VACATION SATURDAY. SEE IMPROVED STS, TUG TIME AND STRENGTH TESTS BELOW. WE WOULD BE HAPPY TO RESUME PT UPON HER RETURN IF NEEDED BUT WILL DISCHARGE HER FOR NOW. PATIENT IS AGREEABLE. SHE HAS NOW SUCCESSFULLY TRANSITIONED BACK TO INDEP GAIT WITH A STRAIGHT CANE HOWEVER SHE WAS INDEP WITH GAIT WITHOUT AD PRIOR TO MAR 2023 WHEN SHE HAD HER FIRST FALL. UPON EXAM TODAY: THIS PATIENT AMBULATES INDEP'LY INTO PT TODAY WITH A STRAIGHT CANE, GOOD CADANCE AND SYMMETRICAL LE WEIGHT BEARING TIME. SHE IS ABLE TO ASCEND AND DESCEND ONE F LIGHT OF STEPS RECIP WITH ONE UE ASSIST HOWEVER PRIOR TO COACHING TODAY SHE DID NOT REALIZE SHE COULD DO THIS BECAUSE SHE HAS TWO HR'S AT HOME AND HAS BEEN IN THE HABIT OF USING BOTH FOR A LONG TIME. THIS PT ENCOURAGED CONTINUED USE OF BOTH AT HOME FOR SAFETY BUT TO CONSCIOUSLY USE HER LEGS MUCH POSSIBLE FOR STRENGTHENING AND SO NOT TO STRAIN UE'S. NO KNEE BRACE. NO LOB. CANE NEEDED FOR SAFETY. TU.[address] CANE. PALPATION/SWELLING: NO GROSS TENDERNESS L KNEE. SIGNIFICANT LLE EDEMA - WEARING COMPRESSION STOCKINGS TODAY. L knee flexion AROM: 115 DEG L knee ext AROM: FULL STRENGTH: L knee flex 31.1 Peak Force L knee ext 26.5 Peak Force L hip FLEX 13.4 Peak Force 30 SEC STS TEST - 9 WITHOUT UE ASSIST. LEFS SCORE: 58 Goals Goal 1:: PATIENT WILL REPORT AT LEAST 25% IMPROVEMENT IN ADL'S. Goal Progress: Goal Met Goal 2:: PATIENT WILL COMPLETE 6 STANDS IN 30 SECS WITH ONE UE ASSIST TO DEMONSTRATE IMPROVED FUNCTIONAL STRENGTH Goal Progress: Goal Met Goal 3:: PATIENT WILL COMPLETE TUG IN < 15 SECS WITH ROLLATOR OR LRD TO DEMONSTRATE IMPROVED GAIT STABILITY Goal Progress: Goal Met Goal 4:: PATIENTS LEFS SCORE WILL IMPROVE BY 10 PTS TO SHOW IMPROVMENT TOWARDS PLOF. Goal Progress: Goal Met Goal 5:: PATIENT WILL BE INDEP WITH A HEP FOR CONTINUED IMPROVEMENT ONCE FORMAL PHYSICAL THERAPY CONCLUDES. Goal Progress: Goal Met Plan Plan: D/C D/C Information d/c sentence: If there are questions or concerns regarding this patient's physical therapy, please feel free to call me at [phone]. Thank you for the referral of this patient. Sincerely, Teena Jin, PT, Cert MDT Balance/Gait/Functional tests Balance/Special Test Scores Lower Extremity Functional Score: 58 Improvement % Improvement: 90
== END 2023-09-10 19:00 | disposition home or self-care (01) ==
LOC: PT 10:00
PROVIDERS: PCP Nurse Practitioner Family; Referring Provider Orthopaedic Surgery; Visit Provider Orthopaedic Surgery
DX: M17.12 Unilateral primary osteoarthritis, left knee (principal)
CPT/HCPCS: 97110; 97116; 97162; 97164; 97530

== ENCOUNTER → 2023-12-11 | Outpatient (CLI) | payer MEDICARE, OTHER, SELFPAY ==
--- NOTE | 2023-12-11 08:59 | RDU_ITS ---
Reason For Study: Renal artery stenosis Right Renal Artery Left Renal Artery Right renal artery ostium 235/15.3 Left renal artery ostium 111.2/28.2 RSV/EDV. PSV/EDV. Right renal artery proximal 134.5 Left renal artery proximal PSV/EDV PSV/EDV. 184/42.8 . Right renal artery mid 93 PSV/EDV. Left renal artery mid 113.4/27.1 Right renal artery distal PSV/EDV . 118.9/20.5 PSV/EDV. Left renal artery distal 125.5/13.6 Right RAR 2.53. PSV/EDV. Right Renal Parenchyma Left RAR 1.98. Upper Pole Medula 26.4/6.3 PSV/EDV. Left Renal Parenchyma Right upper pole medulla EDR 0.2 . Left upper pole medulla 23.5/3.8 Right upper pole medulla R.I. PSV/EDV . 0.76 . Left upper pole medulla EDR 0.2 . Upper Jag Cortx 11.8/2.6 PSV/EDV. Left upper pole medulla R.I. 0.84 . Right upper pole cortex EDR 0.2 . UP Cortex 14.9/3.2 PSV/EDV. Right upper pole cortex R.I. 0.78 . Left upper pole cortex EDR 0.2 . Right lower Pole medulla 28.2/4.5 Left upper pole cortex R.I. 0.79 . PSV/EDV . Left lower Pole medulla 24.7/6.9 Right lower pole medulla EDR 0.2 . PSV/EDV . Right lower pole medulla R.I. Left lower pole medulla EDR 0.3 . 0.84 . Left lower pole medulla R.I. 0.72 . Lower Pole Cortex 14.8/4.3 PSV/EDV. Lower Pole Cortx 12.4/5 PSV/EDV. Right lower pole cortex EDR 0.3 . Left lower pole cortex EDR 0.4 . Right lower pole cortex R.I. 0.71 . Left lower pole cortex R.I. 0.59 . Right Renal Hilar Left Renal Hilar Right Hilar avg 53.7/8.7 PSV/EDV. LT Hilar avg 43/7.9 PSV/EDV . Right hilar acceleration time 60 Left hilar acceleration time 70 m/sec. m/sec. Right Renal Dimensions Left Renal Dimensions Right kidney size 12.56 cm . Left kidney size 11.88 cm . Right cortical dimension 1.81 cm . Left cortical dimension 1.55 cm . Aorta Proximal abdominal aorta 1.15 x 1.28 cm . Proximal abdominal aorta peak systolic velocity is 93 cm/sec . Distal abdominal aorta 1.04 x 1.28 cm . Distal abdominal aorta peak systolic velocity is 134.5 cm/sec . VL/Renal Artery Duplex Ultrasound Interpretation Summary Right renal artery >60% stenosis. Left renal artery <60% stenosis. Ordering Physician: Albert Rose Referring Physician: Frank Ramirez Performed By: Ann Conway and Student
[2023-12-11 10:56] LABS: Hematocrit 32.6 % (37-47); Hemoglobin 10.2 g/dL (12.0-15.0); Mean Corp Hgb Conc 31.3 g/dL (32-36); Mean Corpuscular Hgb 29.4 pg (27.0-32.0); Mean Corpuscular Volume 93.9 fL (81-99); Mean Platelet Vol. 9.6 fl (6.2-12.0); Platelet Count 245 K/mm3 (150-450); RBC Distribution Width CV 13.9 % (11.6-14.6); Red Blood Count 3.47 M/mm3 (4.2-5.4); White Blood Count 7.9 K/mm3 (4.4-11.0)
[2023-12-11 11:25] LABS: Vitamin D,25 Hydroxy 43.6 ng/mL
[2023-12-11 11:52] LABS: Hemoglobin A1c 5.4 % (3.8-5.6)
[2023-12-11 12:13] LABS: Microalbumin:Creatinine Ratio 1650.6 mg/g CRE (<30 mg/g CRE); Protein, Urine (Random) 187.7 mg/dL (<11.9); Protein:Creat Ratio 2261 mg/g CRE (0-200)
[2023-12-11 12:17] LABS: AST(SGOT) 30 U/L (15-37); Alanine Aminotransfer ALT/SGPT 25 U/L (13-56); Albumin, Serum 3.5 g/dL (3.2-5.0); Alkaline Phosphatase 74 U/L (45-117); Anion Gap 10 (5-15); BUN 49 mg/dL (7-18); BUN/Creat Ratio 15.5 RATIO (10-20); Calcium,Total 9.4 mg/dL (8.5-10.1); Chloride 112 mmol/L (98-107); Cholesterol 145 mg/dL (200); Creatinine, Serum 3.16 mg/dL (0.55-1.02); EST Glomerular Filtration Rate 15 mL/min (>60); Est Glom Filt Rate - Afr Amer 18 mL/min (>60); Ferritin 452 ng/mL (8-252); Globulin 3.5 g/dL (2.2-4.2); Glucose 118 mg/dL (74-106); High Density Lipoprotein 61 mg/dL; Iron 78 ug/dL (50-170); Iron Binding Capacity,Total 296 ug/dL (250-450); Potassium 4.2 mmol/L (3.5-5.1); Sodium Level 142 mmol/L (136-145); Triglycerides 87 mg/dL; Very Low Density Lipoprotein 17 mg/dL (5-40)
[2023-12-14 12:08] LABS: Renin, Plasma 1.087 ng/mL/hr (0.167-5.380)
== END | disposition home or self-care (01) ==
PROVIDERS: PCP Nurse Practitioner Family; Referring Provider Surgery Vascular Surgery; Visit Provider Surgery Vascular Surgery
DX: I70.1 Atherosclerosis of renal artery (principal); N18.4 Chronic kidney disease, stage 4 (severe); E11.22 Type 2 diabetes mellitus with diabetic chronic kidney disease; I77.1 Stricture of artery; I12.9 Hypertensive chronic kidney disease with stage 1 through stage 4 chronic kidney disease, or unspecified chronic kidney disease; Z48.812 Encounter for surgical aftercare following surgery on the circulatory system; E55.9 Vitamin D deficiency, unspecified; R80.9 Proteinuria, unspecified; D63.1 Anemia in chronic kidney disease; E78.5 Hyperlipidemia, unspecified; E21.3 Hyperparathyroidism, unspecified; M10.00 Idiopathic gout, unspecified site
CPT/HCPCS: 36415; 80053; 80061; 82043; 82306; 82570; 82728; 83036; 83540; 83550; 83970; 84156; 84244; 84443; 84550; 85027; 93975

== ENCOUNTER → 2024-04-17 | Outpatient (CLI) | payer MEDICARE, OTHER, SELFPAY ==
--- OUTSIDE RECORDS SUMMARY | 2024-04-17 14:11 | XMS RPT_ITS | CCD ---
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 Operator Name Role Phone Estrada, Yazmin Y Unavailable DeFinis Harumi Y Unavailable Unavailable Estrada, Yazmin Y Unavailable Melanie RN, Suyapa Coy Unavailable Unavailable Melanie ZARATE, Suyapa Coy Unavailable Unavailable Estrada, Yazmin Y Unavailable JAMES 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 - ELIZABETH, ALFONSO Marquis Primary Care Phys ician MARGI RAJAN Attending Unavailable MELVIN LEOS Attending Unavailable RENÉE, VENKATA Referring Unavailable ALEYDA CAI Attending Unavailable JAMES, ALFONSO Primary Care Unavailable ALEYDA CAI Attending Unavailable JAMES, ALFONSO Primary Care Unavailable ROSALIND LEOS Attending Unavailable MELVIN LEOS Attending Unavailable ALEYDA CAI Attending Unavailable ALEYDA CAI Referring Unavailable JAMES, ALFONSO Primary Care Unavailable MELVIN LEOS Admitting Unavailable MELVIN LEOS Attending Unavailable ALEYDA CAI Attending Unavailable ALEYDA CAI Referring Unavailable JAMESKRISTOFER GAMBOA - ELIZABETH, ALFONSO Marquis Primary Care U navailable JAMES 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 - ELIZABETH, ALFONSO Marquis Attending U navailable JAMES 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 - AMUSEMENT PARK ENTERTAINER, ALFONSO Marquis Attending U navailable JAMES 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 - AMUSEMENT PARK ENTERTAINER, ALFONSO Marquis Primary Care U navailable JAMES 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 - AMUSEMENT PARK ENTERTAINER, ALFONSO Marquis Attending U navailable JAMES 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 - AMUSEMENT PARK ENTERTAINER, ALFONSO Marquis Primary Care U navailable JamesAlfonso mg CNP Primary Care Provider 1( [phone] Alfonso Ramirez CNP Primary Care Provider Drew Weston MD Unavailable WESTON VAUGHN Referring Unavailable ALFONSO RAMIREZ Primary Care Unavailable WESTON VAUGHN Referring Unavailable ALFONSO RAMIREZ Primary Care Unavailable VAUGHN, WESTON Referring Unavailable JAMES, ALFONSO D Primary Care Unavailable VAUGHN, WESTON Referring Unavailable JESSICA BROWN Attending Unavailable JAMES, ALFONSO D Primary Care Unavailable VAUGHN, WESTON Referring Unavailable JAMES, ALFONSO D Primary Care Unavailable VAUGHN, WESTON Referring Unavailable JAMES, ALFONSO D Primary Care Unavailable VAUGHN, WESTON Referring Unavailable JAMES, ALFONSO D Primary Care Unavailable VAUGHN, WESTON Attending Unavailable VAUGHN, WESTON Referring Unavailable JAMES, ALFONSO D Primary Care Unavailable VAUGHN, WESTON Referring Unavailable DREW WESTON Attending Unavailable JAMES, ALFONSO D Primary Care Unavailable JAMES, ALFONSO D Primary Care Unavailable VAUGHN, WESTON Referring Unavailable JAMES, ALFONSO D Primary Care Unavailable VAUGHN, WESTON Referring Unavailable JAMES, ALFONSO D Primary Care Unavailable VAUGHN, WESTON Referring Unavailable JAMES, ALFONSO D Primary Care Unavailable VAUGHN, WESTON Referring Unavailable VAUGHN, WESTON Attending Unavailable JAMES, ALFONSO D Primary Care Unavailable VAUGHN, WESTON Referring Unavailable JAMES, ALFONSO D Primary Care Unavailable VAUGHN, WESTON Referring Unavailable JAMES, ALFONSO D Primary Care Unavailable JAMES, ALFONSO D Primary Care Unavailable VAUGHN, WESTON Attending Unavailable JAMES, ALFONSO D Primary Care Unavailable VAUGHN, WESTON Referring Unavailable JAMES, ALFONSO D Primary Care Unavailable VAUGHN, WESTON Referring Unavailable VAUGHN, WESTON Referring Unavailable JAMES, ALFONSO D Primary Care Unavailable VAUGHN, WESTON Referring Unavailable JAMES, ALFONSO D Primary Care Unavailable VAUGHN, WESTON Referring Unavailable JAMES, ALFONSO D Primary Care Unavailable JAMES, ALFONSO D Primary Care Unavailable VAUGHN, WESTON Referring Unavailable VAUGHN, WESTON Referring Unavailable JAMES, ALFONSO D Primary Care Unavailable VAUGHN, WESTON Referring Unavailable JAMES, ALFONSO D Primary Care Unavailable VAUGHN, WESTON Attending Unavailable JAMES, ALFONSO D Primary Care Unavailable VAUGHN, WESTON Referring Unavailable JAMES, ALFONSO D Primary Care Unavailable VAUGHN, WESTON Referring Unavailable JAMES, ALFONSO D Primary Care Unavailable VAUGHN, WESTON Referring Unavailable JAMES, ALFONSO D Primary Care Unavailable VAUGHN, WESTON Referring Unavailable JAMES, ALFONSO D Primary Care Unavailable VAUGHN, WESTON Referring Unavailable JAMES, ALFONSO D Primary Care Unavailable Allergies Allergy Classification Reported Allergen(s) Allergy Type Date of Onset Reaction(s) Facility (6 sources) Macrolides (Antibiotic) drug allergy 7 unknown [facility] Work Phone: (6 sources) penicillin drug allergy 7 unknown [facility] Work Phone: [phone] (11 sources) ERYTHROMYCIN BASE; Translations: [Erythromycin] drug allergy 7 Nausea (finding) [facility] Work Phone: [phone] (6 sources) Penicillins; Translations: [penicillins] Drug allergy 6 Weal (disorder) [facility] (20 sources) Erythromycin; Translations: [ERYTHROMYCIN] Drug Allergy 6 Unknown [facility] (20 sources) Penicillins Propensity to adverse reactions to drug 6 Unknown [facility] Medications Current Medications Medication Drug Class(es) Dates Sig (Normalized) Sig (Original) acetaminophen 500 mg oral tablet (20 sources) Start: 02-02-2022 End: 02-16-2022 Tylenol Extra Strength 500 mg oral tablet Dose : 1,000 mg = 2 tab(s), Oral, q6hr, PRN as needed for pain, X 14 day(s), # 100 tab(s), 0 Refill(s), 02/16/22 13:10:00 EDT, other reason (Rx), Pain of left lower leg Start Date: 02/02/22 Stop Date: 02/16/22 Status: Ordered take 2 tablets by mo [facility] every six hours as needed acetaminophen (TYLENOL) 325 mg tablet Ta ke 650 mg by mouth every 6 hours as needed. Active take 1 tablet by belem every four hours as needed acetaminophen (TYLENOL) 325 mg tablet 1 tablet as needed Orally every 4 hrs Active Comment on above: 1 tablet as needed [facility] [place] every 4 hrs acetaminophen 325 mg / HYDROcodone bitartrate 5 mg oral tablet (20 sources) Opioid Agonist take 1 tablet by mouth every six hours as needed HYDROcodone-acetamin ophen (NORCO) 5-325 mg per tablet Take 1 tablet by mouth every 6 hours as needed for pain. Active Comment on above: Take 1 tablet by belem th every 6 hours as needed for pain. allopurinol 100 mg oral tablet (20 sources) Xanthine Oxidase Inhibitor Start: allopurinol 100 mg oral tablet Dose : 50 mg = 0.5 tab(s), Oral, qDay, # 45 tab(s), 1 Refill(s), Pharmacy: [facility], 155, cm, 12/27/22 13:38:00 EDT, Height, kg, 12/27/22 13:38:00 EDT, Dosing Weight Start Date: 12/27/22 Status: Ordered Start: 12-28-2021 allopurinol 10 0 mg oral tablet Dose : 50 mg = 0.5 tab(s), Oral, qDay, # 45 tab(s), 1 Refill(s), Pharmacy: [facility] (Now [facility]), 155, cm, 12/18/21 11:25:00 EDT, Height, kg, 12/18/21 11:25:00 EDT, Dosing Weight Start Date: 12/28/21 Status: Ordered Start: 01-30-2017 take 1 tablet by belem th once daily ALLOPURINOL 100 MG TABS One tablet by mouth daily ALLOPURINOL [id number] Suyapa Navarro RN take 0.5 tablet by m outh every other day allopurinol (ZYLOPRIM) 100 mg tablet Take 1/2 tablet by mouth every other day. Active take 0.5 tablet by m outh once daily allopurinol (ZYLOPRIM) 100 mg tablet Take 100 mg by mouth every other day. 0.5 tablet daily Active Comment on above: Take 100 mg by mouth once daily. 0.5 tablet daily amLODIPine 5 mg oral tablet (20 sources) Dihydropyridine Calcium Channel Akhil Start: 10-09-2022 End: 04-07-2023 amLODIPine 5 mg oral tablet Dose : 10 mg = 2 tab(s), Oral, qDay, # 180 tab(s), 1 Refill(s), Pharmacy: [facility], HTN, goal below 140/90, 155, cm, 10/09/22 15:31:00 EDT, Height, kg, 10/09/22 15:31:00 EDT, Dosing Weight Start Date: 10/09/22 Stop Date: 04/07/23 Status: Ordered Start: 01-30-2017 End: 07-07-2022 amLODIPine 5 mg oral tablet Dose : 5 mg = 1 tab(s), Oral, qDay, # 90 tab(s), 1 Refill(s), Pharmacy: [facility] (Now [facility]), HTN, goal below 140/90, 155, cm, 01/08/22 11:06:00 EDT, Height, kg, 01/08/22 11:06:00 EDT, Dosing Weight Start Date: 01/08/22 Stop Date: 07/07/22 Status: Ordered take 2 tablets by mo uth once daily amLODIPine (NORVASC) 5 mg tablet Take 10 mg by mouth once daily. Active Comment on above: Take 5 mg by mouth o nce daily. 10 MG by mouth daily Take 10 mg by mouth once daily. 10 MG by mouth daily apixaban 2.5 mg oral tablet (20 sources) Factor Xa Inhibitor Start: 06-04-2023 take 1 tablet by mouth twice daily ELIQUIS 2.5 mg tab(s) Take 2.5 mg by mouth two times a day. 06/04/2023 Active Start: 12-27-2022 End: 02-25-2023 apixaban 5 mg oral tablet Do se : 5 mg = 1 tab(s), Oral, BID, # 180 tab(s), 1 Refill(s), Pharmacy: [facility], 155, cm, 01/10/23 13:39:00 EDT, Height, 95, kg, 01/10/23 13:39:00 EDT, Dosing Weight Start Date: 01/10/23 Status: Ordered Comment on above: Take 2.5 mg by mouth two times a day. ascorbic acid 500 mg oral tablet (20 sources) Vitamin C take 1 tablet by mouth once ascorbic acid, vitamin C, (VITAMIN C) 500 mg tablet Take 500 mg by mouth every Saturday, Saturday, and Saturday. Active Comment on above: Take 500 mg by mouth once daily. aspirin 81 mg oral tablet (20 sources) Platelet Aggregation Inhibitor, Nonsteroidal Anti-inflammatory Drug Start: 02-02-2022 Aspirin Low Dose 81 mg oral tablet, chewable Dose : 81 mg = 1 tab(s), Chewed, qDay, OTC, # 30 tab(s), 0 Refill(s), other reason (Rx), Renal artery stenosis, [place], bilateral Start Date: 02/02/22 Status: Ordered take 1 tablet by mouth once rosi y aspirin, enteric coated (ECOTRIN LOW STRENGTH) 81 mg EC tablet Take 81 mg by mouth once daily. Active Comment on above: Take 81 mg by mouth once daily. atorvastatin 20 mg oral tablet (20 sources) HMG-CoA Reductase Inhibitor Start: 12-27-2022 End: 06-25-2023 atorvastatin 20 mg oral tablet Dose : 20 mg = 1 tab(s), Oral, qDay, X 90 day(s), # 90 tab(s), 1 Refill(s), 06/25/23 2:19:00 PM EST, Pharmacy: [facility], Hyperlipidemia LDL goal Start Date: 12/27/22 Stop Date: 06/25/23 Status: Ordered Start: 01-30-2017 End: 07-07-2022 atorvastatin 20 mg oral tabl et Dose : 20 mg = 1 tab(s), Oral, qDay, X 90 day(s), # 90 tab(s), 1 Refill(s), 07/07/22 14:02:00 EST, Pharmacy: [facility] ([facility]), Hyperlipidemia LDL goal Start Date: 01/08/22 Stop Date: 07/07/22 Status: Ordered Comment on above: Take 20 mg by mouth once daily. calcium carbonate 600 MG / ergocalciferol 200 UNT Oral Capsule (4 sources) Provitamin D2 Compound Start: 9 take 1 capsule by mouth once daily calcium-vitamin D 600 mg-200 intl units oral capsule Dose = 2 cap(s), Oral, Daily, 0 Refill(s) Start Date: 02/09/19 Status: Ordered docusate sodium 100 mg oral capsule (20 sources) Start: 3 Dulcolax Stool Softener 100 mg oral capsule Dose : 100 mg = 1 cap(s), Oral, qHS, # 90 cap(s), 1 Refill(s), Pharmacy: [facility], Hemorrhoids, 155, cm, 12/27/22 13:38:00 EDT, Height, kg, 12/27/22 13:38:00 EDT, Dosing Weight Start Date: 12/27/22 Status: Ordered Start: 07-06-2021 End: 10-04-2021 Dulcolax Stool Softener 100 mg oral capsule Dose : 100 mg = 1 cap(s), Oral, qHS, # 30 cap(s), 2 Refill(s), Pharmacy: [id number], Hemorrhoids, 155, cm, 07/06/21 11:12:00 EST, Height, kg, 07/06/21 11:12:00 EST, Dosing Weight Start Date: 07/06/21 Stop Date: 10/04/21 Status: Ordered Comment on above: Take 100 mg by mouth once daily. ferrous sulfate 324 mg delayed release oral tablet (20 sources) Start: 02-09-2019 ferrous sulfate 324 mg (65 mg elemental iron) oral delayed release tablet 0 Refill(s) Start Date: 02/09/19 Status: Ordered Start: 01-30-2017 take 1 tablet by belem th once daily FERROUS SULFATE 325 (65 Fe) MG TABS One tablet by mouth daily FERROUS SULFATE [id number] Suyapa Navarro RN take 65 mg by mouth once ferrous sulfate (IRON ORAL) Take 65 mg by mouth every Saturday, Saturday, and Saturday. Active ferrous sulfate (IRON ORAL) Take 65 mg by mouth. Sat, sat, sat Active ferrous sulfate (IRON ORAL) Take 65 mg by mouth. Sat, sat, sat 0 Active ferrous sulfate (IRON ORAL) Take 65 mg by mouth. 0 Active Comment on above: Take 65 mg by mouth. Take 65 mg by mouth. Sat, sat, sat furosemide 40 mg oral tablet (6 sources) Loop Diuretic Start: 02-22-2023 furosemide 40 mg oral tablet Dose : 40 mg = 1 tab(s), Oral, qDay, # 30 tab(s), 0 Refill(s) Start Date: 02/22/23 Status: Ordered ketotifen 0.25 mg/ml ophthalmic solution (5 sources) Histamine-1 Receptor Inhibitor Start: 02-17-2021 ketotifen 0.025% ophthalmic solution Dose = 1 drop(s), Eyes, both, q12h, # 7.5 mL, 1 Refill(s), Pharmacy: [id number], 155, cm, 02/17/21 14:00:00 EDT, Height, kg, 02/17/21 14:00:00 EDT, Dosing Weight Start Date: 02/17/21 Status: Ordered losartan potassium 100 mg oral tablet (20 sources) Angiotensin 2 Receptor Akhil Start: 07-01-2023 take 1 tablet by mouth once daily losartan (COZAAR) 100 mg tablet Take 100 mg by mouth once daily. 07/01/2023 Active Start: 06-26-2022 losartan 50 mg oral tablet Dose : 50 mg = 1 tab(s), Oral, qDay, # 30 tab(s), 0 Refill(s) Start Date: 06/26/22 Status: Ordered Comment on above: Take 100 mg by mouth once daily. metoprolol tartrate 100 mg oral tablet (20 sources) beta-Adrenergic Akhil Start: 12-27-2022 End: 06-25-2023 Metoprolol Succinate ER 100 mg oral TABLET extended release Dose : 100 mg = 1 tab(s), Oral, qDay, # 90 tab(s), 1 Refill(s), Pharmacy: [facility], HTN, goal below 140/90, 155, cm, 12/27/22 13:38:00 EDT, Height, kg, 12/27/22 13:38:00 EDT, Dosing Weight Start Date: 12/27/22 Stop Date: 06/25/23 Status: Ordered Start: 06-05-2021 End: 07-07-2022 Metoprolol Succinate ER 100 mg oral TABLET extended release Dose : 100 mg = 1 tab(s), Oral, qDay, # 90 tab(s), 1 Refill(s), Pharmacy: [facility] (Now [facility]), HTN, goal below 140/90, 155, cm, 01/08/22 11:06:00 EDT, Height, kg, 01/08/22 11:06:00 EDT, Dosing Weight Start Date: 01/08/22 Stop Date: 07/07/22 Status: Ordered Start: 01-30-2017 take 1 tablet by belem th once daily TOPROL XL 200 MG [id number] One tablet by mouth daily METOPROLOL SUCCINATE [id number] Syuapa Navarro RN Start: 01-30-2017 take 1 tablet by belem th once daily TOPROL XL 100 MG [id number] One tablet by mouth daily METOPROLOL SUCCINATE [id number] Venkata Lopez MD Start: 01-30-2017 take 1 tablet by belem th once daily TOPROL XL 100 MG [id number] One tablet by mouth daily METOPROLOL SUCCINATE [id number] Venkata Lopez MD Start: 01-30-2017 take 1 tablet by belem th once daily TOPROL XL 200 MG [id number] One tablet by mouth daily METOPROLOL SUCCINATE [id number] Suyapa Navarro RN take 1 tablet by belem th once daily metoprolol succinate ER (TOPROL XL) 200 mg 24 hr tablet Take 100 mg by mouth once daily. Active Comment on above: Take 200 mg by mouth once daily. 100 MG by mouth daily Take 100 mg by mouth once daily. Multivitamin preparation (20 sources) Start: 02-09-2019 take 1 tablet by mouth once daily Multivitamin Dose = 1 tab(s), Oral, Daily, 0 Refill(s) Start Date: 02/09/19 Status: Ordered take 1 tablet by mouth once rosi y multivitamin (MULTIPLE VITAMINS ORAL) Take 1 tablet by mouth once daily. Active take 1 tablet by mouth once rosi y multivitamin (MULTIPLE VITAMINS ORAL) Take 1 tablet by mouth once daily. 0 Active Comment on above: Take 1 tablet by belem th once daily. pioglitazone 15 mg oral tablet (20 sources) Peroxisome Proliferator Receptor alpha Agonist, Peroxisome Proliferator Receptor gamma Agonist, Thiazolidinedione Start: 12-27-2022 pioglitazone 15 mg oral tablet Dose : 15 mg = 1 tab(s), Oral, Daily, Does change due to the addition of Plavix, # 90 tab(s), 1 Refill(s), Pharmacy: [facility], 155, cm, 12/27/22 13:38:00 EDT, Height, kg, 12/27/22 13:38:00 EDT, Dosing Weight Start Date: 12/27/22 Status: Ordered Start: 06-05-2021 End: 07-07-2022 Actos 30 mg oral tablet Dose : 30 mg = 1 tab(s), Oral, Daily, # 90 tab(s), 1 Refill(s), Pharmacy: [facility] ([facility]), DM type 2, goal HbA1c Start Date: 01/08/22 Stop Date: 07/07/22 Status: Ordered Start: 01-30-2017 take 1 tablet by belem th once daily ACTOS 45 MG TABS One tablet by mouth daily PIOGLITAZONE HCL [id number] Suyapa Navarro RN pioglitazone (AC TOS) 45 mg tablet Take 15 mg by mouth once daily. Active Comment on above: Take 45 mg by mouth once daily. 15 MG by mouth daily Take 15 mg by mouth once daily. quinapril 20 mg oral tablet (20 sources) Angiotensin Converting Enzyme Inhibitor Start: 06-05-2021 End: 07-07-2022 quinapril 20 mg oral tablet Dose : 20 mg = 1 tab(s), Oral, qDay, X 90 day(s), # 90 tab(s), 1 Refill(s), 07/07/22 14:02:00 EST, Pharmacy: [facility] ([facility]), HTN, goal below 140/90, 155, cm, 01/08/22 11:06:00 EDT, Height, kg, /... Start Date: 01/08/22 Stop Date: 07/07/22 Status: Ordered Start: 01-30-2017 take 1 tablet by belem th twice daily ACCUPRIL 40 MG TABS One tablet by mouth twice daily QUINAPRIL HCL [id number] Suyapa Navarro RN Start: 01-30-2017 take 1 tablet by belem th once daily ACCUPRIL 40 MG TABS One tablet by mouth daily QUINAPRIL HCL [id number] Venkata Lopez MD Comment on above: Take 40 mg by mouth twice daily. Take 40 mg by mouth two times a day. traMADol hydrochloride 50 mg oral tablet (1 source) Opioid Agonist Start: 03-22-2023 End: 03-27-2023 traMADol 50 mg oral tablet Dose : 50 mg = 1 tab(s), Oral, TID, PRN as needed for pain, Fill Date: 03/21/2023, X 5 day(s), # 15 tab(s), 0 Refill(s), 03/27/23 11:46:00 AM EDT, Pharmacy: [facility], Pain of left lower leg, 155, cm, 03/22/23 11:16:00 EDT, Height, 91.9, kg, 03/22/23 11:16:00 EDT, Dosing Weight Start Date: 03/22/23 Stop Date: 03/27/23 Status: Ordered Completed/Discontinued Medications Medication Drug Class(es) Dates Sig (Normalized) Sig (Original) Calcium Carbonate / Vitamin D (6 sources) Start: 01-30-2017 take 1 tablet by mouth once daily CALCIUM 500 + D 500-125 MG-UNIT TABS One tablet by mouth daily CALCIUM CARBONATE-VITAMIN D [id number] Suyapa Navarro RN Start: 01-30-2017 take 1 tablet by belem th once daily CALCIUM 500 + D 500-125 MG-UNIT TABS One tablet by mouth daily CALCIUM CARBONATE-VITAMIN D [id number] Suyapa Navarro RN cholecalciferol 2000 unt oral tablet (10 sources) Vitamin D Start: 01-30-2017 End: 02-06-2017 take 1 tablet by mouth once daily VITAMIN D 2000 UNIT TABS One tablet by mouth daily CHOLECALCIFEROL [id number] Venkata Lopez MD 0.4 ml darbepoetin [place] 0.5 mg/ml prefilled syringe (2 sources) Erythropoies is-stimulati ng Agent Start: 03-20-2024 End: 03-20-2024 inject 1 dose by subcutaneous injection once 200 mcg, SUBCUTANEOUS, ONCE, 1 dose, On Sat03/20/24 at 1400, Protect from light REFRIGERATE Start: 01-23-2024 End: 01-23-2024 Darbepoetin [place] In Polysorb at 200 mcg injection (ARANESP) MULTIPLE VITAMINS-MINERALS (3 sources) Start: 01-30-2017 take 1 tablet by mouth once daily MULTIVITAMIN ADULT TABS One tablet by mouth daily MULTIPLE VITAMINS-MINERALS [id number] Suyapa Navarro RN MULTIPLE VITAMINS-MINERALS (3 sources) Start: 01-30-2017 take 1 tablet by mouth once daily MULTIVITAMIN ADULT TABS One tablet by mouth daily MULTIPLE VITAMINS-MINERALS [id number] Suyapa Navarro RN Start: 01-30-2017 take 1 tablet by belem th once daily MULTIVITAMIN ADULT TABS One tablet by mouth daily MULTIPLE VITAMINS-MINERALS [id number] Suyapa Navarro RN Problems Active Problems Problem Classification Problem Date Documented Date Episodic/Chronic Acquired foot deformities (2 sources) Talipes planus 11-23-2022 Episodic Chronic kidney disease (20 sources) Chronic kidney disease stage 3; Translations: [Chronic kidney disease stage 4] Onset: 7 01-30-2017 Chronic Deficiency and other anemia (1 source) Anemia co-occurrent and due to chronic kidney disease stage 3; Translations: [Anemia due to stage 3 chronic kidney disease, unspecified whether stage 3a or 3b CKD (HCC) (HCC)] 11-28-2023 Chronic Deficiency and other anemia (5 sources) Hemoglobin low 02-09-2019 Episodic Deficiency and other anemia (5 sources) Iron deficiency anemia 07-06-2021 Episodic Deficiency and other anemia (20 sources) Anemia; Translations: [Anemia, unspecified] Onset: 4 12-27-2022 Episodic Diabetes mellitus without complication (11 sources) Type 2 diabetes mellitus without complications; Translations: [Type 2 diabetes mellitus] 01-30-2017 Chronic Disorders of lipid metabolism (11 sources) Hyperlipidemia; Translations: [Hyperlipidemia, unspecified] 01-30-2017 Chronic Essential hypertension (12 sources) Hypertensive disorder; Translations: [Essential (primary) hypertension] 01-30-2017 Chronic Heart valve disorders (12 sources) Nonrheumatic aortic (valve) stenosis with insufficiency; Translations: [Nonrheumatic aortic (valve) stenosis] Onset: 7 01-30-2017 Chronic Comment on above: 10/12/2022 Echocardi ogram results: IMPRESSION: 1. Normal LV size. 2. Mild concentric left ventricular hypertrophy. 3. Left ventricular systolic function is normal. 4. The estimated ejection fraction is 60%. 5. Unable to assess diastolic dysfunction due to arrhythmia. 6. Normal prostatic aortic valve. 7. Mean aortic valve gradient 17 mmHg. 8. Compared to the previous echocardiogram there is a prosthetic aortic valve present now. Heart valve disorders (7 sources) Pansystolic murmur; Translations: [Irregular heart beat] 08-28-2019 Episodic Hemorrhoids (5 sources) Hemorrhoids 07-06-2021 Episodic Inflammation; infection of eye (except that caused by tuberculosis or sexually transmitteddisease) (3 sources) Seasonal allergic conjunctivitis 12-01-2019 Episodic Nutritional deficiencies (5 sources) Vitamin D deficiency 12-01-2019 Chronic Other and ill-defined heart disease (2 sources) Left ventricular hypertrophy by electrocardiogram 10-09-2022 Chronic Other circulatory disease (10 sources) H/O: heart disorder 02-27-2019 Episodic Other connective tissue disease (3 sources) Pain of left lower leg 02-02-2022 Episodic Other connective tissue disease (1 source) Disorder of lower extremity 02-22-2023 Episodic Other diseases of kidney and ureters (5 sources) 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 Other endocrine disorders (5 sources) Hyperparathyroidism 08-28-2019 Chronic Comment on above: (01/04/2023 14:54 ED T NM Parathyroid Study) FINDINGS: No focal radiopharmaceutical accumulation is seen in the neck or upper mediastinum to suggest a parathyroid adenoma. Low-dose CT demonstrates aortic valvular prosthesis and coronary calcifications. IMPRESSION: 1. Negative study for localization of parathyroid adenoma. Other gastrointestinal disorders (5 sources) Occult blood in stools 07-06-2021 Episodic Other gastrointestinal disorders (2 sources) Chronic constipation 12-27-2022 Episodic Other non-traumatic joint disorders (1 source) Shoulder joint pain 02-22-2023 Episodic Other nutritional; endocrine; and metabolic disorders (4 sources) Body mass index (BMI) 45.0-49.9, adult; Translations: [Body mass index (BMI) 45.0-49.9, adult] Onset: 7 02-06-2017 Chronic Other screening for suspected conditions (not mental disorders or infectious disease) (4 sources) ECG: atrial fibrillation; Translations: [EKG ST segment changes] 10-15-2022 Episodic Comment on above: 10/12/2022 Echocardi ogram results: IMPRESSION: 1. Normal LV size. 2. Mild concentric left ventricular hypertrophy. 3. Left ventricular systolic function is normal. 4. The estimated ejection fraction is 60%. 5. Unable to assess diastolic dysfunction due to arrhythmia. 6. Normal prostatic aortic valve. 7. Mean aortic valve gradient 17 mmHg. 8. Compared to the previous echocardiogram there is a prosthetic aortic valve present now. Other upper respiratory disease (2 sources) Seasonal allergy 10-15-2022 Chronic Peripheral and visceral atherosclerosis (4 sources) Bilateral renal artery stenosis 01-08-2022 Chronic Comment on above: Renal Artery Duplex Summary: 12/29/2021 1. Hemodynamically significant arterial stenosis, involving the right renal artery. This is consistent with a greater than 60% stenosis. 2. There is evidence of an abnormal end diastolic ratio and/or resistive index value involving the right kidney, suggesting intrinsic kidney disease. 3. There is evidence of an abnormal end diastolic ratio and/or resistive index value involving the left kidney, suggesting intrinsic kidney disease. Residual codes; unclassified (5 sources) Increased body mass index 08-28-2019 Episodic Residual codes; unclassified (5 sources) Postmenopausal state 12-01-2019 Episodic Residual codes; unclassified (1 source) Edema of left lower leg 03-22-2023 Episodic Unclassified (7 sources) Non-smoker 12-18-2021 Unclassified (20 sources) Patient encounter status 12-01-2019 Unclassified (2 sources) Pain of knee region 11-23-2022 Past or Other Problems Problem Classification Problem Date Documented Da te Episodic/Chronic Deficiency and other anemia (1 source) Anemia, unspecified; Translations: [Anemia, unspecified type] Onset: 08-01-2023 Episodic Results Test Name Value Interpretation Reference Range Facility CBC W Auto Differential pane l (Bld)on 03-20-2024 Basophils (Bld) [#/Vol] 0.15 10*3/uL High <0.11 [facility] [place] Comment on above: Order Comment: Denise moore Type: BLOOD SPECIMEN [facility]ing Facility[facility] Address: [address] [place] [address] Performed By: #### 2 276-4, 16120-3 #### [facility] CLIA [id number] [address] [place] [address] [place] Basophils/100 WBC (Bld) 1.5 % Normal [facility] Comment on above: Order Comment: Denise moore Type: BLOOD SPECIMEN Ordering Facility: [facility] Address: [address] [place] [address] Performed By: #### 2 276-4, 77621-1 #### [facility] CLIA [id number] [address] [place] [address] [place] Differential cell count method Nom (Bld) Auto Normal [facility] [place] Comment on above: Order Comment: Speci men Type: BLOOD SPECIMEN [facility]ing Facility: [facility] Address: [address] [place] [address] Performed By: #### 2 276-4, 16557-0 #### [facility] CLIA [id number] [address] [place] [address] [place] Eosinophils (Bld) [#/Vol] 0.79 10*3/uL High <0.46 [facility] [place] Comment on above: Order Comment: Speci men Type: BLOOD SPECIMEN [facility]ing Facility: [facility] Address: [address] [place] [address] Performed By: #### 2 276-4, 26882-2 #### [facility] CLIA [id number] [address] [place] [address] [place] Eosinophils/100 WBC (Bld) 7.7 % Normal [facility] [place] Comment on above: Order Comment: Speci men Type: BLOOD SPECIMEN [facility]ing Facility: [facility] Address: [address] [place] [address] Performed By: #### 2 276-4, 49959-1 #### [facility] CLIA [id number] [address] [place], [place] [id number] [place] Erythrocyte distribution width (RBC) [Ratio] 13.2 % Normal 11.5-15.0 [facility] [place] Comment on above: Order Comment: Speci men Type: BLOOD SPECIMEN [facility]ing Facility: [facility] Address: [address] [place] [address] Performed By: #### 2 276-4, 39560-1 #### [facility] CLIA [id number] [address] [place], [place] [address] [place] Hematocrit (Bld) [Volume fraction] 30.1 % Low 36.0-46.0 [facility] [place] Comment on above: Order Comment: Speci men Type: BLOOD SPECIMEN [facility]ing Facility: [facility] Address: [address] [place] [address] Performed By: #### 2 276-4, 54715-5 #### [facility] CLIA [id number] [address] [place] [address] [place] Hemoglobin (Bld) [Mass/Vol] 9.6 g/dL Low 11.5-15.5 [facility] [place] Comment on above: Order Comment: Speci men Type: BLOOD SPECIMEN [facility]ing Facility: [facility] Address: [address] [place] [address] Performed By: #### 2 276-4, 93248-7 #### [facility] CLIA [id number] [address] [place] [address] [place] Immature granulocytes (Bld) [#/Vol] 0.07 10*3/uL Normal <0.10 [facility] [place] Comment on above: Order Comment: Speci men Type: BLOOD SPECIMEN Ordering Facility: [facility] Address: [address] [place] [address] Performed By: #### 2 276-4, 50893-7 #### [facility] CLIA [id number] [address] [place] [address] [place] Immature granulocytes/100 WBC (Bld) 0.7 % Normal [facility] [place] Comment on above: Order Comment: Speci men Type: BLOOD SPECIMEN Ordering Facility: [facility] Address: [address] [place] [address] Performed By: #### 2 276-4, 93069-1 #### [facility] CLIA [id number] [address] [place] [address] [place] Lymphocytes (Bld) [#/Vol] 1.10 10*3/uL Normal 1.00-4.00 [facility] [place] Comment on above: Order Comment: Speci men Type: BLOOD SPECIMEN Ordering Facility: [facility] Address: [address] [place] [address] Performed By: #### 2 276-4, 14592-3 #### [facility] CLIA [id number] [address] [place] [address] [place] Lymphocytes/100 WBC (Bld) 10.8 % Normal [facility] [place] Comment on above: Order Comment: Speci men Type: BLOOD SPECIMEN [facility]ing Facility: [facility] Address: [address] [place] [address] Performed By: #### 2 276-4, 73588-5 #### [facility] CLIA [id number] [address] [place] [address] [place] MCH (RBC) [Entitic mass] 30.4 pg Normal 26.0-34.0 [facility] [place] Comment on above: Order Comment: Speci men Type: BLOOD SPECIMEN Ordering Facility: [facility] Address: [address] [place] [address] Performed By: #### 2 276-4, 41290-2 #### [facility] CLIA [id number] [address] [place] [address] [place] MCHC (RBC) [Mass/Vol] 31.9 g/dL Normal 30.5-36.0 [facility] Comment on above: Order Comment: Speci men Type: BLOOD SPECIMEN Ordering Facility: [facility] Address: [address] [place] [address] Performed By: #### 2 276-4, 36146-5 #### [facility] CLIA [id number] [address] [place] [address] [place] MCV (RBC) [Entitic vol] 95.3 fL Normal 80.0-100.0 [facility] [place] Comment on above: Order Comment: Speci men Type: BLOOD SPECIMEN Ordering Facility: [facility] Address: [address] [place] [address] Performed By: #### 2 276-4, 27082-7 #### [facility] CLIA [id number] [address] [place] [address] [place] Monocytes (Bld) [#/Vol] 0.82 10*3/uL Normal <0.87 [facility] Comment on above: Order Comment: Speci men Type: BLOOD SPECIMEN [facility]ing Facility: [facility] Address: [address] [place] [address] Performed By: #### 2 276-4, 54274-8 #### [facility] CLIA [id number] [address] [place] [address] [place] Monocytes/100 WBC (Bld) 8.0 % Normal [facility] Comment on above: Order Comment: Speci men Type: BLOOD SPECIMEN [facility]ing Facility: [facility] Address: [address] [place] [address] Performed By: #### 2 276-4, 02836-8 #### [facility] CLIA [id number] [address] [place] [address] [place] Neutrophils (Bld) [#/Vol] 7.28 10*3/uL Normal 1.45-7.50 [facility] [place] Comment on above: Order Comment: Speci men Type: BLOOD SPECIMEN [facility]ing Facility: [facility] Address: [address] [place] [address] Performed By: #### 2 276-4, 06055-3 #### [facility] CLIA [id number] [address] [place] [address] [place] Neutrophils/100 WBC (Bld) 71.3 % Normal [facility] [place] Comment on above: Order Comment: Speci men Type: BLOOD SPECIMEN Ordering Facility: [facility] Address: [address] [place] [address] Performed By: #### 2 276-4, 18163-7 #### [facility] CLIA [id number] [address] [place] [address] [place] Nucleated RBC (Bld) [#/Vol] 10*3/uL Normal <0.01 [facility] Comment on above: Order Comment: Speci men Type: BLOOD SPECIMEN [facility]ing Facility: [facility] Address: [address] [place] [address] Performed By: #### 2 276-4, 18828-9 #### [facility] CLIA [id number] [address] [place] [address] [place] Nucleated RBC/100 WBC (Bld) [Ratio] 0.0 /100 WBC Normal [facility] Comment on above: Order Comment: Speci men Type: BLOOD SPECIMEN Ordering Facility: [facility] Address: [address] [place] [address] Performed By: #### 2 276-4, 44402-1 #### [facility] CLIA [id number] [address] [place] [address] [place] Platelet mean volume (Bld) [Entitic vol] 9.1 fL Normal 9.0-12.7 [facility] Comment on above: Order Comment: Speci men Type: BLOOD SPECIMEN [facility]ing [facility]: [facility] Address: [address] [place] [address] Performed By: #### 2 276-4, 92447-8 #### [facility] CLIA [id number] [address] [place] [address] [place] Platelets (Bld) [#/Vol] 302 10*3/uL Normal 150-400 [facility] Comment on above: Order Comment: Speci men Type: BLOOD SPECIMEN [facility]ing Facility: [facility] Address: [address] [place] [address] Performed By: #### 2 276-4, 16919-5 #### [facility] CLIA [id number] [address] [place] [address] [place] RBC (Bld) [#/Vol] 3.16 10*6/uL Low 3.90-5.20 [facility] Comment on above: Order Comment: Speci men Type: BLOOD SPECIMEN [facility] Address: [address] [place] [address] Performed By: #### 2 276-4, 36980-5 #### [facility] CLIA [id number] [address] [place] [address] [place] WBC (Bld) [#/Vol] 10.21 10*3/uL Normal 3.70-11.00 [facility] Comment on above: Order Comment: Speci men Type: BLOOD SPECIMEN [facility] Address: [address] [place] [address] Performed By: #### 2 276-4, 58319-1 #### [facility] CLIA [id number] [address] [place] [address] [place] CNOVSPon 03-20-2024 CNOVSP Visit (SP) Office (HEMAWS) WINIFRED WOOD ([id number]) 1945 F Date Time Provider Department 03/20/24 1:30 PM WESTON VAUGHN During your visit today, we recorded the following information about you: Temperature Pulse Blood pressure Weight 98.5 degrees 55/minute 158/62 86.9 kg Weston Vaughn 03/20/2024 4:20 PM Signed Winifred Wood 1945 03/20/2024 HISTORY OF PRESENT ILLNESS: Winifred Wood is a 78 year old femalewith a PHMx of CKD, Stage 3, no dialysis as of yet but has been told by her envelope addresser that it is likely coming soon, HTN, T2DM, osteoarthritis, hyperlipidemia, and anemia. She was referred to hematology by her envelope addresser for further management of her anemia. BP elevated in the office has been running good at home 120s/60s, SPEP drawn by envelope addresser without m spike. No SOB, CP. Denies [...] receive weekly doses x4. IV iron at [facility], no current record for this. Last T [...] possible aranesp injection. She reports feeling well. Denies new issues. Neph is checking iron and given IV iron last TSat was >20% Following with cardiology for BP. Planning procedure in nov. Denies JIMENEZ, dizziness, SOB, CP or changes in vision. No N/V/C/D. No bleeding or bruising. No edema. having back surgery soon. 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 CLINICAL IMPRESSION: Anemia as above, better after 2 doses aranesp - labs reviewed RECOMMENDATION/PLAN: 1. Recheck cbc 1 month, aranesp today OV in 3 months Written and verbal health teaching given to patient, patient verbalizes understanding and agrees with treatment plan. PAST MEDICAL HISTORY Diagnosis Date Anemia Arthritis CKD (chronic kidney disease) stage 3, GFR 30-59 ml/min ([facility]) DM type 2 (diabetes mellitus, type 2) (HCC) Heart murmur HTN (hypertension) Hyperlipidemia Hyperparathyroidism (HCC) Snoring PAST SURGICAL HISTORY Procedure Laterality Date ABDOMINAL SURGERY HX COLONOSCOPY FLX DX W/COLLJ SPEC WHEN PFRMD 06/07/2016 repeat 5 yrs/ tubular adeoma COLONOSCOPY FLX DX W/COLLJ SPEC WHEN PFRMD 03/17/2021 PAST SURGICAL HISTORY OF Gallbladder TONSILLECTOMY HX FAMILY HISTORY Problem Relation Age of Onset Breast Cancer Maternal Aunt Allergies Sister Social History Tobacco Use Smoking status: Never Smokeless tobacco: Never Vaping Use Vaping status: Never Used Substance Use Topics Alcohol use: Not Currently Comment: twice a year or less Drug use: Never ALLERGIES: ALLERGIES Allergen Reactions Erythromycin Unknown Penicillins Unknown CURRENT OUTPATIENT MEDICATIONS: furosemide (LASIX) 40 mg tablet Take 40 mg by mouth once daily as needed. multivitamin (MULTIPLE VITAMINS ORAL) Take 1 tablet by mouth once daily. acetaminophen (TYLENOL) 325 mg tablet Take 650 mg by mouth every 6 hours as needed. ELIQUIS 2.5 mg tab(s) Take 2.5 mg [...] mg tablet Take 500 mg by mouth every Saturday, Saturday, and Saturday. ferrous sulfate (IRON ORAL) Take 65 mg by mouth every Saturday, Saturday, and Saturday. amLODIPine (NORVASC) 5 mg tablet Take 10 mg by mouth once daily. metoprolol succinate ER (TOPROL XL) 200 mg 24 hr tablet Take 100 mg by mouth once daily. pioglitazone (ACTOS) 45 mg tablet Take 15 mg by mouth once daily. atorvastatin (LIPITOR) 20 mg tablet Take 20 mg by mouth once daily. allopurinol (ZYLOPRIM) 100 mg tablet Take 1/2 tablet by mouth every other day. HYDROcodone-acetaminop hen (NORCO) 5-325 mg per tablet Take 1 tablet by mout (more content not included)... Normal [facility] CBC W Auto Differential pane l (Bld)on 02-20-2024 Basophils (Bld) [#/Vol] 0.14 10*3/uL High <0.11 [facility] Comment on above: Order Comment: Speci men Type: BLOOD SPECIMENOrdering Facility: [facility] Address: [address] [place] [address] Performed By: #### 5 7021-8 ####[facility]ACKSON[facility]LEWMTLIA [id number] [place] [address] [place] Basophils/100 WBC (Bld) 1.8 % Normal [facility] Comment on above: Order Comment: Speci men Type: BLOOD SPECIMENOrdering Facility: [facility] Address: [address] [place] [address] Performed By: #### 5 7021-8 ####[facility] [id number] [place] [address] [place] Differential cell count method Nom (Bld) Auto Normal [facility] Comment on above: Order Comment: Speci men Type: BLOOD SPECIMENOrdering Facility: [facility] Address: [address] [place] [address] Performed By: #### 5 7021-8 ####[facility] [id number] [place] [address] [place] Eosinophils (Bld) [#/Vol] 0.39 10*3/uL Normal <0.46 [facility] Comment on above: Order Comment: Speci men Type: BLOOD SPECIMENOrdering Facility: [facility] Address: [address] [place] [address] Performed By: #### 5 7021-8 ####[facility] [id number] [place] [address] [place] Eosinophils/100 WBC (Bld) 4.9 % Normal [facility] Comment on above: Order Comment: Speci men Type: BLOOD SPECIMENOrdering Facility: [facility] Address: [address] [place] [address] Performed By: #### 5 7021-8 ####[facility] SERGIOWNCLIA [id number] [place] [address] [place] Erythrocyte distribution width (RBC) [Ratio] 13.2 % Normal 11.5-15.0 [facility] Comment on above: Order Comment: Speci men Type: BLOOD SPECIMENOrdering Facility: [facility] Address: [address] [place] [address] Performed By: #### 5 7021-8 ####[facility]ENTERNCLIA [id number] [place] [address] [place] Hematocrit (Bld) [Volume fraction] 33.3 % Low 36.0-46.0 [facility] Comment on above: Order Comment: Speci men Type: BLOOD SPECIMENOrdering Facility: [facility] Address: [address] [place] [address] Performed By: #### 5 7021-8 ####[facility] CENTERNCBROOKLYNA [id number] [place] [address] [place] Hemoglobin (Bld) [Mass/Vol] 10.4 g/dL Low 11.5-15.5 [facility] Comment on above: Order Comment: Speci men Type: BLOOD SPECIMENOrdering Facility: [facility] Address: [address] [place] [address] Performed By: #### 5 7021-8 ####[facility] JACKSONVILLEWELANALIA [id number] [place] [address] [place] Immature granulocytes (Bld) [#/Vol] 0.03 10*3/uL Normal <0.10 [facility] Comment on above: Order Comment: Speci men Type: BLOOD SPECIMENOrdering Facility: [facility] Address: [address] [place] [address] Performed By: #### 5 7021-8 ####[facility] CENTERELANAAnneliese [id number] [place] [address] [place] Immature granulocytes/100 WBC (Bld) 0.4 % Normal [facility] Comment on above: Order Comment: Speci men Type: BLOOD SPECIMENOrdering Facility: [facility] Address: [address] [place] [address] Performed By: #### 5 7021-8 ####[facility] [id number] [place] [address] [place] Lymphocytes (Bld) [#/Vol] 0.92 10*3/uL Low 1.00-4.00 [facility] Comment on above: Order Comment: Speci men Type: BLOOD SPECIMENOrdering Facility: [facility] Address: [address] [place] [address] Performed By: #### 5 7021-8 ####[facility] [id number] [place] [address] [place] Lymphocytes/100 WBC (Bld) 11.6 % Normal [facility] Comment on above: Order Comment: Speci men Type: BLOOD SPECIMENOrdering Facility: [facility] Address: [address] [place] [address] Performed By: #### 5 7021-8 ####[facility] [id number] [place] [address] [place] MCH (RBC) [Entitic mass] 30.4 pg Normal 26.0-34.0 [facility] Comment on above: Order Comment: Speci men Type: BLOOD SPECIMENOrdering Facility: [facility] Address: [address] [place] [address] Performed By: #### 5 7021-8 ####[facility] [id number] [place] [address] [place] MCHC (RBC) [Mass/Vol] 31.2 g/dL Normal 30.5-36.0 [facility] Comment on above: Order Comment: Speci men Type: BLOOD SPECIMENOrdering Facility: [facility] Address: [address] [place] [address] Performed By: #### 5 7021-8 ####[facility]ENTERNCSPAN[facility] [id number] [place] [address] [place] MCV (RBC) [Entitic vol] 97.4 fL Normal 80.0-100.0 [facility] Comment on above: Order Comment: Speci men Type: BLOOD SPECIMENOrdering Facility: [facility] Address: [address] [place] [address] Performed By: #### 5 7021-8 ####[facility]ENTERNCSPAN[facility] [id number] [place] [address] [place] Monocytes (Bld) [#/Vol] 0.79 10*3/uL Normal <0.87 [facility] Comment on above: Order Comment: Speci men Type: BLOOD SPECIMENOrdering Facility: [facility] Address: [address] [place] [address] Performed By: #### 5 7021-8 ####[facility] CENTERNCLI [id number] [place] [address] [place] Monocytes/100 WBC (Bld) 9.9 % Normal [facility] Comment on above: Order Comment: Speci men Type: BLOOD SPECIMENOrdering Facility: [facility] Address: [address] [place] [address] Performed By: #### 5 7021-8 ####[facility] CENTERNCA [id number] [place] [address] [place] Neutrophils (Bld) [#/Vol] 5.67 10*3/uL Normal 1.45-7.50 [facility] Comment on above: Order Comment: Speci men Type: BLOOD SPECIMENOrdering Facility: [facility] Address: [address] [place] [address] Performed By: #### 5 7021-8 ####[facility] TAYSONYALIA [id number] [place] [address] [place] Neutrophils/100 WBC (Bld) 71.4 % Normal [facility] Comment on above: Order Comment: Speci men Type: BLOOD SPECIMENOrdering Facility: [facility] Address: [address] [place] [address] Performed By: #### 5 7021-8 ####[facility] CENTERELANALIA [id number] [place] [address] [place] Nucleated RBC (Bld) [#/Vol] 10*3/uL Normal <0.01 [facility] Comment on above: Order Comment: Speci men Type: BLOOD SPECIMENOrdering Facility: [facility] Address: [address] [place] [address] Performed By: #### 5 7021-8 ####[facility]ITALA [id number] [place] [address] [place] Nucleated RBC/100 WBC (Bld) [Ratio] 0.0 /100 WBC Normal [facility] Comment on above: Order Comment: Speci men Type: BLOOD SPECIMENOrdering Facility: [facility] Address: [address] [place] [address] Performed By: #### 5 7021-8 ####[facility] CENTERELANALIA [id number] [place] [address] [place] Platelet mean volume (Bld) [Entitic vol] 9.5 fL Normal 9.0-12.7 [facility] Comment on above: Order Comment: Speci men Type: BLOOD SPECIMENOrdering Facility: [facility] Address: [address] [place] [address] Performed By: #### 5 7021-8 ####[facility] [id number] [place] [address] [place] Platelets (Bld) [#/Vol] 321 10*3/uL Normal 150-400 [facility] Comment on above: Order Comment: Speci men Type: BLOOD SPECIMENOrdering Facility: [facility] Address: [address] [place] [address] Performed By: #### 5 7021-8 ####[facility] CENTERNCA [id number] [place] [address] [place] RBC (Bld) [#/Vol] 3.42 10*6/uL Low 3.90-5.20 [facility] Comment on above: Order Comment: Speci men Type: BLOOD SPECIMENOrdering Facility: [facility] Address: [address] [place] [address] Performed By: #### 5 7021-8 ####[facility] [id number] [place] [address] [place] WBC (Bld) [#/Vol] 7.94 10*3/uL Normal 3.70-11.00 [facility] Comment on above: Order Comment: Speci men Type: BLOOD SPECIMENOrdering Facility: [facility] Address: [address] [place] [address] Performed By: #### 5 7021-8 ####[facility] [id number] [place] [address] [place] CBC W Auto Differential pane l (Bld)on 01-23-2024 Basophils (Bld) [#/Vol] 0.12 10*3/uL High <0.11 [facility] Comment on above: Order Comment: Speci men Type: BLOOD SPECIMEN [facility] Address: [address] [place] [address] Performed By: #### 2 276-4, 58923-6 #### [facility] CLIA [id number] [address] [place] [address] [place] Basophils/100 WBC (Bld) 1.2 % Normal [facility] Comment on above: Order Comment: Speci men Type: BLOOD SPECIMEN [facility] Address: [address] [place] [address] Performed By: #### 2 276-4, 10086-5 #### [facility] CLIA [id number] [address] [place] [address] [place] Differential cell count method Nom (Bld) Auto Normal [facility] Comment on above: Order Comment: Speci men Type: BLOOD SPECIMEN [facility] Address: [address] [place] [address] Performed By: #### 2 276-4, 77225-3 #### [facility] CLIA [id number] [address] [place] [address] [place] Eosinophils (Bld) [#/Vol] 0.40 10*3/uL Normal <0.46 [facility] Comment on above: Order Comment: Speci men Type: BLOOD SPECIMEN [facility] Address: [address] [place] [address] Performed By: #### 2 276-4, 80913-6 #### [facility] CLIA [id number] [address] [place] [address] [place] Eosinophils/100 WBC (Bld) 4.0 % Normal [facility] Comment on above: Order Comment: Speci men Type: BLOOD SPECIMEN [facility] Address: [address] [place] [address] Performed By: #### 2 276-4, 50696-6 #### [facility] CLIA [id number] [address] [place] [address] [place] Erythrocyte distribution width (RBC) [Ratio] 13.7 % Normal 11.5-15.0 [facility] Comment on above: Order Comment: Speci men Type: BLOOD SPECIMEN [facility] Address: [address] [place] [address] Performed By: #### 2 276-4, 23877-8 #### [facility] CLIA [id number] [address] [place] [address] [place] Hematocrit (Bld) [Volume fraction] 30.3 % Low 36.0-46.0 [facility] Comment on above: Order Comment: Speci men Type: BLOOD SPECIMEN [facility] Address: [address] [place] [address] Performed By: #### 2 276-4, 28315-3 #### [facility] CLIA [id number] [address] [place] [address] [place] Hemoglobin (Bld) [Mass/Vol] 9.8 g/dL Low 11.5-15.5 [facility] Comment on above: Order Comment: Speci men Type: BLOOD SPECIMEN [facility] Address: [address] [place] [address] Performed By: #### 2 276-4, 60431-7 #### [facility] CLIA [id number] [address] [place] [address] [place] Immature granulocytes (Bld) [#/Vol] 0.05 10*3/uL Normal <0.10 [facility] Comment on above: Order Comment: Speci men Type: BLOOD SPECIMEN [facility] Address: [address] [place] [address] Performed By: #### 2 276-4, 61810-6 #### [facility] CLIA [id number] [address] [place] [address] [place] Immature granulocytes/100 WBC (Bld) 0.5 % Normal [facility] Comment on above: Order Comment: Speci men Type: BLOOD SPECIMEN [facility] Address: [address] [place] [address] Performed By: #### 2 276-4, 13717-5 #### [facility] CLIA [id number] [address] [place] [address] [place] Lymphocytes (Bld) [#/Vol] 1.21 10*3/uL Normal 1.00-4.00 [facility] Comment on above: Order Comment: Speci men Type: BLOOD SPECIMEN [facility] Address: [address] [place] [address] Performed By: #### 2 276-4, 13751-8 #### [facility] CLIA [id number] [address] [place] [address] [place] Lymphocytes/100 WBC (Bld) 12.2 % Normal [facility] Comment on above: Order Comment: Speci men Type: BLOOD SPECIMEN [facility] Address: [address] [place] [address] Performed By: #### 2 276-4, 90276-1 #### [facility] CLIA [id number] [address] [place] [address] [place] MCH (RBC) [Entitic mass] 30.7 pg Normal 26.0-34.0 [facility] Comment on above: Order Comment: Speci men Type: BLOOD SPECIMEN [facility] Address: [address] [place] [address] Performed By: #### 2 276-4, 30172-6 #### [facility] CLIA [id number] [address] [place] [address] [place] MCHC (RBC) [Mass/Vol] 32.3 g/dL Normal 30.5-36.0 [facility] Comment on above: Order Comment: Speci men Type: BLOOD SPECIMEN [facility] Address: [address] [place] [address] Performed By: #### 2 276-4, 74435-1 #### [facility] CLIA [id number] [address] [place] [address] [place] MCV (RBC) [Entitic vol] 95.0 fL Normal 80.0-100.0 [facility] Comment on above: Order Comment: Speci men Type: BLOOD SPECIMEN [facility] Address: [address] [place] [address] Performed By: #### 2 276-4, 76695-2 #### [facility] CLIA [id number] [address] [place] [address] [place] Monocytes (Bld) [#/Vol] 0.88 10*3/uL High <0.87 [facility] Comment on above: Order Comment: Speci men Type: BLOOD SPECIMEN [facility] Address: [address] [place] [address] Performed By: #### 2 276-4, 26749-0 #### [facility] CLIA [id number] [address] [place] [address] [place] Monocytes/100 WBC (Bld) 8.9 % Normal [facility] Comment on above: Order Comment: Speci men Type: BLOOD SPECIMEN [facility] Address: [address] [place] [address] Performed By: #### 2 276-4, 62092-2 #### [facility] CLIA [id number] [address] [place] [address] [place] Neutrophils (Bld) [#/Vol] 7.26 10*3/uL Normal 1.45-7.50 [facility] Comment on above: Order Comment: Speci men Type: BLOOD SPECIMEN [facility] Address: [address] [place] [address] Performed By: #### 2 276-4, 51908-2 #### [facility] CLIA [id number] [address] [place] [address] [place] Neutrophils/100 WBC (Bld) 73.2 % Normal [facility] Comment on above: Order Comment: Speci men Type: BLOOD SPECIMEN [facility] Address: [address] [place] [address] Performed By: #### 2 276-4, 80217-7 #### [facility] CLIA [id number] [address] [place] [address] [place] Nucleated RBC (Bld) [#/Vol] 10*3/uL Normal <0.01 [facility] Comment on above: Order Comment: Speci men Type: BLOOD SPECIMEN [facility] Address: [address] [place] [address] Performed By: #### 2 276-4, 66126-8 #### [facility] CLIA [id number] [address] [place] [address] [place] Nucleated RBC/100 WBC (Bld) [Ratio] 0.0 /100 WBC Normal [facility] Comment on above: Order Comment: Speci men Type: BLOOD SPECIMEN [facility] Address: [address] [place] [address] Performed By: #### 2 276-4, 14204-6 #### [facility] CLIA [id number] [address] [place] [address] [place] Platelet mean volume (Bld) [Entitic vol] 8.9 fL Low 9.0-12.7 [facility] Comment on above: Order Comment: Speci men Type: BLOOD SPECIMEN [facility] Address: [address] [place] [address] Performed By: #### 2 276-4, 85685-3 #### [facility] CLIA [id number] [address] [place] [address] [place] Platelets (Bld) [#/Vol] 305 10*3/uL Normal 150-400 [facility] Comment on above: Order Comment: Speci men Type: BLOOD SPECIMEN [facility] Address: [address] [place] [address] Performed By: #### 2 276-4, 50031-0 #### [facility] CLIA [id number] [address] [place] [address] [place] RBC (Bld) [#/Vol] 3.19 10*6/uL Low 3.90-5.20 [facility] Comment on above: Order Comment: Speci men Type: BLOOD SPECIMEN [facility] Address: [address] [place] [address] Performed By: #### 2 276-4, 87270-1 #### [facility] CLIA [id number] [address] [place] [address] [place] WBC (Bld) [#/Vol] 9.92 10*3/uL Normal 3.70-11.00 [facility] Comment on above: Order Comment: Speci men Type: BLOOD SPECIMEN [facility] Address: [address] [place] [address] Performed By: #### 2 276-4, 98562-4 #### [facility] CLIA [id number] [address] [place] [address] [place] Riya 01-14-2024 ELIZABETHN Telephone (ARELY) WINIFRED WOOD ([id number]) 1945 F Date Time Provider Department 01/14/24 DREW WESTON During your visit today, we recorded the following information about you: Darline Murray LPN 01/14/2024 11:11 AM Signed Spoke to pt, she states Dr Kohler spoke with her yesterday and added Lasix for her, which she started yesterday. Dr Kohler wants pt to contact him . I asked her to call us after she has spoken to him and we can plan to schedule her for lab/aranesp. Pt voices understanding. BAL Strong Kara, LPN 01/17/2024 4:19 PM Signed I called pt, no answer, left VM to please call office regarding BP and injection. Darline Murray LPN Allergies As of Date: 01/14/2024 Noted Allergy Reaction ERYTHROMYCIN 05/29/2016 16 - Unknown PENICILLINS 05/29/2016 16 - Unknown Date Reviewed: 12/27/2023 Reviewed by: Darline Murray LPN - Fully Assessed Reason for Visit: Patient Update [1234] Prescriptions as of 01/17/2024 - HYDROcodone-acetaminop hen (NORCO) 5-325 mg per tablet Take 1 tablet by mouth every 6 hours as needed for pain. - multivitamin (MULTIPLE VITAMINS ORAL) Take 1 tablet by mouth once daily. - acetaminophen (TYLENOL) 325 mg tablet 1 tablet as needed Orally every 4 hrs - ELIQUIS 2.5 mg tab(s) Take 2.5 mg by mouth two times a day. - docusate sodium (DULCOLAX STOOL SOFTENER, DSS,) 100 mg capsule Take 100 mg by mouth once daily. - losartan (COZAAR) 100 mg tablet Take 100 mg by mouth once daily. - aspirin, enteric coated (ECOTRIN LOW STRENGTH) 81 mg EC tablet Take 81 mg by mouth once daily. - ascorbic acid, vitamin C, (VITAMIN C) 500 mg tablet Take 500 mg by mouth once daily. - ferrous sulfate (IRON ORAL) Take 65 mg by mouth. Mon, wed, sat - amLODIPine (NORVASC) 5 mg tablet Take 10 mg by mouth once daily. 10 MG by mouth daily - metoprolol succinate ER (TOPROL XL) 200 mg 24 hr tablet Take 100 mg by mouth once daily. - pioglitazone (ACTOS) 45 mg tablet Take 15 mg by mouth once daily. - atorvastatin (LIPITOR) 20 mg tablet Take 20 mg by mouth once daily. - Quinapril HCl 40 mg tablet Take 40 mg by mouth two times a day. - allopurinol (ZYLOPRIM) 100 mg tablet Take 100 mg by mouth every other day. 0.5 tablet daily Problem List As Of Date 01/14/2024 Noted Resolved Anemia [D64.9] 08/01/2023 Chronic kidney disease, stage 4, severely decre*08/01/2023 Encounter Status:Closed by DARLINE MURRAY on 01/14/24 Normal [facility] CBC W Auto Differential pane l (Bld)on 01-07-2024 Basophils (Bld) [#/Vol] 0.11 10*3/uL High <0.11 [facility] Comment on above: Order Comment: Speci men Type: BLOOD SPECIMEN [facility] Address: [address] [place] [address] Performed By: #### 5 7021-8 #### [facility] CLIA [id number] [address] [place] [address] [place] Basophils/100 WBC (Bld) 1.2 % Normal [facility] Comment on above: Order Comment: Speci men Type: BLOOD SPECIMEN [facility] Address: [address] [place] [address] Performed By: #### 5 7021-8 #### [facility] CLIA [id number] [address] [place] [address] [place] Differential cell count method Nom (Bld) Auto Normal [facility] Comment on above: Order Comment: Speci men Type: BLOOD SPECIMEN [facility] Address: [address] [place] [address] Performed By: #### 5 7021-8 #### [facility] CLIA [id number] [address] [place] [address] [place] Eosinophils (Bld) [#/Vol] 0.38 10*3/uL Normal <0.46 [facility] Comment on above: Order Comment: Speci men Type: BLOOD SPECIMEN [facility] Address: [address] [place] [address] Performed By: #### 5 7021-8 #### [facility] CLIA [id number] [address] [place] [address] [place] Eosinophils/100 WBC (Bld) 4.0 % Normal [facility] Comment on above: Order Comment: Speci men Type: BLOOD SPECIMEN [facility] Address: [address] [place] [address] Performed By: #### 5 7021-8 #### [facility] CLIA [id number] [address] [place] [address] [place] Erythrocyte distribution width (RBC) [Ratio] 13.9 % Normal 11.5-15.0 [facility] Comment on above: Order Comment: Speci men Type: BLOOD SPECIMEN [facility] Address: [address] [place] [address] Performed By: #### 5 7021-8 #### [facility] CLIA [id number] [address] [place] [address] [place] Hematocrit (Bld) [Volume fraction] 29.9 % Low 36.0-46.0 [facility] Comment on above: Order Comment: Speci men Type: BLOOD SPECIMEN [facility] Address: [address] [place] [address] Performed By: #### 5 7021-8 #### [facility] CLIA [id number] [address] [place] [address] [place] Hemoglobin (Bld) [Mass/Vol] 9.7 g/dL Low 11.5-15.5 [facility] Comment on above: Order Comment: Speci men Type: BLOOD SPECIMEN [facility] Address: [address] [place] [address] Performed By: #### 5 7021-8 #### [facility] CLIA [id number] [address] [place] [address] [place] Immature granulocytes (Bld) [#/Vol] 0.04 10*3/uL Normal <0.10 [facility] Comment on above: Order Comment: Speci men Type: BLOOD SPECIMEN [facility] Address: [address] [place] [address] Performed By: #### 5 7021-8 #### [facility] [id number] [address] [place] [address] [place] Immature granulocytes/100 WBC (Bld) 0.4 % Normal [facility] Comment on above: Order Comment: Speci men Type: BLOOD SPECIMEN [facility] Address: [address] [place] [address] Performed By: #### 5 7021-8 #### [facility] [id number] [address] [place] [address] [place] Lymphocytes (Bld) [#/Vol] 0.99 10*3/uL Low 1.00-4.00 [facility] Comment on above: Order Comment: Speci men Type: BLOOD SPECIMEN [facility] Address: [address] [place] [address] Performed By: #### 5 7021-8 #### [facility] [id number] [address] [place] [address] [place] Lymphocytes/100 WBC (Bld) 10.4 % Normal [facility] Comment on above: Order Comment: Speci men Type: BLOOD SPECIMEN [facility] Address: [address] [place] [address] Performed By: #### 5 7021-8 #### [facility] [id number] [address] [place] [address] [place] MCH (RBC) [Entitic mass] 30.5 pg Normal 26.0-34.0 [facility] Comment on above: Order Comment: Speci men Type: BLOOD SPECIMEN [facility] Address: [address] [place] [address] Performed By: #### 5 7021-8 #### [facility] CLIA [id number] [address] [place] [address] [place] MCHC (RBC) [Mass/Vol] 32.4 g/dL Normal 30.5-36.0 [facility] Comment on above: Order Comment: Speci men Type: BLOOD SPECIMEN [facility] Address: [address] [place] [address] Performed By: #### 5 7021-8 #### [facility] CLIA [id number] [address] [place] [address] [place] MCV (RBC) [Entitic vol] 94.0 fL Normal 80.0-100.0 [facility] Comment on above: Order Comment: Speci men Type: BLOOD SPECIMEN [facility] Address: [address] [place] [address] Performed By: #### 5 7021-8 #### [facility] CLIA [id number] [address] [place] [address] [place] Monocytes (Bld) [#/Vol] 0.78 10*3/uL Normal <0.87 [facility] Comment on above: Order Comment: Speci men Type: BLOOD SPECIMEN [facility] Address: [address] [place] [address] Performed By: #### 5 7021-8 #### [facility] CLIA [id number] [address] [place] [address] [place] Monocytes/100 WBC (Bld) 8.2 % Normal [facility] Comment on above: Order Comment: Speci men Type: BLOOD SPECIMEN [facility] Address: [address] [place] [address] Performed By: #### 5 7021-8 #### [facility] CLIA [id number] [address] [place] [address] [place] Neutrophils (Bld) [#/Vol] 7.19 10*3/uL Normal 1.45-7.50 [facility] Comment on above: Order Comment: Speci men Type: BLOOD SPECIMEN [facility] Address: [address] [place] [address] Performed By: #### 5 7021-8 #### [facility] CLIA [id number] [address] [place] [address] [place] Neutrophils/100 WBC (Bld) 75.8 % Normal [facility] Comment on above: Order Comment: Speci men Type: BLOOD SPECIMEN [facility] Address: [address] [place] [address] Performed By: #### 5 7021-8 #### [facility] [id number] [address] [place] [address] [place] Nucleated RBC (Bld) [#/Vol] 10*3/uL Normal <0.01 [facility] Comment on above: Order Comment: Speci men Type: BLOOD SPECIMEN [facility] Address: [address] [place] [address] Performed By: #### 5 7021-8 #### [facility] [id number] [address] [place] [address] [place] Nucleated RBC/100 WBC (Bld) [Ratio] 0.0 /100 WBC Normal [facility] Comment on above: Order Comment: Speci men Type: BLOOD SPECIMEN [facility] Address: [address] [place] [address] Performed By: #### 5 7021-8 #### [facility] [id number] [address] [place] [address] [place] Platelet mean volume (Bld) [Entitic vol] 8.9 fL Low 9.0-12.7 [facility] Comment on above: Order Comment: Speci men Type: BLOOD SPECIMEN [facility] Address: [address] [place] [address] Performed By: #### 5 7021-8 #### [facility] CLIA [id number] [address] [place] [address] [place] Platelets (Bld) [#/Vol] 284 10*3/uL Normal 150-400 [facility] Comment on above: Order Comment: Speci men Type: BLOOD SPECIMEN [facility] Address: [address] [place] [address] Performed By: #### 5 7021-8 #### [facility] CLIA [id number] [address] [place] [address] [place] RBC (Bld) [#/Vol] 3.18 10*6/uL Low 3.90-5.20 [facility] Comment on above: Order Comment: Speci men Type: BLOOD SPECIMEN [facility] Address: [address] [place] [address] Performed By: #### 5 7021-8 #### [facility] CLIA [id number] [address] [place] [address] [place] WBC (Bld) [#/Vol] 9.49 10*3/uL Normal 3.70-11.00 [facility] Comment on above: Order Comment: Speci men Type: BLOOD SPECIMEN [facility] Address: [address] [place] [address] Performed By: #### 5 7021-8 #### [facility] CLIA [id number] [address] [place] [address] [place] Riya 01-07-2024 SABRINA Telephone (HEMSHON) WINIFRED WOOD ([id number]) 1945 F Date Time Provider Department 01/07/24 DREW WESTON During your visit today, we recorded the following information about you: Darline Murray LPN 01/07/2024 4:09 PM Signed Pt was in today for possible aranesp injection however her BP readings were consistently elevated. First reading was 199/86 followed by 181/64 and 176/51. Our parameters have been systolic 150 or less. within the last two weeks she has seen her PCP and her envelope addresser. Dr Weston instructed me to hold injection today. Her Hgb came up to 9.7 without last injection. I faxed a note to her envelope addresser Dr Kohler to ask if he is ok with the new parameter for aranesp. Pt rescheduled for Saturday for possible injection,. BAL Strong Kara, LPN 01/20/2024 4:06 PM Signed Pt states last week Dr Barrow started her on Lasix but he did not give her a BP parameter, however she states she has been checking her BP at home and getting much better readings. She would like to come 01/23/24, labs at 215 and aranesp inj at 245. Her future aranesp injections will need readjusted. BAL Strong Stephanie 01/21/2024 8:26 AM Signed Patient scheduled as directed and balance of schedule adjusted. Lacey Martines Allergies As of Date: 01/07/2024 Noted Allergy Reaction ERYTHROMYCIN 05/29/2016 16 - Unknown PENICILLINS 05/29/2016 16 - Unknown Date Reviewed: 12/27/2023 Reviewed by: Darline Murray LPN - Fully Assessed Prescriptions as of 01/21/2024 - HYDROcodone-acetaminop hen (NORCO) 5-325 mg per tablet Take 1 tablet by mouth every 6 hours as needed for pain. - multivitamin (MULTIPLE VITAMINS ORAL) Take 1 tablet by mouth once daily. - acetaminophen (TYLENOL) 325 mg tablet 1 tablet as needed Orally every 4 hrs - ELIQUIS 2.5 mg tab(s) Take 2.5 mg by mouth two times a day. - docusate sodium (DULCOLAX STOOL SOFTENER, DSS,) 100 mg capsule Take 100 mg by mouth once daily. - losartan (COZAAR) 100 mg tablet Take 100 mg by mouth once daily. - aspirin, enteric coated (ECOTRIN LOW STRENGTH) 81 mg EC tablet Take 81 mg by mouth once daily. - ascorbic acid, vitamin C, (VITAMIN C) 500 mg tablet Take 500 mg by mouth once daily. - ferrous sulfate (IRON ORAL) Take 65 mg by mouth. Mon, wed, fri - amLODIPine (NORVASC) 5 mg tablet Take 10 mg by mouth once daily. 10 MG by mouth daily - metoprolol succinate ER (TOPROL XL) 200 mg 24 hr tablet Take 100 mg by mouth once daily. - pioglitazone (ACTOS) 45 mg tablet Take 15 mg by mouth once daily. - atorvastatin (LIPITOR) 20 mg tablet Take 20 mg by mouth once daily. - Quinapril HCl 40 mg tablet Take 40 mg by mouth two times a day. - allopurinol (ZYLOPRIM) 100 mg tablet Take 100 mg by mouth every other day. 0.5 tablet daily Problem List As Of Date 01/07/2024 Noted Resolved Anemia [D64.9] 08/01/2023 Chronic kidney disease, stage 4, severely decre*08/01/2023 Encounter Status:Closed by LACEY MARTINES on 01/21/24 Normal [facility] Ferritin SerPl-ncon 2023 Ferritin [Mass/Vol] 657.0 ng/mL High 14.7-205.1 [facility] Comment on above: Order Comment: Speci men Type: BLOOD SPECIMENOrdering Facility: [facility] Address: [address] [place] [address] Performed By: #### 2 276-4, 13782-9 ####[facility] LABCLIA [id number] [place] [address] [place] Iron and Iron binding capaci ty panelon 01-07-2024 Iron [Mass/Vol] 57 ug/dL Normal 41-186 [facility] Comment on above: Order Comment: Speci men Type: BLOOD SPECIMENOrdering Facility: [facility] Address: [address] [place] [address] Performed By: #### 2 276-4, 16067-8 ####[facility] LABIA [id number] [place] [address] [place] Iron binding capacity [Mass/Vol] 313 ug/dL Normal 232-386 [facility] Comment on above: Order Comment: Speci men Type: BLOOD SPECIMENOrdering Facility: [facility] Address: [address] [place] [address] Performed By: #### 2 276-4, 27865-7 ####[facility] LABIA [id number] [place] [address] [place] Iron/TIBC [Molar ratio] 18.2 % Normal 15.0-57.0 [facility] Comment on above: Order Comment: Speci men Type: BLOOD SPECIMENOrdering Facility: [facility] Address: [address] [place] [address] Performed By: #### 2 276-4, 86731-3 ####[facility] LABIA [id number] [place] [address] [place] CBC W Auto Differential pane l (Bld)on 12-27-2023 Basophils (Bld) [#/Vol] 0.12 10*3/uL High <0.11 [facility] Comment on above: Order Comment: Speci men Type: BLOOD SPECIMENOrdering Facility: [facility] Address: [address] [place] [address] Performed By: #### 5 7021-8 ####[facility] [id number] [place] [address] [place] Basophils/100 WBC (Bld) 1.5 % Normal [facility] Comment on above: Order Comment: Speci men Type: BLOOD SPECIMENOrdering Facility: [facility] Address: [address] [place] [address] Performed By: #### 5 7021-8 ####[facility] ATYWELANALIA [id number] [place] [address] [place] Differential cell count method Nom (Bld) Auto Normal [facility] Comment on above: Order Comment: Speci men Type: BLOOD SPECIMENOrdering Facility: [facility] Address: [address] [place] [address] Performed By: #### 5 7021-8 ####[facility]ENTERELANAA [id number] [place] [address] [place] Eosinophils (Bld) [#/Vol] 0.34 10*3/uL Normal <0.46 [facility] Comment on above: Order Comment: Speci men Type: BLOOD SPECIMENOrdering Facility: [facility] Address: [address] [place] [address] Performed By: #### 5 7021-8 ####[facility] [id number] [place] [address] [place] Eosinophils/100 WBC (Bld) 4.1 % Normal [facility] Comment on above: Order Comment: Speci men Type: BLOOD SPECIMENOrdering Facility: [facility] Address: [address] [place] [address] Performed By: #### 5 7021-8 ####[facility]ENTERELANAA [id number] [place] [address] [place] Erythrocyte distribution width (RBC) [Ratio] 14.1 % Normal 11.5-15.0 [facility] Comment on above: Order Comment: Speci men Type: BLOOD SPECIMENOrdering Facility: [facility] Address: [address] [place] [address] Performed By: #### 5 7021-8 ####[facility]ENTERNCLIA [id number] [place] [address] [place] Hematocrit (Bld) [Volume fraction] 29.3 % Low 36.0-46.0 [facility] Comment on above: Order Comment: Speci men Type: BLOOD SPECIMENOrdering Facility: [facility] Address: [address] [place] [address] Performed By: #### 5 7021-8 ####[facility] [id number] [place] [address] [place] Hemoglobin (Bld) [Mass/Vol] 9.3 g/dL Low 11.5-15.5 [facility] Comment on above: Order Comment: Speci men Type: BLOOD SPECIMENOrdering Facility: [facility] Address: [address] [place] [address] Performed By: #### 5 7021-8 ####[facility] [id number] [place] [address] [place] Immature granulocytes (Bld) [#/Vol] 0.03 10*3/uL Normal <0.10 [facility] Comment on above: Order Comment: Speci men Type: BLOOD SPECIMENOrdering Facility: [facility] Address: [address] [place] [address] Performed By: #### 5 7021-8 ####[facility]ENTERNCLI [id number] [place] [address] [place] Immature granulocytes/100 WBC (Bld) 0.4 % Normal [facility] Comment on above: Order Comment: Speci men Type: BLOOD SPECIMENOrdering Facility: [facility] Address: [address] [place] [address] Performed By: #### 5 7021-8 ####[facility] [id number] [place] [address] [place] Lymphocytes (Bld) [#/Vol] 0.83 10*3/uL Low 1.00-4.00 [facility] Comment on above: Order Comment: Speci men Type: BLOOD SPECIMENOrdering Facility: [facility] Address: [address] [place] [address] Performed By: #### 5 7021-8 ####[facility] TAYSERGEY [id number] [address] [place] [facility] Lymphocytes/100 WBC (Bld) 10.1 % Normal [facility] Comment on above: Order Comment: Speci men Type: BLOOD SPECIMENOrdering Facility: [facility] Address: [address] [place] [address] Performed By: #### 5 7021-8 ####[facility]ENTERELANAAnneliese [id number] [place] [address] [place] MCH (RBC) [Entitic mass] 29.7 pg Normal 26.0-34.0 [facility] Comment on above: Order Comment: Speci men Type: BLOOD SPECIMENOrdering Facility: [facility] Address: [address] [place] [address] Performed By: #### 5 7021-8 ####[facility] [id number] [place] [address] [place] MCHC (RBC) [Mass/Vol] 31.7 g/dL Normal 30.5-36.0 [facility] Comment on above: Order Comment: Speci men Type: BLOOD SPECIMENOrdering Facility: [facility] Address: [address] [place] [address] Performed By: #### 5 7021-8 ####[facility] TAYBODEGANCLIA [id number] [place] [address] [place] MCV (RBC) [Entitic vol] 93.6 fL Normal 80.0-100.0 [facility] Comment on above: Order Comment: Speci men Type: BLOOD SPECIMENOrdering Facility: [facility] Address: [address] [place] [address] Performed By: #### 5 7021-8 ####[facility] [id number] [place] [address] [place] Monocytes (Bld) [#/Vol] 0.62 10*3/uL Normal <0.87 [facility] Comment on above: Order Comment: Speci men Type: BLOOD SPECIMENOrdering Facility: [facility] Address: [address] [place] [address] Performed By: #### 5 7021-8 ####[facility] CENTERELANALIA [id number] [place] [address] [place] Monocytes/100 WBC (Bld) 7.5 % Normal [facility] Comment on above: Order Comment: Speci men Type: BLOOD SPECIMENOrdering Facility: [facility] Address: [address] [place] [address] Performed By: #### 5 7021-8 ####[facility]IT[facility] [id number] [place] [address] [place] Neutrophils (Bld) [#/Vol] 6.29 10*3/uL Normal 1.45-7.50 [facility] Comment on above: Order Comment: Speci men Type: BLOOD SPECIMENOrdering Facility: [facility] Address: [address] [place] [address] Performed By: #### 5 7021-8 ####[facility] [id number] [place] [address] [place] Neutrophils/100 WBC (Bld) 76.4 % Normal [facility] Comment on above: Order Comment: Speci men Type: BLOOD SPECIMENOrdering Facility: [facility] Address: [address] [place] [address] Performed By: #### 5 7021-8 ####[facility]ENTERNCLIA [id number] [place] [address] [place] Nucleated RBC (Bld) [#/Vol] 10*3/uL Normal <0.01 [facility] Comment on above: Order Comment: Speci men Type: BLOOD SPECIMENOrdering Facility: [facility] Address: [address] [place] [address] Performed By: #### 5 7021-8 ####[facility]NC[facility] [id number] [place] [address] [place] Nucleated RBC/100 WBC (Bld) [Ratio] 0.0 /100 WBC Normal [facility] Comment on above: Order Comment: Speci men Type: BLOOD SPECIMENOrdering Facility: [facility] Address: [address] [place] [address] Performed By: #### 5 7021-8 ####[facility]NC[facility] [id number] [place] [address] [place] Platelet mean volume (Bld) [Entitic vol] 9.1 fL Normal 9.0-12.7 [facility] Comment on above: Order Comment: Speci men Type: BLOOD SPECIMENOrdering Facility: [facility] Address: [address] [place] [address] Performed By: #### 5 7021-8 ####[facility]ENTERNCLIA [id number] [place] [address] [place] Platelets (Bld) [#/Vol] 271 10*3/uL Normal 150-400 [facility] Comment on above: Order Comment: Speci men Type: BLOOD SPECIMENOrdering Facility: [facility] Address: [address] [place] [address] Performed By: #### 5 7021-8 ####[facility] H[facility]ITALA [id number] [place] [address] [place] RBC (Bld) [#/Vol] 3.13 10*6/uL Low 3.90-5.20 [facility] Comment on above: Order Comment: Speci men Type: BLOOD SPECIMENOrdering Facility: [facility] Address: [address] [place] [address] Performed By: #### 5 7021-8 ####[facility] [id number] [place] [address] [place] WBC (Bld) [#/Vol] 8.23 10*3/uL Normal 3.70-11.00 [facility] Comment on above: Order Comment: Speci men Type: BLOOD SPECIMENOrdering Facility: [facility] Address: [address] [place] [address] Performed By: #### 5 7021-8 ####[facility] CENTERNCA [id number] [place] [address] [place] CBC W Auto Differential pane l (Bld)on 11-28-2023 Basophils (Bld) [#/Vol] 0.13 10*3/uL High <0.11 [facility] Comment on above: Order Comment: Speci men Type: BLOOD SPECIMEN [facility] Address: [address] [place] [address] Performed By: #### 2 276-4, 77067-0 #### [facility] CLIA [id number] [address] [place] [address] [place] Basophils/100 WBC (Bld) 1.5 % Normal [facility] Comment on above: Order Comment: Speci men Type: BLOOD SPECIMEN [facility] Address: [address] [place] [address] Performed By: #### 2 276-4, 39477-5 #### [facility] CLIA [id number] [address] [place] [address] [place] Differential cell count method Nom (Bld) Auto Normal [facility] Comment on above: Order Comment: Speci men Type: BLOOD SPECIMEN [facility] Address: [address] [place] [address] Performed By: #### 2 276-4, 47817-4 #### [facility] CLIA [id number] [address] [place] [address] [place] Eosinophils (Bld) [#/Vol] 0.41 10*3/uL Normal <0.46 [facility] Comment on above: Order Comment: Speci men Type: BLOOD SPECIMEN [facility] Address: [address] [place] [address] Performed By: #### 2 276-4, 48781-5 #### [facility] CLIA [id number] [address] [place] [address] [place] Eosinophils/100 WBC (Bld) 4.6 % Normal [facility] Comment on above: Order Comment: Speci men Type: BLOOD SPECIMEN [facility] Address: [address] [place] [address] Performed By: #### 2 276-4, 86140-0 #### [facility] CLIA [id number] [address] [place] [address] [place] Erythrocyte distribution width (RBC) [Ratio] 13.4 % Normal 11.5-15.0 [facility] Comment on above: Order Comment: Speci men Type: BLOOD SPECIMEN [facility] Address: [address] [place] [address] Performed By: #### 2 276-4, 77189-6 #### [facility] CLIA [id number] [address] [place] [address] [place] Hematocrit (Bld) [Volume fraction] 31.8 % Low 36.0-46.0 [facility] Comment on above: Order Comment: Speci men Type: BLOOD SPECIMEN [facility] Address: [address] [place] [address] Performed By: #### 2 276-4, 41433-3 #### [facility] CLIA [id number] [address] [place], [place] [address] [place] Hemoglobin (Bld) [Mass/Vol] 10.3 g/dL Low 11.5-15.5 [facility] Comment on above: Order Comment: Speci men Type: BLOOD SPECIMEN [facility] Address: [address] [place] [address] Performed By: #### 2 276-4, 97307-2 #### [facility] CLIA [id number] [address] [place] [address] [place] Immature granulocytes (Bld) [#/Vol] 0.04 10*3/uL Normal <0.10 [facility] Comment on above: Order Comment: Speci men Type: BLOOD SPECIMEN [facility] Address: [address] [place] [address] Performed By: #### 2 276-4, 79706-3 #### [facility] CLIA [id number] [address] [place] [address] [place] Immature granulocytes/100 WBC (Bld) 0.5 % Normal [facility] Comment on above: Order Comment: Speci men Type: BLOOD SPECIMEN [facility] Address: [address] [place] [address] Performed By: #### 2 276-4, 65308-0 #### [facility] CLIA [id number] [address] [place] [address] [place] Lymphocytes (Bld) [#/Vol] 0.99 10*3/uL Low 1.00-4.00 [facility] Comment on above: Order Comment: Speci men Type: BLOOD SPECIMEN [facility] Address: [address] [place] [address] Performed By: #### 2 276-4, 23176-2 #### [facility] CLIA [id number] [address] [place] [address] [place] Lymphocytes/100 WBC (Bld) 11.2 % Normal [facility] Comment on above: Order Comment: Speci men Type: BLOOD SPECIMEN [facility] Address: [address] [place] [address] Performed By: #### 2 276-4, 44255-9 #### [facility] CLIA [id number] [address] [place] [address] [place] MCH (RBC) [Entitic mass] 30.2 pg Normal 26.0-34.0 [facility] Comment on above: Order Comment: Speci men Type: BLOOD SPECIMEN [facility] Address: [address] [place] [address] Performed By: #### 2 276-4, 27776-1 #### [facility] CLIA [id number] [address] [place] [address] [place] MCHC (RBC) [Mass/Vol] 32.4 g/dL Normal 30.5-36.0 [facility] Comment on above: Order Comment: Speci men Type: BLOOD SPECIMEN [facility] Address: [address] [place] [address] Performed By: #### 2 276-4, 31010-4 #### [facility] CLIA [id number] [address] [place] [address] [place] MCV (RBC) [Entitic vol] 93.3 fL Normal 80.0-100.0 [facility] Comment on above: Order Comment: Speci men Type: BLOOD SPECIMEN [facility] Address: [address] [place] [address] Performed By: #### 2 276-4, 93146-1 #### [facility] CLIA [id number] [address] [place] [address] [place] Monocytes (Bld) [#/Vol] 0.80 10*3/uL Normal <0.87 [facility] Comment on above: Order Comment: Speci men Type: BLOOD SPECIMEN [facility] Address: [address] [place] [address] Performed By: #### 2 276-4, 27918-6 #### [facility] CLIA [id number] [address] [place] [address] [place] Monocytes/100 WBC (Bld) 9.1 % Normal [facility] Comment on above: Order Comment: Speci men Type: BLOOD SPECIMEN [facility] Address: [address] [place] [address] Performed By: #### 2 276-4, 43496-2 #### [facility] CLIA [id number] [address] [place] [address] [place] Neutrophils (Bld) [#/Vol] 6.46 10*3/uL Normal 1.45-7.50 [facility] Comment on above: Order Comment: Speci men Type: BLOOD SPECIMEN [facility] Address: [address] [place] [address] Performed By: #### 2 276-4, 01681-0 #### [facility] CLIA [id number] [address] [place] [address] [place] Neutrophils/100 WBC (Bld) 73.1 % Normal [facility] Comment on above: Order Comment: Speci men Type: BLOOD SPECIMEN [facility] Address: [address] [place] [address] Performed By: #### 2 276-4, 52287-1 #### [facility] CLIA [id number] [address] [place] [address] [place] Nucleated RBC (Bld) [#/Vol] 10*3/uL Normal <0.01 [facility] Comment on above: Order Comment: Speci men Type: BLOOD SPECIMEN [facility] Address: [address] [place] [address] Performed By: #### 2 276-4, 10771-6 #### [facility] CLIA [id number] [address] [place] [address] [place] Nucleated RBC/100 WBC (Bld) [Ratio] 0.0 /100 WBC Normal [facility] Comment on above: Order Comment: Speci men Type: BLOOD SPECIMEN [facility] Address: [address] [place] [address] Performed By: #### 2 276-4, 56642-2 #### [facility] CLIA [id number] [address] [place] [address] [place] Platelet mean volume (Bld) [Entitic vol] 9.1 fL Normal 9.0-12.7 [facility] Comment on above: Order Comment: Speci men Type: BLOOD SPECIMEN [facility] Address: [address] [place] [address] Performed By: #### 2 276-4, 07623-3 #### [facility] CLIA [id number] [address] [place] [address] [place] Platelets (Bld) [#/Vol] 280 10*3/uL Normal 150-400 [facility] Comment on above: Order Comment: Speci men Type: BLOOD SPECIMEN [facility] Address: [address] [place] [address] Performed By: #### 2 276-4, 18339-5 #### [facility] CLIA [id number] [address] [place] [address] [place] RBC (Bld) [#/Vol] 3.41 10*6/uL Low 3.90-5.20 [facility] Comment on above: Order Comment: Speci men Type: BLOOD SPECIMEN [facility] Address: [address] [place] [address] Performed By: #### 2 276-4, 25400-4 #### [facility] CLIA [id number] [address] [place] [address] [place] WBC (Bld) [#/Vol] 8.83 10*3/uL Normal 3.70-11.00 [facility] Comment on above: Order Comment: Speci men Type: BLOOD SPECIMEN [facility] Address: [address] [place] [address] Performed By: #### 2 276-4, 50478-3 #### [facility] CLIA [id number] [address] [place] [address] [place] [address] [place] CNOVSPon 11-28-2023 CNOVSP Visit (SP) Office (HEMAWS) WINIFRED WOOD ([id number]) 1945 F Date Time Provider Department 11/28/23 11:20 AM DREW WESTON During your visit today, we recorded the following information about you: Temperature Pulse Blood pressure Weight 97.7 degrees 54/minute 178/69 86 kg Ramila Gomez LPN 11/28/2023 10:23 AM Signed Est. Pt, 1 month F/U ,discuss recent labs , poss injection today BAL Alamo Drew, MD 11/28/2023 3:50 PM Signed HISTORY OF PRESENT ILLNESS: Winifred Wood is a 78 year old femalewith a PHMx of CKD, Stage 3, no dialysis as of yet but has been told by her envelope addresser that it is likely coming soon, HTN, T2DM, osteoarthritis, hyperlipidemia, and anemia. She was referred to hematology by her envelope addresser for further management of her anemia. BP elevated in the office has been running good at home 120s/60s, SPEP drawn by envelope addresser without m spike. No SOB, CP. Denies [...] receive weekly doses x4. IV iron at [facility], no current record for this. Last T [...] possible aranesp injection. She reports feeling well. Ust return from a 12 day cruise. No recent illnesses, fevers, chills or NS. She has completed PT, now feeling much better. No longer using rollator to get around, has switched to cane last month and is feeling stronger and more confident. Knee pain and sciatic pain resolved completely. BP high again today, took her BP meds this morning. She states 125 - 130/70s at home always higher when she is at doctors offices. Discussed parameters for darbo. Denies JIMENEZ, dizziness, SOB, CP or changes in vision. No N/V/C/D. No bleeding or bruising. No edema. CLINICAL IMPRESSION: Anemia as above, better after 2 doses aranesp RECOMMENDATION/PLAN: 1. Recheck cbc 1 month, no aranesp today Written and verbal health teaching given to patient, patient verbalizes understanding and agrees with treatment plan. PAST MEDICAL HISTORY Diagnosis Date Anemia Arthritis [...] PAST SURGICAL HISTORY OF Gallbladder TONSILLECTOMY HX FAMILY HISTORY Problem Relation Age of Onset Breast Cancer Maternal Aunt Allergies Sister Social History Tobacco Use Smoking status: Never Smokeless tobacco: Never Vaping Use Vaping Use: Never used Substance Use Topics Alcohol use: Not Currently Comment: twice a year or less Drug use: Never ALLERGIES: ALLERGIES Allergen Reactions Erythromycin Unknown Penicillins Unknown CURRENT OUTPATIENT MEDICATIONS: multivitamin (MULTIPLE VITAMINS ORAL) Take 1 tablet [...] fri amLODIPine (NORVASC) 5 mg tablet Take 10 mg by mouth once daily. 10 MG by mouth daily metoprolol succinate ER (TOPROL XL) 200 mg 24 hr tablet Take 100 mg by mouth once daily. pioglitazone (ACTOS) 45 mg tablet Take 15 mg by mouth once daily. atorvastatin (LIPITOR) (more content not included)... Normal [facility] CBC W Auto Differential pane l (Bld)on 10-31-2023 Basophils (Bld) [#/Vol] 0.14 10*3/uL High <0.11 [facility] Comment on above: Order Comment: Speci men Type: BLOOD SPECIMEN [facility] Address: [address] [place] [address] Performed By: #### 5 7021-8 #### [facility] CLIA [id number] [address] [place] [address] [place] Basophils/100 WBC (Bld) 1.3 % Normal [facility] Comment on above: Order Comment: Speci men Type: BLOOD SPECIMEN Ordering Facility: [facility] Address: [address] [place] [address] Performed By: #### 5 7021-8 #### [facility] CLIA [id number] [address] [place] [address] [place] Differential cell count method Nom (Bld) Auto Normal [facility] Comment on above: Order Comment: Speci men Type: BLOOD SPECIMEN Ordering Facility: [facility] Address: [address] [place] [address] Performed By: #### 5 7021-8 #### [facility] CLIA [id number] [address] [place] [address] [place] Eosinophils (Bld) [#/Vol] 0.36 10*3/uL Normal <0.46 [facility] Comment on above: Order Comment: Speci men Type: BLOOD SPECIMEN Ordering Facility: [facility] Address: [address] [place] [address] Performed By: #### 5 7021-8 #### [facility] CLIA [id number] [address] [place] [address] [place] Eosinophils/100 WBC (Bld) 3.5 % Normal [facility] Comment on above: Order Comment: Speci men Type: BLOOD SPECIMEN Ordering Facility: [facility] Address: [address] [place] [address] Performed By: #### 5 7021-8 #### [facility] CLIA [id number] [address] [place] [address] [place] Erythrocyte distribution width (RBC) [Ratio] 13.8 % Normal 11.5-15.0 [facility] Comment on above: Order Comment: Speci men Type: BLOOD SPECIMEN Ordering Facility: [facility] Address: [address] [place] [address] Performed By: #### 5 7021-8 #### [facility] CLIA [id number] [address] [place] [address] [place] Hematocrit (Bld) [Volume fraction] 33.9 % Low 36.0-46.0 [facility] Comment on above: Order Comment: Speci men Type: BLOOD SPECIMEN Ordering Facility: [facility] Address: [address] [place] [address] Performed By: #### 5 7021-8 #### [facility] CLIA [id number] [address] [place] [address] [place] Hemoglobin (Bld) [Mass/Vol] 10.7 g/dL Low 11.5-15.5 [facility] Comment on above: Order Comment: Speci men Type: BLOOD SPECIMEN Ordering Facility: [facility] Address: [address] [place] [address] Performed By: #### 5 7021-8 #### [facility] CLIA [id number] [address] [place] [address] [place] Immature granulocytes (Bld) [#/Vol] 0.06 10*3/uL Normal <0.10 [facility] [place] Comment on above: Order Comment: Speci men Type: BLOOD SPECIMEN Ordering Facility: [facility] Address: [address] [place] [address] Performed By: #### 5 7021-8 #### [facility] CLIA [id number] [address] [place] [address] [place] Immature granulocytes/100 WBC (Bld) 0.6 % Normal [facility] Comment on above: Order Comment: Speci men Type: BLOOD SPECIMEN Ordering Facility: [facility] Address: [address] [place] [address] Performed By: #### 5 7021-8 #### [facility] CLIA [id number] [address] [place] [address] [place] Lymphocytes (Bld) [#/Vol] 0.91 10*3/uL Low 1.00-4.00 [facility] Comment on above: Order Comment: Speci men Type: BLOOD SPECIMEN Ordering Facility: [facility] Address: [address] [place] [address] Performed By: #### 5 7021-8 #### [facility] CLIA [id number] [address] [place] [address] [place] Lymphocytes/100 WBC (Bld) 8.7 % Normal [facility] [place] Comment on above: Order Comment: Speci men Type: BLOOD SPECIMEN Ordering Facility: [facility] Address: [address] [place] [address] Performed By: #### 5 7021-8 #### [id number] [address] [place] [address] [place] MCH (RBC) [Entitic mass] 29.6 pg Normal 26.0-34.0 [facility] Comment on above: Order Comment: Speci men Type: BLOOD SPECIMEN Ordering Facility: [facility] Address: [address] [place] [address] Performed By: #### 5 7021-8 #### [facility] [id number] [address] [place] [address] [place] MCHC (RBC) [Mass/Vol] 31.6 g/dL Normal 30.5-36.0 [facility] Comment on above: Order Comment: Speci men Type: BLOOD SPECIMEN Ordering Facility: [facility] Address: [address] [place] [address] Performed By: #### 5 7021-8 #### [facility] [id number] [address] [place] [address] [place] MCV (RBC) [Entitic vol] 93.6 fL Normal 80.0-100.0 [facility] Comment on above: Order Comment: Speci men Type: BLOOD SPECIMEN Ordering Facility: [facility] Address: [address] [id number] Performed By: #### 5 7021-8 #### [facility] CLIA [id number] [address] [place] [address] [place] Monocytes (Bld) [#/Vol] 0.80 10*3/uL Normal <0.87 [facility] Comment on above: Order Comment: Speci men Type: BLOOD SPECIMEN Ordering Facility: [facility] Address: [address] [place] [address] Performed By: #### 5 7021-8 #### [facility] CLIA [id number] [address] [place] [address] [place] Monocytes/100 WBC (Bld) 7.7 % Normal [facility] Comment on above: Order Comment: Speci men Type: BLOOD SPECIMEN Ordering Facility: [facility] Address: [address] [place] [address] Performed By: #### 5 7021-8 #### [facility] CLIA [id number] [address] [place] [address] [place] Neutrophils (Bld) [#/Vol] 8.14 10*3/uL High 1.45-7.50 [facility] Comment on above: Order Comment: Speci men Type: BLOOD SPECIMEN Ordering Facility: [facility] Address: [address] [place] [address] Performed By: #### 5 7021-8 #### [facility] CLIA [id number] [address] [place] [address] [place] Neutrophils/100 WBC (Bld) 78.2 % Normal [facility] Comment on above: Order Comment: Speci men Type: BLOOD SPECIMEN Ordering Facility: [facility] Address: [address] [place] [address] Performed By: #### 5 7021-8 #### [facility] CLIA [id number] [address] [place] [address] [place] Nucleated RBC (Bld) [#/Vol] 10*3/uL Normal <0.01 [facility] Comment on above: Order Comment: Speci men Type: BLOOD SPECIMEN Ordering Facility: [facility] Address: [address] [place] [address] Performed By: #### 5 7021-8 #### [facility] CLIA [id number] [address] [place] [address] [place] Nucleated RBC/100 WBC (Bld) [Ratio] 0.0 /100 WBC Normal [facility] Comment on above: Order Comment: Speci men Type: BLOOD SPECIMEN Ordering Facility: [facility] Address: [address] [place] [address] Performed By: #### 5 7021-8 #### [facility] CLIA [id number] [address] [place] [address] [place] Platelet mean volume (Bld) [Entitic vol] 9.4 fL Normal 9.0-12.7 [facility] Comment on above: Order Comment: Speci men Type: BLOOD SPECIMEN Ordering Facility: [facility] Address: [address] [place] [address] Performed By: #### 5 7021-8 #### [facility] CLIA [id number] [address] [place] [address] [place] Platelets (Bld) [#/Vol] 278 10*3/uL Normal 150-400 [facility] Comment on above: Order Comment: Speci men Type: BLOOD SPECIMEN Ordering Facility: [facility] Address: [address] [place] [address] Performed By: #### 5 7021-8 #### [facility] CLIA [id number] [address] [place] [address] [place] RBC (Bld) [#/Vol] 3.62 10*6/uL Low 3.90-5.20 [facility] Comment on above: Order Comment: Speci men Type: BLOOD SPECIMEN Ordering Facility: [facility] Address: [address] [place] [address] Performed By: #### 5 7021-8 #### [facility] CLIA [id number] [address] [place] [address] [place] WBC (Bld) [#/Vol] 10.41 10*3/uL Normal 3.70-11.00 [facility] Comment on above: Order Comment: Speci men Type: BLOOD SPECIMEN Ordering Facility: [facility] Address: [address] [place] [address] Performed By: #### 5 7021-8 #### [facility] CLIA [id number] [address] [place] [address] [place] CBC W Auto Differential pane l (Bld)on 10-02-2023 Basophils (Bld) [#/Vol] 0.11 10*3/uL High <0.11 [facility] Comment on above: Order Comment: Speci men Type: BLOOD SPECIMEN Ordering Facility: [facility] Address: [address] [place] [address] Performed By: #### 2 276-4, 49289-9 #### [facility] CLIA [id number] [address] [place] [address] [place] Basophils/100 WBC (Bld) 1.5 % Normal [facility] Comment on above: Order Comment: Speci men Type: BLOOD SPECIMEN Ordering Facility: [facility] Address: [address] [place] [address] Performed By: #### 2 276-4, 57694-4 #### [facility] CLIA [id number] [address] [place] [address] [place] Differential cell count method Nom (Bld) Auto Normal [facility] Comment on above: Order Comment: Speci men Type: BLOOD SPECIMEN Ordering Facility: [facility] Address: [address] [place] [address] Performed By: #### 2 276-4, 83876-1 #### [facility] CLIA [id number] [address] [place] [address] [place] Eosinophils (Bld) [#/Vol] 0.25 10*3/uL Normal <0.46 [facility] Comment on above: Order Comment: Speci men Type: BLOOD SPECIMEN Ordering Facility: [facility] Address: [address] [place] [address] Performed By: #### 2 276-4, 38967-9 #### [facility] CLIA [id number] [address] [place] [address] [place] Eosinophils/100 WBC (Bld) 3.5 % Normal [facility] Comment on above: Order Comment: Speci men Type: BLOOD SPECIMEN Ordering Facility: [facility] Address: [address] [place] [address] Performed By: #### 2 276-4, 04408-4 #### [facility] CLIA [id number] [address] [place] [address] [place] Erythrocyte distribution width (RBC) [Ratio] 14.9 % Normal 11.5-15.0 [facility] Comment on above: Order Comment: Speci men Type: BLOOD SPECIMEN Ordering Facility: [facility] Address: [address] [place] [address] Performed By: #### 2 276-4, 77410-1 #### [facility] CLIA [id number] [address] [place] [address] [place] Hematocrit (Bld) [Volume fraction] 33.7 % Low 36.0-46.0 [facility] Comment on above: Order Comment: Speci men Type: BLOOD SPECIMEN Ordering Facility: [facility] Address: [address] [place] [address] Performed By: #### 2 276-4, 22816-1 #### [facility] CLIA [id number] [address] [place] [address] [place] Hemoglobin (Bld) [Mass/Vol] 10.5 g/dL Low 11.5-15.5 [facility] Comment on above: Order Comment: Speci men Type: BLOOD SPECIMEN Ordering Facility: [facility] Address: [address] [place] [address] Performed By: #### 2 276-4, 33470-7 #### [facility] CLIA [id number] [address] [place] [address] [place] Immature granulocytes (Bld) [#/Vol] 10*3/uL Normal <0.10 [facility] Comment on above: Order Comment: Speci men Type: BLOOD SPECIMEN Ordering [facility]: [facility] Address: [address] [place] [address] Performed By: #### 2 276-4, 65679-6 #### [facility] CLIA [id number] [address] [place] [address] [place] Immature granulocytes/100 WBC (Bld) 0.1 % Normal [facility] Comment on above: Order Comment: Speci men Type: BLOOD SPECIMEN Ordering Facility: [facility] Address: [address] [place] [address] Performed By: #### 2 276-4, 81245-2 #### [facility] CLIA [id number] [address] [place] [address] [place] Lymphocytes (Bld) [#/Vol] 0.71 10*3/uL Low 1.00-4.00 [facility] Comment on above: Order Comment: Speci men Type: BLOOD SPECIMEN Ordering Facility: [facility] Address: [address] [place] [address] Performed By: #### 2 276-4, 13521-2 #### [facility] CLIA [id number] [address] [place] [address] [place] Lymphocytes/100 WBC (Bld) 9.9 % Normal [facility] Comment on above: Order Comment: Speci men Type: BLOOD SPECIMEN Ordering Facility: [facility] Address: [address] [place] [address] Performed By: #### 2 276-4, 17168-1 #### [facility] CLIA [id number] [address] [place] [address] [place] MCH (RBC) [Entitic mass] 29.8 pg Normal 26.0-34.0 [facility] Comment on above: Order Comment: Speci men Type: BLOOD SPECIMEN Ordering [facility]: [facility] Address: [address] [place] [address] Performed By: #### 2 276-4, 57998-4 #### [facility] CLIA [id number] [address] [place] [address] [place] MCHC (RBC) [Mass/Vol] 31.2 g/dL Normal 30.5-36.0 [facility] Comment on above: Order Comment: Speci men Type: BLOOD SPECIMEN Ordering [facility] Address: [address] [place] [address] Performed By: #### 2 276-4, 91445-3 #### [facility] CLIA [id number] [address] [place] [address] [place] MCV (RBC) [Entitic vol] 95.7 fL Normal 80.0-100.0 [facility] Comment on above: Order Comment: Speci men Type: BLOOD SPECIMEN Ordering Facility: [facility] Address: [address] [place] [address] Performed By: #### 2 276-4, 01474-6 #### [facility] CLIA [id number] [address] [place] [address] [place] Monocytes (Bld) [#/Vol] 0.54 10*3/uL Normal <0.87 [facility] Comment on above: Order Comment: Speci men Type: BLOOD SPECIMEN Ordering [facility]: [facility] Address: [address] [place] [address] Performed By: #### 2 276-4, 21874-7 #### [facility] CLIA [id number] [address] [place] [address] [place] Monocytes/100 WBC (Bld) 7.6 % Normal [facility] Comment on above: Order Comment: Speci men Type: BLOOD SPECIMEN Ordering Facility: [facility] Address: [address] [place] [address] Performed By: #### 2 276-4, 95417-5 #### [facility] CLIA [id number] [address] [place] [address] [place] Neutrophils (Bld) [#/Vol] 5.52 10*3/uL Normal 1.45-7.50 [facility] Comment on above: Order Comment: Speci men Type: BLOOD SPECIMEN Ordering Facility: [facility] Address: [address] [place] [address] Performed By: #### 2 276-4, 82745-8 #### [facility] CLIA [id number] [address] [place] [address] [place] Neutrophils/100 WBC (Bld) 77.4 % Normal [facility] Comment on above: Order Comment: Speci men Type: BLOOD SPECIMEN Ordering Facility: [facility] Address: [address] [place] [address] Performed By: #### 2 276-4, 42631-5 #### [facility] CLIA [id number] [address] [place] [address] [place] Nucleated RBC (Bld) [#/Vol] 10*3/uL Normal <0.01 [facility] Comment on above: Order Comment: Speci men Type: BLOOD SPECIMEN Ordering Facility: [facility] Address: [address] [place] [address] Performed By: #### 2 276-4, 41558-5 #### [facility] CLIA [id number] [address] [place], [place] [address] [place] Nucleated RBC/100 WBC (Bld) [Ratio] 0.0 /100 WBC Normal [facility] Comment on above: Order Comment: Speci men Type: BLOOD SPECIMEN Ordering Facility: [facility] Address: [address] [place] [address] Performed By: #### 2 276-4, 09739-2 #### [facility] CLIA [id number] [address] [place] [address] [place] Platelet mean volume (Bld) [Entitic vol] 9.1 fL Normal 9.0-12.7 [facility] Comment on above: Order Comment: Speci men Type: BLOOD SPECIMEN Ordering Facility: [facility] Address: [address] [place] [address] Performed By: #### 2 276-4, 61318-8 #### [facility] CLIA [id number] [address] [place] [address] [place] Platelets (Bld) [#/Vol] 295 10*3/uL Normal 150-400 [facility] Comment on above: Order Comment: Speci men Type: BLOOD SPECIMEN [facility]ing [facility] Address: [address] [place] [address] Performed By: #### 2 276-4, 19423-0 #### [facility] CLIA [id number] [address] [place] [address] [place] RBC (Bld) [#/Vol] 3.52 10*6/uL Low 3.90-5.20 [facility] Comment on above: Order Comment: Speci men Type: BLOOD SPECIMEN [facility] Address: [address] [place] [address] Performed By: #### 2 276-4, 92032-6 #### [facility] CLIA [id number] [address] [place] [address] [place] WBC (Bld) [#/Vol] 7.14 10*3/uL Normal 3.70-11.00 [facility] Comment on above: Order Comment: Speci men Type: BLOOD SPECIMEN [facility] Address: [address] [place] [address] Performed By: #### 2 276-4, 60705-8 #### [facility] CLIA [id number] [address] [place] [address] [place] CNOVSPon 10-02-2023 CNOVSP Visit (SP) Office (HEMAWS) WINIFRED WOOD ([id number]) 1945 F Date Time Provider Department 10/02/23 1:30 PM [facility] During your visit today, we recorded the following information about you: Temperature Pulse Blood pressure Weight 98.6 degrees 57/minute 186/64 87.8 kg Weston Vaughn 10/02/2023 2:13 PM Signed Hematology Progress Note Winifred K Ricardo 1945 Encounter date: 10/02/2023 HPI: Winifred Wood is a 78 year old female with a PHMx of CKD, Stage 3, no dialysis as of yet but has been told by her envelope addresser that it is likely coming soon, HTN, T2DM, osteoarthritis, hyperlipidemia, and anemia. She was referred to hematology by her envelope addresser for further management of her anemia. BP elevated in the office has been running good at home 120s/60s, SPEP drawn by envelope addresser without m spike. No SOB, CP. Denies [...] receive weekly doses x4. IV iron at [facility] [facility], no current record for this. Last T [...] possible aranesp injection. She reports feeling well. Ust return from a 12 day cruise. No recent illnesses, fevers, chills or NS. She has completed PT, now feeling much better. No longer using rollator to get around, has switched to cane last month and is feeling stronger and more confident. Knee pain and sciatic pain resolved completely. BP high again today, took her BP meds this morning. She states 125 - 130/70s at home always higher when she is at doctors offices. Discussed parameters for darbo. Denies JIMENEZ, dizziness, SOB, CP or changes in vision. No N/V/C/D. No bleeding or bruising. No edema. Has started driving again now that she is feeling better. PAST MEDICAL HISTORY Diagnosis Date Anemia Arthritis [...] fri amLODIPine (NORVASC) 5 mg tablet Take 10 mg by mouth once daily. 10 MG by mouth daily metoprolol succinate ER (TOPROL XL) 200 mg 24 hr tablet Take 100 mg by mouth once daily. pioglitazone (ACTOS) 45 mg tablet Take 15 mg by mouth once daily. atorvastatin (LIPITOR) 20 mg tablet Take 20 mg by mouth once daily. allopurinol (ZYLOPRIM) 100 mg tablet Take 100 mg by mouth once daily. 0.5 tablet daily HYDROcodone-acetaminop hen (NORCO) 5-325 mg per tablet Take 1 tablet by mouth every 6 hours as needed for pain. (Patient not taking: Reported on 10/02/2023) Quinapril HCl 40 mg tablet Take 40 mg by mouth two times a day. (Patient not taking: Reported on 10/02/2023) No current facility-administered medications for this visit. ALLERGIES Allergen Reactions Erythromycin Unknown Penicillins Unknown FAMILY HISTORY Problem Relation Age of Onset Breast Cancer Maternal Aunt Allergies Sister Socia (more content not included)... Normal [facility] Ferritin SerPl-mCncon 2023 Ferritin [Mass/Vol] 539.0 ng/mL High 14.7-205.1 [facility] Comment on above: Order Comment: Speci men Type: BLOOD SPECIMENOrdering Facility: [facility] Address: [address] [place] [address] Performed By: #### 2 276-4, 01581-6 ####[facility] LABCLIA [id number] [place] [address] [place] Iron and Iron binding capaci ty panelon 10-02-2023 Iron [Mass/Vol] 57 ug/dL Normal 41-186 [facility] Comment on above: Order Comment: Speci men Type: BLOOD SPECIMENOrdering Facility: [facility] Address: [address] [place] [address] Performed By: #### 2 276-4, 59113-5 ####[facility] LABIA [id number] [address] STATES OF [facility] Iron binding capacity [Mass/Vol] 298 ug/dL Normal 232-386 [facility] Comment on above: Order Comment: Speci men Type: BLOOD SPECIMENOrdering Facility: [facility] Address: [address] [place] [address] Performed By: #### 2 276-4, 13039-5 ####[facility] LABIA [id number] [address] [place] Iron/TIBC [Molar ratio] 19.1 % Normal 15.0-57.0 [facility] Comment on above: Order Comment: Speci men Type: BLOOD SPECIMENOrdering Facility: [facility] Address: [address] [place] [address] Performed By: #### 2 276-4, 67593-8 ####[facility] LABIA [id number] [address] [place] CNPLatrice 09-27-2023 CNPN Telephone (HEMAWS) WINIFRED WOOD ([id number]) 1945 F Date Time Provider Department 09/27/23 WESTON VAUGHN During your visit today, we recorded the following information about you: Sudha Pattie, Irina 09/27/2023 1:40 PM Signed Please advise of next office visit for patient Weston Vaughn 09/27/2023 2:35 PM Signed Pt will need to follow up with Nephrology as they have been managing her iron. Her iron and tsat has not improved enough for aranesp to really be effective per the manufactures recommendations. OV 1 to 2 days prior to next possible injection with repeat CBC, iron studies. Ramila Gomez LPN 09/27/2023 3:38 PM Signed Left message on identified voicemail ,Pt will need to follow up with Nephrology as they have been managing her iron. Her iron and tsat has not improved enough for aranesp to really be effective per the manufactures recommendations. OV 1 to 2 days prior to next possible injection with repeat CBC, iron studies. Pur PSS will reach out to her to get OV with weston scheduled. [place] Irina Blankenship 09/30/2023 9:29 AM Addendum 2nd attempt. Message left for patient to contact office. *PSS- Please schedule CBC/Iron Studies with Weston 1-2 days prior to next injection 09/25 - telephone encounter- Pt. Missed appt. Today for labs and injection. (09/25) Spoke with pts. Son, pt. Is on a cruise and will not return until late tomorrow. *PSS - Please reach out to pt. First of next week to get scheduled for next week. [place] Irina Blankenship 09/30/2023 10:36 AM Signed Scheduled with patient Updated schedule Allergies As of Date: 09/27/2023 Noted Allergy Reaction ERYTHROMYCIN 05/29/2016 16 - Unknown PENICILLINS 05/29/2016 16 - Unknown Date Reviewed: 09/13/2023 Reviewed by: Ramila Gomez LPN - Fully Assessed Reason for Visit: Appointment [186] Prescriptions as of 10/01/2023 - HYDROcodone-acetaminop hen (NORCO) 5-325 mg per tablet Take 1 tablet by mouth every 6 hours as needed for pain. - multivitamin (MULTIPLE VITAMINS ORAL) Take 1 tablet by mouth once daily. - acetaminophen (TYLENOL) 325 mg tablet 1 tablet as needed Orally every 4 hrs - ELIQUIS 2.5 mg tab(s) Take 2.5 mg by mouth two times a day. - docusate sodium (DULCOLAX STOOL SOFTENER, DSS,) 100 mg capsule Take 100 mg by mouth once daily. - losartan (COZAAR) 100 mg tablet Take 100 mg by mouth once daily. - aspirin, enteric coated (ECOTRIN LOW STRENGTH) 81 mg EC tablet Take 81 mg by mouth once daily. - ascorbic acid, vitamin C, (VITAMIN C) 500 mg tablet Take 500 mg by mouth once daily. - ferrous sulfate (IRON ORAL) Take 65 mg by mouth. Mon, sat, sat - amLODIPine (NORVASC) 5 mg tablet Take 5 mg by mouth once daily. 10 MG by mouth daily - metoprolol succinate ER (TOPROL XL) 200 mg 24 hr tablet Take 200 mg by mouth once daily. 100 MG by mouth daily - pioglitazone (ACTOS) 45 mg tablet Take 45 mg by mouth once daily. 15 MG by mouth daily - atorvastatin (LIPITOR) 20 mg tablet Take 20 mg by mouth once daily. - Quinapril HCl 40 mg tablet Take 40 mg by mouth two times a day. - allopurinol (ZYLOPRIM) 100 mg tablet Take 100 mg by mouth once daily. 0.5 tablet daily Problem List As Of Date 09/27/2023 Noted Resolved Anemia [D64.9] 08/01/2023 Chronic kidney disease, stage 4, severely decre*08/01/2023 Encounter Status:Closed by RAMILA GOMEZ on 10/01/23 [facility] 09-26-2023 [facility] Telephone (ARELY) WINIFRED WOOD ([id number]) 1945 F Date Time Provider Department 09/26/23 WESTON VAUGHN During your visit today, we recorded the following information about you: Ramila Gomez LPN 09/26/2023 10:55 AM Signed Pt. Missed appt. Today for labs and injection. Spoke with pts. Son, pt. Is on a cruise and will not return until late tomorrow. Please reach out to pt. First of next week to get scheduled for next week. Ramila Gomez LPN Sudha Pss, Irina 09/30/2023 9:26 AM Signed combining with 09/26 encounter. Allergies As of Date: 09/26/2023 Noted Allergy Reaction ERYTHROMYCIN 05/29/2016 16 - Unknown PENICILLINS 05/29/2016 16 - Unknown Date Reviewed: 09/13/2023 Reviewed by: Ramila Gomez LPN - Fully Assessed Prescriptions as of 09/30/2023 - HYDROcodone-acetaminop hen (NORCO) 5-325 mg per tablet Take 1 tablet by mouth every 6 hours as needed for pain. - multivitamin (MULTIPLE VITAMINS ORAL) Take 1 tablet by mouth once daily. - acetaminophen (TYLENOL) 325 mg tablet 1 tablet as needed Orally every 4 hrs - ELIQUIS 2.5 mg tab(s) Take 2.5 mg by mouth two times a day. - docusate sodium (DULCOLAX STOOL SOFTENER, DSS,) 100 mg capsule Take 100 mg by mouth once daily. - losartan (COZAAR) 100 mg tablet Take 100 mg by mouth once daily. - aspirin, enteric coated (ECOTRIN LOW STRENGTH) 81 mg EC tablet Take 81 mg by mouth once daily. - ascorbic acid, vitamin C, (VITAMIN C) 500 mg tablet Take 500 mg by mouth once daily. - ferrous sulfate (IRON ORAL) Take 65 mg by mouth. Mon, wed, fri - amLODIPine (NORVASC) 5 mg tablet Take 5 mg by mouth once daily. 10 MG by mouth daily - metoprolol succinate ER (TOPROL XL) 200 mg 24 hr tablet Take 200 mg by mouth once daily. 100 MG by mouth daily - pioglitazone (ACTOS) 45 mg tablet Take 45 mg by mouth once daily. 15 MG by mouth daily - atorvastatin (LIPITOR) 20 mg tablet Take 20 mg by mouth once daily. - Quinapril HCl 40 mg tablet Take 40 mg by mouth two times a day. - allopurinol (ZYLOPRIM) 100 mg tablet Take 100 mg by mouth once daily. 0.5 tablet daily Problem List As Of Date 09/26/2023 Noted Resolved Anemia [D64.9] 08/01/2023 Chronic kidney disease, stage 4, severely decre*08/01/2023 Encounter Status:Closed by RAMILA GOMEZ on 09/27/23 Normal [facility] CBC W Auto Differential pane l (Bld)on 09-12-2023 Basophils (Bld) [#/Vol] 0.11 10*3/uL High <0.11 [facility] Comment on above: Order Comment: Speci men Type: BLOOD SPECIMENOrdering Facility: [facility] Address: [address] [place] [address] Performed By: #### 5 7021-8 ####[facility] CENTERELANAAnneliese [id number] [place] [address] [place] Basophils/100 WBC (Bld) 1.7 % Normal [facility] Comment on above: Order Comment: Speci men Type: BLOOD SPECIMENOrdering Facility: [facility] Address: [address] [place] [address] Performed By: #### 5 7021-8 ####[facility] [id number] [place] [address] [place] Differential cell count method Nom (Bld) Auto Normal [facility] Comment on above: Order Comment: Speci men Type: BLOOD SPECIMENOrdering Facility: [facility] Address: [address] [place] [address] Performed By: #### 5 7021-8 ####[facility] [id number] [place] [address] [place] Eosinophils (Bld) [#/Vol] 0.26 10*3/uL Normal <0.46 [facility] Comment on above: Order Comment: Speci men Type: BLOOD SPECIMENOrdering Facility: [facility] Address: [address] [place] [address] Performed By: #### 5 7021-8 ####[facility] TAYJoanneNCLIA [id number] [place] [address] [place] Eosinophils/100 WBC (Bld) 4.1 % Normal [facility] Comment on above: Order Comment: Speci men Type: BLOOD SPECIMENOrdering Facility: [facility] Address: [address] [place] [address] Performed By: #### 5 7021-8 ####[facility] CENTERLOCOA [id number] [place] [address] [place] Erythrocyte distribution width (RBC) [Ratio] 15.5 % High 11.5-15.0 [facility] Comment on above: Order Comment: Speci men Type: BLOOD SPECIMENOrdering Facility: [facility] Address: [address] [place] [address] Performed By: #### 5 7021-8 ####[facility] CENTERRAIN [id number] [place] [address] [place] Hematocrit (Bld) [Volume fraction] 28.8 % Low 36.0-46.0 [facility] Comment on above: Order Comment: Speci men Type: BLOOD SPECIMENOrdering Facility: [facility] Address: [address] [place] [address] Performed By: #### 5 7021-8 ####[facility] CENTERELANALIA [id number] [place] [address] [place] Hemoglobin (Bld) [Mass/Vol] 9.0 g/dL Low 11.5-15.5 [facility] Comment on above: Order Comment: Speci men Type: BLOOD SPECIMENOrdering Facility: [facility] Address: [address] [place] [address] Performed By: #### 5 7021-8 ####[facility] CENTERNCLIA [id number] [place] [address] [place] Immature granulocytes (Bld) [#/Vol] 10*3/uL Normal <0.10 [facility] Comment on above: Order Comment: Speci men Type: BLOOD SPECIMENOrdering Facility: [facility] Address: [address] [place] [address] Performed By: #### 5 7021-8 ####[facility] CENTERNCA [id number] [place] [address] [place] Immature granulocytes/100 WBC (Bld) 0.3 % Normal [facility] Comment on above: Order Comment: Speci men Type: BLOOD SPECIMENOrdering Facility: [facility] Address: [address] [place] [address] Performed By: #### 5 7021-8 ####[facility] [id number] [place] [address] [place] Lymphocytes (Bld) [#/Vol] 0.71 10*3/uL Low 1.00-4.00 [facility] Comment on above: Order Comment: Speci men Type: BLOOD SPECIMENOrdering Facility: [facility] Address: [address] [place] [address] Performed By: #### 5 7021-8 ####[facility] [id number] [place] [address] [place] Lymphocytes/100 WBC (Bld) 11.3 % Normal [facility] Comment on above: Order Comment: Speci men Type: BLOOD SPECIMENOrdering Facility: [facility] Address: [address] [place] [address] Performed By: #### 5 7021-8 ####[facility] [id number] [place] [address] [place] MCH (RBC) [Entitic mass] 29.4 pg Normal 26.0-34.0 [facility] Comment on above: Order Comment: Speci men Type: BLOOD SPECIMENOrdering Facility: [facility] Address: [address] [place] [address] Performed By: #### 5 7021-8 ####[facility] DREW [id number] [place] [address] [place] MCHC (RBC) [Mass/Vol] 31.3 g/dL Normal 30.5-36.0 [facility] Comment on above: Order Comment: Speci men Type: BLOOD SPECIMENOrdering Facility: [facility] Address: [address] [place] [address] Performed By: #### 5 7021-8 ####[facility]ENTERNCSPAN[facility] [id number] [place] [address] [place] MCV (RBC) [Entitic vol] 94.1 fL Normal 80.0-100.0 [facility] Comment on above: Order Comment: Speci men Type: BLOOD SPECIMENOrdering Facility: [facility] Address: [address] [place] [address] Performed By: #### 5 7021-8 ####[facility] [id number] [place] [address] [place] Monocytes (Bld) [#/Vol] 0.64 10*3/uL Normal <0.87 [facility] Comment on above: Order Comment: Speci men Type: BLOOD SPECIMENOrdering Facility: [facility] Address: [address] [place] [address] Performed By: #### 5 7021-8 ####[facility] CENTERNCLIA [id number] [place] [address] [place] Monocytes/100 WBC (Bld) 10.1 % Normal [facility] Comment on above: Order Comment: Speci men Type: BLOOD SPECIMENOrdering Facility: [facility] Address: [address] [place] [address] Performed By: #### 5 7021-8 ####[facility] CENTERMTLIA [id number] [place] [address] [place] Neutrophils (Bld) [#/Vol] 4.57 10*3/uL Normal 1.45-7.50 [facility] Comment on above: Order Comment: Speci men Type: BLOOD SPECIMENOrdering Facility: [facility] Address: [address] [place] [address] Performed By: #### 5 7021-8 ####[facility] [id number] [place] [address] [place] Neutrophils/100 WBC (Bld) 72.5 % Normal [facility] Comment on above: Order Comment: Speci men Type: BLOOD SPECIMENOrdering Facility: [facility] Address: [address] [place] [address] Performed By: #### 5 7021-8 ####[facility] [id number] [place] [address] [place] Nucleated RBC (Bld) [#/Vol] 10*3/uL Normal <0.01 [facility] Comment on above: Order Comment: Speci men Type: BLOOD SPECIMENOrdering Facility: [facility] Address: [address] [place] [address] Performed By: #### 5 7021-8 ####[facility] [id number] [place] [address] [place] Nucleated RBC/100 WBC (Bld) [Ratio] 0.0 /100 WBC Normal [facility] Comment on above: Order Comment: Speci men Type: BLOOD SPECIMENOrdering Facility: [facility] Address: [address] [place] [address] Performed By: #### 5 7021-8 ####[facility] CENTERNCLIA [id number] [place] [address] [place] Platelet mean volume (Bld) [Entitic vol] 9.3 fL Normal 9.0-12.7 [facility] Comment on above: Order Comment: Speci men Type: BLOOD SPECIMENOrdering Facility: [facility] Address: [address] [place] [address] Performed By: #### 5 7021-8 ####[facility]ENTERNCSPAN[facility] [id number] [place] [address] [place] Platelets (Bld) [#/Vol] 256 10*3/uL Normal 150-400 [facility] Comment on above: Order Comment: Speci men Type: BLOOD SPECIMENOrdering Facility: [facility] Address: [address] [place] [address] Performed By: #### 5 7021-8 ####[facility]ENTERNCSP[facility] [id number] [place] [address] [place] RBC (Bld) [#/Vol] 3.06 10*6/uL Low 3.90-5.20 [facility] Comment on above: Order Comment: Speci men Type: BLOOD SPECIMENOrdering Facility: [facility] Address: [address] [place] [address] Performed By: #### 5 7021-8 ####[facility]ITALA [id number] [place] [address] [place] WBC (Bld) [#/Vol] 6.31 10*3/uL Normal 3.70-11.00 [facility] Comment on above: Order Comment: Speci men Type: BLOOD SPECIMENOrdering Facility: [facility] Address: [address] [place] [address] Performed By: #### 5 7021-8 ####[facility] CENTERNCLIA [id number] [place] [address] [place] CNOVSPon 09-12-2023 CNOVSP Visit (SP) Office (HEMAWS) WINIFRED WOOD ([id number]) 1945 F Date Time Provider Department 09/12/23 10:30 AM JESSICA BROWN During your visit today, we recorded the following information about you: Temperature Pulse Blood pressure Weight 97.9 degrees 57/minute 193/72 86.8 kg Jessica Brown APRN.[employer] 09/13/2023 12:29 PM Signed Chief Complaint Patient presents with: Established Patient HPI: Winifred Wood is a 78 year old female who presents here today for follow up anemia/BP check for possible aranesp. Per Eunice Vaughn's previous note: H/o CKD, Stage 3, no dialysis as of yet but has been told by her envelope addresser that it is likely coming soon, HTN, T2DM, osteoarthritis, hyperlipidemia, and anemia. She was referred to hematology by her envelope addresser for further management of her anemia. BP elevated in the office has been running good at home 120s/60s, SPEP drawn by envelope addresser without m spike. No SOB, CP. Denies [...] had not needed one for 6 months. BP elevated at last visit-aranesp not given. Appetite: Ok. Energy level: Ok. Denies fevers. Resp:denies cough or sob Cardiac:denies chest pain/palpitations Extrem:denies new pain Heme:denies bleeding The ROS is otherwise negative. Past medical history, appointments, medications, allergies reviewed. No changes. EXAM: BP 193/72 Pulse (!) 57 Temp 36.6 ?C (97.9 ?F) (Temporal) Wt 86.8 kg (191 lb 4.8 oz) SpO2 100% BMI 36.15 kg/m? APPEARANCE Well appearing, alert, in no acute distress, well-hydrated, well nourished. EXTREMITIES chronic BLE NEURO Awake, alert and oriented x 3, using cane, and No involuntary motions. SKIN Skin color, texture, turgor normal, no suspicious rashes or lesions LABS: Latest Ref Rng 08/01/2023 08/13/2023 08/29/2023 09/12/2023 WBC 3.70 - 11.00 k/uL 8.99 11.03 (H) 8.27 6.31 RBC 3.90 - 5.20 m/uL 3.30 (L) 2.77 (L) 3.07 (L) 3.06 (L) Hemoglobin 11.5 - 15.5 g/dL 9.7 (L) 8.1 (L) 9.0 (L) 9.0 (L) Hematocrit 36.0 - 46.0 % 30.3 (L) 25.7 (L) 29.5 (L) 28.8 (L) MCV 80.0 - 100.0 fL 91.8 92.8 96.1 94.1 MCH 26.0 - 34.0 pg 29.4 29.2 29.3 29.4 MCHC 30.5 - 36.0 g/dL 32.0 31.5 30.5 31.3 RDW-CV 11.5 - 15.0 % 14.6 15.1 (H) 17.1 (H) 15.5 (H) Platelet Count 150 - 400 k/uL 302 350 303 256 MPV 9.0 - 12.7 fL 9.3 8.7 (L) 9.0 9.3 Neut% % 80.0 77.0 74.6 72.5 Abs Neut (ANC) 1.45 - 7.50 k/uL 7.20 8.50 (H) 6.17 4.57 Lymph% % 7.5 8.3 10.9 11.3 Abs Lymph 1.00 - 4.00 k/uL 0.67 (L) 0.92 (L) 0.90 (L) 0.71 (L) [place]% % 7.0 8.0 8.6 10.1 Abs [place] <0.87 k/uL 0.63 0.88 (H) 0.71 0.64 Eosin% % 3.7 4.4 4.1 4.1 Abs Eosin <0.46 k/uL 0.33 0.48 (H) 0.34 0.26 Baso% % 1.2 1.3 1.3 1.7 Abs Baso <0.11 k/uL 0.11 (H) 0.14 (H) 0.11 (H) 0.11 (H) Immature Gran % % 0.6 1.0 0.5 0.3 IMMATURE GRANS (ABS) <0.10 k/uL 0.05 0.11 (H) 0.04 <0.03 NRBC /100 WBC 0.0 0.0 0.0 0.0 Absolute nRBC <0.01 k/uL <0.01 <0.01 <0.01 <0.01 DTYPE Auto Auto Auto Auto Iron studies: Pending ASSESSMENT/PLAN: 1. Anemia, unspecified type - ICD9: 285.9, ICD10: D64.9 (primary diagnosis) 2. Chronic kidney disease, stage 4, severely decreased GFR (HCC) - ICD9: 585.4, ICD10: N18.4 - BP remains elevated. Pt. adds that she took her pills late this a.m. - She is leaving for a 12 day cruise. - Reviewed CBC with pt. - Iron studies pending. - Advised pt. to return tomorrow morning for repeat BP and possible aranesp inj. - Pt. aware to call office with any questions/concerns. The patient indicates understanding of these issues and agrees with the plan. All documentation from previous visit of 08/29/23-Weston Vaughn CNP was copied and pasted, documentation has been reviewed and edited as necessary for today's visit. Jessica Brown APRN.ELIZABETH Referring Provider: WESTON VAUGHN [[id number]] Allergies As of Date: 09/12/2023 Noted Allergy Reaction ERYTHROMYCIN 05/29/2016 16 - Unknown PENICILLINS 05/29/2016 16 - Unknown Date Reviewed: 09/12/2023 Reviewed by: Jessica Brown APRN.CNP - Fully Assessed Reason for Visit: Established Patient [175] Primary Visit Diagnosis:Anemia, unspecified type [D64.9] Other Visit Diagnosis:Chronic kidney disease, stage 4, severely decreased GFR (HCC) [N18.4] Follow-up and Disposition History for Encounter Date Provider Department Center 09/12/2023 [id number] BROWN [place] Prescriptions as of 09/13/2023 - HYDROcodone-acetaminop hen (NORCO) 5-325 mg per tablet Take 1 tablet by mouth every 6 hours as needed for pain. - multivitamin (MULTIPLE VITAMINS ORAL) (more content not included)... Normal [facility] Ferritin SerPl-mCncon 2023 Ferritin [Mass/Vol] 715.0 ng/mL High 14.7-205.1 [facility] Comment on above: Order Comment: Denise moore Type: BLOOD SPECIMEN [facility] Address: [address] [place] [address] Performed By: #### 2 276-4, 18290-8 #### [facility] CLIA [id number] [address] [place] [address] [place] Iron and Iron binding capaci ty panelon 09-12-2023 Iron [Mass/Vol] 36 ug/dL Low 41-186 [facility] Comment on above: Order Comment: Denise moore Type: BLOOD SPECIMEN [facility] Address: [address] [place] [address] Performed By: #### 2 276-4, 95196-5 #### [facility] CLIA [id number] [address] [place] [address] [place] Iron binding capacity [Mass/Vol] 263 ug/dL Normal 232-386 [facility] Comment on above: Order Comment: Denise moore Type: BLOOD SPECIMEN [facility] Address: [address] [place] [address] Performed By: #### 2 276-4, 10464-4 #### [facility] CLIA [id number] [address] [place] [address] [place] Iron/TIBC [Molar ratio] 13.7 % Low 15.0-57.0 [facility] [place] Comment on above: Order Comment: Speci men Type: BLOOD SPECIMEN [facility] Address: [address] [place] [address] Performed By: #### 2 276-4, 94921-6 #### [facility] CLIA [id number] [address] [place] [address] [place] CBC W Auto Differential pane l (Bld)on 08-29-2023 Basophils (Bld) [#/Vol] 0.11 10*3/uL High <0.11 [facility] [place] Comment on above: Order Comment: Speci men Type: BLOOD SPECIMEN [facility] Facility[facility] Address: [address] [place] [address] Performed By: #### 2 276-4, 81515-7 #### [facility] CLIA [id number] [address] [place] [address] [place] Basophils/100 WBC (Bld) 1.3 % Normal [facility] [place] Comment on above: Order Comment: Speci men Type: BLOOD SPECIMEN [facility]ing Facility[facility] Address: [address] [place] [address] Performed By: #### 2 276-4, 15025-7 #### [facility] CLIA [id number] [address] [place] [address] [place] Differential cell count method Nom (Bld) Auto Normal [facility] [place] Comment on above: Order Comment: Speci men Type: BLOOD SPECIMEN [facility]ing Facility[facility] Address: [address] [place] [address] Performed By: #### 2 276-4, 43250-7 #### [facility] CLIA [id number] [address] [place] [address] [place] Eosinophils (Bld) [#/Vol] 0.34 10*3/uL Normal <0.46 [facility] [place] Comment on above: Order Comment: Speci men Type: BLOOD SPECIMEN [facility] Address: [address] [place] [address] Performed By: #### 2 276-4, 43400-3 #### [facility] CLIA [id number] [address] [place] [address] [place] Eosinophils/100 WBC (Bld) 4.1 % Normal [facility] [place] Comment on above: Order Comment: Speci men Type: BLOOD SPECIMEN [facility] Address: [address] [place] [address] Performed By: #### 2 276-4, 67309-3 #### [facility] CLIA [id number] [address] [place] [address] [place] Erythrocyte distribution width (RBC) [Ratio] 17.1 % High 11.5-15.0 [facility] [place] Comment on above: Order Comment: Speci men Type: BLOOD SPECIMEN [facility] Address: [address] [place] [address] Performed By: #### 2 276-4, 04301-9 #### [facility] CLIA [id number] [address] [place] [address] [place] Hematocrit (Bld) [Volume fraction] 29.5 % Low 36.0-46.0 [facility] [place] Comment on above: Order Comment: Speci men Type: BLOOD SPECIMEN [facility] Address: [address] [place] [address] Performed By: #### 2 276-4, 27238-4 #### [facility] CLIA [id number] [address] [place] [address] [place] Hemoglobin (Bld) [Mass/Vol] 9.0 g/dL Low 11.5-15.5 [facility] [place] Comment on above: Order Comment: Speci men Type: BLOOD SPECIMEN [facility] Address: [address] [place] [address] Performed By: #### 2 276-4, 50216-2 #### [facility] CLIA [id number] [address] [place] [address] [place] Immature granulocytes (Bld) [#/Vol] 0.04 10*3/uL Normal <0.10 [facility] [place] Comment on above: Order Comment: Speci men Type: BLOOD SPECIMEN [facility]ing [facility] Address: [address] [place] [address] Performed By: #### 2 276-4, 91828-5 #### [facility] CLIA [id number] [address] [place] [address] [place] Immature granulocytes/100 WBC (Bld) 0.5 % Normal [facility] [place] Comment on above: Order Comment: Speci men Type: BLOOD SPECIMEN [facility]ing [facility]: [facility] Address: [address] [place] [address] Performed By: #### 2 276-4, 13958-8 #### [facility] CLIA [id number] [address] [place] [address] [place] Lymphocytes (Bld) [#/Vol] 0.90 10*3/uL Low 1.00-4.00 [facility] [place] Comment on above: Order Comment: Speci men Type: BLOOD SPECIMEN [facility]ing [facility] Address: [address] [place] [address] Performed By: #### 2 276-4, 94678-0 #### [facility] CLIA [id number] [address] [place] [address] [place] Lymphocytes/100 WBC (Bld) 10.9 % Normal [facility] [place] Comment on above: Order Comment: Speci men Type: BLOOD SPECIMEN [facility]ing [facility] Address: [address] [place] [address] Performed By: #### 2 276-4, 43583-3 #### [facility] CLIA [id number] [address] [place] [address] [place] MCH (RBC) [Entitic mass] 29.3 pg Normal 26.0-34.0 [facility] [place] Comment on above: Order Comment: Speci men Type: BLOOD SPECIMEN [facility]ing [facility] Address: [address] [place] [address] Performed By: #### 2 276-4, 41592-2 #### [facility] CLIA [id number] [address] [place] [address] [place] MCHC (RBC) [Mass/Vol] 30.5 g/dL Normal 30.5-36.0 [facility] Comment on above: Order Comment: Speci men Type: BLOOD SPECIMEN [facility]ing [facility] Address: [address] [place] [address] Performed By: #### 2 276-4, 01227-1 #### [facility] CLIA [id number] [address] [place] [address] [place] MCV (RBC) [Entitic vol] 96.1 fL Normal 80.0-100.0 [facility] [place] Comment on above: Order Comment: Speci men Type: BLOOD SPECIMEN [facility] Address: [address] [place] [address] Performed By: #### 2 276-4, 18146-6 #### [facility] CLIA [id number] [address] [place] [address] [place] Monocytes (Bld) [#/Vol] 0.71 10*3/uL Normal <0.87 [facility] [place] Comment on above: Order Comment: Speci men Type: BLOOD SPECIMEN [facility] Address: [address] [place] [address] Performed By: #### 2 276-4, 02206-0 #### [facility] CLIA [id number] [address] [place] [address] [place] Monocytes/100 WBC (Bld) 8.6 % Normal [facility] [place] Comment on above: Order Comment: Speci men Type: BLOOD SPECIMEN [facility]ing [facility] Address: [address] [place] [address] Performed By: #### 2 276-4, 42864-2 #### [facility] CLIA [id number] [address] [place] [address] [place] Neutrophils (Bld) [#/Vol] 6.17 10*3/uL Normal 1.45-7.50 [facility] [place] Comment on above: Order Comment: Speci men Type: BLOOD SPECIMEN [facility] Address: [address] [place] [address] Performed By: #### 2 276-4, 00853-7 #### [facility] CLIA [id number] [address] [place] [address] [place] Neutrophils/100 WBC (Bld) 74.6 % Normal [facility] [place] Comment on above: Order Comment: Speci men Type: BLOOD SPECIMEN [facility] Address: [address] [place] [address] Performed By: #### 2 276-4, 17057-3 #### [facility] CLIA [id number] [address] [place] [address] [place] Nucleated RBC (Bld) [#/Vol] 10*3/uL Normal <0.01 [facility] [place] Comment on above: Order Comment: Speci men Type: BLOOD SPECIMEN [facility] Address: [address] [place] [address] Performed By: #### 2 276-4, 56272-6 #### [facility] CLIA [id number] [address] [place] [address] [place] Nucleated RBC/100 WBC (Bld) [Ratio] 0.0 /100 WBC Normal [facility] [place] Comment on above: Order Comment: Speci men Type: BLOOD SPECIMEN [facility] Address: [address] [place] [address] Performed By: #### 2 276-4, 99102-4 #### [facility] CLIA [id number] [address] [place] [address] [place] Platelet mean volume (Bld) [Entitic vol] 9.0 fL Normal 9.0-12.7 [facility] [place] Comment on above: Order Comment: Speci men Type: BLOOD SPECIMEN [facility] Address: [address] [place] [address] Performed By: #### 2 276-4, 57079-0 #### [facility] CLIA [id number] [address] [place] [address] [place] Platelets (Bld) [#/Vol] 303 10*3/uL Normal 150-400 [facility] [place] Comment on above: Order Comment: Speci men Type: BLOOD SPECIMEN [facility] Address: [address] [place] [address] Performed By: #### 2 276-4, 18250-2 #### [facility] CLIA [id number] [address] [place] [address] [place] RBC (Bld) [#/Vol] 3.07 10*6/uL Low 3.90-5.20 [facility] Comment on above: Order Comment: Speci men Type: BLOOD SPECIMEN [facility] Address: [address] [place] [address] Performed By: #### 2 276-4, 80430-5 #### [facility] CLIA [id number] [address] [place] [address] [place] WBC (Bld) [#/Vol] 8.27 10*3/uL Normal 3.70-11.00 [facility] Comment on above: Order Comment: Speci men Type: BLOOD SPECIMEN [facility] Address: [address] [place] [address] Performed By: #### 2 276-4, 55827-5 #### [facility] CLIA [id number] [address] [id number] [place] CNOVSPon 08-29-2023 CNOVSP Visit (SP) Office (HEMSHON) WINIFRED WOOD ([id number]) 1945 F Date Time Provider Department 08/29/23 9:00 AM WESTON VAUGHN During your visit today, we recorded the following information about you: Temperature Pulse Respiration Blood pressure 97.3 degrees 61/minute 14/minute 178/64 Weight 87.1 kg Weston Vaughn 08/29/2023 1:35 PM Signed Hematology Progress Note Winifred Wood 1945 Encounter date: 08/29/2023 HPI: Winifred Wood is a 78 year old female with a PHMx of CKD, Stage 3, no dialysis as of yet but has been told by her envelope addresser that it is likely coming soon, HTN, T2DM, osteoarthritis, hyperlipidemia, and anemia. She was referred to hematology by her envelope addresser for further management of her anemia. BP elevated in the office has been running good at home 120s/60s, SPEP drawn by envelope addresser without m spike. No SOB, CP. Denies [...] receive weekly doses x4. IV iron at [facility], no current record for this. Last T [...] able to complete a few laps around [facility] this week. Knee pain and sciatic pain resolved. BP high today, took her BP meds this morning about an hour ago. She states 125/70s at home always higher when she is at doctors offices. Denies JIMENEZ, dizziness, SOB, CP or changes in vision. No N/V/C/D. Has 1 remaining IV iron infusion at [facility] tomorrow. Denies bleeding or bruising. Has started [...] Current Outpatient Medications Medication Sig Dispense Refill HYDROcodone-acetaminop hen (NORCO) 5-325 mg per tablet Take 1 [...] Take 65 mg by mouth. Mon, wed, sat amLODIPine (NORVASC) 5 mg tablet Take [...] for this visit. Facility-Administered Medications Ordered in (more content not included)... Normal [facility] WINIFRED WOOD ([id number]) 1945 F Date Time Provider Department 08/26/23 KARIN EASLEY During your visit today, we recorded the following information about you: Karin Easley LISW 08/26/2023 3:39 PM Signed Pt noted on [facility] 1st time treatment report. Pt has a non-oncology regimen. No social work follow up indicated. PHYLLIS [place] Allergies As of Date: 08/26/2023 Noted Allergy Reaction ERYTHROMYCIN 05/29/2016 16 - Unknown PENICILLINS 05/29/2016 16 - Unknown Date Reviewed: 08/13/2023 Reviewed by: Ramila Gomez LPN - Fully Assessed Reason for Visit: Social Work Services [507] Prescriptions as of 08/26/2023 - HYDROcodone-acetaminop hen (NORCO) 5-325 mg per tablet Take 1 tablet by mouth every 6 hours as needed for pain. - multivitamin (MULTIPLE VITAMINS ORAL) Take 1 tablet by mouth once daily. - acetaminophen (TYLENOL) 325 mg tablet 1 tablet as needed Orally every 4 hrs - ELIQUIS 2.5 mg tab(s) Take 2.5 mg by mouth two times a day. - docusate sodium (DULCOLAX STOOL SOFTENER, DSS,) 100 mg capsule Take 100 mg by mouth once daily. - losartan (COZAAR) 100 mg tablet Take 100 mg by mouth once daily. - aspirin, enteric coated (ECOTRIN LOW STRENGTH) 81 mg EC tablet Take 81 mg by mouth once daily. - ascorbic acid, vitamin C, (VITAMIN C) 500 mg tablet Take 500 mg by mouth once daily. - ferrous sulfate (IRON ORAL) Take 65 mg by mouth. Mon, wed, fri - amLODIPine (NORVASC) 5 mg tablet Take 5 mg by mouth once daily. 10 MG by mouth daily - metoprolol succinate ER (TOPROL XL) 200 mg 24 hr tablet Take 200 mg by mouth once daily. 100 MG by mouth daily - pioglitazone (ACTOS) 45 mg tablet Take 45 mg by mouth once daily. 15 MG by mouth daily - atorvastatin (LIPITOR) 20 mg tablet Take 20 mg by mouth once daily. - Quinapril HCl 40 mg tablet Take 40 mg by mouth twice daily. - allopurinol (ZYLOPRIM) 100 mg tablet Take 100 mg by mouth once daily. 0.5 tablet daily Problem List As Of Date 08/26/2023 Noted Resolved Anemia [D64.9] 08/01/2023 Chronic kidney disease, stage 4, severely decre*08/01/2023 Encounter Status:Closed by KARIN EASLEY on 08/26/23 [facility] Riya 08-23-2023 [facility] Telephone (PFS) WINIFRED WOOD ([id number]) 1945 F Date Time Provider Department 08/23/23 [employer] SHIV GILMORE During your visit today, we recorded the following information about you: Hemal Mendez 08/23/2023 9:39 AM Signed Reviewed patient on the 1st time tx report. The patient does not have a cancer dx or a chemo/radiation regimen. The patient has Medicare A AND B primary and [facility] AAR Supplement secondary. No further FN intervention is needed at this time. Allergies As of Date: 08/23/2023 Noted Allergy Reaction ERYTHROMYCIN 05/29/2016 16 - Unknown PENICILLINS 05/29/2016 16 - Unknown Date Reviewed: 08/13/2023 Reviewed by: Ramila Gomez LPN - Fully Assessed Reason for Visit: Benefits Investigation [4098] Prescriptions as of 08/23/2023 - HYDROcodone-acetaminop hen (NORCO) 5-325 mg per tablet Take 1 tablet by mouth every 6 hours as needed for pain. - multivitamin (MULTIPLE VITAMINS ORAL) Take 1 tablet by mouth once daily. - acetaminophen (TYLENOL) 325 mg tablet 1 tablet as needed Orally every 4 hrs - ELIQUIS 2.5 mg tab(s) Take 2.5 mg by mouth two times a day. - docusate sodium (DULCOLAX STOOL SOFTENER, DSS,) 100 mg capsule Take 100 mg by mouth once daily. - losartan (COZAAR) 100 mg tablet Take 100 mg by mouth once daily. - aspirin, enteric coated (ECOTRIN LOW STRENGTH) 81 mg EC tablet Take 81 mg by mouth once daily. - ascorbic acid, vitamin C, (VITAMIN C) 500 mg tablet Take 500 mg by mouth once daily. - ferrous sulfate (IRON ORAL) Take 65 mg by mouth. Mon, wed, fri - amLODIPine (NORVASC) 5 mg tablet Take 5 mg by mouth once daily. 10 MG by mouth daily - metoprolol succinate ER (TOPROL XL) 200 mg 24 hr tablet Take 200 mg by mouth once daily. 100 MG by mouth daily - pioglitazone (ACTOS) 45 mg tablet Take 45 mg by mouth once daily. 15 MG by mouth daily - atorvastatin (LIPITOR) 20 mg tablet Take 20 mg by mouth once daily. - Quinapril HCl 40 mg tablet Take 40 mg by mouth twice daily. - allopurinol (ZYLOPRIM) 100 mg tablet Take 100 mg by mouth once daily. 0.5 tablet daily Problem List As Of Date 08/23/2023 Noted Resolved Anemia [D64.9] 08/01/2023 Chronic kidney disease, stage 4, severely decre*08/01/2023 Encounter Status:Closed by HEMAL MENDEZ on 08/23/23 Normal [facility] CBC W Auto Differential pane l (Bld)on 08-13-2023 Basophils (Bld) [#/Vol] 0.14 10*3/uL High <0.11 [facility] Comment on above: Order Comment: Speci men Type: BLOOD SPECIMEN [facility] Address: [address] [place] [address] Performed By: #### 5 7021-8 #### [facility] CLIA [id number] [address] [place] [address] [place] Basophils/100 WBC (Bld) 1.3 % Normal [facility] Comment on above: Order Comment: Speci men Type: BLOOD SPECIMEN [facility] Address: [address] [place] [address] Performed By: #### 5 7021-8 #### [facility] CLIA [id number] [address] [place] [address] [place] Differential cell count method Nom (Bld) Auto Normal [facility] Comment on above: Order Comment: Speci men Type: BLOOD SPECIMEN [facility] Address: [address] [place] [address] Performed By: #### 5 7021-8 #### [facility] CLIA [id number] [address] [place] [address] [place] Eosinophils (Bld) [#/Vol] 0.48 10*3/uL High <0.46 [facility] Comment on above: Order Comment: Speci men Type: BLOOD SPECIMEN [facility] Address: [address] [place] [address] Performed By: #### 5 7021-8 #### [facility] CLIA [id number] [address] [place] [address] [place] Eosinophils/100 WBC (Bld) 4.4 % Normal [facility] Comment on above: Order Comment: Speci men Type: BLOOD SPECIMEN [facility] Address: [address] [place] [address] Performed By: #### 5 7021-8 #### [id number] [address] [place] [address] [place] Erythrocyte distribution width (RBC) [Ratio] 15.1 % High 11.5-15.0 [facility] Comment on above: Order Comment: Speci men Type: BLOOD SPECIMEN [facility] Address: [address] [place] [address] Performed By: #### 5 7021-8 #### [id number] [address] [place] [address] [place] Hematocrit (Bld) [Volume fraction] 25.7 % Low 36.0-46.0 [facility] Comment on above: Order Comment: Speci men Type: BLOOD SPECIMEN [facility] Address: [address] [place] [address] Performed By: #### 5 7021-8 #### [facility] [id number] [address] [place] [address] [place] Hemoglobin (Bld) [Mass/Vol] 8.1 g/dL Low 11.5-15.5 [facility] Comment on above: Order Comment: Speci men Type: BLOOD SPECIMEN [facility] Address: [address] [place] [address] Performed By: #### 5 7021-8 #### [facility] CLIA [id number] [address] [place] [address] [place] Immature granulocytes (Bld) [#/Vol] 0.11 10*3/uL High <0.10 [facility] Comment on above: Order Comment: Speci men Type: BLOOD SPECIMEN [facility] Address: [address] [place] [address] Performed By: #### 5 7021-8 #### [facility] CLIA [id number] [address] [place] [address] [place] Immature granulocytes/100 WBC (Bld) 1.0 % Normal [facility] Comment on above: Order Comment: Speci men Type: BLOOD SPECIMEN [facility] Address: [address] [place] [address] Performed By: #### 5 7021-8 #### [facility] CLIA [id number] [address] [place] [address] [place] Lymphocytes (Bld) [#/Vol] 0.92 10*3/uL Low 1.00-4.00 [facility] Comment on above: Order Comment: Speci men Type: BLOOD SPECIMEN [facility] Address: [address] [place] [address] Performed By: #### 5 7021-8 #### [facility] CLIA [id number] [address] [place] [address] [place] Lymphocytes/100 WBC (Bld) 8.3 % Normal [facility] Comment on above: Order Comment: Speci men Type: BLOOD SPECIMEN [facility] Address: [address] [place] [address] Performed By: #### 5 7021-8 #### [facility] CLIA [id number] [address] [place], [place] [id number] [place] MCH (RBC) [Entitic mass] 29.2 pg Normal 26.0-34.0 [facility] Comment on above: Order Comment: Speci men Type: BLOOD SPECIMEN [facility] Address: [address] [place] [address] Performed By: #### 5 7021-8 #### [facility] CLIA [id number] [address] [place] [address] [place] MCHC (RBC) [Mass/Vol] 31.5 g/dL Normal 30.5-36.0 [facility] Comment on above: Order Comment: Speci men Type: BLOOD SPECIMEN [facility] Address: [address] [place] [address] Performed By: #### 5 7021-8 #### [facility] CLIA [id number] [address] [place] [address] [place] MCV (RBC) [Entitic vol] 92.8 fL Normal 80.0-100.0 [facility] Comment on above: Order Comment: Speci men Type: BLOOD SPECIMEN [facility] Address: [address] [place] [address] Performed By: #### 5 7021-8 #### [facility] CLIA [id number] [address] [place] [address] [place] Monocytes (Bld) [#/Vol] 0.88 10*3/uL High <0.87 [facility] Comment on above: Order Comment: Speci men Type: BLOOD SPECIMEN [facility] Address: [address] [place] [address] Performed By: #### 5 7021-8 #### [facility] CLIA [id number] [address] [place] [address] [place] Monocytes/100 WBC (Bld) 8.0 % Normal [facility] Comment on above: Order Comment: Speci men Type: BLOOD SPECIMEN [facility] Address: [address] [place] [address] Performed By: #### 5 7021-8 #### [facility] CLIA [id number] [address] [place] [address] [place] [place] Neutrophils (Bld) [#/Vol] 8.50 10*3/uL High 1.45-7.50 [facility] [place] Comment on above: Order Comment: Speci men Type: BLOOD SPECIMEN [facility] Address: [address] [place] [address] Performed By: #### 5 7021-8 #### [facility] CLIA [id number] [address] [place] [address] [place] Neutrophils/100 WBC (Bld) 77.0 % Normal [facility] [place] Comment on above: Order Comment: Speci men Type: BLOOD SPECIMEN [facility]ing Facility: [facility] Address: [address] [place] [address] Performed By: #### 5 7021-8 #### [facility] CLIA [id number] [address] [place] [address] [place] Nucleated RBC (Bld) [#/Vol] 10*3/uL Normal <0.01 [facility] [place] Comment on above: Order Comment: Speci men Type: BLOOD SPECIMEN [facility]ing Facility[facility] Address: [address] [place] [address] Performed By: #### 5 7021-8 #### [facility] CLIA [id number] [address] [place] [address] [place] Nucleated RBC/100 WBC (Bld) [Ratio] 0.0 /100 WBC Normal [facility] [place] Comment on above: Order Comment: Speci men Type: BLOOD SPECIMEN [facility] Address: [address] [place] [address] Performed By: #### 5 7021-8 #### [facility] CLIA [id number] [address] [place] [address] [place] Platelet mean volume (Bld) [Entitic vol] 8.7 fL Low 9.0-12.7 [facility] [place] Comment on above: Order Comment: Speci men Type: BLOOD SPECIMEN [facility]ing [facility] Address: [address] [place] [address] Performed By: #### 5 7021-8 #### [facility] CLIA [id number] [address] [place] [address] [place] Platelets (Bld) [#/Vol] 350 10*3/uL Normal 150-400 [facility] [place] Comment on above: Order Comment: Speci men Type: BLOOD SPECIMEN [facility] Address: [address] [place] [address] Performed By: #### 5 7021-8 #### [facility] CLIA [id number] [address] [place] [address] [place] RBC (Bld) [#/Vol] 2.77 10*6/uL Low 3.90-5.20 [facility] Comment on above: Order Comment: Speci men Type: BLOOD SPECIMEN [facility] Address: [address] [place] [address] Performed By: #### 5 7021-8 #### [facility] CLIA [id number] [address] [place] [address] [place] WBC (Bld) [#/Vol] 11.03 10*3/uL High 3.70-11.00 [facility] Comment on above: Order Comment: Speci men Type: BLOOD SPECIMEN [facility] Address: [address] [place] [address] Performed By: #### 5 7021-8 #### [facility] CLIA [id number] [address] [place] [address] [place] Ferritin SerPl-mCncon 2023 Ferritin [Mass/Vol] 688.0 ng/mL High 14.7-205.1 [facility] Comment on above: Order Comment: Speci men Type: BLOOD SPECIMEN [facility] Address: [address] [place] [address] Performed By: #### 5 7021-8 #### [facility] CLIA [id number] [address] [place] [address] [place] Iron and Iron binding capaci ty panelon 08-13-2023 Iron [Mass/Vol] 37 ug/dL Low 41-186 [facility] [place] Comment on above: Order Comment: Speci men Type: BLOOD SPECIMEN [facility] Address: [address] [place] [address] Performed By: #### 5 7021-8 #### [facility] CLIA [id number] [address] [place] [address] [place] Iron binding capacity [Mass/Vol] 265 ug/dL Normal 232-386 [facility] [place] Comment on above: Order Comment: Speci men Type: BLOOD SPECIMEN [facility]ing [facility] Address: [address] [place] [address] Performed By: #### 5 7021-8 #### [facility] CLIA [id number] [address] [place] [address] [place] Iron/TIBC [Molar ratio] 14.0 % Low 15.0-57.0 [facility] [place] Comment on above: Order Comment: Speci men Type: BLOOD SPECIMEN [facility] Address: [address] [place] [address] Performed By: #### 5 7021-8 #### [facility] CLIA [id number] [address] [place] [address] [place] KAPPA/CASTELLANO,FREE,SERon 2023 Immunoglobulin light chains.kappa.free (S) [Mass/Vol] 58.8 mg/L High 3.3 - 19.4 mg/L [facility] Immunoglobulin light chains.kappa/Immunogl obulin light chains.lambda (S) [Mass ratio] 2.02 High 0.26 - 1.65 [facility] Immunoglobulin light chains.lambda.free [Mass/Vol] 29.1 mg/L High 5.7 - 26.3 mg/L [facility] CBC W Auto Differential pane l (Bld)on 08-01-2023 Basophils (Bld) [#/Vol] 0.11 10*3/uL High <0.11 k/uL [facility] Basophils/100 WBC (Bld) 1.2 % [facility] Differential cell count method Nom (Bld) Auto [facility] Eosinophils (Bld) [#/Vol] 0.33 10*3/uL <0.46 k/uL [facility] Eosinophils/100 WBC (Bld) 3.7 % [facility] Erythrocyte distribution width (RBC) [Ratio] 14.6 % 11.5 - 15.0 % [facility] Hematocrit (Bld) [Volume fraction] 30.3 % Low 36.0 - 46.0 % [facility] Hemoglobin (Bld) [Mass/Vol] 9.7 g/dL Low 11.5 - 15.5 g/dL [facility] Immature granulocytes (Bld) [#/Vol] 0.05 10*3/uL <0.10 k/uL [facility] Immature granulocytes/100 WBC (Bld) 0.6 % [facility] Lymphocytes (Bld) [#/Vol] 0.67 10*3/uL Low 1.00 - 4.00 k/uL [facility] Lymphocytes/100 WBC (Bld) 7.5 % [facility] MCH (RBC) [Entitic mass] 29.4 pg 26.0 - 34.0 pg [facility] MCHC (RBC) [Mass/Vol] 32.0 g/dL 30.5 - 36.0 g/dL [facility] MCV (RBC) [Entitic vol] 91.8 fL 80.0 - 100.0 fL [facility] Monocytes (Bld) [#/Vol] 0.63 10*3/uL <0.87 k/uL [facility] Monocytes/100 WBC (Bld) 7.0 % [facility] Neutrophils (Bld) [#/Vol] 7.20 10*3/uL 1.45 - 7.50 k/uL [facility] Neutrophils/100 WBC (Bld) 80.0 % [facility] Nucleated RBC (Bld) [#/Vol] <0.01 k/uL [facility] Nucleated RBC/100 WBC (Bld) [Ratio] 0.0 /100 WBC [facility] Platelet mean volume (Bld) [Entitic vol] 9.3 fL 9.0 - 12.7 fL [facility] Platelets (Bld) [#/Vol] 302 10*3/uL 150 - 400 k/uL [facility] RBC (Bld) [#/Vol] 3.30 10*6/uL Low 3.90 - 5.2 0 m/uL [facility] WBC (Bld) [#/Vol] 8.99 10*3/uL 3.70 - 11. 00 k/uL [facility] Basophils (Bld) [#/Vol] 0.11 10*3/uL High <0.11 [facility] [place] Comment on above: Order Comment: Speci men Type: BLOOD SPECIMEN [facility] Address: [address] [place] [address] Performed By: #### 2 276-4, 67342-5 #### [facility] CLIA [id number] [address] [place] [address] [place] Basophils/100 WBC (Bld) 1.2 % Normal [facility] [place] Comment on above: Order Comment: Speci men Type: BLOOD SPECIMEN [facility] Address: [address] [place] [address] Performed By: #### 2 276-4, 95250-0 #### [facility] CLIA [id number] [address] [place] [address] [place] Differential cell count method Nom (Bld) Auto Normal [facility] [place] Comment on above: Order Comment: Speci men Type: BLOOD SPECIMEN [facility]ing [facility] Address: [address] [place] [address] Performed By: #### 2 276-4, 13334-7 #### [facility] CLIA [id number] [address] [place] [address] [place] Eosinophils (Bld) [#/Vol] 0.33 10*3/uL Normal <0.46 [facility] [place] Comment on above: Order Comment: Speci men Type: BLOOD SPECIMEN [facility]ing [facility] Address: [address] [place] [address] Performed By: #### 2 276-4, 40958-7 #### [facility] CLIA [id number] [address] [place] [address] [place] Eosinophils/100 WBC (Bld) 3.7 % Normal [facility] [place] Comment on above: Order Comment: Speci men Type: BLOOD SPECIMEN [facility]ing [facility] Address: [address] [place] [address] Performed By: #### 2 276-4, 23638-5 #### [facility] CLIA [id number] [address] [place] [address] [place] Erythrocyte distribution width (RBC) [Ratio] 14.6 % Normal 11.5-15.0 [facility] [place] Comment on above: Order Comment: Speci men Type: BLOOD SPECIMEN [facility] Address: [address] [place] [address] Performed By: #### 2 276-4, 14206-9 #### [facility] CLIA [id number] [address] [place] [address] [place] Hematocrit (Bld) [Volume fraction] 30.3 % Low 36.0-46.0 [facility] [place] Comment on above: Order Comment: Speci men Type: BLOOD SPECIMEN [facility] Address: [address] [place] [address] Performed By: #### 2 276-4, 22240-2 #### [facility] CLIA [id number] [address] [id number] [address] [place] Hemoglobin (Bld) [Mass/Vol] 9.7 g/dL Low 11.5-15.5 [facility] [place] Comment on above: Order Comment: Speci men Type: BLOOD SPECIMEN [facility] Address: [address] [place] [address] Performed By: #### 2 276-4, 16638-0 #### [facility] CLIA [id number] [address] [place] [address] [place] Immature granulocytes (Bld) [#/Vol] 0.05 10*3/uL Normal <0.10 [facility] [place] Comment on above: Order Comment: Speci men Type: BLOOD SPECIMEN [facility] Address: [address] [place] [address] Performed By: #### 2 276-4, 49241-0 #### [facility] CLIA [id number] [address] [place] [address] [place] Immature granulocytes/100 WBC (Bld) 0.6 % Normal [facility] [place] Comment on above: Order Comment: Speci men Type: BLOOD SPECIMEN [facility] Address: [address] [place] [address] Performed By: #### 2 276-4, 34835-7 #### [facility] CLIA [id number] [address] [place] [address] [place] Lymphocytes (Bld) [#/Vol] 0.67 10*3/uL Low 1.00-4.00 [facility] [place] Comment on above: Order Comment: Speci men Type: BLOOD SPECIMEN [facility] Address: [address] [place] [address] Performed By: #### 2 276-4, 64700-6 #### [facility] CLIA [id number] [address] [place] [address] [place] Lymphocytes/100 WBC (Bld) 7.5 % Normal [facility] [place] Comment on above: Order Comment: Speci men Type: BLOOD SPECIMEN [facility] Address: [address] [place] [address] Performed By: #### 2 276-4, 02883-2 #### [facility] CLIA [id number] [address] [place] [address] [place] MCH (RBC) [Entitic mass] 29.4 pg Normal 26.0-34.0 [facility] [place] Comment on above: Order Comment: Speci men Type: BLOOD SPECIMEN [facility] Address: [address] [place] [address] Performed By: #### 2 276-4, 66001-9 #### [facility] CLIA [id number] [address] [place] [address] [place] MCHC (RBC) [Mass/Vol] 32.0 g/dL Normal 30.5-36.0 [facility] Comment on above: Order Comment: Speci men Type: BLOOD SPECIMEN [facility] Address: [address] [place] [address] Performed By: #### 2 276-4, 46736-4 #### [facility] CLIA [id number] [address] [place] [address] [place] MCV (RBC) [Entitic vol] 91.8 fL Normal 80.0-100.0 [facility] [place] Comment on above: Order Comment: Speci men Type: BLOOD SPECIMEN [facility] Address: [address] [place] [address] Performed By: #### 2 276-4, 53676-4 #### [facility] CLIA [id number] [address] [place] [address] [place] Monocytes (Bld) [#/Vol] 0.63 10*3/uL Normal <0.87 [facility] Comment on above: Order Comment: Speci men Type: BLOOD SPECIMEN [facility] Address: [address] [place] [address] Performed By: #### 2 276-4, 90920-1 #### [facility] CLIA [id number] [address] [place] [address] [place] Monocytes/100 WBC (Bld) 7.0 % Normal [facility] [place] Comment on above: Order Comment: Speci men Type: BLOOD SPECIMEN [facility] Address: [address] [place] [address] Performed By: #### 2 276-4, 91939-1 #### [facility] CLIA [id number] [address] [place] [address] [place] Neutrophils (Bld) [#/Vol] 7.20 10*3/uL Normal 1.45-7.50 [facility] [place] Comment on above: Order Comment: Speci men Type: BLOOD SPECIMEN [facility] Address: [address] [place] [address] Performed By: #### 2 276-4, 10906-9 #### [facility] CLIA [id number] [address] [place] [address] [place] Neutrophils/100 WBC (Bld) 80.0 % Normal [facility] Comment on above: Order Comment: Speci men Type: BLOOD SPECIMEN [facility] Address: [address] [place] [address] Performed By: #### 2 276-4, 72042-4 #### [facility] CLIA [id number] [address] [place] [address] [place] Nucleated RBC (Bld) [#/Vol] 10*3/uL Normal <0.01 [facility] Comment on above: Order Comment: Speci men Type: BLOOD SPECIMEN [facility] Address: [address] [place] [address] Performed By: #### 2 276-4, 92283-8 #### [facility] CLIA [id number] [address] [place] [address] [place] Nucleated RBC/100 WBC (Bld) [Ratio] 0.0 /100 WBC Normal [facility] Comment on above: Order Comment: Speci men Type: BLOOD SPECIMEN [facility] Address: [address] [place] [address] Performed By: #### 2 276-4, 14704-5 #### [facility] CLIA [id number] [address] [place] [address] [place] Platelet mean volume (Bld) [Entitic vol] 9.3 fL Normal 9.0-12.7 [facility] Comment on above: Order Comment: Speci men Type: BLOOD SPECIMEN [facility] Address: [address] [place] [address] Performed By: #### 2 276-4, 51681-8 #### [facility] CLIA [id number] [address] [place] [address] [place] Platelets (Bld) [#/Vol] 302 10*3/uL Normal 150-400 [facility] Comment on above: Order Comment: Speci men Type: BLOOD SPECIMEN [facility] Address: [address] [place] [address] Performed By: #### 2 276-4, 34322-3 #### [facility] CLIA [id number] [address] [place] [address] [place] RBC (Bld) [#/Vol] 3.30 10*6/uL Low 3.90-5.20 [facility] Comment on above: Order Comment: Speci men Type: BLOOD SPECIMEN [facility] Address: [address] [place] [address] Performed By: #### 2 276-4, 83244-2 #### [facility] CLIA [id number] [address] [place] [address] [place] WBC (Bld) [#/Vol] 8.99 10*3/uL Normal 3.70-11.00 [facility] Comment on above: Order Comment: Speci men Type: BLOOD SPECIMEN [facility] Address: [address] [place] [address] Performed By: #### 2 276-4, 57326-0 #### [facility] CLIA [id number] [address] [place] [id number] [facility] CNOVSPon 08-01-2023 CNOVSP Visit (SP) Office (HEMAWS) WINIFRED WOOD ([id number]) 1945 F Date Time Provider Department 08/01/23 10:30 AM [facility] During your visit today, we recorded the following information about you: Temperature Pulse Respiration Blood pressure 97.9 degrees 58/minute 12/minute 152/60 Weight Height 87.5 kg 1.549 m Weston Vaughn 08/02/2023 12:13 PM Signed Hematology Consult Note Winifred Can Ricardo 1945 Encounter date: 08/01/2023 Cancer Staging No matching staging information was found for the patient. HPI: Winifred Wood is a 78 year old female with a PHMx of CKD, Stage 3, no dialysis as of yet but has been told by her envelope addresser that it is likely coming soon, HTN, T2DM, osteoarthritis, hyperlipidemia, and anemia. She was referred to hematology by her envelope addresser for further management of her anemia. BP elevated in the office has been running good at home 120s/60s, SPEP drawn by envelope addresser without m spike. No SOB, CP. Denies [...] receive weekly doses x4. IV iron at [facility], no current record for this. Last T [...] oral cavity clear. Neck: Supple, no thyroid nodul (more content not included)... Normal [facility] FERRITIN BLDon 08-01-2023 Ferritin [Mass/Vol] 287.0 ng/mL High 14.7 - 2 05.1 ng/mL [facility] FOLATE SERUMon 08-01-2023 Folate [Mass/Vol] >4.7 ng/mL [facility] Ferritin SerPl-mCncon 2023 Ferritin [Mass/Vol] 287.0 ng/mL High 14.7-205.1 [facility] Comment on above: Order Comment: Speci men Type: BLOOD SPECIMENOrdering Facility: [facility] Address: [address] [place] [address] Performed By: #### 2 276-4, 2284-8, 64753-4, 2132-02 ####[facility] [id number] [place] [address] [place] Folate SerPl-ncon 08-01-19 24 Folate [Mass/Vol] ng/mL Normal >4.7 [facility] Comment on above: Order Comment: Speci men Type: BLOOD SPECIMENOrdering Facility: [facility] Address: [address] [place] [address] Result Comment: A re sult of > 20 ng/mL is not necessarily indicative of a pathologic or treatable condition: it reflects a limitation of the test methodology. Assay reference range: 4.8 to 24.2 ng/mL. Suitable for detection of folate deficiency. Reference: Folate III (Folate III) [package insert V 1.0 Persian]. [facility], [place], [place]: April 2015. Performed By: #### 2 276-4, 2283-8, 01049-3, 2132-02 ####[facility] [id number] [place] [address] [place] Iron and Iron binding capaci panelon 08-01-2023 Iron [Mass/Vol] 47 ug/dL 41 - 186 ug/dL [facility] Iron binding capacity [Mass/Vol] 310 ug/dL 232 - 386 ug/dL [facility] Iron/TIBC [Molar ratio] 15.2 % 15.0 - 57.0 % [facility] Iron [Mass/Vol] 47 ug/dL Normal 41-186 [facility] Comment on above: Order Comment: Speci men Type: BLOOD SPECIMENOrdering Facility: [facility] Address: [address] [place] [address] Performed By: #### 2 276-4, 2283-8, 62205-7, 2132-02 ####[facility] [id number] [place] [address] [place] Iron binding capacity [Mass/Vol] 310 ug/dL Normal 232-386 [facility] Comment on above: Order Comment: Speci men Type: BLOOD SPECIMENOrdering Facility: [facility] Address: [address] [place] [address] Performed By: #### 2 276-4, 2284-8, 81868-1, 9 ####[facility] [id number] [place] [address] [place] Iron/TIBC [Molar ratio] 15.2 % Normal 15.0-57.0 [facility] Comment on above: Order Comment: Speci men Type: BLOOD SPECIMENOrdering Facility: [facility] Address: [address] [place] [address] Performed By: #### 2 276-4, 4-8, 28444-2, 2132-02 ####[facility] [id number] [place] [address] [place] KAPPA/CASTELLANO,FREE,SERon 2023 Immunoglobulin light chains.kappa.free (S) [Mass/Vol] 58.8 mg/L High 3.3-19.4 [facility] Comment on above: Order Comment: Speci men Type: BLOOD SPECIMENOrdering Facility: [facility] Address: [address] [place] [address] Result Comment: Rare ly, increased serum free light chains levels may not be detected or accurately quantified due to prozone phenomenon or in high viscosity samples using this immunoturbidimetric assay. Correlation with other laboratory results and clinical findings is recommended. The [place] Free Light Chain was performed using the Binding Site Optilite immunoturbidimetric method. Result obtained with different assay methods or kits cannot be used interchangeably. Performed By: #### K LFRS ####[facility] [id number] [place] [address] [place] Immunoglobulin light chains.kappa/Immunogl obulin light chains.lambda (S) [Mass ratio] 2.02 High 0.26-1.65 [facility] Comment on above: Order Comment: Speci men Type: BLOOD SPECIMENOrdering Facility: [facility] Address: [address] [place] [address] Performed By: #### K LFRS ####[facility] [id number] [place] [address] [place] Immunoglobulin light chains.lambda.free [Mass/Vol] 29.1 mg/L High 5.7-26.3 [facility] Comment on above: Order Comment: Speci men Type: BLOOD SPECIMENOrdering Facility: [facility] Address: [address] [place] [address] Result Comment: Rare ly, increased serum free light chains levels may not be detected or accurately quantified due to prozone phenomenon or in high viscosity samples using this immunoturbidimetric assay. Correlation with other laboratory results and clinical findings is recommended. The [place] Free Light Chain was performed using the Binding Site Optilite immunoturbidimetric method. Result obtained with different assay methods or kits cannot be used interchangeably. Performed By: #### K LFRS ####[facility] [id number] [place] [address] [place] RETIC COUNTon 08-01-2023 Reticulocytes (Bld) [#/Vol] 0.99112 10*3/uL 0.018 - 0.100 M/uL [facility] Retics #on 08-01-2023 Reticulocytes (Bld) [#/Vol] 0.13638 10*3/uL Normal 0.018-0.100 [facility] [place] Comment on above: Order Comment: Speci men Type: BLOOD SPECIMEN [facility]ing Facility[facility] Address: [address] [place] [address] Performed By: #### 2 276-4, 90214-9 #### [facility] CLIA [id number] [address] [place] [address] [place] Reticulocytes (Bld) [#/Vol]o n 08-01-2023 Reticulocytes/100 RBC (Bld) 1.7 % 0.4 - 2.0 % [facility] Reticulocytes/100 RBC (Bld) 1.7 % Normal 0.4-2.0 [facility] Comment on above: Order Comment: Speci men Type: BLOOD SPECIMEN Ordering Facility: [facility] Address: [address] [place] [address] Performed By: #### 2 276-4, 77776-0 #### [facility] CLIA [id number] [address] [place] [address] [place] VITAMIN B12 BLOODon 08-01-19 24 Cobalamin (Vitamin B12) [Mass/Vol] 1153 pg/mL 232 - 1,245 pg/mL [facility] Vit B12 SerPl-mCncon 024 Cobalamin (Vitamin B12) [Mass/Vol] 1153 pg/mL Normal 232-1245 [facility] [place] Comment on above: Order Comment: Speci men Type: BLOOD SPECIMENOrdering Facility: [facility] Address: [address] [place] [address] Performed By: #### 2 276-4, 2284-8, 12973-1, 2132-9 ####[facility] LABCLIA [id number] [place] [address] [place] XR TIBIA/FIBULA 2 VIEWS LEFT on 03-29-2023 XR TIBIA/FIBULA 2 VIEWS LEFT ORIGINAL EXAMINATION: TWO XRAY VIEWS OF THE LEFT TIBIA/FIBULA 03/25/2023 4:08 pm COMPARISON: None. HISTORY: ORDERING SYSTEM PROVIDED HISTORY: Reason for Exam: Recent trauma to left lower leg with pain on weight bearing. Could have sustained impact to lateral aspect of leg pain in left lower leg s/p fall about a week and a half ago. FINDINGS: There is no acute fracture. The bones are in anatomic alignment. Degenerative changes are seen in the knee and ankle. Vascular calcifications are noted. There is no radiopaque foreign body. IMPRESSION: No acute osseous abnormality. Interpreted by: Gio Moya MD Preliminary Report By: Gio Moya MD Electronically signed By Gio Moya MD Dictated Date: 03/29/2023 5:13:38 PM Prelim Date: 03/29/2023 5:14:49 PM Sign Date: 03/29/2023 5:14:49 PM Ordering Provider: ALFONSO RAMIREZ [facility] ([place]) [place] PARATHYROID STUDYon 01-04 NM PARATHYROID STUDY ORIGINAL EXAMINATION: PARATHYROID SCINTIGRAPHY01/04/2023 2:54 pm TECHNIQUE: [...] Sign Date: 01/04/2023 3:49:39 PM Ordering Provider: ALFONSO RAMIREZ [facility] ([place]) Office Visiton 08-16-2022 Follow-up visit [id number] Lori Wood 1945 F Date Provider Department Center 08/16/2022 [id number]-JFOKIXALEYDA [facility]I [facility] ROS[facility]NA [facility] [address] Ar Family History Problem Relation Age of Onset Dementia Mother No Known Problems Father Family Status - Relation Status Age at Mother Alive Father Level of Service:45403 NM OFFICE/OUTPATIENT ESTABLISHED MOD MDM 30-39 MIN Reason for Visit and Comments: 1 Month Follow Up [[id number]] - One month TAVR follow up Normal [facility] Progress Noteon 08-16-2022 Progress Note [facility] Cardiology [facility] [address] [facility] [address] Dept: [phone] Dept Loc: [phone] Visit type: Established : 1945 Chief Complaint: Chief Complaint Patient presents with 1 Month Follow Up One month TAVR follow up History of Present Illness: Winifred Wood is a 77 y.o. female Ms Wood is a 77 yr old female known to Dr. Lopez with a PMH of OA, CKD stage 3, DM, obesity, RENE, HTN, HPL, hyperparathyroidism, and severe aortic stenosis with exertional dyspnea. Echo from 03/16/2022 showed EF 65%, KATHY 1.0, peak and mean gradients 73/43 mm Hg. Cath showed non obstructive CAD. She underwent femoral TAVR with 23 mm Winnie S3 on 07/09/2022. She is here today for one month follow up. She feels good and is exercising 5 days a week. She denies any chest pain, dyspnea, palpitations, syncope, bleeding. Her BP is controlled at home but high in the office today Past Medical History: Past Medical History: Diagnosis Date Anemia Aortic valve stenosis CKD (chronic kidney disease) Diabetes mellitus (HCC) Hyperlipidemia Hypertension Obesity Renal calculi Right renal artery stenosis (CMS/HCC) (HCC) Past Surgical History Past Surgical History: Procedure Laterality Date CARDIAC CATHETERIZATION N/A 07/09/2022 Performed by Melvin Leos MD at [facility] OR CHOLECYSTECTOMY CT HEART CORONARY ANGIOGRAM - WITH PROVISIONAL FFR-CT 06/27/2022 CT ANGIOGRAM TAVR 06/27/[address] [facility] [address] IMAGING SALPINGECTOMY Bilateral Family History Family History Problem Relation Name Age of Onset Dementia Mother No Known Problems Father Social History Social History Tobacco Use Smoking status: Never Passive exposure: Never Smokeless tobacco: Never Substance Use Topics Alcohol use: Not Currently Drug use: Never Allergies: Allergies Allergen Reactions Erythromycin Nausea And Vomiting and Unknown Penicillins Rash and Unknown Medications: Current Outpatient Medications: acetaminophen (Tylenol) 325 MG tablet, Take 2 tablets by mouth every 8 hours as needed., Disp: , Rfl: allopurinol (Zyloprim) 100 MG tablet, Take 0.5 tablets by mouth Every 24 hours., Disp: , Rfl: amLODIPine (Norvasc) 5 MG tablet, Take 1 tablet by mouth Every 24 hours., Disp: , Rfl: ascorbic acid (Vitamin C) 500 MG chewable tablet, Chew 1 tablet Every 24 hours., Disp: , Rfl: aspirin 81 MG EC tablet, Take 1 tablet by mouth Every 24 hours., Disp: , Rfl: atorvastatin (Lipitor) 20 MG tablet, Take 1 tablet by mouth Every 24 hours., Disp: , Rfl: Calcium 600-10 MG-MCG chewable tablet, Chew 1 tablet daily., Disp: , Rfl: clopidogrel (Plavix) 75 MG tablet, Take 75 mg by mouth daily., Disp: , Rfl: docusate sodium (Colace) 100 MG capsule, Take 1 capsule by mouth Nightly., Disp: , Rfl: ferrous sulfate 324 (65 Fe) MG EC tablet, Take 1 tablet by mouth daily., Disp: , Rfl: losartan (Cozaar) 25 MG tablet, Take 50 mg by mouth., Disp: , Rfl: metoprolol succinate XL (Toprol-XL) 100 MG 24 hr tablet, 100 mg daily., Disp: , Rfl: MULTIPLE VITAMIN PO, Take 1 tablet by mouth daily., Disp: , Rfl: Review of Systems: Review of Systems Constitutional: Negative for activity change, chills, diaphoresis, fatigue and fever. HENT: Negative for nosebleeds and trouble swallowing. Eyes: Negative for discharge and visual disturbance. Respiratory: Negative for apnea, cough, chest tightness, shortness of breath and wheezing. Cardiovascular: Positive for leg swelling (chronic). Negative for chest pain and palpitations. Gastrointestinal: Negative for abdominal distention, abdominal pain, blood in stool, diarrhea, nausea and vomiting. Endocrine: Negative for cold intolerance and heat intolerance. Genitourinary: Negative for hematuria. Musculoskeletal: Negative for gait problem and myalgias. Skin: Negative for color change and rash. Neurological: Negative for dizziness, seizures, syncope, facial asymmetry, speech difficulty, weakness, light-headedness, numbness and headaches. Hematological: Does not bruise/bleed easily. Psychiatric/Behavioral : Negative for dysphoric mood. Physical Examination: Vitals: Vitals: 08/16/22 1012 BP: (!) 170/70 BP Location: Left arm Patient Position: Sitting BP Cuff Size: Adult Pulse: 69 SpO2: 99% Weight: 221 lb (100 kg) Height: 5' 1.5 (1.562 m) Body mass index is 41.08 kg/m?. Physical Exam Constitutional: Appearance: Normal appearance. HENT: Head: Normocephalic and atraumatic. Nose: Nose normal. Eyes: Conjunctiva/sclera: Conjunctivae normal. Pupils: Pupils are equal, round, and reactive to light. Cardiovascular: Rate and Rhythm: Normal rate and regular rhythm. Pulmonary: Effort: Pulmonary effort is normal. Breath sounds: Normal breath sounds. Abdominal: General: Bowel sounds are normal. Palpations: Abdomen is soft. Musculoskeletal: General: Norm (more content not included)... Normal [facility] Office Visiton 07-19-2022 Follow-up visit [id number] Lori Wood 1945 F Date Provider Department Center 07/19/2022 [id number]-IFZYXZALEYDA [facility]I [facility] [address] Family History Problem Relation Age of Onset Dementia Mother No Known Problems Father Family Status - Relation Status Age at Mother Alive Father Level of Service:74155 NM OFFICE/OUTPATIENT ESTABLISHED MOD MDM 30-39 MIN Reason for Visit and Comments: Follow-up [[id number]] - Severe , TAVR Normal [facility] Progress Noteon 07-19-2022 Progress Note Likely secondary to anemia of chronic disease, CKD. Will repeat. No obvious bleeding Normal [facility] Progress Note Followed by nephrology. Stable POD 1 TAVR. Will re check Normal [facility] Progress Note BP uncontrolled. Recent increase in Losartan by primary heel trimmer. Check BMP, CBC one week Normal [facility] Progress Note S/P femoral TAVR doi ng well. Continue ASA (on DAPT, hx of renal stent). Echo in one month with OV. SBE prophylaxis. OK to resume exercise regimen. Normal [facility] Progress Note [facility] [address] [facility] [address] Dept: [phone] Dept Loc: [phone] Visit type: Established : 1945 Reason for Visit: Follow-up (Severe , TAVR) Assessment and Plan 1. Primary hypertension Assessment & Plan: BP uncontrolled. Recent increase in Losartan by primary heel trimmer. Check BMP, CBC one week 2. Aortic stenosis, severe Assessment & Plan: S/P femoral TAVR doing well. Continue ASA (on DAPT, hx of renal stent). Echo in one month with OV. SBE prophylaxis. OK to resume exercise regimen. Orders: - ECG 12 lead - CLINIC PERFORMED - Basic metabolic panel - CBC 3. Stage 3b chronic kidney disease (HCC) Assessment & Plan: Followed by nephrology. Stable POD 1 TAVR. Will re check 4. Anemia, unspecified type Assessment & Plan: Likely secondary to anemia of chronic disease, CKD. Will repeat. No obvious bleeding Follow up in about 1 month (around 08/19/2022). Subjective Ms Wood is a 77 yr old female known to Dr. Lopez with a PMH of OA, CKD stage 3, DM, obesity, RENE, HTN, HPL, hyperparathyroidism, and severe aortic stenosis with exertional dyspnea. Echo from 03/16/2022 showed EF 65%, KATHY 1.0, peak and mean gradients 73/43 mm Hg. Cath showed non obstructive CAD. She underwent femoral TAVR with 23 mm Winnie S3 on 07/09/2022. She is here today for one week follow up. She notes improvement in breathing and energy level. She denies any chest pain, bleeding. Dr. Lopez increased her Losartan up to 100 mg daily. Winifred Wood Review of Systems Constitutional: Negative for activity change, chills, diaphoresis, fatigue and fever. HENT: Negative for nosebleeds and trouble swallowing. Eyes: Negative for discharge and visual disturbance. Respiratory: Negative for apnea, cough, chest tightness, shortness of breath and wheezing. Cardiovascular: Negative for chest pain, palpitations and leg swelling. Gastrointestinal: Negative for abdominal distention, abdominal pain, blood in stool, diarrhea, nausea and vomiting. Endocrine: Negative for cold intolerance and heat intolerance. Genitourinary: Negative for hematuria. Musculoskeletal: Negative for gait problem and myalgias. Skin: Negative for color change and rash. Neurological: Negative for dizziness, seizures, syncope, facial asymmetry, speech difficulty, weakness, light-headedness, numbness and headaches. Hematological: Does not bruise/bleed easily. Psychiatric/Behavioral : Negative for dysphoric mood. Allergies Allergen Reactions Erythromycin Nausea And Vomiting and Unknown Penicillins Rash and Unknown Outpatient Medications Prior to Visit Medication Sig [...] tablet Take 1 tablet by mouth daily. losartan (Cozaar) 25 MG tablet Take 50 mg by mouth. metoprolol succinate XL (Toprol-XL) 100 MG 24 hr tablet 100 mg daily. MULTIPLE VITAMIN PO Take 1 tablet by mouth daily. No facility-administered medications prior to visit. Past Medical History: Diagnosis Date Anemia Aortic valve stenosis CKD (chronic kidney disease) Diabetes mellitus (HCC) Hyperlipidemia Hypertension Obesity Renal calculi Right renal artery stenosis (CMS/HCC) ([facility]) Social History Tobacco Use Smoking status: Never Passive exposure: Never Smokeless tobacco: Never Substance Use Topics Alcohol use: Not Currently Past Surgical History: Procedure Laterality Date CARDIAC CATHETERIZATION N/A 07/09/2022 Performed by Melvin Leos MD at [facility] OR CHOLECYSTECTOMY CT HEART CORONARY ANGIOGRAM - WITH PROVISIONAL FFR-CT 06/27/2022 CT ANGIOGRAM TAVR 06/27/[address] [facility] [address] IMAGING SALPINGECTOMY Bilateral Family History Problem Relation Name Age of Onset Dementia Mother No Known Problems Father Objective Vitals: 07/19/22 1112 BP: (!) 180/88 BP Location: Left arm Patient Position: Sitting BP Cuff Size: Adult Pulse: 74 SpO2: 100% Weight: 228 lb (103 kg) Height: 5' 1.5 (1.562 m) Physical Exam Constitutional: Appearance: Normal appearance. HENT: Head: Normocephalic and atraumatic. Nose: Nose normal. Eyes: Conjunctiva/sclera: Conjunctivae normal. Pupils: Pupils are equal, round, and reactive to light. Cardiovascular: Rate and Rhythm: Normal rate and reg (more content not included)... Normal [facility] ECG 12-LEADon 07-11-2022 ECG 12-LEAD IMPRESSION: Sinus rhythm LVH with secondary repolarization abnormality Anterior Q waves, possibly due to LVH Electronically Signed On 07-11-2022 9:11:03 EST by Jerry Wei Normal [facility] ECG 12-LEADon 07-10-2022 ECG 12-LEAD IMPRESSION: Sinus bradycardia Left bundle branch block Electronically Signed On 07-10-2022 7:01:09 EST by Roxi Baez [facility] Nursing Noteon 07-10-2022 Nursing Note Discharge instructio ns given to pt who verbalizes understanding. IV removed and removed from monitor. Temporary valve card in patient possession. Awaiting ride for discharge to home. [facility] Op Noteon 07-09-2022 Op Note Operative note Date of surgery 07/09/2022 Cardiothoracic surgeon: Francis Hardin MD [facility] Cardiologists: Ronnie Ruiz MD and Melvin Leos MD Procedure: Transcatheter aortic valve replacement Preoperative diagnosis: Severe symptomatic aortic valvular stenosis Postoperative diagnosis: The same Complications: None Anesthesia: Local with conscious sedation Indications for procedure the patient is a 77-year-old female with severe, symptomatic aortic valve stenosis. The case was reviewed in the valve clinic in the valve conference and the patient was deemed a candidate for TAVR. Procedure in detail: The patient was placed on the hybrid operating room table in the supine position and conscious sedation anesthesia was initiated. The patient was fully prepped and draped in usual sterile fashion. The open heart surgery team was available in the operating room and I was scrubbed into the case. Vascular access was gained to the right femoral artery, left femoral artery and right femoral vein. A 6 Taiwanese sheath was placed in the right femoral vein through which the temporary pacing wire was advanced to the right ventricular apex where appropriate capture was documented. Sterile tubing was attached to the side-port of this sheath and passed off to the anesthesiologist for central IV access. A 6 Taiwanese sheath was placed in the left femoral artery through which the 5 Taiwanese pigtail catheter was placed into the aortic annulus and used for confirmation of the implant angle. A 6 Taiwanese sheath was placed in the right femoral artery the patient was systemically heparinized with 100 units/kg intravenous heparin. 2 Perclose devices were placed at the femoral artery site. The various wires and sheaths were then passed per cardiology. Please refer to the cardiology dictation for this aspect of the surgery. A 23 mm WINNIE S3 ultra valve was advanced through the sheath into the descending thoracic aorta. The valve was mounted on the balloon and the delivery catheter was flexed and advanced across the aortic arch and the aortic annulus. The valve was deployed under rapid pacing. The valve was noted to seat well and functioning normally on fluoroscopy and transthoracic echocardiography protamine was then given to reverse the systemic effects of heparin and the patient was decannulated and transferred stable to the recovery room end of report Normal [facility] 36on 07-04-2022 36 Osmany Cai ELIZABETH notife d to review pre-TAVR labs/imaging Ready for prep for proc orders Diagnosis: Procedure being done: TAVR/TTE Date/time of procedure: 07/09/2022 at 1245 Surgeon: TRUNG 2nd surgeon: ARNOLD Admission type: To be admitted Anesthesia: MAC Completed: CMP, CBC with Diff, BNP, T&S, CXR Date completed: 06/27/22, CXR- 05/18/[address] Lopez office Additional orders POC Glucose Normal [facility] CT ANGIOGRAM TAVRon 06-28-19 CT ANGIOGRAM TAVR ADDENDUM #1 This is a radiology addendum for the noncardiovascular findings on the CT images of the chest, abdomen, and pelvis obtained for this examination: No focal consolidation is seen within the lungs. There is no pleural effusion or pneumothorax. No suspicious pulmonary nodules are identified. No lymphadenopathy is seen within the chest. There is a small hiatal hernia. Innumerable small hypodensities scattered throughout the liver likely represent cysts. There are also several small hypodensities within both kidneys which are also likely cysts, however there is an intermediate density exophytic lesion arising from the lateral cortex of the right kidney measuring 2.9 cm in an intermediate density lesion arising from the posterior cortex of the left kidney measuring 2.3 cm which does not have the density of simple cysts. The gallbladder has been removed. The spleen and adrenal glands appear within normal limits. There are several small cystic lesions within the pancreas measuring up to approximately 1.3 cm in diameter. No lymphadenopathy is seen within the abdomen or pelvis. The urinary bladder is empty, limiting evaluation. The uterus does not appear enlarged. Large and small bowel loops appear grossly normal without evidence of wall thickening or dilatation. There is no free fluid or free air within the abdomen or pelvis. No lytic or blastic lesions are seen on the bone windows. Patient Name: WINIFRED WOOD Exam Date/Time: 06/27/2022 11:15 Procedure: CT ANGIOGRAM TAVR Ordering Provider: CAI MICHELLE Reason For Exam: [facility] Valve [facility] Cardiovascular CTA Indication: 77 year-old woman with severe aortic stenosis, being evaluated for transcatheter aortic valve implantation. Technique: Computed tomography of the heart, thoracoabdominal aorta, and iliofemoral system was performed using a [employer] Aquilion One 320 detector scanner. Images were reconstructed and analyzed on an advanced post-processing 3D workstation. Contrast: 100 mL Total DLP: 689.74 mGy-cm Study Quality: Good Extracardiac Findings: Numerous hepatic and renal cysts are present. Elevated left hemidiaphragm noted. Scattered groundglass opacities. For a complete description of extracardiac structures, please refer to the accompanying radiology addendum. Cardiac Chambers: The pericardium is unremarkable. The left and right ventricles are normal in size. There is significant LVH. The left atrium is moderately dilated. The left atrial appendage is normal in appearance. The right atrium is moderately dilated. Coronary Arteries: The coronaries have normal origins. There is a pattern of right coronary dominance. There is evidence of coronary atherosclerosis. The present study was not optimized for evaluation of the coronary arteries. Mitral Valve: The mitral annulus has severe calcification with some involvement of chordae and posteromedial papillary muscle, without significant extension into the LVOT. The anterior mitral leaflet is free of the LVOT during systole. Aortic Valve: The aortic valve is tricuspid and moderately calcified. Predicted deployment angle (3-cusp view): UGANDAN 0, [employer] 12 Aortic Annulus: Dimensions: 2.29 x 1.90 cm Area: 3.25 cm2 Perimeter: 65.4 mm Left coronary height: 13.7 mm Right Coronary height: 15.6 mm Aorta and Iliofemoral System: All vascular measurements are minimal luminal diameters using a centerline technique. Aortic Root and Thoracic Aorta: Sinuses of Valsalva: 27 mm Sinotubular junction: 24 mm Mid ascending Aorta: 29 mm Abdominal Aorta: Infrarenal: 14 mm Bifurcation: 11 mm Right Iliac System: Calcification: mild. Tortuosity: mild. RCIA: 9 mm REIA: 7 mm RCFA: 7 mm Left Iliac System: Calcification: mild. Tortuosity: mild. LCIA: 9 mm MELISSA: 7 mm LCFA: 7 mm CONCLUSIONS: 1. Calcific aortic stenosis, with descriptive anatomy and annular / aortic root measurements as detailed above. 2. Patent bilateral iliofemoral system as detailed above. Report Dictated on Electronically Signed By: Sher Overton Electronically Signed Date/Time: 06/27/2022 5:13 PM EST [facility] ADDENDUMNOTEon 06-27-2022 ADDENDUMNOTE Addended by: ROSALIND LEOS on: 06/28/2022 10:48 AM Modules accepted: Orders [facility] Office Visiton 06-27-2022 Follow-up visit [id number] Lori Wood 1945 F Date Provider Department Center 06/27/2022 [id number]-PGPSROSALIND LEOS [facility] ROS[facility]NA [facility] 95 Ar Family History Problem Relation Age of Onset Dementia Mother No Known Problems Father Family Status - Relation Status Age at Mother Alive Father Level of Service:75607 NM OFFICE/OUTPATIENT ESTABLISHED MOD MDM 30-39 MIN Reason for Visit and Comments: Pre-op Exam [[id number]] - Updated H & P prior to TAVR [facility] Progress Noteon 06-27-2022 Progress Note Patient discharged with all belongings to home with SELF via AMBULATORY at 1448. 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 Subjective HPI Winifred Wood is [...] hematuria. Neurological: Negative for dizziness and syncope. Psychiatric/Behavioral : Positive for confusion. Allergies Allergen Reactions Erythromycin Nausea And Vomiting and Unknown Penicillins Rash and Unknown Outpatient Medications Prior to Visit Medication Sig [...] bolus 500 mL 500 mL IntraVENous Once Melvin Leos MD Stopped at 06/27/22 9028 Past Medical History: Diagnosis Date Anemia Aortic valve stenosis CKD (chronic kidney disease) Diabetes mellitus (HCC) Hyperlipidemia Hypertension Obesity Renal calculi Right renal artery stenosis (CMS/HCC) (HCC) Social History Tobacco Use Smoking status: Never Passive exposure: Never Smokeless tobacco: Never Substance Use Topics Alcohol use: Not Currently Past Surgical History: Procedure Laterality Date CHOLECYSTECTOMY CT HEART CORONARY ANGIOGRAM - WITH PROVISIONAL FFR-CT 06/27/2022 CT ANGIOGRAM TAVR 06/27/[address] [facility] [address] IMAGING SALPINGECTOMY Bilateral Family History Problem Relation Name Age of Onset Dementia Mother No Known Problems Father Objective There were no vitals filed for this visit. There is no height or weight on file to calculate BMI. Physical Exam Constitutional: Appearance: Normal appearance. HENT: Head: Normocephalic. Eyes: General: No scleral icterus. Right eye: No discharge. Left eye: (more content not included)... [facility] 3606-07-2022 36 Patient informed of CTA w hydration 06/27 and TAVR date of 07/09 at 1245. Patient is agreeable. Patient will need to be seen in private outpatient to update H&P. Patient added to Demarco Leos's schedule at 1 pm. Dx: Procedure: TAVR/TTE Date/Time: 07/09/2022 at 1245 Surgeon: TRUNG/ARNOLD Location: [facility] Admission: A Anesthesia: [facility] Medicare is primary, no auth required. Case request needs entered. [facility] 36on 06-06-2022 36 Labs faxed to Scott freitas CTA w hydration scheduled for 06/27/2022 to start at 700 am. Private outpatient orders faxed. I LM for patient to call back to go over CTA date and pick TAVR date (07/09 @ 0506). Patient will need updated H&P. I will await call back. Normal [facility] 36 Patient seen in [facility] yesterday by Dr. Leos, pt had labs done @ [facility] on 06/[facility], results faxed , scanned to chart, Creat 2.57/GFR 19. Pt sees Dr. Kohler nephrology. I spoke w/Chely DESHPANDE in his office, informed pt will be receiving IV hydration for CTA. Jonnie Jett notified to fax labs to Dr. Kohler, attention Claudia F: [phone]. Private Outpt orders given, and pre TAVR orders given. I placed and signed CXR order, pt to get on day of CTA. Normal [facility] Office Visiton 06-05-2022 Follow-up visit [id number] Lori Wood 1945 F Date Provider Department Center 06/05/2022 [id number] NEUMANN [facility] 95 Ar Family History Problem Relation Age of Onset Dementia Mother No Known Problems Father Family Status - Relation Status Age at Mother Alive Father Level of Service:73873 NM OFFICE/OUTPATIENT NEW HIGH MDM 60-74 MINUTES Reason for Visit and Comments: Cardiac Valve Problem [1334] Normal [facility] Follow-up visit [id number] Lori Wood 1945 F Date Provider Department Center 06/05/2022 [id number] WALLACE [facility] 95 Ar Family History Problem Relation Age of Onset Dementia Mother No Known Problems Father Family Status - Relation Status Age at Mother Alive Father Level of Service:75066 NM OFFICE/OUTPATIENT NEW HIGH MDM 60-74 MINUTES Reason for Visit and Comments: Cardiac Valve Problem [1334] Normal [facility] Progress Noteon 06-05-2022 Progress Note [facility]: Cardiothoracic Surgery Multidisciplinary Heart Valve Clinic Date: 06/05/22 Patient:Winifred Wood 1945 77 y.o. female [id number] Subjective: HPI: Winifred Wood [address] Lopez is being evaluated for aortic valve stenosis. Echocardiogram completed on 03/16/2022 showed moderately severe aortic valve stenosis with peak/mean gradients 73/43 mm Hg. Cardiac cath showed no obstructive CAD and severe aortic stenosis. Per note, pt has history of aortic stenosis, hypertension, hyperlipidemia, and diabetes type 2. Echocardiogram performed in 06/2019 showed moderate aortic stenosis. Repeat echocardiogram showed moderately severe aortic valve stenosis. She has known about her murmur since her 20's, but is now progressively getting short of breath. Medical History Past Medical History: Diagnosis Date Anemia Aortic valve stenosis CKD (chronic kidney disease) Diabetes mellitus (HCC) Hyperlipidemia Hypertension Obesity Renal calculi Right renal artery stenosis (CMS/HCC) ([facility]) Blood thinner - none Echocardiogram Review of Systems Constitutional: Negative for activity change, chills, diaphoresis, fatigue and fever. HENT: Negative for nosebleeds and trouble swallowing. Eyes: Negative for discharge and visual disturbance. Respiratory: Positive for shortness of breath. Negative for apnea, cough, chest tightness and wheezing. Cardiovascular: Positive for leg swelling. Negative for chest pain. Gastrointestinal: Negative for abdominal distention, abdominal pain, blood in stool, diarrhea, nausea and vomiting. Endocrine: Negative for cold intolerance and heat intolerance. Genitourinary: Negative for hematuria. Musculoskeletal: Negative for gait problem and myalgias. Skin: Negative for color change and rash. Neurological: Negative for dizziness, seizures, syncope, facial asymmetry, speech difficulty, weakness, light-headedness, numbness and headaches. Hematological: Does not bruise/bleed easily. Psychiatric/Behavioral : Negative for dysphoric mood. Allergies: Erythromycin and Penicillins Past Medical History: has a past medical history of Anemia, Aortic valve stenosis, CKD (chronic kidney disease), Diabetes mellitus (HCC), Hyperlipidemia, Hypertension, Obesity, Renal calculi, and Right renal artery stenosis (CMS/HCC) ([facility]). Past Surgical History: has a past surgical history that includes Salpingectomy (Bilateral) and Cholecystectomy. Social History: reports that she has never smoked. She has never been exposed to tobacco smoke. She has never used smokeless tobacco. She reports that she does not currently use alcohol. She reports that she does not use drugs. Family History: family history includes Dementia in her mother; No Known Problems in her father. Medications: Prior to Admission medications Medication Sig Start Date End Date Taking? Authorizing Provider acetaminophen (Tylenol) 325 MG tablet Take 2 tablets by mouth every 8 hours as needed. Yes Historical Provider, allopurinol (Zyloprim) 100 MG tablet Take 0.5 tablets by mouth Every 24 hours. Yes Historical Provider, amLODIPine (Norvasc) 5 MG tablet Take 1 tablet by mouth Every 24 hours. Yes Historical Provider, ascorbic acid (Vitamin C) 500 MG chewable tablet Chew 1 tablet Every 24 hours. Yes Historical Provider, aspirin 81 MG EC tablet Take 1 tablet by mouth Every 24 hours. Yes Historical Provider, atorvastatin (Lipitor) 20 MG tablet Take 1 tablet by mouth Every 24 hours. Yes Historical Provider, Calcium 600-10 MG-MCG chewable tablet Chew 1 tablet daily. Yes Historical Provider, clopidogrel (Plavix) 75 MG tablet Take 75 mg by mouth daily. 05/19/22 Yes Historical Provider, docusate sodium (Colace) 100 MG capsule Take 1 capsule by mouth Nightly. 09/07/21 Yes Historical Provider, ferrous sulfate 324 (65 Fe) MG EC tablet Take 1 tablet by mouth daily. Yes Historical Provider, furosemide (Lasix) 40 MG tablet TAKE 1 TABLET BY MOUTH ONCE DAILY FOR 14 DAYS 05/29/22 Yes Historical Provider, metoprolol succinate XL (Toprol-XL) 100 MG 24 hr tablet 100 mg daily. 05/18/22 Yes Historical Provider, MULTIPLE VITAMIN PO Take 1 tablet by mouth daily. Yes Historical Provider, pioglitazone (Actos) 30 MG tablet Take 30 mg by mouth daily. 05/30/22 Yes Historical Provider, quinapril (Accupril) 20 MG tablet Take 20 mg by mouth daily. 05/18/22 Yes Historical Provider, allopurinol (Zyloprim) 100 MG tablet 03/13/22 06/04/22 Historical Provider, amLODIPine (Norvasc) 5 MG tablet 05/18/22 06/04/22 Historical Provider, atorvastatin (Lipitor) 20 MG tablet 04/24/22 06/04/22 Historical Provider, Physical Exam Vitals: BP 136/68 (BP Location: Left arm, Patient Position: Sitting, BP Cuff Size: Large adult) Pulse 65 Ht 5' 1.5 (1.562 m) Wt 224 lb 13.9 oz (102 kg) SpO2 98% BMI 41.80 kg/m? Constitutional: General (more content not included)... Normal [facility] Progress Note [facility] [address] [facility] [address] Dept: [phone] Dept Loc: [phone] Interventional Cardiology Office Note Visit type: New Reason for Visit: Cardiac Valve Problem Assessment and Plan Winifred Wood is a very pleasant 77 y.o. female who presents for evaluation of her aortic stenosis. She has severe symptomatic aortic stenosis. She has no significant coronary disease. We will plan a TAVR protocol CTA with plan to move toward TAVR. The Transcatheter Aortic Valve Replacement (TAVR) procedure was explained in detail. The potential risks of the procedure including bleeding, vascular complications, stroke, myocardial infarction, arrhythmias, renal dysfunction, infection and were described. All of the patient's questions were answered. The patient expressed understanding of the procedure and the potential risks and wishes to proceed with TAVR at this time. 1. Aortic valve stenosis, etiology of cardiac valve disease unspecified - ECG 12 lead - CLINIC PERFORMED - CTA Angiogram TAVR No follow-ups on file. It was a great pleasure seeing Winifred Wood in our office today. Please contact me with any questions. Melvin Leos MD MPH, [facility], [facility] Chief, Ischemic Heart Disease Site Medical Director, Interventional Cardiology Fellowship Taper/Finisher Coronary, Structural, Peripheral Interventions Subjective Winifred Wood is a very pleasant 77 y.o. female with Aortic stenosis (ejection fraction 65%, peak/mean 73/43, 1+ AI), hypertension, hyperlipidemia, diabetes, CKD, renal artery stenosis status post right renal stent who presents for evaluation of her aortic stenosis. She has been having worsening shortness of breath and lower extremity edema over the past several months. She was evaluated by Dr. Lopez and echocardiogram revealed severe aortic stenosis. Cardiac catheterization revealed no significant coronary disease. She denies any chest discomfort, lightheadedness, syncope. Review of Systems Constitutional: Negative for activity change, chills, diaphoresis, fatigue and fever. HENT: Negative for nosebleeds and trouble swallowing. Eyes: Negative for discharge and visual disturbance. Respiratory: Positive for shortness of breath. Negative for apnea, cough, chest tightness and wheezing. Cardiovascular: Positive for leg swelling. Negative for chest pain and palpitations. Gastrointestinal: Negative for abdominal distention, abdominal pain, blood in stool, diarrhea, nausea and vomiting. Endocrine: Negative for cold intolerance and heat intolerance. Genitourinary: Negative for hematuria. Musculoskeletal: Positive for gait problem. Negative for myalgias. Skin: Negative for color change and rash. Neurological: Negative for dizziness, seizures, syncope, facial asymmetry, speech difficulty, weakness, light-headedness, numbness and headaches. Hematological: Does not bruise/bleed easily. Psychiatric/Behavioral : Negative for dysphoric mood. Allergies Allergen Reactions Erythromycin Nausea And Vomiting and Unknown Penicillins Rash and Unknown Outpatient Medications Prior to Visit Medication Sig [...] BY MOUTH ONCE DAILY FOR 14 DAYS metoprolol succinate XL (Toprol-XL) 100 MG 24 hr tablet 100 mg daily. MULTIPLE VITAMIN PO Take 1 tablet by mouth daily. pioglitazone (Actos) 30 MG tablet Take 30 mg by mouth daily. quinapril (Accupril) 20 MG tablet Take 20 mg by mouth daily. No facility-administered medications prior to visit. Past Medical History: Diagnosis Date Anemia Aortic valve stenosis CKD (chronic kidney disease) Diabetes mellitus (HCC) Hyperlipidemia Hypertension Obesity Renal calculi Right renal artery stenosis (CMS/HCC) (HCC) Past Surgical History: Procedure Laterality Date CHOLECYSTECTOMY SALPINGECTOMY Bilateral Social History Tobacco Use Smoking status: Never Passive exposure: Never Smokeless tobacco: Never Substance Use Topics Alcohol use: Not Currently Family History Problem Relation Name Age of Onset Dementia Mother No Known Problems Father Objective Vitals: 06/05/22 (more content not included)... Normal [facility] Progress Note Winifred Wood 77 [address] Lopez is being evaluated for aortic valve stenosis. Echocardiogram completed on 03/16/2022 showed moderately severe aortic valve stenosis with peak/mean gradients 73/43 mm Hg. Per note, pt has history of aortic stenosis, hypertension, hyperlipidemia, and diabetes type 2. Echocardiogram performed in 06/2019 showed moderate aortic stenosis. Repeat echocardiogram showed moderately severe aortic valve stenosis. Past Medical History: Diagnosis Date Anemia Aortic valve stenosis CKD (chronic kidney disease) Diabetes mellitus (HCC) Hyperlipidemia Hypertension Obesity Renal calculi Right renal artery stenosis (CMS/HCC) (HCC) Blood thinner - none Echocardiogram Normal [facility] BD BONE DENSITY DEXA AXIAL S Kevin 05-14-2022 BD BONE DENSITY DEXA AXIAL SKELETON ORIGINAL EXAMINATION: BONE DENSITOMETRY 05/14/2022 1:15 pm [...] Sign Date: 05/14/2022 2:50:51 PM Ordering Provider: ALFONSO Nicolas [facility] ([place]) MA MAMMOGRAM SCREENING BILAT ERAL W/TOMOon 05-14-2022 MA MAMMOGRAM SCREENING BILATERAL W/ALEN ORIGINAL FROM: [address] [address] PROCEDURE FOR: WINIFRED WOOD [address] [place] [address] Home: PID#: [id number] Exam#: [id number] : 1945 Age: 77 TO: ALFONSO RAMIREZ 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 2D standard and 3D tomosynthesis combination imaging performed through both breasts in the MLO and CC projection. Computer aided detection was utilized in the interpretation of this exam. COMPARISON: 03/29/2021, 02/26/2020 HISTORY: Breast cancer screening. FINDINGS: BREAST DENSITY: Scattered fibroglandular tissue There are benign appearing calcifications in both breasts. There are no significant masses or calcifications. IMPRESSION: No mammographic evidence of malignancy. Continued screening with annual mammograms is recommended. BIRADS: MAMMOGRAM BI-RADS: 2: Benign finding RECALL: 1 year screening RECALL TYPE: mammo LETTER SENT: Normal BI-RADS 1 and 2 Interpreted by: Gio oMya MD Preliminary Report By: Gio Moya MD Electronically signed By Gio Moya MD Dictated Date: 05/15/2022 6:22:32 PM Prelim Date: 05/15/2022 6:23:55 PM Sign Date: 05/15/2022 6:23:55 PM Ordering Provider: ALFONSO RAMIREZ Inventory And Pricing Associate: MARY DUFF RT (R) (M) (CT) letter sent: Normal BI-RADS 1 and 2 Mammogram BI-RADS: 2 Benign Normal [facility] ([place]) Lab Report: CBC W/Diff, Auto matedon 06-03-2017 Absolute Neut 5.5 X10 3/UL Invalid Interpretation Code 2.0-7.7 [facility] [employer] Work Phone: [phone] Basophils/100 WBC Auto (Bld) 0.7 % Invalid Interpretation Code 0-1 [facility] [employer] [facility] Work Phone: [phone] Eosinophils/100 leukocytes 2.9 % Invalid Interpretation Code 0-5 [facility] [employer] Work Phone: [phone] Erythrocyte distribution width Auto Ratio (RBC) 13.6 % Invalid Interpretation Code 11.6-14.6 [facility] [employer] Work Phone: [phone] Erythrocytes (RBC) 3.82 10*6/uL Low 4.2-5.4 [facility] [employer] Work Phone: [phone] Hematocrit (HCT) 37.0 % Invalid Interpretation Code 37-47 [facility] Work Phone: [phone] Hemoglobin mass conc (Bld) 11.9 g/dL Low 12.0-15.0 [facility] Work Phone: [phone] Immature granulocytes/100 WBC (Bld) 0.300 % Invalid Interpretation Code 0.0-0.9 [facility] Work Phone: [phone] Lymphocytes 0.83 X10 3/UL Invalid Interpretation Code 0.83-4.51 [facility] Work Phone: [phone] Lymphocytes/100 leukocytes 11.4 % Low 19-41 [facility] [employer] [facility] Work Phone: [phone] MCH 31.2 pg Invalid Interpretation Code 27.0-32.0 [facility] Work Phone: [phone] MCHC mass conc (RBC) 32.2 G/GL Invalid Interpretation Code 32-36 [facility] [employer] Work Phone: [phone] MCV 96.9 fL Invalid Interpretation Code 81-99 [facility] [employer] [facility] Work Phone: [phone] Monocytes/100 leukocytes 8.9 % Invalid Interpretation Code 0-10 [facility] Work Phone: [phone] Neutrophils/100 WBC Auto (Bld) 75.8 % High 47-70 [facility] Work Phone: [phone] Platelets 318 10*3/mm3 Invalid Interpretation Code 150-450 [facility] Work Phone: [phone] PMV by Zenia 10.1 fL Invalid Interpretation Code 6.2-12.0 [facility] Work Phone: [phone] RDW SD 46.1 fL High 35.1-43.9 [facility] Work Phone: [phone] WBC (Leukocytes) 7.3 10*3/uL Invalid Interpretation Code 4.4-11.0 [facility] Work Phone: [phone] Lab Report: PTH,INTACTon Parathyrin intact (PTH) 17 pg/mL Invalid Interpretation Code 14-72 [facility] Work Phone: [phone] Lab Report: Protein+Creatini ne Ratio,Urineon 06-03-2017 Protein [Mass] in Urine collected for unspecified duration 44.5 mg/dL High <11.9 [facility] Work Phone: [phone] protein/creatinine, urine, point, quantitative 178 MG/G CRE Invalid Interpretation Code 0-200 [facility] Work Phone: [phone] Urine, creatinine 250.00 mg/dL Invalid Interpretation Code NO RANGE EST. [facility] Work Phone: [phone] Lab Report: Renal Profileon 06-03-2017 Albumin 3.7 g/dL Invalid Interpretation Code 3.4-5.0 [facility] Work Phone: [phone] BUN/Creatinine Ratio 22.4 RATIO High 10-[address] [facility] Work Phone: [phone] Calcium 9.7 mg/dL Invalid Interpretation Code 8.5-10.1 [facility] Work Phone: [phone] Chloride 103 mmol/L Invalid Interpretation Code 98-107 [facility] Work Phone: [phone] CO2 28.0 mmol/L Invalid Interpretation Code 21.0-32.0 [facility] Work Phone: [phone] Creatinine 1.70 mg/dL High 0.55-1.02 [facility] Work Phone: [phone] eGFR (non-black) 32 mL/min/{1.73_m2} Low >60 [facility] Work Phone: [phone] eGFR (non-black) 38 mL/min/{1.73_m2} Low >60 [facility] Work Phone: [phone] Glucose mass conc 127 mg/dL High 70-110 [facility] Work Phone: [phone] PHOS 3.6 mg/dL Invalid Interpretation Code 2.5-4.9 [facility] Work Phone: [phone] Potassium molar conc 3.7 mmol/L Invalid Interpretation Code 3.5-5.1 [facility] Work Phone: [phone] Sodium 139 mmol/L Invalid Interpretation Code 136-145 [facility] Work Phone: [phone] Urea nitrogen 38 mg/dL High 7-18 [facility] Work Phone: [phone] Lab Report: Vitamin D,25 Hyd roxyon 06-03-2017 Vitamin D 25-OH 29.8 ng/mL Invalid Interpretation Code [facility] Work Phone: [phone] Office Visiton 02-06-2017 Documentation of current medications (procedure) Done Invalid Interpretation Code [facility] Work Phone: [phone] Fall risk assessment No Invalid Interpretation Code [facility] Work Phone: [phone] Tobacco smoking status NHIS Tobacco smoking status NHIS Invalid Interpretation Code [facility] Work Phone: [phone] Tobacco use [facility] Former smoker Invalid Interpretation Code [facility] Work Phone: [phone] Replaced Document: Midmark E CG Observationson 02-06-2017 EKG QRS axis -11 deg Invalid Interpretation Code [facility] Work Phone: [phone] electrocardiogram interpretation Sinus Bradycardia Voltage criteria for LVH (R(I)+S(III) exceeds 2.50 mV). -Inferior ST-elevation -repolarization variant. -Nonspecific ST depression -Seen with left ventricular hypertrophy (strain) or digitalis effect. -Peaked anterior T-waves -consider hyperkalemia. ABNORMAL Invalid Interpretation Code [facility] Work Phone: [phone] GE use only - for Link[employer]ic import when terms are not otherwise specified 418 ms Invalid Interpretation Code [facility] Phone: [phone] Interpretation Sinus Bradycardia Voltage criteria for LVH (R(I)+S(III) exceeds 2.50 mV). -Inferior ST-elevation -repolarization variant. -Nonspecific ST depression -Seen with left ventricular hypertrophy (strain) or digitalis effect. -Peaked anterior T-waves -consider hyperkalemia. ABNORMAL Invalid Interpretation Code [facility] Phone: [phone] P Mobile 51 deg Invalid Interpretation Code [facility] Phone: [phone] P wave axis, electrocardiogram 51 deg Invalid Interpretation Code [facility] Phone: [phone] NM Interval 174 ms Invalid Interpretation Code [facility] Phone: [phone] NM interval, electrocardiogram 174 ms Invalid Interpretation Code [facility] Phone: [phone] Pulse (Heart Rate) 53 /min Invalid Interpretation Code [facility] Phone: [phone] QRS axis, electrocardiogram -11 deg Invalid Interpretation Code [facility] Phone: [phone] QRS Duration 104 ms Invalid Interpretation Code [facility] Phone: [phone] QRS duration, electrocardiogram 104 ms Invalid Interpretation Code [facility] Phone: [phone] QT Interval new path ms Invalid Interpretation Code [facility] Phone: [phone] QT interval, electrocardiogram new path ms Invalid Interpretation Code [facility] Phone: [phone] QTc Mccartney 418 ms Invalid Interpretation Code [facility] Phone: [phone] T Mobile 47 deg Invalid Interpretation Code [facility] Phone: [phone] T wave axis, electrocardiogram 47 deg Invalid Interpretation Code [facility] Phone: [phone] 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 Left ventricular Ejection fraction 60-65 Invalid Interpretation Code [facility] Phone: [phone] Vital Signs Date Time Vital Sign Value Performing Clinician Facility 03-20-2024 14:26-0400 Diastolic blood pressure 62 mm[Hg] Westongeovani Vaughn Work Phone: [facility] 03-20-2024 14:26-0400 Systolic blood pressure 158 mm[Hg] Weston Vaughn Work Phone: [facility] 03-20-2024 13:48-0400 Diastolic blood pressure 62 mm[Hg] Injection Wstr Work Phone: [facility] 03-20-2024 13:48-0400 Systolic blood pressure 158 mm[Hg] Injection Wstr Work Phone: [facility] 03-20-2024 13:24-0400 Body mass index (BMI) [Ratio] 36.18 kg/m2 Westongeovani Vaughn Work Phone: [facility] 03-20-2024 13:24-0400 Body temperature 98.49 [degF] Weston Vaughn Work Phone: [facility] 03-20-2024 13:24-0400 Body weight 86.86 kg Weston Vaughn Work Phone: [facility] 03-20-2024 13:24-0400 Heart rate 55 /min Weston Vaughn Work Phone: [facility] 03-20-2024 13:24-0400 SaO2% (BldA) [Mass fraction] 99 % Weston Vaughn Work Phone: [facility] 01-23-2024 14:41-0400 Diastolic blood pressure 62 mm[Hg] Injection Wstr Work Phone: [facility] 01-23-2024 14:41-0400 Systolic blood pressure 162 mm[Hg] Injection Wstr Work Phone: [facility] 01-23-2024 14:29-0400 Body temperature 98.2 [degF] Injection Wstr Work Phone: [facility] 01-23-2024 14:29-0400 Heart rate 54 /min Injection Wstr Work Phone: [facility] 01-10-2024 15:39-0400 Diastolic blood pressure 70 mm[Hg] Injection Wstr Work Phone: [facility] Comment on above: right arm manual 01-10-2024 15:39-0400 Systolic blood pressure 178 mm[Hg] Injection Wstr Work Phone: [facility] Comment on above: right arm manual 01-10-2024 15:32-0400 Body temperature 98.01 [degF] Injection Wstr Work Phone: [facility] 01-10-2024 15:32-0400 Heart rate 53 /min Injection Wstr Work Phone: [facility] 01-10-2024 15:32-0400 Respiratory rate 12 /min Injection Wstr Work Phone: [facility] 01-10-2024 15:32-0400 SaO2% (BldA) [Mass fraction] 100 % Injection Wstr Work Phone: [facility] 12-27-2023 13:49-0400 Body mass index (BMI) [Ratio] 36.09 kg/m2 Injection Wstr Work Phone: [facility] 12-27-2023 13:49-0400 Body temperature 97.81 [degF] Injection Wstr Work Phone: [facility] 12-27-2023 13:49-0400 Body weight 86.64 kg Injection Wstr Work Phone: [facility] 12-27-2023 13:49-0400 Diastolic blood pressure 90 mm[Hg] Injection Wstr Work Phone: [facility] 12-27-2023 13:49-0400 Heart rate 60 /min Injection Wstr Work Phone: [facility] 12-27-2023 13:49-0400 Respiratory rate 14 /min Injection Wstr Work Phone: [facility] 12-27-2023 13:49-0400 SaO2% (BldA) [Mass fraction] 98 % Injection Wstr Work Phone: [facility] 12-27-2023 13:49-0400 Systolic blood pressure 188 mm[Hg] Injection Wstr Work Phone: [facility] 11-28-2023 10:22-0400 Diastolic blood pressure 69 mm[Hg] Drew Weston MD Work Phone: [facility] 11-28-2023 10:22-0400 Systolic blood pressure 178 mm[Hg] Drew Wetson MD Work Phone: [facility] 11-28-2023 10:19-0400 Body mass index (BMI) [Ratio] 35.81 kg/m2 Drew Weston MD Work Phone: [facility] 11-28-2023 10:19-040 Body temperature 97.7 [degF] Drew Weston MD Work Phone: [facility] 11-28-2023 10:19-0400 Body weight 85.96 kg Drew Weston MD Work Phone: [facility] 11-28-2023 10:19-0400 Heart rate 54 /min Drew Weston MD Work Phone: [facility] 11-28-2023 10:19-0400 SaO2% (BldA) [Mass fraction] 97 % Drew Weston MD Work Phone: [facility] 10-02-2023 13:30-0400 Body temperature 98.6 [degF] Weston Vaughn Work Phone: [facility] 10-02-2023 13:30-0400 Body weight 87.77 kg Westongeovani Vaughn Work Phone: [facility] 10-02-2023 13:30-0400 Diastolic blood pressure 64 mm[Hg] Westongeovani Vaughn Work Phone: [facility] 10-02-2023 13:30-0400 Heart rate 57 /min Westongeovani Vaughn Work Phone: [facility] 10-02-2023 13:30-0400 SaO2% (BldA) [Mass fraction] 97 % Weston Vaughn Work Phone: [facility] 10-02-2023 13:30-0400 Systolic blood pressure 186 mm[Hg] Weston Vaughn Work Phone: [facility] 09-13-2023 08:35-0400 Body temperature 96.49 [degF] Injection Wstr Work Phone: [facility] 09-13-2023 08:35-0400 Body weight 86.8 kg Injection Wstr Work Phone: [facility] 09-13-2023 08:35-0400 Diastolic blood pressure 64 mm[Hg] Injection Wstr Work Phone: [facility] 09-13-2023 08:35-0400 Heart rate 64 /min Injection Wstr Work Phone: [facility] 09-13-2023 08:35-0400 SaO2% (BldA) [Mass fraction] 96 % Injection Wstr Work Phone: [facility] 09-13-2023 08:35-0400 Systolic blood pressure 166 mm[Hg] Injection Wstr Work Phone: [facility] 09-12-2023 10:48-0400 Diastolic blood pressure 72 mm[Hg] Jessica Brown 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.AMUSEMENT PARK ENTERTAINER Work Phone: [facility] 09-12-2023 10:48-0400 Systolic blood pressure 193 mm[Hg] Jessica Brown 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.AMUSEMENT PARK ENTERTAINER Work Phone: [facility] 09-12-2023 10:29-0400 Body temperature 97.9 [degF] Jessica Brown 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.AMUSEMENT PARK ENTERTAINER Work Phone: [facility] 09-12-2023 10:29-0400 Body weight 86.77 kg Jessica Brown 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.AMUSEMENT PARK ENTERTAINER Work Phone: [facility] 09-12-2023 10:29-0400 Heart rate 57 /min Hebron Brown 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.AMUSEMENT PARK ENTERTAINER Work Phone: [facility] 09-12-2023 10:29-0400 SaO2% (BldA) [Mass fraction] 100 % Jessica Brown 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JoyAMUSEMENT PARK ENTERTAINER Work Phone: [facility] 08-29-2023 09:17-0500 Diastolic blood pressure 64 mm[Hg] Weston Vaughn Work Phone: [facility] 08-29-2023 09:17-0500 Systolic blood pressure 178 mm[Hg] Weston Vaughn Work Phone: [facility] 08-29-2023 08:52-0500 Body temperature 97.3 [degF] Weston Vaughn Work Phone: [facility] 08-29-2023 08:52-0500 Body weight 87.09 kg Weston Vaughn Work Phone: [facility] 08-29-2023 08:52-0500 Heart rate 61 /min Weston Vaughn Work Phone: [facility] 08-29-2023 08:52-0500 Respiratory rate 14 /min Weston Vaughn Work Phone: [facility] 08-29-2023 08:52-0500 SaO2% (BldA) [Mass fraction] 99 % Weston Vaughn Work Phone: [facility] 08-13-2023 10:54-0500 Body temperature 98.01 [degF] Injection Wstr Work Phone: [facility] 08-13-2023 10:54-0500 Body weight 87.09 kg Injection Wstr Work Phone: [facility] 08-13-2023 10:54-0500 Diastolic blood pressure 67 mm[Hg] Injection Wstr Work Phone: [facility] 08-13-2023 10:54-0500 Heart rate 73 /min Injection Wstr Work Phone: [facility] 08-13-2023 10:54-0500 SaO2% (BldA) [Mass fraction] 98 % Injection Wstr Work Phone: [facility] 08-13-2023 10:54-0500 Systolic blood pressure 164 mm[Hg] Injection Wstr Work Phone: [facility] 08-01-2023 10:31-0500 Body height 154.9 cm Westongeovani Vaughn Work Phone: [facility] 08-01-2023 10:31-0500 Body temperature 97.9 [degF] Westongeovani Vaughn Work Phone: [facility] 08-01-2023 10:31-0500 Body weight 87.54 kg Westongeovani Vaughn Work Phone: [facility] 08-01-2023 10:31-0500 Diastolic blood pressure 60 mm[Hg] Weston Vaughn Work Phone: [facility] 08-01-2023 10:31-0500 Heart rate 58 /min Westongeovani Vaughn Work Phone: [facility] 08-01-2023 10:31-0500 Respiratory rate 12 /min Westongeovani Vaughn Work Phone: [facility] 08-01-2023 10:31-0500 SaO2% (BldA) [Mass fraction] 99 % Weston Vaughn Work Phone: [facility] 08-01-2023 10:31-0500 Systolic blood pressure 152 mm[Hg] Weston Vaughn Work Phone: [facility] 02-06-2017 11:31-0400 Heart rate 53 /min Yazmin Estrada [facility] Work Phone: 02-06-2017 11:23-0400 BMI (Body Mass Index) 45.98 kg/m2 Yazmin Estrada [facility] Work Phone: 02-06-2017 11:23-0400 BP Diastolic 82 mm[Hg] Yazmin Estrada [facility] Work Phone: 02-06-2017 11:23-0400 BP Systolic 128 mm[Hg] Yazmin Sean [facility] Work Phone: 02-06-2017 11:23-0400 Height 157.48 cm Yazmin Smith [facility] Work Phone: 02-06-2017 11:23-0400 Pulse (Heart Rate) 52 /min Yazmin [facility] Work Phone: 02-06-2017 11:23-0400 Respiratory Rate 20 /min [facility] Work Phone: 02-06-2017 11:23-0400 Weight 114.04 kg Yazmin Estrada [facility] Work Phone: Encounters Encounter Date Encounter Type Care Provider Facility Start: 04-16-2024 End: 04-16-2024 ambulatory Injection Shiv [facility] Work Phone: Hematology/Oncology Comment on above: Anemia, unspecified type (Primary Dx); Chronic kidney disease, stage 4, severely decreased GFR (HCC) Start: 03-20-2024 End: 03-20-2024 Patient encounter procedure Weston Vaughn Work Phone: Hematology/Oncology Start: 03-20-2024 End: 03-20-2024 ambulatory Injection Shiv [facility] Work Phone: Hematology/Oncology Comment on above: Anemia, unspecified type (Primary Dx); Chronic kidney disease, stage 4, severely decreased GFR (HCC) Chronic kidney disea se, stage 4, severely decreased GFR (HCC) (Primary Dx) Start: 02-20-2024 End: 02-20-2024 ambulatory Injection Shiv c Wstr Work Phone: Hematology/Oncology Comment on above: Anemia, unspecified type (Primary Dx) Start: 01-23-2024 End: 01-23-2024 ambulatory Injection Shiv c Wstr Work Phone: Hematology/Oncology Comment on above: Anemia, unspecified type (Primary Dx); Chronic kidney disease, stage 4, severely decreased GFR (HCC) Start: 01-14-2024 Telephone encounter Drew robbins MD Work Phone: Hematology/Oncology Comment on above: Patient Update Start: 01-10-2024 End: 01-10-2024 ambulatory Injection Shiv c Wstr Work Phone: Hematology/Oncology Comment on above: Chronic kidney disea se, stage 4, severely decreased GFR (HCC) (Primary Dx) Start: 01-07-2024 End: 01-07-2024 ambulatory ALFONSO RAMIREZ Facility:[facility] Start: 01-07-2024 Telephone encounter Drew robbins MD Work Phone: Hematology/Oncology Start: 12-30-2023 End: 12-30-2023 ambulatory Injection Shiv [facility] Work Phone: Hematology/Oncology Comment on above: Anemia, unspecified type (Primary Dx); Chronic kidney disease, stage 4, severely decreased GFR (HCC) Start: 12-27-2023 End: 12-27-2023 ambulatory Injection Shiv [facility] Work Phone: Hematology/Oncology Comment on above: Anemia, unspecified type (Primary Dx); Chronic kidney disease, stage 4, severely decreased GFR (HCC) Start: 11-28-2023 End: 11-28-2023 Patient encounter procedure Drew Weston MD Work Phone: Hematology/Oncology Start: 11-28-2023 End: 11-28-2023 ambulatory Injection Shiv [facility] Work Phone: Hematology/Oncology Comment on above: Chronic kidney disea se, stage 4, severely decreased GFR (HCC) (Primary Dx) Chronic kidney disea se, stage 4, severely decreased GFR (HCC) (Primary Dx); Anemia due to stage 3 chronic kidney disease, unspecified whether stage 3a or 3b CKD (HCC) (HCC) Start: 10-31-2023 End: 10-31-2023 ambulatory Injection Shiv [facility] Work Phone: Hematology/Oncology Comment on above: Chronic kidney disea se, stage 4, severely decreased GFR (HCC) (Primary Dx) Start: 10-03-2023 End: 10-03-2023 ambulatory Injection Shiv [facility] Work Phone: Hematology/Oncology Comment on above: Chronic kidney disea se, stage 4, severely decreased GFR (HCC) (Primary Dx) Start: 10-02-2023 End: 10-02-2023 Patient encounter procedure Weston Vaughn Work Phone: [facility] Start: 10-02-2023 End: 10-02-2023 ambulatory Weston Vaughn Work Phone: Hematology/Oncology Comment on above: Chronic kidney disea se, stage 4, severely decreased GFR (HCC) (Primary Dx); 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 disease (HCC) (HCC) Start: 09-27-2023 Telephone encounter Weston paul Work Phone: Hematology/Oncology Comment on above: Appointment Start: 09-26-2023 Telephone encounter Weston Salas ight Work Phone: Hematology/Oncology Start: 09-13-2023 End: 09-13-2023 ambulatory Injection Shiv [facility] Work Phone: Hematology/Oncology Comment on above: Anemia, unspecified type (Primary Dx); Chronic kidney disease, stage 4, severely decreased GFR (HCC) Start: 09-12-2023 End: 09-12-2023 ambulatory Hebron Brown 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.AMUSEMENT PARK ENTERTAINER Work Phone: Hematology/Oncology Comment on above: Anemia, unspecified type (Primary Dx); Chronic kidney disease, stage 4, severely decreased GFR (HCC) Start: 09-12-2023 End: 09-12-2023 Patient encounter procedure Jessica Brown 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.AMUSEMENT PARK ENTERTAINER Work Phone: [facility] Start: 09-12-2023 End: 09-12-2023 ambulatory Injection Shiv [facility] Work Phone: Hematology/Oncology Comment on above: Chronic kidney disea se, stage 4, severely decreased GFR (HCC) (Primary Dx) Start: 08-29-2023 End: 08-29-2023 Patient encounter procedure Weston Vaughn Work Phone: [facility] Start: 08-29-2023 End: 08-29-2023 ambulatory Injection Shiv [facility] Work Phone: Hematology/Oncology Comment on above: Anemia, unspecified type (Primary Dx); Chronic kidney disease, stage 4, severely decreased GFR (HCC) Start: 08-26-2023 Telephone encounter Karin FERGUSON Hematology/Oncology Comment on above: Social Work Services Start: 08-23-2023 Telephone encounter Financial Navigator Shiv Work Phone: Financial Services Comment on above: Benefits Investigati on Start: 08-13-2023 End: 08-13-2023 ambulatory Injection Shiv [facility] Work Phone: Hematology/Oncology Comment on above: Anemia, unspecified type (Primary Dx); Chronic kidney disease, stage 4, severely decreased GFR (HCC) Start: 08-12-2023 Orders Only Weston Vaughn Work Phone: Hematology/Oncology Comment on above: Anemia, unspecified type (Primary Dx); Chronic kidney disease, stage 4, severely decreased GFR (HCC) Start: 08-01-2023 End: 08-01-2023 ambulatory ALFONSO RAMIREZ Facility:[facility] Start: 08-01-2023 End: 08-01-2023 ambulatory Weston Vaughn Work Phone: Hematology/Oncology Comment on above: Anemia, unspecified type (Primary Dx); Chronic kidney disease, unspecified CKD stage; Chronic kidney disease, stage 4, severely decreased GFR (HCC) Start: 08-01-2023 End: 08-01-2023 Patient encounter procedure Weston Vaughn [facility] Start: 03-25-2023 End: 03-26-2023 ambulatory ALFONSO RAMIREZ 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 - AMUSEMENT PARK ENTERTAINER Facility:[facility] Start: 03-25-2023 End: 03-25-2023 Patient encounter procedure ALFONSO RAMIREZ 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 - AMUSEMENT PARK ENTERTAINER [facility] Start: 01-04-2023 End: 01-05-2023 ambulatory ALFONSO RAMIREZ 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 - AMUSEMENT PARK ENTERTAINER Facility:[facility] Start: 01-04-2023 End: 01-04-2023 Patient encounter procedure ALFONSO RAMIREZ 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 - AMUSEMENT PARK ENTERTAINER [facility] Start: 08-16-2022 End: 08-17-2022 ambulatory ALEYDA CAI [facility] Start: 07-19-2022 End: 07-19-2022 ambulatory ALEYDA CAI [facility] Start: 07-09-2022 End: 07-10-2022 Evaluation and management of inpatient MELVIN [facility] Start: 06-27-2022 End: 06-27-2022 ambulatory ROSALIND LEOS [facility] Start: 06-27-2022 End: 06-28-2022 ambulatory ALEYDA CAI [facility] Start: 06-27-2022 End: 06-28-2022 ambulatory MELVIN LEOS [facility] Start: 06-05-2022 End: 06-05-2022 ambulatory MARGI RAJAN [facility] Start: 05-14-2022 End: 05-15-2022 ambulatory ALFONSO RAMIREZ 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 - AMUSEMENT PARK ENTERTAINER Facility:[facility] Start: 05-14-2022 End: 05-14-2022 Patient encounter procedure ALFONSO RAMIREZ 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 - AMUSEMENT PARK ENTERTAINER [facility] Start: 02-02-2022 End: 02-02-2022 Patient encounter procedure ALFONSO RAMIREZ 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 - AMUSEMENT PARK ENTERTAINER [facility] Start: 12-29-2021 End: 12-29-2021 Patient encounter procedure ALFONSO RAMIREZ 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 - AMUSEMENT PARK ENTERTAINER [facility] Procedures Date Procedure Procedure Detail Performing Clinician Start: 06-24-2017 Echocardiography GRUVINDER RAMIREZ 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 - AMUSEMENT PARK ENTERTAINER Start: 02-06-2017 End: 02-06-2017 COREMAKER HELPER Venkata Lopez MD Start: 02-06-2017 End: 02-06-2017 Follow Up Appt 4 months Demarco Floyd Start: 02-06-2017 End: 02-06-2017 COREMAKER HELPER Venkata Lopez MD Start: 02-06-2017 End: 02-06-2017 Follow Up Appt 4 months Demarco Floyd Plan of Treatment Date Care Activity Detail Author Start: 07-10-2025 Diabetes Screening Diabetes Screenin [facility] Start: 01-22-2025 [facility] Start: 01-06-2025 Complete blood count Hemoglobin/Shiv [facility] Start: 12-26-2024 Complete blood count Hemoglobin/Shiv [facility] Start: 11-27-2024 Complete blood count Hemoglobin/Shiv [facility] Start: 10-30-2024 Complete blood count Hemoglobin/Shiv [facility] Start: 10-01-2024 Complete blood count Hemoglobin/Shiv [facility] Start: 09-11-2024 Complete blood count Hemoglobin/Shiv [facility] Start: 08-28-2024 Complete blood count Hemoglobin/Shiv [facility] Start: 08-13-2024 Complete blood count Hemoglobin/Shiv [facility] Start: 08-01-2024 Complete blood count Hemoglobin/Shiv [facility] Start: 07-09-2024 End: 07-09-2024 [facility] Comment on above: (SO)CBC* QMO ARANESP/LAB LEROY Y/MDCR* Start: 06-11-2024 End: 06-11-2024 [facility] Comment on above: (SO)CBC* (SO)CBC/QMO ARANESP/ MDCR* 3 MO OV/LAB&INJ TODA Y* Start: 05-14-2024 End: 05-14-2024 [facility] Comment on above: (SO)CBC* (SO)CBC/QMO ARANESP/ MDCR* QMO ARANESP/LAB LEROY Y/MDCR* Start: 04-16-2024 End: 04-16-2024 [facility] Comment on above: (SO)CBC* (SO)CBC/QMO ARANESP/ MDCR* Start: 03-20-2024 End: 03-20-2024 ambulatory [facility] Comment on above: (SO)CBC* OV/LAB&INJ TODAY* QMO ARANESP/LAB&OV T ADEEL/MDCR* Start: 03-03-2024 End: 03-03-2024 ambulatory [facility] Comment on above: (SO)CBC* 1 MO OV/LAB&INJ TODA Y* Q4WK ARANESP/LAB&OV TODAY/MDCR* OV/LAB&INJ TODAY* QMO ARANESP/LAB&OV T ADEEL/MDCR* Start: 02-23-2024 Influenza vaccination Influenza Vacc ine (#1) [facility] Start: 02-20-2024 End: 02-20-2024 ambulatory 02/20/2024 3:30 PM EDT [facility]fusion [facility] Hematology/Oncology [address] [place] [address] Wstr, Injection Shiv [facility] [address] [place] [address] (SO)CBC/QMO ARANESP/MDCR* Hematology/Oncology Comment on above: (SO)CBC/QMO ARANESP/ MDCR* Start: 02-20-2024 End: 02-20-2024 [facility] Comment on above: (SO)CBC* 1 MO OV/LAB&INJ TODA Y* Q4WK ARANESP/LAB&OV TODAY/MDCR* Start: 02-04-2024 End: 02-04-2024 ambulatory [facility] Comment on above: (SO)CBC* (SO)CBC/Q4WK ARANESP /MDCR* (SO)CBC/QMO ARANESP/ MDCR* Start: 01-23-2024 End: 01-23-2024 ambulatory [facility] Comment on above: (SO)CBC* (SO)CBC/QMO ARANESP/ MDCR* Start: 01-23-2024 End: 01-23-2024 ambulatory [facility] Comment on above: (SO)CBC* (SO)CBC/Q2WK?ARANESP /MDCR* (SO)CBC/Q4WK ARANESP /MDCR* Start: 01-09-2024 End: 01-09-2024 ambulatory [facility] Comment on above: (SO)CBC* (SO)CBC/Q2WK?ARANESP /MDCR* Start: 01-07-2024 End: 01-07-2024 ambulatory [facility] Comment on above: CBC* (SO)CBC/Q4WK ARANESP /MDCR* Start: 12-30-2023 End: 12-30-2023 ambulatory 12/30/2023 2:45 PM EDT [facility] Hematology/Oncology [address] [place] [address] Wstr, Injection Shiv [facility] [address] [place] [address] (SO)CBC/Q4WK ARANESP/MDCR* Hematology/Oncology Comment on above: (SO)CBC/Q4WK ARANESP /MDCR* Start: 12-27-2023 End: 12-27-2023 [facility] Comment on above: (SO)CBC* (SO)CBC/Q2WK?ARANESP /MDCR* 1 MO OV/LAB&INJ TODA Y* Start: 12-12-2023 End: 12-12-2023 ambulatory [facility] Comment on above: (SO)CBC* (SO)CBC/Q2WK?ARANESP /MDCR* Start: 11-28-2023 End: 11-28-2023 ambulatory 11/28/2023 11:20 AM EDT Visit (SP) Office Hematology/Oncology [address] [place] [address] [place] [address] [place] [address] 1 MO OV/LAB&INJ TODAY* Hematology/Oncology Comment on above: 1 MO OV/LAB&INJ TODA Y* Start: 11-28-2023 End: 11-28-2023 ambulatory [facility] Comment on above: (SO)CBC* (SO)CBC/Q2WK?ARANESP /MDCR* Start: 11-14-2023 End: 11-14-2023 ambulatory [facility] Comment on above: (SO)CBC* (SO)CBC/Q2WK?ARANESP /MDCR* Start: 09-12-2023 End: 12-12-2023 Ferritin [Mass/volume] in Serum or Plasma FERRITIN BLD Lab Routine Anemia, unspecified type Expected: 09/12/2023 (Approximate), Expires: 12/12/2023 [facility] Work Phone: Comment on above: Expected: 09/12/2023 (Approximate), Expires: 12/12/2023 Start: 09-12-2023 End: 12-12-2023 Iron and Iron binding capacity panel - Serum or Plasma IRON + TIBC Lab Routine Anemia, unspecified type Expected: 09/12/2023 (Approximate), Expires: 12/12/2023 [facility] Work Phone: Comment on above: Expected: 09/12/2023 (Approximate), Expires: 12/12/2023 Start: 07-10-2023 Creatinine measurement Serum Creatin ine [facility] Start: 06-24-2023 Advance Directive Discussion Advance Directive Discussion [facility] Start: 06-24-2023 Behavioral Health Screening Behavioral Health Screening [facility] Start: 06-24-2023 Depression Assessment Depression Ass essment [facility] Start: 02-22-2023 Covid-19 Vaccine ( season) Covid-19 Vaccine ( season) [facility] Start: 2021 RSV Vaccine (1 - 1-d ose 75+ series) RSV Vaccine (1 - 1-dose 75+ series) [facility] Start: 06-07-2017 End: 06-07-2017 Appointment Appointment [facility] Work Phone: Start: 02-06-2017 End: 02-06-2017 *BMP *BMP [facility] Work Phone: Start: 02-06-2017 End: 02-06-2017 COREMAKER HELPER COREMAKER HELPER [facility] Work Phone: Start: 02-06-2017 End: 02-06-2017 Ecg routine ecg w/least 12 lds w/i&r EKG (In office) [facility] Work Phone: Start: 02-06-2017 End: 02-06-2017 Echocardiography Echocardiogram (complete) [facility] Work Phone: Start: 02-06-2017 End: 02-06-2017 Follow Up Appt 4 months Follow Up Appt 4 months [facility] Work Phone: Start: 02-06-2017 End: 02-06-2017 Appointment Appointment [employer] Work Phone: Start: 02-06-2017 End: 02-06-2017 *BMP *BMP [facility] Work Phone: Start: 02-06-2017 End: 02-06-2017 COREMAKER HELPER COREMAKER HELPER [facility] Work Phone: Start: 02-06-2017 End: 02-06-2017 Echocardiography Echocardiogram (complete) [facility] Work Phone: Start: 02-06-2017 End: 02-06-2017 Electrocardiogram, complete EKG (In office) [facility] Work Phone: Start: 02-06-2017 End: 02-06-2017 Follow Up Appt 4 months Follow Up Appt 4 months [facility] Work Phone: Start: 2011 Screening for osteoporosis Bone Dens ity Screening [facility] Start: 02-20-2009 Urine microalbumin profile DTa P,Tdap,Td Vaccine (2 - Tdap) [facility] Start: 2006 RSV Vaccine (1 - 1-d ose 60+ series) RSV Vaccine (1 - 1-dose 60+ series) [facility] Start: 1964 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 Disease Visit Annual PCP Team Chronic Disease Visit [facility] Start: 1964 Anxiety Screening Anxiety Screening [facility] Start: 1964 Depression Screening Depression Scre enkrista [facility] Start: 1964 Hepatitis C screening Hepatitis C Sc fanta [facility] End: 08-11-2024 CBC W Auto Differential panel - Blood CBC + DIFF Lab STAT Anemia, unspecified type Chronic kidney disease, stage 4, severely decreased GFR (HCC) Every other week for 25 Occurrences starting 08/12/2023 until 08/11/2024 [facility] Work Phone: Comment on above: Every other week for 25 Occurrences starting 08/12/2023 until 08/11/2024 End: 08-11-2024 Ferritin [Mass/volume] in Serum or Plasma FERRITIN BLD Lab Routine Anemia, unspecified type Chronic kidney disease, stage 4, severely decreased GFR (HCC) Every 3 months for 3 Occurrences starting 08/12/2023 until 08/11/2024 [facility] Work Phone: Comment on above: Every 3 months for 3 Occurrences starting 08/12/2023 until 08/11/2024 End: 08-11-2024 Iron and Iron binding capacity panel - Serum or Plasma IRON + TIBC Lab Routine Anemia, unspecified type Chronic kidney disease, stage 4, severely decreased GFR (HCC) Every 3 months for 3 Occurrences starting 08/12/2023 until 08/11/2024 [facility] Work Phone: Comment on above: Every 3 months for 3 Occurrences starting 08/12/2023 until 08/11/2024 [facility] Immunizations Immunization Date Immunization Notes Care Provider Beena buckley 03-02-2023 influenza virus vacc ine, unspecified formulation Injection Wstr Work Phone: [facility] 04-01-2022 influenza virus vacc ine, unspecified formulation ALFONSO RAMIREZ 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 - 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 PARK 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 [facility] 09-24-2021 SARS-CoV-2 (COVID-19 ) mRNA-1273 vaccine ALFONSO RAMIREZ 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 - AMUSEMENT PARK ENTERTAINER [facility] 05-31-2021 SARS-CoV-2 (COVID-19 ) mRNA-1273 vaccine ALFONSO RAMIREZ 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 02-27-2019 influenza, injectabl e, quadrivalent, preservative free; Translations: [Fluad ] ALFONSO LIRAPKINS 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 - [facility] 03-24-2018 influenza virus vacc ine, unspecified formulation ALFONSO LIRAPKINS 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 - [facility] 03-24-2017 influenza virus vacc ine, unspecified formulation ALFONSO LIRAPKINS 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 - [facility] 04-14-2016 influenza virus vacc ine, unspecified formulation ALFONSO JAMES 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 - [facility] 03-15-2015 influenza virus vacc ine, unspecified formulation ALFONSO LIRAPKINS 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 - [facility] 01-13-2015 pneumococcal conjuga te vaccine, 13 valent ALFONSO RAMIREZ 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 - [employer] [facility] 03-24-2014 influenza virus vacc ine, unspecified formulation ALFONSO LIRAPKINS 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 - [employer] [facility] 04-24-2013 pneumococcal polysaccharide vaccine, 23 valent ALFONSO RAMIREZ 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 - [employer] [facility] 02-20-1999 diphtheria and tetan us toxoids, adsorbed for pediatric use ALFONSO RAMIREZ 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 - [employer] [facility] Payers Date Payer Category Payer Unknown [id number] 2022 Medicare [id number] 2015 Private Health Insurance [employer] [id number] 2015-Present [phone] [address] [place] [address] Indemnity [id number] 2015 Unknown [id number] 2011 Medicare MEDICARE MEDICAR E A AND B [id number] 2011-Present [phone] [address] [address] [place] [address] Medicare [id number] 2011 Medicare [id number] 1945 Unknown [id number] 1945 Unknown [id number] 1945 Unknown [id number] Social History Date Type Detail Facility Start: 02-09-2019 End: 03-13-2021 Tobacco smoking status Never smoked tobacco (finding) [facility] [place] Comment on above: No smoke exposure Sex Assigned At Female [facility] Start: 03-13-2021 Tobacco use and exposure Smoke less tobacco non-user [facility] Start: 08-01-2023 End: 03-20-2024 Alcohol intake Ex-drinker (finding) [facility] Start: 08-01-2023 End: 03-20-2024 History of Social function [facility] Start: 08-01-2023 End: 03-20-2024 Tobacco use panel [facility] National Score (1-10 0), lower number is lower risk 35 [facility] Start: 05-29-2016 Alcohol Comment twice a year or less [facility] Start: 1945 Sex Assigned At Not on file [facility] Clinical Notes 05-14-2022 to 04-16-2024 Darline Murray LPN - 04/16/2024 4:05 PM EDRamila Gomez LPN - 03/20/2024 1:32 PM EDRamila Gomez LPN - 03/20/2024 1:32 PM EDTWeston Vaughn - 03/20/2024 1:30 PM EDTPatient Instructions Note Date & Type Note Facility 04-16-2024 History of Present illness Narrative Aranesp injection deferred, treatment parameter not met, hgb 10.6 Darline Murray LPN documented in this encounter [facility] 03-20-2024 Nurse Note aranesp injection administered, right arm, tolerated well, no immediate adverse reactions noted. See office notes Ramila Gomez LPN [facility] 03-20-2024 Nurse Note aranesp injection administered, right arm, tolerated well, no immediate adverse reactions noted. See office notes Ramila Gomez LPN documented in this encounter [facility] 03-20-2024 History of Present illness Narrative Winifred Wood 1945 03/20/2024 HISTORY OF PRESENT ILLNESS: Winifred Wood is a 78 year old femalewith a PHMx of CKD, Stage 3, no dialysis as of yet but has been told by her envelope addresser that it is likely coming soon, HTN, T2DM, osteoarthritis, hyperlipidemia, and anemia. She was referred to hematology by her envelope addresser for further management of her anemia. BP elevated in the office has been running good at home 120s/60s, SPEP drawn by envelope addresser without m spike. No SOB, CP. Denies [...] receive weekly doses x4. IV iron at [facility], no current record for this. Last T [...] possible aranesp injection. She reports feeling well. Denies new issues. Neph is checking iron and given IV iron last TSat was >20% Following with cardiology for BP. Planning procedure in nov. Denies JIMENEZ, dizziness, SOB, CP or changes in vision. No N/V/C/D. No bleeding or bruising. No edema. having back surgery soon. 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 CLINICAL IMPRESSION: Anemia as above, better after 2 doses aranesp - labs reviewed RECOMMENDATION/PLAN: 1. Recheck cbc 1 month, aranesp today OV in 3 months Written and verbal health teaching given to patient, patient verbalizes understanding and agrees with treatment plan. PAST MEDICAL HISTORY Diagnosis Date Anemia Arthritis CKD (chronic kidney disease) stage 3, GFR 30-59 ml/min (HCC) DM type 2 (diabetes mellitus, type 2) ([facility]) Heart murmur HTN (hypertension) Hyperlipidemia Hyperparathyroidism (HCC) Snoring PAST SURGICAL HISTORY Procedure Laterality Date ABDOMINAL SURGERY HX COLONOSCOPY FLX DX W/COLLJ SPEC WHEN PFRMD 06/07/2016 repeat 5 yrs/ tubular adeoma COLONOSCOPY FLX DX W/COLLJ SPEC WHEN PFRMD 03/17/2021 PAST SURGICAL HISTORY OF Gallbladder TONSILLECTOMY HX FAMILY HISTORY Problem Relation Age of Onset Breast Cancer Maternal Aunt Allergies Sister Social History Tobacco Use Smoking status: Never Smokeless tobacco: Never Vaping Use Vaping status: Never Used Substance Use Topics Alcohol use: Not Currently Comment: twice a year or less Drug use: Never ALLERGIES: ALLERGIES Allergen Reactions Erythromycin Unknown Penicillins Unknown CURRENT OUTPATIENT MEDICATIONS: furosemide (LASIX) 40 mg tablet Take 40 mg by mouth once daily as needed. multivitamin (MULTIPLE VITAMINS ORAL) Take 1 tablet by mouth once daily. acetaminophen (TYLENOL) 325 mg tablet Take 650 mg by mouth every 6 hours as needed. ELIQUIS 2.5 mg tab(s) Take 2.5 mg [...] mg tablet Take 500 mg by mouth every Saturday, Saturday, and Saturday. ferrous sulfate (IRON ORAL) Take 65 mg by mouth every Saturday, Saturday, and Saturday. amLODIPine (NORVASC) 5 mg tablet Take 10 mg by mouth once daily. metoprolol succinate ER (TOPROL XL) 200 mg 24 hr tablet Take 100 mg by mouth once daily. pioglitazone (ACTOS) 45 mg tablet Take 15 mg by mouth once daily. atorvastatin (LIPITOR) 20 mg tablet Take 20 mg by mouth once daily. allopurinol (ZYLOPRIM) 100 mg tablet Take 1/2 tablet by mouth every other day. HYDROcodone-acetaminophen (NORCO) 5-325 mg per tablet Take 1 tablet by mouth every 6 hours as needed for pain. (Patient not taking: Reported on 10/02/2023) Quinapril HCl 40 mg tablet Take 40 mg by mouth two times a day. (Patient not taking: Reported on 10/02/2023) REVIEW OF SYSTEMS: GENERAL: No fever, night sweats, weight loss or malaise. All other reviewed and negative other than HPI. All systems reviewed on 03/20/2024 with pertinent positives and negatives as outlined in the interval history. PHYSICAL EXAMINATION: VITAL SIGNS: BP 158/62 Pulse 55 Temp (Src) 98.5 (Temporal) Wt 191 lb 8 oz (86.9kg) SpO2 99% GENERAL APPEARANCE: Well appearing, in no acute distress, alert and oriented x3, well-hydrated, well nourished. HEENT: Normocephalic, no sclera icterus, external ears normal Neck: Supple, no JVD. Chest: Clear bilaterally, no wheezes, not labored. Heart: Normal S1 and S2, no abnormal sounds Abdomen: Soft, nontender, nondistended Extremities: No edema Neurological: Grossly intact Skin: Warm and dry with no rashes or ulcerations. Hematologic: no bruising or petechiae. Psychiatric: Alert and oriented x3. Emotional well-being assessment was performed. Pt denies depression, distress, and or problems with coping or adjustment. I have performed the physical exam today (03/20/2024) and have edited the note to correlate with current findings. Labs Latest Reference Range & Units 01/23/24 14:14 02/20/24 15:10 03/20/24 13:13 WBC 3.70 - 11.00 k/uL 9.92 7.94 10.21 RBC 3.90 - 5.20 m/uL 3.19 (L) 3.42 (L) 3.16 (L) Hemoglobin 11.5 - 15.5 g/dL 9.8 (L) 10.4 (L) 9.6 (L) Hematocrit 36.0 - 46.0 % 30.3 (L) 33.3 (L) 30.1 (L) Platelet Count 150 - 400 k/uL 305 321 302 MCV 80.0 - 100.0 fL 95.0 97.4 95.3 MCH 26.0 - 34.0 pg 30.7 30.4 30.4 MCHC 30.5 - 36.0 g/dL 32.3 31.2 31.9 MPV 9.0 - 12.7 fL 8.9 (L) 9.5 9.1 RDW-CV 11.5 - 15.0 % 13.7 13.2 13.2 DTYPE Auto Auto Auto Neut% % 73.2 71.4 71.3 Abs Neut (ANC) 1.45 - 7.50 k/uL 7.26 5.67 7.28 Lymph% % 12.2 11.6 10.8 Abs Lymph 1.00 - 4.00 k/uL 1.21 0.92 (L) 1.10 [place]% % 8.9 9.9 8.0 Abs [place] <0.87 k/uL 0.88 (H) 0.79 0.82 Eosin% % 4.0 4.9 7.7 Abs Eosin <0.46 k/uL 0.40 0.39 0.79 (H) Baso% % 1.2 1.8 1.5 Abs Baso <0.11 k/uL 0.12 (H) 0.14 (H) 0.15 (H) Immature Gran % % 0.5 0.4 0.7 IMMATURE GRANS (ABS) <0.10 k/uL 0.05 0.03 0.07 NRBC /100 WBC 0.0 0.0 0.0 Absolute nRBC <0.01 k/uL <0.01 <0.01 <0.01 (L): Data is abnormally low (H): Data is abnormally high Weston Vaughn APRN.ELIZABETH I spent a total of 30 minutes on the date of the service which included preparing to see the patient, [id number] patient care, completing clinical documentation, obtaining and/or reviewing separately obtained history, and counseling and educating the patient/family/caregiver. Portions of this note including HPI, ROS, impression/plan may have been copied forward as to provide important historical information essential in contributing to medical decision making. Documentation has been reviewed and edited as necessary to support clinical decision making for today's visit and to reflect my own independent evaluation of this patient. documented in this encounter [facility] 03-20-2024 Note HNO ID: [id number] Author: WESTON VAUGHN, ? Service: ? Author Type: Nurse Practitioner Type: Progress Notes Filed: 03/20/2024 16:20 Note Text: Winifred Wood 1945 03/20/2024 HISTORY OF PRESENT ILLNESS: Winifred Wood is a 78 year old femalewith a PHMx of CKD, Stage 3, no dialysis as of yet but has been told by her envelope addresser that it is likely coming soon, HTN, T2DM, osteoarthritis, hyperlipidemia, and anemia. She was referred to hematology by her envelope addresser for further management of her anemia. BP elevated in the office has been running good at home 120s/60s, SPEP drawn by envelope addresser without m spike. No SOB, CP. Denies [...] receive weekly doses x4. IV iron at [facility], no current record for this. Last T [...] possible aranesp injection. She reports feeling well. Denies new issues. Neph is checking iron and given IV iron last TSat was >20% Following with cardiology for BP. Planning procedure in apr. Denies JIMENEZ, dizziness, SOB, CP or changes in vision. No N/V/C/D. No bleeding or bruising. No edema. having back surgery soon. 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 CLINICAL IMPRESSION: Anemia as above, better after 2 doses aranesp - labs reviewed RECOMMENDATION/PLAN: 1. Recheck cbc 1 month, aranesp today OV in 3 months Written and verbal health teaching given to patient, patient verbalizes understanding and agrees with treatment plan. PAST MEDICAL HISTORY Diagnosis Date Anemia Arthritis [...] PAST SURGICAL HISTORY OF Gallbladder TONSILLECTOMY HX FAMILY HISTORY Problem Relation Age of Onset Breast Cancer Maternal Aunt Allergies Sister Social History Tobacco Use Smoking status: Never Smokeless tobacco: Never Vaping Use Vaping status: Never Used Substance Use Topics Alcohol use: Not Currently Comment: twice a year or less Drug use: Never ALLERGIES: ALLERGIES Allergen Reactions Erythromycin Unknown Penicillins Unknown CURRENT OUTPATIENT MEDICATIONS: furosemide (LASIX) 40 mg tablet Take 40 mg by mouth once daily as needed. multivitamin (MULTIPLE VITAMINS ORAL) Take 1 tablet by mouth once daily. acetaminophen (TYLENOL) 325 mg tablet Take 650 mg by mouth every 6 hours as needed. ELIQUIS 2.5 mg tab(s) Take 2.5 mg [...] mg tablet Take 500 mg by mouth every Saturday, Saturday, and Saturday. ferrous sulfate (IRON ORAL) Take 65 mg by mouth every Saturday, Saturday, and Saturday. amLODIPine (NORVASC) 5 mg tablet Take 10 mg by mouth once daily. metoprolol succinate ER (TOPROL XL) 200 mg 24 hr tablet Take 100 mg by mouth once daily. pioglitazone (ACTOS) 45 mg tablet Take 15 mg by mouth once daily. atorvastatin (LIPITOR) 20 mg tablet Take 20 mg by mouth once daily. allopurinol (ZYLOPRIM) 100 mg tablet Take 1/2 tablet by mouth every other day. HYDROcodone-acetaminophen (NORCO) 5-325 mg per tablet Take 1 tablet by mouth every 6 hours as needed for pain. (Patient not taking: Reported on 10/02/2023) Quinapril HCl 40 mg tablet Take 40 mg by mouth two times a day. (Patient not taking: Reported on 10/02/2023) REVIEW OF SYSTEMS: GENERAL: No fever, night sweats, weight loss or mal (more content not included)... [facility] 02-20-2024 Note HNO ID: [id number] Author: DARLINE MURRAY LPN Service: ? Author Type: LICENSED NURSE Type: Progress Notes Filed: 02/20/2024 15:38 Note Text: Aranesp injection deferred, treatment plan not met, hgb 10.4. Darline Murray LPN [facility] 02-20-2024 History of Present illness Narrative Aranesp injection deferred, treatment plan not met, hgb 10.4. Darline Murray LPN documented in this encounter [facility] 01-23-2024 Note HNO ID: [id number] Author: DARLINE MURRAY LPN Service: ? Author Type: LICENSED NURSE Type: Progress Notes Filed: 01/23/2024 15:21 Note Text: Patient here for injection of Aranesp, given SQ in left arm. Pt tolerated well. Darline Murray LPN [facility] 01-23-2024 History of Present illness Narrative Patient here for injection of Aranesp, given SQ in left arm. Pt tolerated well. Darline Murray LPN documented in this encounter [facility] 01-21-2024 Telephone encounter Note Patient scheduled as directed and balance of schedule adjusted. Lacey Martines [facility] 01-21-2024 Miscellaneous Notes Patient scheduled as directed and balance of schedule adjusted. Lacey Martines Pt states last week Dr Barrow started her on Lasix but he did not give her a BP parameter, however she states she has been checking her BP at home and getting much better readings. She would like to come 01/23/24, labs at 215 and aranesp inj at 245. Her future aranesp injections will need readjusted. Darline Murray LPN Pt was in today for possible aranesp injection however her BP readings were consistently elevated. First reading was 199/86 followed by 181/64 and 176/51. Our parameters have been systolic 150 or less. within the last two weeks she has seen her PCP and her envelope addresser. Dr Weston instructed me to hold injection today. Her Hgb came up to 9.7 without last injection. I faxed a note to her envelope addresser Dr Kohler to ask if he is ok with the new parameter for aranesp. Pt rescheduled for Saturday for possible injection,. Darline Murray LPN documented in this encounter [facility] 01-20-2024 Telephone encounter Note Pt states last week Dr Danial started her on Lasix but he did not give her a BP parameter, however she states she has been checking her BP at home and getting much better readings. She would like to come 01/23/24, labs at 215 and aranesp inj at 245. Her future aranesp injections will need readjusted. Darline Murray LPN [facility] 01-14-2024 Telephone encounter Note Spoke to pt, she states Dr Kohler spoke with her yesterday and added Lasix for her, which she started yesterday. Dr Kohler wants pt to contact him . I asked her to call us after she has spoken to him and we can plan to schedule her for lab/aranesp. Pt voices understanding. Darline Murray LPN [facility] 01-14-2024 Miscellaneous Notes Spoke to pt, she states Dr Kohler spoke with her yesterday and added Lasix for her, which she started yesterday. Dr Kohler wants pt to contact him . I asked her to call us after she has spoken to him and we can plan to schedule her for lab/aranesp. Pt voices understanding. Darline Murray LPN documented in this encounter [facility] 01-10-2024 Note HNO ID: [id number] Author: DARLINE MURRAY LPN Service: ? Author Type: LICENSED NURSE Type: Progress Notes Filed: 01/10/2024 16:10 Note Text: BP still high as noted in vitals. Pt states Dr Kohler called her and left her a message, she called him back and was unable to connect with him. I will try to get ahold of him and PCP and see if I can get some parameters. No injection given today. Will reschedule pt when I speak with doctors. Pharmacist aware of plan. Darline Murray LPN [facility] 01-10-2024 History of Present illness Narrative BP still high as noted in vitals. Pt states Dr Kohler called her and left her a message, she called him back and was unable to connect with him. I will try to get ahold of him and PCP and see if I can get some parameters. No injection given today. Will reschedule pt when I speak with doctors. Pharmacist aware of plan. Darline Murray LPN documented in this encounter [facility] 01-07-2024 Telephone encounter Note Pt was in today for possible aranesp injection however her BP readings were consistently elevated. First reading was 199/86 followed by 181/64 and 176/51. Our parameters have been systolic 150 or less. within the last two weeks she has seen her PCP and her envelope addresser. Dr Weston instructed me to hold injection today. Her Hgb came up to 9.7 without last injection. I faxed a note to her envelope addresser Dr Kohler to ask if he is ok with the new parameter for aranesp. Pt rescheduled for Saturday for possible injection,. Darline Murray LPN [facility] 12-30-2023 Note HNO ID: [id number] Author: DARLINE MURRAY LPN Service: ? Author Type: LICENSED NURSE Type: Progress Notes Filed: 12/30/2023 15:14 Note Text: Pt here for possible Aranesp. Unable to administer due to BP reading. I was unable to get a systolic BP reading at 150. Her systolic was 169 and 177. Rescheduled her injection in a week, she is seeing her PCP this week. Darline Murray LPN [facility] 12-30-2023 History of Present illness Narrative Pt here for possible Aranesp. Unable to administer due to BP reading. I was unable to get a systolic BP reading at 150. Her systolic was 169 and 177. Rescheduled her injection in a week, she is seeing her PCP this week. Darline Murray LPN documented in this encounter [facility] 12-27-2023 Note HNO ID: [id number] Author: DARLINE MURRAY LPN Service: ? Author Type: LICENSED NURSE Type: Progress Notes Filed: 12/27/2023 15:04 Note Text: Could not get BP down to a parameter safe to treat. No Aranesp given. Returned medication to Pyxis. Rescheduled pt to Saturday. Advised to check BP readings over the weekend and bring with her to apt. She does have an apt next week with her PCP. Reasses BP Saturday. Darline Murray LPN [facility] 12-27-2023 History of Present illness Narrative Could not get BP down to a parameter safe to treat. No Aranesp given. Returned medication to Pyxis. Rescheduled pt to Saturday. Advised to check BP readings over the weekend and bring with her to apt. She does have an apt next week with her PCP. Reasses BP Saturday. Darline Murray LPN documented in this encounter [facility] 11-28-2023 Note HNO ID: [id number] Author: DREW WESTON MD Service: ? Author Type: Physician Type: Progress Notes Filed: 11/28/2023 15:50 Note Text: HISTORY OF PRESENT ILLNESS: Winifred Wood is a 78 year old femalewith a PHMx of CKD, Stage 3, no dialysis as of yet but has been told by her envelope addresser that it is likely coming soon, HTN, T2DM, osteoarthritis, hyperlipidemia, and anemia. She was referred to hematology by her envelope addresser for further management of her anemia. BP elevated in the office has been running good at home 120s/60s, SPEP drawn by envelope addresser without m spike. No SOB, CP. Denies [...] receive weekly doses x4. IV iron at [facility], no current record for this. Last T [...] possible aranesp injection. She reports feeling well. Ust return from a 12 day cruise. No recent illnesses, fevers, chills or NS. She has completed PT, now feeling much better. No longer using rollator to get around, has switched to cane last month and is feeling stronger and more confident. Knee pain and sciatic pain resolved completely. BP high again today, took her BP meds this morning. She states 125 - 130/70s at home always higher when she is at doctors offices. Discussed parameters for darbo. Denies JIMENEZ, dizziness, SOB, CP or changes in vision. No N/V/C/D. No bleeding or bruising. No edema. CLINICAL IMPRESSION: Anemia as above, better after 2 doses aranesp RECOMMENDATION/PLAN: 1. Recheck cbc 1 month, no aranesp today Written and verbal health teaching given to patient, patient verbalizes understanding and agrees with treatment plan. PAST MEDICAL HISTORY Diagnosis Date Anemia Arthritis [...] PAST SURGICAL HISTORY OF Gallbladder TONSILLECTOMY HX FAMILY HISTORY Problem Relation Age of Onset Breast Cancer Maternal Aunt Allergies Sister Social History Tobacco Use Smoking status: Never Smokeless tobacco: Never Vaping Use Vaping Use: Never used Substance Use Topics Alcohol use: Not Currently Comment: twice a year or less Drug use: Never ALLERGIES: ALLERGIES Allergen Reactions Erythromycin Unknown Penicillins Unknown CURRENT OUTPATIENT MEDICATIONS: multivitamin (MULTIPLE VITAMINS ORAL) Take 1 tablet [...] fri amLODIPine (NORVASC) 5 mg tablet Take 10 mg by mouth once daily. 10 MG by mouth daily metoprolol succinate ER (TOPROL XL) 200 mg 24 hr tablet Take 100 mg by mouth once daily. pioglitazone (ACTOS) 45 mg tablet Take 15 mg by mouth once daily. atorvastatin (LIPITOR) 20 mg tablet Take 20 mg by mouth once daily. allopurinol (ZYLOPRIM) 100 mg tablet Take 100 mg by mouth every other day. 0.5 tablet daily HYDROcodone-acetaminophen (NORCO) 5-325 mg per tablet Take 1 tablet by mouth every 6 hours as needed for pain. (Patient not taking: Reported on 10/02/2023) Quinapril HCl 40 mg tablet Take 40 mg by mouth two times a day. (Patient not taking: Reported on 10/02/2023) R (more content not included)... [facility] 11-28-2023 History of Present illness Narrative HISTORY OF PRESENT ILLNESS: Winifred Wood is a 78 year old femalewith a PHMx of CKD, Stage 3, no dialysis as of yet but has been told by her envelope addresser that it is likely coming soon, HTN, T2DM, osteoarthritis, hyperlipidemia, and anemia. She was referred to hematology by her envelope addresser for further management of her anemia. BP elevated in the office has been running good at home 120s/60s, SPEP drawn by envelope addresser without m spike. No SOB, CP. Denies [...] receive weekly doses x4. IV iron at [facility], no current record for this. Last T [...] possible aranesp injection. She reports feeling well. Ust return from a 12 day cruise. No recent illnesses, fevers, chills or NS. She has completed PT, now feeling much better. No longer using rollator to get around, has switched to cane last month and is feeling stronger and more confident. Knee pain and sciatic pain resolved completely. BP high again today, took her BP meds this morning. She states 125 - 130/70s at home always higher when she is at doctors offices. Discussed parameters for darbo. Denies JIMENEZ, dizziness, SOB, CP or changes in vision. No N/V/C/D. No bleeding or bruising. No edema. CLINICAL IMPRESSION: Anemia as above, better after 2 doses aranesp RECOMMENDATION/PLAN: 1. Recheck cbc 1 month, no aranesp today Written and verbal health teaching given to patient, patient verbalizes understanding and agrees with treatment plan. PAST MEDICAL HISTORY Diagnosis Date Anemia Arthritis [...] PAST SURGICAL HISTORY OF Gallbladder TONSILLECTOMY HX FAMILY HISTORY Problem Relation Age of Onset Breast Cancer Maternal Aunt Allergies Sister Social History Tobacco Use Smoking status: Never Smokeless tobacco: Never Vaping Use Vaping Use: Never used Substance Use Topics Alcohol use: Not Currently Comment: twice a year or less Drug use: Never ALLERGIES: ALLERGIES Allergen Reactions Erythromycin Unknown Penicillins Unknown CURRENT OUTPATIENT MEDICATIONS: multivitamin (MULTIPLE VITAMINS ORAL) Take 1 tablet [...] fri amLODIPine (NORVASC) 5 mg tablet Take 10 mg by mouth once daily. 10 MG by mouth daily metoprolol succinate ER (TOPROL XL) 200 mg 24 hr tablet Take 100 mg by mouth once daily. pioglitazone (ACTOS) 45 mg tablet Take 15 mg by mouth once daily. atorvastatin (LIPITOR) 20 mg tablet Take 20 mg by mouth once daily. allopurinol (ZYLOPRIM) 100 mg tablet Take 100 mg by mouth every other day. 0.5 tablet daily HYDROcodone-acetaminophen (NORCO) 5-325 mg per tablet Take 1 tablet by mouth every 6 hours as needed for pain. (Patient not taking: Reported on 10/02/2023) Quinapril HCl 40 mg tablet Take 40 mg by mouth two times a day. (Patient not taking: Reported on 10/02/2023) REVIEW OF SYSTEMS: GENERAL: No fever, night sweats, weight loss or malaise. All other reviewed and negative other than HPI. PHYSICAL EXAMINATION: VITAL SIGNS: BP 178/69 Pulse 54 Temp 97.7 Wt 189 lb 8 oz (86.0kg) SpO2 97% GENERAL APPEARANCE: Well appearing, in no acute distress, alert and oriented x3, well-hydrated, well nourished. I spent a total of 20 minutes on the date of the service which included preparing to see the patient, [id number] patient care, completing clinical documentation, obtaining and/or reviewing separately obtained history, counseling and educating the patient/family/caregiver, independently interpreting results (not separately reported), and communicating results to the patient/family/caregiver. Electronically Signed: Drew Weston MD November 28, 2023 10:37 AM documented in this encounter [facility] 11-28-2023 Nurse Note Aranesp injection deferred, treatment parameter not met. Hgb 10.3. Darline Murray LPN [facility] 11-28-2023 Nurse Note Aranesp injection deferred, treatment parameter not met. Hgb 10.3. Darline Murray LPN documented in this encounter [facility] 11-28-2023 Nurse Note Est. Pt, 1 month F/U ,discuss recent labs , poss injection today Ramila Gomez LPN [facility] 11-28-2023 Nurse Note Est. Pt, 1 month F/U ,discuss recent labs , poss injection today Ramila Gomez LPN documented in this encounter [facility] 10-31-2023 Note HNO ID: [id number] Author: DARLINE MURRAY LPN Service: ? Author Type: LICENSED NURSE Type: Progress Notes Filed: 10/31/2023 10:41 Note Text: Aranesp injection deferred, Hgb10.7 Darline Murray LPN [facility] [place] 10-31-2023 History of Present illness Narrative Aranesp injection deferred, Hgb10.7 Darline Murray LPN documented in this encounter [facility] 10-03-2023 Nurse Note No Aranesp injection given, did not meet tx parameters, HGB 10.5. Darline Murray LPN documented in this encounter [facility] 10-02-2023 Note HNO ID: [id number] Author: WESTON VAUGHN, ? Service: ? Author Type: Nurse Practitioner Type: Progress Notes Filed: 10/02/2023 14:13 Note Text: Hematology Progress Note Winifred Wood 1945 Encounter date: 10/02/2023 HPI: Winifred Wood is a 78 year old female with a PHMx of CKD, Stage 3, no dialysis as of yet but has been told by her envelope addresser that it is likely coming soon, HTN, T2DM, osteoarthritis, hyperlipidemia, and anemia. She was referred to hematology by her envelope addresser for further management of her anemia. BP elevated in the office has been running good at home 120s/60s, SPEP drawn by envelope addresser without m spike. No SOB, CP. Denies [...] receive weekly doses x4. IV iron at [facility], no current record for this. Last T [...] possible aranesp injection. She reports feeling well. Ust return from a 12 day cruise. No recent illnesses, fevers, chills or NS. She has completed PT, now feeling much better. No longer using rollator to get around, has switched to cane last month and is feeling stronger and more confident. Knee pain and sciatic pain resolved completely. BP high again today, took her BP meds this morning. She states 125 - 130/70s at home always higher when she is at doctors offices. Discussed parameters for darbo. Denies JIMENEZ, dizziness, SOB, CP or changes in vision. No N/V/C/D. No bleeding or bruising. No edema. Has started driving again now that she is feeling better. PAST MEDICAL HISTORY Diagnosis Date Anemia Arthritis [...] fri amLODIPine (NORVASC) 5 mg tablet Take 10 mg by mouth once daily. 10 MG by mouth daily metoprolol succinate ER (TOPROL XL) 200 mg 24 hr tablet Take 100 mg by mouth once daily. pioglitazone (ACTOS) 45 mg tablet Take 15 mg by mouth once daily. atorvastatin (LIPITOR) 20 mg tablet Take 20 mg by mouth once daily. allopurinol (ZYLOPRIM) 100 mg tablet Take 100 mg by mouth once daily. 0.5 tablet daily HYDROcodone-acetaminophen (NORCO) 5-325 mg per tablet Take 1 tablet by mouth every 6 hours as needed for pain. (Patient not taking: Reported on 10/02/2023) Quinapril HCl 40 mg tablet Take 40 mg by mouth two times a day. (Patient not taking: Reported on 10/02/2023) No current facility-administered medications for this visit. [...] Systems: Negative except as noted in HPI (more content not included)... [facility] [place] 10-02-2023 History of Present illness Narrative Hematology Progress Note Winifred Wood 1945 Encounter date: 10/02/2023 HPI: Winifred Wood is a 78 year old female with a PHMx of CKD, Stage 3, no dialysis as of yet but has been told by her envelope addresser that it is likely coming soon, HTN, T2DM, osteoarthritis, hyperlipidemia, and anemia. She was referred to hematology by her envelope addresser for further management of her anemia. BP elevated in the office has been running good at home 120s/60s, SPEP drawn by envelope addresser without m spike. No SOB, CP. Denies [...] receive weekly doses x4. IV iron at [facility], no current record for this. Last T [...] possible aranesp injection. She reports feeling well. Ust return from a 12 day cruise. No recent illnesses, fevers, chills or NS. She has completed PT, now feeling much better. No longer using rollator to get around, has switched to cane last month and is feeling stronger and more confident. Knee pain and sciatic pain resolved completely. BP high again today, took her BP meds this morning. She states 125 - 130/70s at home always higher when she is at doctors offices. Discussed parameters for darbo. Denies JIMENEZ, dizziness, SOB, CP or changes in vision. No N/V/C/D. No bleeding or bruising. No edema. Has started driving again now that she is feeling better. PAST MEDICAL HISTORY Diagnosis Date Anemia Arthritis CKD (chronic kidney disease) stage 3, GFR 30-59 ml/min (HCC) DM type 2 (diabetes mellitus, type 2) ([facility]) Heart murmur HTN (hypertension) Hyperlipidemia Hyperparathyroidism (HCC) [...] fri amLODIPine (NORVASC) 5 mg tablet Take 10 mg by mouth once daily. 10 MG by mouth daily metoprolol succinate ER (TOPROL XL) 200 mg 24 hr tablet Take 100 mg by mouth once daily. pioglitazone (ACTOS) 45 mg tablet Take 15 mg by mouth once daily. atorvastatin (LIPITOR) 20 mg tablet Take 20 mg by mouth once daily. allopurinol (ZYLOPRIM) 100 mg tablet Take 100 mg by mouth once daily. 0.5 tablet daily HYDROcodone-acetaminophen (NORCO) 5-325 mg per tablet Take 1 tablet by mouth every 6 hours as needed for pain. (Patient not taking: Reported on 10/02/2023) Quinapril HCl 40 mg tablet Take 40 mg by mouth two times a day. (Patient not taking: Reported on 10/02/2023) No current facility-administered medications for this visit. [...] Negative except as noted in HPI reviewed 10/02/2023 Physical Exam: BP 186/64 Pulse 57 Temp (Src) 98.6 (Temporal) Wt 193 lb 8 oz (87.8kg) SpO2 97% General: Age-appropriate well developed. Appears well. HEENT: Normocephalic, no sclera icterus, external ears normal, oral cavity clear. Neck: Supple, no thyroid nodules, no JVD. Chest: Clear bilaterally, no wheezes, not labored. Heart: Normal S1 and S2, no abnormal sounds Abdomen: Soft, nontender, nondistended, Extremities: No cyanosis, clubbing, gross deformities, Neurological: Cranial nerves II through XII are intact bilaterally, no focal deficits. Skin: Warm and dry with no rashes or ulcerations. Hematologic: no bruising or petechiae. Psychiatric: Alert and oriented x3. Emotional well-being assessment was performed. Pt denies depression, distress, and or problems with coping or adjustment. I have performed the physical exam today (10/02/2023) and have edited the note to correlate with current findings. Lab Results Component Value Date WBC 7.14 10/02/2023 HB 10.5 (L) 10/02/2023 MCV 95.7 10/02/2023 PLT 295 10/02/2023 No results found for: NA , K [...] GI workup completed - following with local envelope addresser for management of CKD, not currently on dialysis. - neph is managing and scheduling IV iron, - Would recommend 1 tab ferrous sulfate [...] no longer drives. - b12, folate unremarkable. - nephrology at [facility] is managing iron, Last infusion 08/30/23 - BP high in office, injections delayed in the past for high BP Plan: - continue with iron management per neph, next follow up scheduled - plan for aranesp for hgb less than 10 - no injection today hgb 10.5 - iron studies pending today - RTC in 4 weeks with CBC Weston Vaugnh APRN.[employer] I spent a total of 30 minutes on the date of the service which included preparing to see the patient, [id number] patient care, completing clinical documentation, performing a medically appropriate examination, and ordering medications, tests, or procedures. Portions of this note including HPI, ROS, impression/plan may have been copied forward as to provide important historical information essential in contributing to medical decision making. Documentation has been reviewed and edited as necessary to support clinical decision making for today's visit and to reflect my own independent evaluation of this patient. documented in this encounter [facility] 09-30-2023 Miscellaneous Notes Scheduled with patient Updated schedule 2nd attempt. Message left for patient to contact office. *PSS- Please schedule CBC/Iron Studies with Weston 1-2 days prior to next injection 09/25 - telephone encounter- Pt. Missed appt. Today for labs and injection. (09/25) Spoke with pts. Son, pt. Is on a cruise and will not return until late tomorrow. *PSS - Please reach out to pt. First of next week to get scheduled for next week. Ramila Gomez LPN Left message on identified voicemail ,Pt will need to follow up with Nephrology as they have been managing her iron. Her iron and tsat has not improved enough for aranesp to really be effective per the manufactures recommendations. OV 1 to 2 days prior to next possible injection with repeat CBC, iron studies. Pur PSS will reach out to her to get OV with weston scheduled. Ramila Gomez LPN Pt will need to follow up with Nephrology as they have been managing her iron. Her iron and tsat has not improved enough for aranesp to really be effective per the manufactures recommendations. OV 1 to 2 days prior to next possible injection with repeat CBC, iron studies. Please advise of next office visit for patient documented in this encounter [facility] 09-26-2023 Miscellaneous Notes Pt. Missed appt. Today for labs and injection. Spoke with pts. Son, pt. Is on a cruise and will not return until late tomorrow. Please reach out to pt. First of next week to get scheduled for next week. Ramila Gomez LPN documented in this encounter [facility] 09-13-2023 Nurse Note Patient presents with: Imm/Inj Pt [...] the patient fallen in the past year? No Does the patient have difficulty performing or completing routine daily living activities? No Does this patient have concerns about personal safety? No Is patient having pain? Pain: No=0 (pain 0 on a scale of 0-10). Health Maintenance: Reviewed and updated. Does patient have MyChart access or Caregiver proxy: no Pt/Caregiver willingness and readiness to learn assessed: Yes. Barriers: none aranesp injection administered, left arm,tolerated well, no immediate adverse reactions noted. Ramila Gomez LPN documented in this encounter [facility] 09-12-2023 Nurse Note Injection not given per physician discretion B/P 220/80 See office notes Pt. Will return tomorrow for B/P check, if lower will administer medication. Ramila Gomez LPN documented in this encounter [facility] 09-12-2023 Note HNO ID: [id number] Author: JESSICA BROWN APRN.[employer] Service: ? Author Type: Nurse Practitioner Type: Progress Notes Filed: 09/13/2023 12:29 Note Text: Chief Complaint Patient presents with: Established Patient HPI: Winifred Wood is a 78 year old female who presents here today for follow up anemia/BP check for possible aranesp. Per Eunice Vaughn's previous note: H/o CKD, Stage 3, no dialysis as of yet but has been told by her envelope addresser that it is likely coming soon, HTN, T2DM, osteoarthritis, hyperlipidemia, and anemia. She was referred to hematology by her envelope addresser for further management of her anemia. BP elevated in the office has been running good at home 120s/60s, SPEP drawn by envelope addresser without m spike. No SOB, CP. Denies [...] had not needed one for 6 months. BP elevated at last visit-aranesp not given. Appetite: Ok. Energy level: Ok. Denies fevers. Resp:denies cough or sob Cardiac:denies chest pain/palpitations Extrem:denies new pain Heme:denies bleeding The ROS is otherwise negative. Past medical history, appointments, medications, allergies reviewed. No changes. EXAM: BP 193/72 Pulse (!) 57 Temp 36.6 ?C (97.9 ?F) (Temporal) Wt 86.8 kg (191 lb 4.8 oz) SpO2 100% BMI 36.15 kg/m? APPEARANCE Well appearing, alert, in no acute distress, well-hydrated, well nourished. EXTREMITIES chronic BLE NEURO Awake, alert and oriented x 3, using cane, and No involuntary motions. SKIN Skin color, texture, turgor normal, no suspicious rashes or lesions LABS: Latest Ref Rng 08/01/2023 08/13/2023 08/29/2023 09/12/2023 WBC 3.70 - 11.00 k/uL 8.99 11.03 (H) 8.27 6.31 RBC 3.90 - 5.20 m/uL 3.30 (L) 2.77 (L) 3.07 (L) 3.06 (L) Hemoglobin 11.5 - 15.5 g/dL 9.7 (L) 8.1 (L) 9.0 (L) 9.0 (L) Hematocrit 36.0 - 46.0 % 30.3 (L) 25.7 (L) 29.5 (L) 28.8 (L) MCV 80.0 - 100.0 fL 91.8 92.8 96.1 94.1 MCH 26.0 - 34.0 pg 29.4 29.2 29.3 29.4 MCHC 30.5 - 36.0 g/dL 32.0 31.5 30.5 31.3 RDW-CV 11.5 - 15.0 % 14.6 15.1 (H) 17.1 (H) 15.5 (H) Platelet Count 150 - 400 k/uL 302 350 303 256 MPV 9.0 - 12.7 fL 9.3 8.7 (L) 9.0 9.3 Neut% % 80.0 77.0 74.6 72.5 Abs Neut (ANC) 1.45 - 7.50 k/uL 7.20 8.50 (H) 6.17 4.57 Lymph% % 7.5 8.3 10.9 11.3 Abs Lymph 1.00 - 4.00 k/uL 0.67 (L) 0.92 (L) 0.90 (L) 0.71 (L) [place]% % 7.0 8.0 8.6 10.1 Abs [place] <0.87 k/uL 0.63 0.88 (H) 0.71 0.64 Eosin% % 3.7 4.4 4.1 4.1 Abs Eosin <0.46 k/uL 0.33 0.48 (H) 0.34 0.26 Baso% % 1.2 1.3 1.3 1.7 Abs Baso <0.11 k/uL 0.11 (H) 0.14 (H) 0.11 (H) 0.11 (H) Immature Gran % % 0.6 1.0 0.5 0.3 IMMATURE GRANS (ABS) <0.10 k/uL 0.05 0.11 (H) 0.04 <0.03 NRBC /100 WBC 0.0 0.0 0.0 0.0 Absolute nRBC <0.01 k/uL <0.01 <0.01 <0.01 <0.01 DTYPE Auto Auto Auto Auto Iron studies: Pending ASSESSMENT/PLAN: 1. Anemia, unspecified type - ICD9: 285.9, ICD10: D64.9 (primary diagnosis) 2. Chronic kidney disease, stage 4, severely decreased GFR (HCC) - ICD9: 585.4, ICD10: N18.4 - BP remains elevated. Pt. adds that she took her pills late this a.m. - She is leaving for a 12 day cruise. - Reviewed CBC with pt. - Iron studies pending. - Advised pt. to return tomorrow morning for repeat BP and possible aranesp inj. - Pt. aware to call office with any questions/concerns. The patient indicates understanding of these issues and agrees with the plan. All documentation from previous visit of 08/29/23-Weston Vaughn CNP was copied and pasted, documentation has been reviewed and edited as necessary for today's visit. Jessica Brown APRN.ELIZABETH [facility] [place] 09-12-2023 History of Present illness Narrative Chief Complaint Patient presents with: Established Patient HPI: Winifred Wood is a 78 year old female who presents here today for follow up anemia/BP check for possible aranesp. Per Eunice Vaughn's previous note: H/o CKD, Stage 3, no dialysis as of yet but has been told by her envelope addresser that it is likely coming soon, HTN, T2DM, osteoarthritis, hyperlipidemia, and anemia. She was referred to hematology by her envelope addresser for further management of her anemia. BP elevated in the office has been running good at home 120s/60s, SPEP drawn by envelope addresser without m spike. No SOB, CP. Denies [...] had not needed one for 6 months. BP elevated at last visit-aranesp not given. Appetite: Ok. Energy level: Ok. Denies fevers. Resp:denies cough or sob Cardiac:denies chest pain/palpitations Extrem:denies new pain Heme:denies bleeding The ROS is otherwise negative. Past medical history, appointments, medications, allergies reviewed. No changes. EXAM: BP 193/72 Pulse (!) 57 Temp 36.6 C (97.9 F) (Temporal) Wt 86.8 kg (191 lb 4.8 oz) SpO2 100% BMI 36.15 kg/m APPEARANCE Well appearing, alert, in no acute distress, well-hydrated, well nourished. EXTREMITIES chronic BLE NEURO Awake, alert and oriented x 3, using cane, and No involuntary motions. SKIN Skin color, texture, turgor normal, no suspicious rashes or lesions LABS: Latest Ref Rng 08/01/2023 08/13/2023 08/29/2023 09/12/2023 WBC 3.70 - 11.00 k/uL 8.99 11.03 (H) 8.27 6.31 RBC 3.90 - 5.20 m/uL 3.30 (L) 2.77 (L) 3.07 (L) 3.06 (L) Hemoglobin 11.5 - 15.5 g/dL 9.7 (L) 8.1 (L) 9.0 (L) 9.0 (L) Hematocrit 36.0 - 46.0 % 30.3 (L) 25.7 (L) 29.5 (L) 28.8 (L) MCV 80.0 - 100.0 fL 91.8 92.8 96.1 94.1 MCH 26.0 - 34.0 pg 29.4 29.2 29.3 29.4 MCHC 30.5 - 36.0 g/dL 32.0 31.5 30.5 31.3 RDW-CV 11.5 - 15.0 % 14.6 15.1 (H) 17.1 (H) 15.5 (H) Platelet Count 150 - 400 k/uL 302 350 303 256 MPV 9.0 - 12.7 fL 9.3 8.7 (L) 9.0 9.3 Neut% % 80.0 77.0 74.6 72.5 Abs Neut (ANC) 1.45 - 7.50 k/uL 7.20 8.50 (H) 6.17 4.57 Lymph% % 7.5 8.3 10.9 11.3 Abs Lymph 1.00 - 4.00 k/uL 0.67 (L) 0.92 (L) 0.90 (L) 0.71 (L) [place]% % 7.0 8.0 8.6 10.1 Abs [place] <0.87 k/uL 0.63 0.88 (H) 0.71 0.64 Eosin% % 3.7 4.4 4.1 4.1 Abs Eosin <0.46 k/uL 0.33 0.48 (H) 0.34 0.26 Baso% % 1.2 1.3 1.3 1.7 Abs Baso <0.11 k/uL 0.11 (H) 0.14 (H) 0.11 (H) 0.11 (H) Immature Gran % % 0.6 1.0 0.5 0.3 IMMATURE GRANS (ABS) <0.10 k/uL 0.05 0.11 (H) 0.04 <0.03 NRBC /100 WBC 0.0 0.0 0.0 0.0 Absolute nRBC <0.01 k/uL <0.01 <0.01 <0.01 <0.01 DTYPE Auto Auto Auto Auto Iron studies: Pending ASSESSMENT/PLAN: 1. Anemia, unspecified type - ICD9: 285.9, ICD10: D64.9 (primary diagnosis) 2. Chronic kidney disease, stage 4, severely decreased GFR (HCC) - ICD9: 585.4, ICD10: N18.4 - BP remains elevated. Pt. adds that she took her pills late this a.m. - She is leaving for a 12 day cruise. - Reviewed CBC with pt. - Iron studies pending. - Advised pt. to return tomorrow morning for repeat BP and possible aranesp inj. - Pt. aware to call office with any questions/concerns. The patient indicates understanding of these issues and agrees with the plan. All documentation from previous visit of 08/29/23-Weston Vaughn CNP was copied and pasted, documentation has been reviewed and edited as necessary for today's visit. Jessica Brown APRN.ELIZABETH documented in this encounter [facility] 08-29-2023 Nurse Note Injection deferred per physician discretion, elevated blood pressure. Ramila Gomez LPN documented in this encounter [facility] 08-29-2023 History of Present illness Narrative Hematology Progress Note Winifred Wood 1945 Encounter date: 08/29/2023 HPI: Winifred Wood is a 78 year old female with a PHMx of CKD, Stage 3, no dialysis as of yet but has been told by her envelope addresser that it is likely coming soon, HTN, T2DM, osteoarthritis, hyperlipidemia, and anemia. She was referred to hematology by her envelope addresser for further management of her anemia. BP elevated in the office has been running good at home 120s/60s, SPEP drawn by envelope addresser without m spike. No SOB, CP. Denies [...] receive weekly doses x4. IV iron at [facility], no current record for this. Last T [...] able to complete a few laps around [facility] this week. Knee pain and sciatic pain resolved. BP high today, took her BP meds this morning about an hour ago. She states 125/70s at home always higher when she is at doctors offices. Denies JIMENEZ, dizziness, SOB, CP or changes in vision. No N/V/C/D. Has 1 remaining IV iron infusion at [facility] tomorrow. Denies bleeding or bruising. Has started [...] Frequency Provider Last Rate Last Admin Darbepoetin [place] In Polysorbat 200 mcg injection (ARANESP) 200 mcg SUBCUTANEOUS ONCE Vaughn, Weston ALLERGIES Allergen Reactions Erythromycin Unknown Penicillins Unknown [...] GI workup completed - following with local envelope addresser for management of CKD, not currently on [...] up on iron studies at that time. Weston Vaughn APRN.[employer] I spent >30 minutes in the visit, with more than 50% of the total [id number] time of the visit in counseling / [...] of this patient. documented in this encounter [facility] 08-29-2023 Note HNO ID: [id number] Author: WESTON VAUGHN, ? Service: ? Author Type: Nurse Practitioner Type: Progress Notes Filed: 08/29/2023 13:35 Note Text: Hematology Progress Note Winifred Wood 1945 Encounter date: 08/29/2023 HPI: Winifred Wood is a 78 year old female with a PHMx of CKD, Stage 3, no dialysis as of yet but has been told by her envelope addresser that it is likely coming soon, HTN, T2DM, osteoarthritis, hyperlipidemia, and anemia. She was referred to hematology by her envelope addresser for further management of her anemia. BP elevated in the office has been running good at home 120s/60s, SPEP drawn by envelope addresser without m spike. No SOB, CP. Denies [...] receive weekly doses x4. IV iron at [facility], no current record for this. Last T [...] able to complete a few laps around [facility] this week. Knee pain and sciatic pain resolved. BP high today, took her BP meds this morning about an hour ago. She states 125/70s at home always higher when she is at doctors offices. Denies JIMENEZ, dizziness, SOB, CP or changes in vision. No N/V/C/D. Has 1 remaining IV iron infusion at [facility] tomorrow. Denies bleeding or bruising. Has started [...] Frequency Provider Last Rate Last Admin Darbepoetin [place] In Polysorbat 200 mcg injection (ARANESP) 200 mcg SUBCUTANEOUS ONCE Weston Vaughn ALLERGIES Allergen Reactions Erythromycin Unknown Penicillins Unknown FAMILY HISTORY Problem Relatio (more content not included)... [facility] [place] 08-26-2023 Miscellaneous Notes Pt noted on [place] 1st time treatment report. Pt has a non-oncology regimen. No social work follow up indicated. RIKI Churchill documented in this encounter [facility] 08-23-2023 Miscellaneous Notes Reviewed patient on the 1st time tx report. The patient does not have a cancer dx or a chemo/radiation regimen. The patient has Medicare A & B primary and [facility] AARP Supplement secondary. No further FN intervention is needed at this time. documented in this encounter [facility] 08-13-2023 Nurse Note Patient presents with: Imm/Inj [...] injection administered, left arm, tolerated well. Ramila Gomez LPN documented in this encounter [facility] 08-01-2023 Instructions Weston Vaughn - 08/01/2023 11:27 AM EST PO iron ferrous sulfate every other day OR Saturday documented in this encounter [facility] 08-01-2023 History of Present illness Narrative Hematology Consult Note Winifred Wood 1945 Encounter date: 08/01/2023 Cancer Staging No matching staging information was found for the patient. HPI: Winifred Wood is a 78 year old female with a PHMx of CKD, Stage 3, no dialysis as of yet but has been told by her envelope addresser that it is likely coming soon, HTN, T2DM, osteoarthritis, hyperlipidemia, and anemia. She was referred to hematology by her envelope addresser for further management of her anemia. BP elevated in the office has been running good at home 120s/60s, SPEP drawn by envelope addresser without m spike. No SOB, CP. Denies [...] receive weekly doses x4. IV iron at [facility], no current record for this. Last T [...] GI workup completed - following with local envelope addresser for management of CKD, not currently on dialysis. - neph has her scheduled for receive IV iron, last t stat 20.4 - reports that she is scheduled for 4 doses at [facility] - Would recommend 1 tab ferrous sulfate [...] aranesp for hgb <10, pending labs, auth Weston Vaughn APRN.AMUSEMENT PARK ENTERTAINER I spent >60 minutes in the visit, with more than 50% of the total [id number] time of the visit in counseling / [...] of this patient. documented in this encounter [facility] 08-01-2023 Note HNO ID: [id number] Author: WESTON VAUGHN, ? Service: ? Author Type: Nurse Practitioner Type: Progress Notes Filed: 08/02/2023 12:13 Note Text: Hematology Consult Note Winifred Wood 1945 Encounter date: 08/01/2023 Cancer Staging No matching staging information was found for the patient. HPI: Winifred Wood is a 78 year old female with a PHMx of CKD, Stage 3, no dialysis as of yet but has been told by her envelope addresser that it is likely coming soon, HTN, T2DM, osteoarthritis, hyperlipidemia, and anemia. She was referred to hematology by her envelope addresser for further management of her anemia. BP elevated in the office has been running good at home 120s/60s, SPEP drawn by envelope addresser without m spike. No SOB, CP. Denies [...] receive weekly doses x4. IV iron at [facility], no current record for this. Last T [...] cords. Neurological: Cran (more content not included)... [facility] [place] 01-04-2023 Note ORIGINAL EXAMINATION: PARATHYROID SCINTIGRAPHY01/04/2023 2:54 [...] Sign Date: 01/04/2023 3:49:39 PM Ordering Provider: [facility] 01-04-2023 Note ORIGINAL EXAMINATION: PARATHYROID [...] Sign Date: 01/04/2023 3:49:39 PM Ordering Provider: [facility] 07-10-2022 Note Attestation signed by Melvin Leos MD at 07/11/2022 10:35 AM I, Dr. Melvin Leos, saw and evaluated the patient on 07/10/21. [...] well as Morbid obesity (BMI ? 40) Melvin Leos MD Name: Winifred Wood Date of : 1945 Date of Admission: 07/09/2022 Date of Discharge: 07/10/2022 Admitting physician: Melvin Leos MD Discharge Attending: Rosalind Leos APRN - ELIZABETH Primary Care Physician: Alfonso Ramirez Reason for Admission: Severe Symptomatic Aortic [...] Procedures: Transfemoral transcatheter AVR with 23 mm Winnie S3 valve under moderate sedation Transthoracic echocardiogram HOSPITAL COURSE : The patient was admitted to the hospital for elective TAVR on 07/09/22 . A 23 Winnie S3 valve was implanted. The patient returned [...] normal. Normal systolic function. Aortic Valve: Walters Winnie 3 Ultra porcine bioprosthetic aortic valve that [...] condition. Referral to (more content not included)... [facility] 07-10-2022 Note Received referral an d reviewed chart. Unable to discuss Phase II Cardiac Rehab Referral with Winifred Wood at this time. Will follow to discuss cardiac rehab when appropriate. Patient will be contacted at home if discharged prior to discussion. [facility] 07-09-2022 Note Patient: Winifred Wood Procedure Summary Date: 07/09/22 Room / Location: [facility] Operating Room Anesthesia Start: 1418 Anesthesia Stop: 1637 Procedures: TAVR/TTE TRANSCATHETER AORTIC VALVE REPLACEMENT (TAVR) - OR (Chest) Diagnosis: Nonrheumatic aortic valve stenosis (Aortic stenosis [I35.0]) Surgeons: Melvin Leos MD; Francis Hardin MD Responsible Provider: Case [...] once all PACU criteria has been met. [facility] 07-09-2022 Note Patient: Winifred Wood Procedure Summary Date: 07/09/22 Room / Location: [facility] Operating Room Anesthesia Start: 1418 Anesthesia Stop: 1637 Procedures: TAVR/TTE TRANSCATHETER AORTIC VALVE REPLACEMENT (TAVR) - OR (Chest) Diagnosis: Nonrheumatic aortic valve stenosis (Aortic stenosis [I35.0]) Surgeons: Melvin Leos MD; Francis Hardin MD Responsible Provider: Case Ward DO Anesthesia Type: TIVA ASA Status: 4 Anesthesia Type: TIVA Vitals Value Taken Time BP 150/49 07/09/22 1641 Temp 36.5 ?C (97.7 ?F) 07/09/22 164 Pulse 58 07/09/22 1641 Resp 18 07/09/22 1641 SpO2 99 % 07/09/221640 Anesthesia Post Evaluation Patient location during evaluation: [...] opportunity for questions and acknowledgement of understanding. [facility] 07-05-2022 Note Attestation signed by Melvin Leos MD at 07/09/2022 11:59 AM I have examined the patient on admission and confirm that the necessity for the procedure is still present . The patient's condition has not changed since the History & Physical was originally completed. Melvin Leos MD 07/09/2022 [facility] [address] [facility] [address] Dept: [phone] Dept Loc: [phone] Visit type: Established patient Reason for Visit: [...] in about 1 month (around 07/28/2022) for NEUROLOGY STROKE PHYSICIAN follow up. Subjective HPI Winifred Wood is [...] bolus 500 mL 500 mL IntraVENous Once Melvin Leos MD Stopped at 06/27/22 1518 Medical History [...] Procedure Laterality Date (more content not included)... [facility] 07-05-2022 Note Attestation signed by Melvin Leos MD at 07/09/2022 11:59 AM I have examined the patient on admission and confirm that the necessity for the procedure is still present . The patient's condition has not changed since the History & Physical was originally completed. Melvin Leos MD 07/09/2022 [facility] [address] [facility] [address] Dept: [phone] Dept Loc: [phone] Visit type: Established patient Reason for Visit: [...] in about 1 month (around 07/28/2022) for NEUROLOGY STROKE PHYSICIAN follow up. Subjective HPI Winifred Wood is [...] bolus 500 mL 500 mL IntraVENous Once Melvin Leos MD Stopped at 06/27/22 6638 Medical History Past Medical History: Diagnosis Date Anemia Aortic valve stenosis CKD (chronic kidney disease) Diabetes mellitus (HCC) Hyperlipidemia Hypertension Obesity Renal calculi Right renal artery stenosis (CMS/HCC) (HCC) Social History Tobacco Use Smoking status: Never Passive exposure: Never Smokeless tobacco: Never Substance Use Topics Alcohol use: Not Currently Surgical History Past Surgical History: Procedure Laterality Date (more content not included)... [facility] 07-05-2022 Note Pre TAVR phone call placed. Reviewed, procedure, instructions and meds. Pt verbalizes understanding. Pt knows to call [phone] with any concerns. [facility] 07-04-2022 Note Patient: Winifred Wood Procedure Information Date/Time: 07/09/22 1245 Procedures: TAVR/TTE TRANSCATHETER AORTIC VALVE REPLACEMENT (TAVR) - OR (Chest) Location: [facility] Operating Room Surgeons: Melvin Leos MD; Francis Hardin MD Cath Non-obstr CAD [...] (strain) or digitalis effect. ABNORMAL Signed by: Melvin Leos MD on 06/06/2022 10:00 PM [facility] 06-28-2022 Note Symptomatic severe a ortic [...] expressed understanding and acceptance of the plan. [facility] 06-01-2022 Note Referral Date: Appoi ntment Date(s): 06/08/2022 DEMOGRAPHICS Name: Winifred Wood : 1945 Age: 77 y.o. Ht: 5'1 /155.448 cm Wt: 227 lb/102.96 kg PCP: Alfonso Ramirez Food Safety Director: Clinic IC: Clinic CTS: STS score: MEDICAL [...] N COMPLETE TAVR Candidate: Y or N [facility] 05-14-2022 Note ORIGINAL EXAMINATION: BONE DENSITOMETRY [...] Sign Date: 05/14/2022 2:50:51 PM Ordering Provider: ALFONSO [facility] 05-14-2022 Note ORIGINAL EXAMINATION: BONE DENSITOMETRY [...] Sign Date: 05/14/2022 2:50:51 PM Ordering Provider: ALFONSO [facility] Evaluation + Plan note Future Appointments Appointment Date:01/08/2022 11:00:00 AM Scheduled Provider:ALFONSO RAMIREZ APRN, CNP Location:[facility] Appointment Type:PC OV Follow Up Appointment Date:02/20/2022 02:00:00 PM Scheduled Provider:ALFONSO RAMIREZ APRN, CNP Location:[facility] Appointment Type:PC Wellness Medicare Appointment Date:06/26/2022 01:40:00 PM Scheduled Provider:ALFONSO RAMIREZ APRN, CNP Location:[facility] Appointment Type:PC OV Follow Up Future Scheduled TestsRenin, Plasma 06/19/22Iron Level 06/19/22Thyroid Stimulating Hormone 06/19/22Free T4 06/19/22Uric Acid 06/19/22A1C Hemoglobin 06/19/22Complete Blood Count 06/19/22Free T3 06/19/22Lipid Profile 06/19/22Microalbumin Level Urine 06/19/22PTH, Intact 06/19/22Vitamin D Level 06/19/22Complete Metabolic Panel 06/19/22BD Bone Density DEXA Axial Skeleton 02/17/21 [facility] Evaluation + Plan note Future Appointments Appointment Date:02/20/2022 02:00:00 PM Scheduled Provider:ALFONSO RAMIREZ APRN, CNP Location:[facility] Appointment Type:PC Wellness Medicare Appointment Date:06/26/2022 01:40:00 PM Scheduled Provider:ALFONSO RAMIREZ APRN, CNP Location:[facility] Appointment Type:PC [...] 07/11/22BD Bone Density DEXA Axial Skeleton 02/17/21 [facility] Evaluation + Plan note Future Appointments Appointment Date:06/26/2022 01:40:00 PM Scheduled Provider:ALFONSO RAMIREZ APRN, CNP Location:[facility] Appointment Type:PC [...] 07/11/22Complete Metabolic Panel 06/19/22Complete Metabolic Panel 07/11/22 [facility] Evaluation + Plan note Future Appointments Appointment Date:01/10/2023 01:40:00 PM Scheduled Provider:ALFONSO RAMIREZ APRN, CNP Location:[facility] Appointment Type:PC OV Follow Up Appointment Date:07/04/2023 01:40:00 PM Scheduled Provider:ALFONSO RAMIREZ APRN, CNP Location:[facility] Appointment Type:PC OV Follow Up Future Scheduled TestsRenin, Plasma 06/29/23Renin, Plasma 07/11/22Renin, Plasma 12/24/22Ferritin 06/29/23Iron Level 06/29/23Iron Level 12/24/22Thyroid Stimulating Hormone 06/29/23Uric Acid 06/29/23A1C Hemoglobin 06/29/23A1C Hemoglobin 07/11/22A1C Hemoglobin 7/3/23Complete Blood Count 06/29/23Complete Blood Count 12/24/22Lipid Profile 06/29/23Lipid Profile 12/24/22Albumin/Creatinine Ratio, Random Urine 06/29/23Microalbumin Level Urine 06/19/22Microalbumin Level Urine 12/24/22PTH, Intact 06/29/23PTH, Intact 12/24/22Vitamin D Level 06/29/23Vitamin D Level 12/24/22Complete Metabolic Panel 06/29/23Complete Metabolic Panel 12/24/22TIBC 06/29/23TIBC 12/24/22 [facility] Evaluation + Plan note Future Appointments Appointment Date:07/04/2023 01:40:00 PM Scheduled Provider:ALFONSO RAMIREZ APRN, CNP Location:[facility] Appointment Type:PC OV Follow Up Future [...] Panel 06/29/23Complete Metabolic Panel 12/24/22TIBC 06/29/23TIBC 12/24/22 [facility] Evaluation note Diagnosis Anemia, unspecified type- Primary Chronic kidney disease, unspecified CKD stage Chronic kidney disease, stage 4, severely decreased GFR (HCC) Chronic kidney disease, Stage IV (severe) [facility] Diagnosis Anemia, unspecified type- Primary Chronic kidney disease, stage 4, severely decreased GFR (HCC) Chronic kidney disease, Stage IV (severe) [facility] [place] [facility] Diagnosis Anemia, unspecified type- Primary Chronic kidney disease, stage 4, severely decreased GFR (HCC) Chronic kidney disease, Stage IV (severe) [facility] [place] [facility] Diagnosis Anemia, unspecified type- Primary Chronic kidney disease, stage 4, severely decreased GFR (HCC) Chronic kidney disease, Stage IV (severe) [facility] [place] [facility] Diagnosis Anemia, unspecified type- Primary Chronic kidney disease, stage 4, severely decreased GFR (HCC) Chronic kidney disease, Stage IV (severe) [facility] this [facility] [place] [facility]* Diagnosis Chronic kidney disease, stage 4, severely decreased GFR (HCC)- Primary Chronic kidney disease, Stage IV (severe) [facility] [place] [facility]* Diagnosis Anemia, unspecified type- Primary Chronic kidney disease, stage 4, severely decreased GFR (HCC) Chronic kidney disease, Stage IV (severe) [facility] [place] [facility]* Diagnosis Anemia, unspecified type- Primary Chronic kidney disease, stage 4, severely decreased GFR (HCC) Chronic kidney disease, Stage IV (severe) [facility] [place] [facility]* Diagnosis Chronic kidney disease, stage 4, severely decreased GFR (HCC)- Primary Chronic kidney disease, Stage IV (severe) 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 disease (HCC) (HCC) [facility] [place] [facility]* Diagnosis Chronic kidney disease, stage 4, severely decreased GFR (HCC)- Primary Chronic kidney disease, Stage IV (severe) [facility] this [facility] [place] [facility]* Diagnosis Chronic kidney disease, stage 4, severely decreased GFR (HCC)- Primary Chronic kidney disease, Stage IV (severe) [facility] [place] [facility]* Diagnosis Chronic kidney disease, stage 4, severely decreased GFR (HCC)- Primary Chronic kidney disease, Stage IV (severe) Anemia due to stage 3 chronic kidney disease, unspecified whether stage 3a or 3b CKD (HCC) (HCC) [facility] [place] [facility]* Diagnosis Anemia, unspecified type- Primary Chronic kidney disease, stage 4, severely decreased GFR (HCC) Chronic kidney disease, Stage IV (severe) [facility] Diagnosis Chronic kidney disease, stage 4, severely decreased GFR (HCC)- Primary Chronic kidney disease, Stage IV (severe) documented in this encounter [facility] note* Diagnosis Anemia, unspecified type- Primary Chronic kidney disease, stage 4, severely decreased GFR (HCC) Chronic kidney disease, Stage IV (severe) documented in this encounter [facility] note* Diagnosis Anemia, unspecified type- Primary documented in this encounter [facility] note* Diagnosis Chronic kidney disease, stage 4, severely decreased GFR (HCC)- Primary Chronic kidney disease, Stage IV (severe) documented in this encounter [facility] note* Diagnosis Anemia, unspecified type- Primary Chronic kidney disease, stage 4, severely decreased GFR (HCC) Chronic kidney disease, Stage IV (severe) [facility] Narrative No data available for this section [facility] Hospital Discharge instructions No data available for this section [facility] Progress note No data available for this section [facility] Summary Purpose Family History No Family History Records Found No data available for this section No Family History Records FoundNo Family History Records Found Advance Directives No Advanced Directives Records FoundNo Advanced Directives Records FoundNo Advanced Directives Records Found Additional Source Comments Care Team (unrecognized sect ion and content) Care Team Personnel Name: ALFONSO RAMIREZ APRN, CNP Position: P4 Advanced Practice Nurse Med Service: Employed Provider Member Role: Primary Care Physician Address: Address: [address] [place] [address]- Care Team Related Persons Name: JANICE WOOD Address: Home [address] [place], [place] [id number] [place] Care Team Personnel Name: ALFONSO RAMIREZ APRN, CNP Position: P4 Advanced Practice Nurse Med Service: Employed Provider Member Role: Primary Care Physician Address: Address: [address] [place] [address]- Care Team Related Persons Name: JANICE WOOD Address: Home [address] [place], [place] [id number] Care Team Personnel Name: ALFONSO RAMIREZ 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 - AMUSEMENT PARK ENTERTAINER Position: P4 Advanced Practice Nurse Member Role: Primary Care Physician Address: Address: [address] [place] [address]- Care Team Related Persons Name: JANICE WOOD Address: Home [address] [place], [place] [id number] INFORMATION SOURCE (unrecogn ized section and content) DATE CREATED AUTHOR 08/18/2022 [employer] [facility] DATE CREATED AUTHOR AUTHOR'S ORGANIZ ATION 04/04/2023 [facility] ([place]) DATE CREATED AUTHOR AUTHOR'S ORGANIZ ATION 03/21/2024 [facility] [place] Patient Care team informatio n (unrecognized section and content) Spiral Machine Operator Relationship Specialty Start Date End Date Alfonso Ramirez CNP [address] [place] [id number] PCP - General Family Medicine 05/21/16 Spiral Machine Operator Relationship Specialty Start Date End Date Alfonso Ramirez, ELIZABETH [address] [place] [id number] PCP - General Family Medicine 05/21/16 Spiral Machine Operator Relationship Specialty Start Date End Date Alfonso Ramirez, ELIZABETH [address] [place] [address] [id number] PCP - General Family Medicine 05/21/16 Spiral Machine Operator Relationship Specialty Start Date End Date Alfonso Ramirez, ELIZABETH [address] [place] [address] [id number] PCP - General Family Medicine 05/21/16 Spiral Machine Operator Relationship Specialty Start Date End Date Alfonso Ramirez, ELIZABETH [address] [place] [address] [id number] PCP - General Family Medicine 05/21/16 Spiral Machine Operator Relationship Specialty Start Date End Date Alfonso Ramirez CNP [address] [place] [id number] PCP - General Family Medicine 05/21/16 Spiral Machine Operator Relationship Specialty Start Date End Date Alfonso Ramirez, ELIZABETH [address] [place] [id number] PCP - General Family Medicine 05/21/16 Spiral Machine Operator Relationship Specialty Start Date End Date Alfonso Ramirez, ELIZABETH [address] [place] [address] [phone] PCP - General Family Medicine 05/21/16 Spiral Machine Operator Relationship Specialty Start Date End Date Alfonso Ramirez CNP [address] [place] [address] [id number] PCP - General Family Medicine 05/21/16 Spiral Machine Operator Relationship Specialty Start Date End Date Alfonso Ramirez, ELIZABETH [address] [place] [phone] PCP - General Family Medicine 05/21/16 Spiral Machine Operator Relationship Specialty Start Date End Date Alfonso Ramirez, ELIZABETH [address] [place] [id number] PCP - General Family Medicine 05/21/16 Drew Weston MD [address] [place] [address] Hematology/Oncology 11/29/23 Spiral Machine Operator Relationship Specialty Start Date End Date Alfonso Ramirez, ELIZABETH [address] [place] [id number] PCP - General Family Medicine 05/21/16 Drew Weston MD [address] [facility] [address] Hematology/Oncology 11/29/23 Spiral Machine Operator Relationship Specialty Start Date End Date Alfonso Ramirez, ELIZABETH [address] [place] [phone] PCP - General Family Medicine 05/21/16 Drew Weston MD [address] [facility] [address] Hematology/Oncology 11/29/23 Spiral Machine Operator Relationship Specialty Start Date End Date Alfonso Ramirez, AMUSEMENT PARK ENTERTAINER [address] [place] [id number] PCP - General Family Medicine 05/21/16 Drew Weston MD [address] [place] [address] Hematology/Oncology 11/29/23 Spiral Machine Operator Relationship Specialty Start Date End Date Alfonso Ramirez CNP [address] [place] [id number] PCP - General Family Medicine 05/21/16 Drew Weston MD [address] [facility] [address] Hematology/Oncology 11/29/23 Spiral Machine Operator Relationship Specialty Start Date End Date Alfonso Ramirez CNP [address] [place] [phone] PCP - General Family Medicine 05/21/16 Drew Weston MD [address] [place] [address] Hematology/Oncology 11/29/23 Spiral Machine Operator Relationship Specialty Start Date End Date Alfonso Ramirez, AMUSEMENT PARK ENTERTAINER [address] [place] [address] PCP - General Family Medicine 05/21/16 Drew Weston MD [address] [place] [address] Hematology/Oncology 11/29/23 Source Comments (unrecognize d section and content) In the event this informatio n is protected by the Federal Confidentiality of Alcohol and Drug Abuse Patient Records regulations: The Federal rules restrict any use of the information to criminally investigate or prosecute any alcohol or drug abuse patient.[facility] the event this information is protected by the Federal Confidentiality of Alcohol and Drug Abuse Patient Records regulations: The Federal rules restrict any use of the information to criminally investigate or prosecute any alcohol or drug abuse patient.[facility] the event this information is protected by the Federal Confidentiality of Alcohol and Drug Abuse Patient Records regulations: The Federal rules restrict any use of the information to criminally investigate or prosecute any alcohol or drug abuse patient.[facility] the event this information is protected by the Federal Confidentiality of Alcohol and Drug Abuse Patient Records regulations: The Federal rules restrict any use of the information to criminally investigate or prosecute any alcohol or drug abuse patient.[facility] the event this information is protected by the Federal Confidentiality of Alcohol and Drug Abuse Patient Records regulations: The Federal rules restrict any use of the information to criminally investigate or prosecute any alcohol or drug abuse patient.[facility] the event this information is protected by the Federal Confidentiality of Alcohol and Drug Abuse Patient Records regulations: The Federal rules restrict any use of the information to criminally investigate or prosecute any alcohol or drug abuse patient.[facility] the event this information is protected by the Federal Confidentiality of Alcohol and Drug Abuse Patient Records regulations: The Federal rules restrict any use of the information to criminally investigate or prosecute any alcohol or drug abuse patient.[facility] CenterIn the event this information is protected by the Federal Confidentiality of Alcohol and Drug Abuse Patient Records regulations: The Federal rules restrict any use of the information to criminally investigate or prosecute any alcohol or drug abuse patient.[facility] CenterIn the event this information is protected by the Federal Confidentiality of Alcohol and Drug Abuse Patient Records regulations: The Federal rules restrict any use of the information to criminally investigate or prosecute any alcohol or drug abuse patient.[facility] CenterIn the event this information is protected by the Federal Confidentiality of Alcohol and Drug Abuse Patient Records regulations: The Federal rules restrict any use of the information to criminally investigate or prosecute any alcohol or drug abuse patient.[facility] CenterIn the event this information is protected by the Federal Confidentiality of Alcohol and Drug Abuse Patient Records regulations: The Federal rules restrict any use of the information to criminally investigate or prosecute any alcohol or drug abuse patient.[facility] CenterIn the event this information is protected by the Federal Confidentiality of Alcohol and Drug Abuse Patient Records regulations: The Federal rules restrict any use of the information to criminally investigate or prosecute any alcohol or drug abuse patient.[facility] CenterIn the event this information is protected by the Federal Confidentiality of Alcohol and Drug Abuse Patient Records regulations: The Federal rules restrict any use of the information to criminally investigate or prosecute any alcohol or drug abuse patient.[facility] CenterIn the event this information is protected by the Federal Confidentiality of Alcohol and Drug Abuse Patient Records regulations: The Federal rules restrict any use of the information to criminally investigate or prosecute any alcohol or drug abuse patient.[facility] CenterIn the event this information is protected by the Federal Confidentiality of Alcohol and Drug Abuse Patient Records regulations: The Federal rules restrict any use of the information to criminally investigate or prosecute any alcohol or drug abuse patient.[facility] CenterIn the event this information is protected by the Federal Confidentiality of Alcohol and Drug Abuse Patient Records regulations: The Federal rules restrict any use of the information to criminally investigate or prosecute any alcohol or drug abuse patient.[facility] CenterIn the event this information is protected by the Federal Confidentiality of Alcohol and Drug Abuse Patient Records regulations: The Federal rules restrict any use of the information to criminally investigate or prosecute any alcohol or drug abuse patient.[facility] CenterIn the event this information is protected by the Federal Confidentiality of Alcohol and Drug Abuse Patient Records regulations: The Federal rules restrict any use of the information to criminally investigate or prosecute any alcohol or drug abuse patient.[facility] CenterIn the event this information is protected by the Federal Confidentiality of Alcohol and Drug Abuse Patient Records regulations: The Federal rules restrict any use of the information to criminally investigate or prosecute any alcohol or drug abuse patient.[facility] CenterIn the event this information is protected by the Federal Confidentiality of Alcohol and Drug Abuse Patient Records regulations: The Federal rules restrict any use of the information to criminally investigate or prosecute any alcohol or drug abuse patient.[facility] CenterIn the event this information is protected by the Federal Confidentiality of Alcohol and Drug Abuse Patient Records regulations: The Federal rules restrict any use of the information to criminally investigate or prosecute any alcohol or drug abuse patient.[facility] CenterIn the event this information is protected by the Federal Confidentiality of Alcohol and Drug Abuse Patient Records regulations: The Federal rules restrict any use of the information to criminally investigate or prosecute any alcohol or drug abuse patient.[facility] CenterIn the event this information is protected by the Federal Confidentiality of Alcohol and Drug Abuse Patient Records regulations: The Federal rules restrict any use of the information to criminally investigate or prosecute any alcohol or drug abuse patient.[facility] CenterIn the event this information is protected by the Federal Confidentiality of Alcohol and Drug Abuse Patient Records regulations: The Federal rules restrict any use of the information to criminally investigate or prosecute any alcohol or drug abuse patient.[facility] CenterIn the event this information is protected by the Federal Confidentiality of Alcohol and Drug Abuse Patient Records regulations: The Federal rules restrict any use of the information to criminally investigate or prosecute any alcohol or drug abuse patient.[facility] CenterIn the event this information is protected by the Federal Confidentiality of Alcohol and Drug Abuse Patient Records regulations: The Federal rules restrict any use of the information to criminally investigate or prosecute any alcohol or drug abuse patient.[facility] CenterIn the event this information is protected by the Federal Confidentiality of Alcohol and Drug Abuse Patient Records regulations: The Federal rules restrict any use of the information to criminally investigate or prosecute any alcohol or drug abuse patient.[facility] Reason for Visit (unrecogniz ed section and content) Reason Comments Consult Reason Comments Benefits Investigation Reason Comments Imm/Inj Specialty Diagnoses / Procedures Referred By Contac t Referred To Contact Diagnoses Anemia, unspecified type Chronic kidney disease, stage 4, severely decreased GFR (HCC) Procedures DARBEPOETIN [place], NON-ESRD [facility]on Vaughn [address] [place] [address] [facility] [address] [place] [address] Referral ID Status Reason Start Date Expiration Date V isits Requested Visits Authorized [id number] Authorized 08/01/2023 08/29/2023 99 99 Reason Comments Social Work Services Reason Comments Established Patient 1 month OV, labs, po ssible injection Referral ID Status Reason Start Date Expiration Date V isits Requested Visits Authorized [id number] Authorized 08/01/2023 09/26/2023 99 99 Reason Comments Established Patient Reason Comments Appointment Referral ID Status Reason Start Date Expiration Date V isits Requested Visits Authorized [id number] Pending Review 08/01/2023 09/26/2023 99 99 Specialty Diagnoses / Procedures Referred By Contac t Referred To Contact Diagnoses Anemia, unspecified type Chronic kidney disease, stage 4, severely decreased GFR (HCC) Procedures DARBEPOETIN [place], NON-ESRD [facility]on Vaughn [address] [place] [address] [facility] [address] [place] [address] Referral ID Status Reason Start Date Expiration Date V isits Requested Visits Authorized [id number] Authorized 08/01/2023 01/24/2024 99 99 Referral ID Status Reason Start Date Expiration Date V isits Requested Visits Authorized [id number] Pending Review 08/01/2023 01/24/2024 99 99 Reason Comments Patient Update Referral ID Status Reason Start Date Expiration Date V isits Requested Visits Authorized [id number] Authorized 08/01/2023 02/04/2024 99 99 Referral ID Status Reason Start Date Expiration Date Visits Requested Visits Authorized [id number] Pending Review Patient Cleared - Admin/Chair man/Directo r advise to proceed or did not respond 08/01/2023 02/04/2024 99 99 Specialty Diagnoses / Procedures Referred By Contac t Referred To Contact Diagnoses Anemia, unspecified type Chronic kidney disease, stage 4, severely decreased GFR (HCC) Procedures DARBEPOETIN [place], NON-ESRD [facility]on Vaughn [address] [place] [address] [facility] [address] [place] [address] Referral ID Status Reason Start Date Expiration Date Visits Requested Visits Authorized [id number] Authorized Patient Cleared - Admin/Chairm an/Director advise to proceed or did not respond 08/01/2023 09/23/2024 99 99 Inactive Administered Medications - up to 3 most recent administrations Administered Medications (un recognized section and content) Medication Order MAR Action Action Date Dose Rate Site darbepoetin [place] in polysorbat 100 mcg injection (ARANESP) 100 mcg, SUBCUTANEOUS, ONCE, 1 dose, On Sat08/13/23 at 1100, Protect from light REFRIGERATE Given 08/13/2023 11:02 AM EST 100 mcg Arm, Left Inactive Administered Medications - up to 3 most recent administrations Medication Order MAR Action Action Date Dose Rate Site Darbepoetin [place] In Polysorbat 200 mcg injection (ARANESP) 200 mcg, SUBCUTANEOUS, ONCE, 1 dose, On Sat09/13/23 at 0830, Protect from light REFRIGERATE Given 09/13/2023 8:32 AM EDT 200 mcg Arm, Left FOR RECORDS PERTAINING TO PATIENTS WHO ARE [...] BE BASED ON THE PRIMARY CLINICAL RECORDS. [employer] provides no warranty or guarantee of the accuracy or completeness of information in this document.
[2024-04-17 14:58] LABS: Protein:Creat Ratio 1700 mg/g CRE (0-200)
[2024-04-17 15:25] LABS: Albumin, Serum 3.4 g/dL (3.2-5.0); BUN 60 mg/dL (7-18); BUN/Creat Ratio 15.6 RATIO (10-20); Calcium,Total 9.9 mg/dL (8.5-10.1); Chloride 107 mmol/L (98-107); Creatinine, Serum 3.85 mg/dL (0.55-1.02); EST Glomerular Filtration Rate 12 mL/min (>60); Est Glom Filt Rate - Afr Amer 15 mL/min (>60); Glucose 157 mg/dL (74-106); Potassium 3.8 mmol/L (3.5-5.1); Sodium Level 140 mmol/L (136-145)
== END | disposition home or self-care (01) ==
PROVIDERS: PCP Nurse Practitioner Family; Referring Provider Internal Medicine Nephrology; Visit Provider Internal Medicine Nephrology
DX: R80.9 Proteinuria, unspecified (principal); N18.4 Chronic kidney disease, stage 4 (severe)
CPT/HCPCS: 36415; 80069; 82570; 84156

== ENCOUNTER 2024-05-20 07:01 | Day surgery (SDC) | payer MEDICARE, OTHER, SELFPAY ==
--- NOTE | 2024-05-13 08:14 | EKG12_ITS ---
Test Reason : PRE OP Blood Pressure : */* mmHG Vent. Rate : 50 BPM Atrial Rate : 50 BPM P-R Int : 156 ms QRS Dur : 118 ms QT Int : 432 ms P-R-T Axes : 93 -48 74 degrees QTcB Int : 393 ms Sinus bradycardia Left axis deviation Pulmonary disease pattern Left ventricular hypertrophy with QRS widening and repolarization abnormality Cannot rule out Septal infarct , age undetermined Abnormal ECG Confirmed by RENÉE FINNEY, GUNNAR ([id number]), purchasing expeditor JUAN J HOBBS ([id number]) on 05/14/2024 6:33:31 AM Referred By: Albert Rose Confirmed By: GUNNAR CHINCHILLA MD
[2024-05-19 08:50] VITALS: BMI 34.4
--- NOTE | 2024-05-20 08:42 | OP.PCM_ITS ---
Operative Report (Standard) Operative Information Surgery/Procedure Performed: 1. Ultrasound-guided access retrograde right c ommon femoral artery. 2. Aortogram and selective right renal artery angiogram. 3. Balloon HPI see the stent with a 5 mm. Surgeon: Albert Rose Date of Procedure: 05/20/24 Procedure Start Time: 07:45 Procedure Stop Time: 08:30 Pre-Operative Diagnosis: Renal artery stenosis with hypertension Post-Operative Diagnosis: Same Select all DRAINS/GRAFTS/IMPLANTS that apply: None Type of Anesthesia: IV Sedation Estimated Blood Loss: Minimal Specimen collected: No Description of surgery: Patient brought to the operating room. Underwent appropriate tomorrow consent. Underwent sedation. He was prepped and draped in a sterile fashion. We did ultrasound access retrograde right common femoral artery. Put a Glidewire and then a 6 Romanian sheath. Give 5000 units of heparin. Brought in wire up and then catheter in and brought into the HD catheter inside the MCDONALD guide. Did a selective right renal artery angiogram showed stenosis along the mid stent with some pinching in there. We then switched to a 0.014 wire. We brought into 5 mm balloon and ballooned the proximal, mid and distal part of the stent with prolo nged inflation. Completion was much improved much better flow through here. We then removed out the guide and wire. Deployed and mixed with good hemostasis. Patient brought to recovery stable condition. Sedation: This 79-year-old female underwent moderate sedation given by Dr. Albert Rose. She was monitored by the IV sedation nurse. She was given fentanyl, Versed and heparin. She was monitored EKG blood pressure and pulse ox for over the 45 minutes of the procedure. See the EMR for the complete record. Surgical Findings: stenosis noted Bioinformatics Engineer customer service sales consultant: No Complications Complications: No Admit VTE Documentation VTE Present on Admission: No
== END 2024-05-20 13:30 | disposition home or self-care (01) ==
PROVIDERS: PCP Nurse Practitioner Family; Referring Provider Surgery Vascular Surgery; Visit Provider Surgery Vascular Surgery
DX: I70.1 Atherosclerosis of renal artery (principal); I48.91 Unspecified atrial fibrillation; E11.9 Type 2 diabetes mellitus without complications; I10 Essential (primary) hypertension; Z79.01 Long term (current) use of anticoagulants; Z79.899 Other long term (current) drug therapy; Z79.82 Long term (current) use of aspirin; E78.00 Pure hypercholesterolemia, unspecified; Z87.891 Personal history of nicotine dependence; I77.1 Stricture of artery; Z79.02 Long term (current) use of antithrombotics/antiplatelets
CPT/HCPCS: 36251; 37246; 76937; 93005; 99152; 99153; C1760; C1894; J7050; Q9967; C1725; C1769; C1887

== ENCOUNTER → 2024-06-25 | Outpatient (CLI) | payer MEDICARE, OTHER, SELFPAY ==
[2024-06-25 10:25] LABS: Hematocrit 32.7 % (37-47); Hemoglobin 10.2 g/dL (12.0-15.0); Mean Corp Hgb Conc 31.2 g/dL (32-36); Mean Corpuscular Hgb 31.2 pg (27.0-32.0); Mean Platelet Vol. 9.2 fl (6.2-12.0); Platelet Count 294 K/mm3 (150-450); RBC Distribution Width CV 14.6 % (11.6-14.6); RBC Distribution Width SD 52.8 fl (35.1-43.9); Red Blood Count 3.27 M/mm3 (4.2-5.4); White Blood Count 8.2 K/mm3 (4.4-11.0)
[2024-06-25 10:49] LABS: Hemoglobin A1c 5.2 % (3.8-5.6)
[2024-06-25 10:52] LABS: Vitamin D,25 Hydroxy 39.6 ng/mL
[2024-06-25 11:07] LABS: ALB/GLOB Ratio 0.8 RATIO (0.9-2.4); AST(SGOT) 23 U/L (15-37); Alanine Aminotransfer ALT/SGPT 17 U/L (13-56); Albumin, Serum 3.2 g/dL (3.2-5.0); Alkaline Phosphatase 74 U/L (45-117); Anion Gap 8 (5-15); BUN 53 mg/dL (7-18); BUN/Creat Ratio 13.2 RATIO (10-20); Calcium,Total 9.6 mg/dL (8.5-10.1); Chloride 112 mmol/L (98-107); Cholesterol 132 mg/dL (200); EST Glomerular Filtration Rate 12 mL/min (>60); Est Glom Filt Rate - Afr Amer 14 mL/min (>60); Globulin 3.9 g/dL (2.2-4.2); Glucose 109 mg/dL (74-106); High Density Lipoprotein 60 mg/dL; Iron 38 ug/dL (50-170); Iron Binding Capacity,Total 279 ug/dL (250-450); PERCENT IRON SATURATION 13.6 % (15.0-55.0); Potassium 4.4 mmol/L (3.5-5.1); Protein, Total 7.1 g/dL (6.4-8.2); Sodium Level 143 mmol/L (136-145); Triglycerides 77 mg/dL; Very Low Density Lipoprotein 15 mg/dL (5-40)
[2024-06-25 11:23] LABS: Microalbumin:Creatinine Ratio 1094.3 mg/g CRE (<30 mg/g CRE)
== END | disposition home or self-care (01) ==
LOC: LAB 09:58
PROVIDERS: PCP Nurse Practitioner Family; Referring Provider Nurse Practitioner Family; Visit Provider Nurse Practitioner Family
DX: I12.9 Hypertensive chronic kidney disease with stage 1 through stage 4 chronic kidney disease, or unspecified chronic kidney disease (principal); N18.4 Chronic kidney disease, stage 4 (severe); E11.22 Type 2 diabetes mellitus with diabetic chronic kidney disease; E21.3 Hyperparathyroidism, unspecified; E55.9 Vitamin D deficiency, unspecified; E78.5 Hyperlipidemia, unspecified
CPT/HCPCS: 36415; 80053; 80061; 82043; 82306; 82570; 83036; 83540; 83550; 83970; 84443; 85027

== ENCOUNTER → 2024-09-03 | Outpatient (CLI) | payer MEDICARE, OTHER, SELFPAY ==
[2024-09-03 13:43] LABS: Hepatitis B Surface Antibody Nonreactive; Hepatitis B Surface Antigen Nonreactive (Nonreactive)
[2024-09-04 05:07] LABS: Hepatitis B Core Ab Total Negative (Negative)
== END | disposition home or self-care (01) ==
LOC: LAB 11:29
PROVIDERS: PCP Nurse Practitioner Family; Referring Provider Internal Medicine Nephrology; Visit Provider Internal Medicine Nephrology
DX: N18.5 Chronic kidney disease, stage 5 (principal)
CPT/HCPCS: 36415; 86704; 86706; 87340

== ENCOUNTER → 2024-09-24 | Outpatient (CLI) | payer MEDICARE, OTHER, SELFPAY ==
[2024-09-24 12:14] LABS: Hematocrit 31.7 % (37-47); Hemoglobin 10.3 g/dL (12.0-15.0); Mean Corp Hgb Conc 32.5 g/dL (32-36); Mean Corpuscular Hgb 30.6 pg (27.0-32.0); Mean Corpuscular Volume 94.1 fL (81-99); Mean Platelet Vol. 10.1 fl (6.2-12.0); Platelet Count 338 K/mm3 (150-450); RBC Distribution Width CV 14.3 % (11.6-14.6); RBC Distribution Width SD 48.5 fl (35.1-43.9); Red Blood Count 3.37 M/mm3 (4.2-5.4); White Blood Count 9.6 K/mm3 (4.4-11.0)
[2024-09-24 13:36] LABS: PTHIN 174 pg/mL (11-61)
[2024-09-24 14:13] LABS: Magnesium 2.4 mg/dL (1.5-2.2)
[2024-09-24 14:33] LABS: ALB/GLOB Ratio 1.3 RATIO (0.9-2.4); AST(SGOT) 25 U/L (<=31); Alanine Aminotransfer ALT/SGPT 19 U/L (<=34); Albumin, Serum 3.8 g/dL (3.4-4.8); Alkaline Phosphatase 74 U/L (35-104); Anion Gap 21 (5-15); BUN 68 mg/dL (4-19); BUN/Creat Ratio 9.2 RATIO (10-20); Calcium,Total 9.6 mg/dL (7.6-11.0); Carbon Dioxide 22.2 mmol/L (21.0-32.0); Chloride 95 mmol/L (98-108); Creatinine, Serum 7.44 mg/dL (0.70-1.20); EST Glomerular Filtration Rate 5 (>60); Globulin 2.9 g/dL (2.2-4.2); Glucose 217 mg/dL (70-99); Potassium 3.7 mmol/L (3.3-5.1); Protein, Total 6.7 g/dL (5.9-8.4); Sodium Level 139 mmol/L (133-145); Total Bilirubin 0.33 mg/dL (0.00-1.30)
== END | disposition home or self-care (01) ==
LOC: LAB 11:36
PROVIDERS: PCP Nurse Practitioner Family; Referring Provider Nurse Practitioner Family; Visit Provider Nurse Practitioner Family
DX: E03.9 Hypothyroidism, unspecified (principal); N18.4 Chronic kidney disease, stage 4 (severe)
CPT/HCPCS: 36415; 80053; 83735; 83970; 84439; 84443; 85027

== ENCOUNTER 2024-10-06 16:57 | Emergency (ER) | payer MEDICARE, OTHER, SELFPAY ==
[2024-10-06 16:59] VITALS: BP 148/42; PULSE 53; PULSE 55; RESP 16; RESP 18; TEMP 36.6; O2SAT 99; BMI 35.5
--- NOTE | 2024-10-06 17:21 | EKG12_ITS ---
Test Reason : DIZZY Blood Pressure : */* mmHG Vent. Rate : 57 BPM Atrial Rate : 57 BPM P-R Int : 174 ms QRS Dur : 122 ms QT Int : 436 ms P-R-T Axes : * -33 105 degrees QTcB Int : 424 ms Sinus bradycardia with Premature supraventricular complexes Left axis deviation Left ventricular hypertrophy with QRS widening and repolarization abnormality ( R in aVL , Cristopher product ) Abnormal ECG Confirmed by Isiah Dotson ([id number]), non linear editor [employer]BE [employer]ICE ([id number]) on 10/09/2024 6:50:15 AM Referred By: Confirmed By: Isiah Dotson
[2024-10-06] MEDS: 0.9% Normal Saline (500mL Bag) 500 ML 999 ML IV (17:27)
--- NOTE | 2024-10-06 17:34 | EX.ED.DYSGE1 ---
HPI <RIAZ Byrd - Last Filed: 10/06/24 19:08> History of Present Illness Chief Complaint: Dizziness Narrative Narrative: Patient is a 79-year-old female with history of atrial fibrillation on Eliquis, end-stage renal disease is currently using peritoneal dialysis, she has been for the last 2 weeks, she states is going well. Other past medical history also includes type 2 diabetes, hypertension. [facility], feeling lightheaded while she was at the checkout counter at [facility]. Pay states she was with her . She said that her knee started hurting because of her chronic knee problems. Pay states he then felt hot, sweaty, felt like she needed to lay down. Per the patient she did not have a full syncopal episode. She states she was wearing a coat as well as a sweater and think she was overheated. [facility] <RIAZ Byrd - Last Filed: 10/06/24 19:08> [facility] Medical History History of transcatheter aortic valve replacement (TAVR) (~07/09/22) PAF (paroxysmal atrial fibrillation) Left ventricular diastolic dysfunction Secondary pulmonary arterial hypertension Right renal artery stenosis Obesity Nonrheumatic aortic (valve) stenosis with insufficiency Essential (primary) hypertension H/O renal calculi Anemia Hyperparathyroidism Chronic kidney disease (CKD) stage G3b/A1, moderately decreased glomerular filtration rate (GFR) between 30-44 mL/min/1.73 square meter and albuminuria creatinine ratio less than 30 mg/g Obesity due to excess calories Type 2 diabetes mellitus without complications Hyperlipidemia Home Medications ?Medication ?Instructions ?Recorded ?Last Taken ?Type atorvastatin 20 mg tablet (Lipitor) 20 mg PO QHS 06/06/17 Unknown History metoprolol succinate 100 mg 100 mg PO QDAY 06/06/17 05/20/24 History tablet,extended release 24 hr (Toprol XL) multivitamin,[id number] 1 tab PO QDAY 06/06/17 Unknown History (Complete Multivitamin tablet) aspirin 81 mg tablet,delayed 81 mg PO DAILY 03/13/22 05/20/24 History release (Adult Aspirin Regimen) pioglitazone 15 mg tablet 15 mg PO DAILY 12/12/22 Unknown History amlodipine 10 mg tablet 10 mg PO QDAY #90 tabs 12/20/22 05/20/24 Rx losartan 100 mg tablet See Rx Instructions .Route 04/27/24 Unknown Rx .COMPLEX #90 tabs docusate sodium 100 mg capsule 100 mg PO DAILY 05/19/24 Unknown History (Colace) allopurinol 100 mg tablet 50 mg PO Q OTHER DAY 08/06/24 Unknown History apixaban 2.5 mg tablet (Eliquis) 2.5 mg PO BID #90 tabs 08/06/24 Unknown Rx ascorbic acid (vitamin C) PO MOWEFR 08/06/24 Unknown History ferrous sulfate 325 mg (65 mg 325 mg PO MOWEFR 08/06/24 Unknown History iron) tablet furosemide 40 mg tablet 40 mg PO ONCE PRN 08/06/24 Unknown History levothyroxine 25 mcg tablet mcg PO 08/06/24 Unknown History Allergy/AdvReac Type Severity Reaction Status Date / Time erythromycin base (From Allergy Unknown Verified 08/06/24 13: Erythrocin) Macrolide Antibiotics Allergy Unknown Verified 08/06/24 13:25 Penicillins Allergy Unknown Verified 08/06/24 13:25 Surgical History History of bilateral cataract extraction History of stent insertion of renal artery (03/28/22) Hx of cholecystectomy H/O bilateral salpingectomy Social History Smoking Status: Never smoker alcohol intake: current alcohol intake frequency: holidays/special occasions only substance use type: does not use caffeine: No ROS <RIAZ Byrd - Last Filed: 10/06/24 19:08> ROS ED ROS Narrative Constitutional: Negative for fever, chills, weight loss, weakness Eyes: Negative for vision loss, vision change, double vision ENT: Negative for any sore throat, ear pain, congestion Cardiovascular: Negative for any chest pain, tightness, palpitations Respiratory: Negative for any cough, sputum production, hemoptysis, dyspnea, dyspnea on exertion, orthopnea Gastrointestinal: Negative for any abdominal pain, nausea, vomiting, diarrhea, constipation, blood in stool, blood in vomit : Negative for any urinary frequency, dysuria, retention, blood in urine Muscle skeletal: Negative for any neck pain, back pain Neurological: Negative for any headache. Positive for near syncope, lightheadedness Skin: Negative for any rashes, itching, abrasions, lacerations Psychiatric: Negative for any depression, anxiety, stress, suicidal ideation, homicidal ideation Hematologic: Negative for any excessive bruising, easy bleeding EXAM <RIAZ Byrd - Last Filed: 10/06/24 19:08> Physical Exam Narrative Exam Narrative: Vital signs reviewed. HEET: Head normocephalic atraumatic, TMs clear bilaterally. Posterior pharynx is clear, moist mucous membranes. Nares clear bilaterally. Neck: Supple with no lymphadenopathy or tenderness. No signs of meningismus. Cardiac: Bradycardic rate no murmurs gallops or rubs, equal peripheral pulses bilaterally. Respiratory: Lungs clear to auscultation bilaterally. No chest tenderness. Abdomen: Soft, nontender, nondistended. No abdominal bruit or pulsatile masses. No hepatosplenomegaly. Patient does have a peritoneal dialysis port looks well-appearing. Extremities: No peripheral edema, no signs of gross trauma or deformity. Active full range of motion of all extremities. Neuro: Cranial nerves II through XII intact, no focal neurological deficits. Skin: Clean dry and intact with no rash, purpura, petechiae, vesicles or pustules. Backs/flank: No CVA tenderness, no midline spinal tenderness, no deformity. Psych: Normal mood and affect. No SI, HI or acute psychosis. Const Vital Signs: 10/06/24 16:59 10/06/24 16:59 10/06/24 18:02 Temperature 97.8 F 98.0 F Temperature Source Oral Temporal Pulse Rate 53 L 55 L 55 L Respiratory Rate 16 18 16 Blood Pressure 148/42 H 148/42 H 142/54 H Blood Pressure Mean 77 77 83 Pulse Ox 99 99 95 Oxygen Delivery Method Room Air Room Air Room Air 10/06/24 18:59 10/06/24 19:07 Temperature 98.0 F Temperature Source Pulse Rate 59 L 59 L Respiratory Rate 20 H 20 H Blood Pressure 150/51 H 150/51 H Blood Pressure Mean 84 84 Pulse Ox 96 96 Oxygen Delivery Method Positive well nourished, well developed and obese General Appearance ED: well developed Nutritional Appearance: obese <Tony Humphrey MD - Last Filed: 10/06/24 23:34> Physical Exam Const Vital Signs: 10/06/24 16:59 10/06/24 16:59 10/06/24 18:02 Temperature 97.8 F 98.0 F Temperature Source Oral Temporal Pulse Rate 53 L 55 L 55 L Respiratory Rate 16 18 16 Blood Pressure 148/42 H 148/42 H 142/54 H Blood Pressure Mean 77 77 83 Pulse Ox 99 99 95 Oxygen Delivery Method Room Air Room Air Room Air 10/06/24 18:59 10/06/24 19:07 Temperature 98.0 F Temperature Source Pulse Rate 59 L 59 L Respiratory Rate 20 H 20 H Blood Pressure 150/51 H 150/51 H Blood Pressure Mean 84 84 Pulse Ox 96 96 Oxygen Delivery Method [facility] <RIAZ Byrd - Last Filed: 10/06/24 19:08> [facility] Lab Data Labs: Laboratory Results - last 24 hr 10/06/24 17:30 WBC 8.6 RBC 2.77 L Hgb 8.6 L Hct 26.2 L MCV 94.6 MCH 31.0 MCHC 32.8 RDW Std Deviation 49.9 H RDW Coeff of Grecia 14.4 Plt Count 241 MPV 9.2 Immature Gran % (Auto) 0.600 Neut % (Auto) 80.3 H Lymph % (Auto) 6.3 L Sequoyah % (Auto) 8.9 Eos % (Auto) 3.0 Baso % (Auto) 0.9 Absolute Neuts (auto) 6.9 Absolute Lymphs (auto) 0.54 L Nucleated RBC % 0 Sodium 139 Potassium 3.9 Chloride 95 L Carbon Dioxide 22.7 Anion Gap 21 H BUN 67 H Creatinine 9.30 H* Estim Creat Clear Calc 5.14 L* Est GFR (MDRD) Non-Af 4 L BUN/Creatinine Ratio 7.2 L Glucose 131 H Calcium 9.3 Total Bilirubin 0.23 AST 21 ALT 16 Alkaline Phosphatase 73 Total Protein 6.1 Albumin 3.3 L Globulin 2.8 Albumin/Globulin Ratio 1.2 Treatment and Re-Evaluation :: Differential diagnosis includes however is not limited to: Vasovagal syncope, symptomatic bradycardia, electrolyte abnormality, dehydration secondary to peritoneal dialysis Patient appears generally well, vital signs are stable, patient is nontoxic-appearing. Presenting to the emergency department for near syncopal episode while [place] a shopping center. Patient will receive some basic laboratory values, EKG. Patient be given 500 cc of normal saline. EKG was unremarkable. Patient reevaluation was feeling improved. Patient's CBC showed a stable anemia with a hemoglobin of 8.6, patient's chemistry showed multiple abnormalities patient's BUN 67 with a creatinine 9.3, patient does does peritoneal dialysis. At this time, patient feels much more improved, she would like to be discharged home. She will continue doing her peritoneal dialysis as prescribed. Patient stable for discharge <Tony Humphrey MD - Last Filed: 10/06/24 23:34> [facility] MDM Narrative Medical decision making narrative: Dr. Humphrey: I have personally performed a face to face assessment of the patient and have reviewed the JOEY Note. I performed a substantive portion of the visit including all aspects of the following. My zamudio findings include: History is episode of lightheadedness and near syncope. No vertiginous symptoms. Feels fine now. Performs peritoneal dialysis daily. Exam is afebrile. Vital signs noted. Nontoxic-appearing. Cardiovascular examination regular rate and rhythm. Lungs clear to auscultation bilaterally. Abdomen soft nontender with positive bowel sounds. Neurological examination nonfocal and nonlateralizing. Medical Decision Making: Check labs. Patient has hemoglobin of 8.6 today. It has been as low as 8.6 in the past. She denies any recent black stool or any bleeding diathesis. Creatinine consistent with need for peritoneal dialysis. Upon repeat examination, patient feels well states she has been fine since the episode. She is motivated for discharge. Return instructions were reviewed. Disposition is discharged home in stable condition. Other additions or changes: [None] History & Record Review Discussion w/independent historian: Patient Lab Data Attestation: I reviewed the patient's lab results. Labs: Laboratory Results - last 24 hr 10/06/24 17:30 WBC 8.6 RBC 2.77 L Hgb 8.6 L Hct 26.2 L MCV 94.6 MCH 31.0 MCHC 32.8 RDW Std Deviation 49.9 H RDW Coeff of Grecia 14.4 Plt Count 241 MPV 9.2 Immature Gran % (Auto) 0.600 Neut % (Auto) 80.3 H Lymph % (Auto) 6.3 L [place]ah % (Auto) 8.9 Eos % (Auto) 3.0 Baso % (Auto) 0.9 Absolute Neuts (auto) 6.9 Absolute Lymphs (auto) 0.54 L Nucleated RBC % 0 Sodium 139 Potassium 3.9 Chloride 95 L Carbon Dioxide 22.7 Anion Gap 21 H BUN 67 H Creatinine 9.30 H* Estim Creat Clear Calc 5.14 L* Est GFR (MDRD) Non-Af 4 L BUN/Creatinine Ratio 7.2 L Glucose 131 H Calcium 9.3 Total Bilirubin 0.23 AST 21 ALT 16 Alkaline Phosphatase 73 Total Protein 6.1 Albumin 3.3 L Globulin 2.8 Albumin/Globulin Ratio 1.2 Discharge Plan Triage Chief Complaint: Dizziness ED Midlevel Provider: Rios Hart ED Provider: Tony Humphrey Dx/Rx/DC Orders Clinical Impression: Near syncope, Episodic lightheadedness, History of peritoneal dialysis Instructions: ED Dizziness, Uncertain Cause, ED Near-Fainting- Vagal Reaction Prescriptions: No Action atorvastatin [Lipitor] 20 mg tablet 20 mg PO QHS metoprolol succinate [Toprol XL] 100 mg tablet extended release 24 hr 100 mg PO QDAY multivitamin,[id number] [Complete Multivitamin] tablet 1 tab PO QDAY allopurinol 100 mg tablet 50 mg PO Q OTHER DAY ferrous sulfate 325 mg (65 mg iron) tablet 325 mg PO MOWEFR Patient Comments: pt taking three times/week aspirin [Adult Aspirin Regimen] 81 mg tablet,delayed release (DR/EC) 81 mg PO DAILY amlodipine 10 mg tablet 10 mg PO QDAY Qty: 90 3RF pioglitazone 15 mg tablet 15 mg PO DAILY levothyroxine 25 mcg tablet PO Patient Comments: [NO ORIGINAL SIG] furosemide 40 mg tablet 40 mg PO ONCE PRN Patient Comments: TAKE 1 TABLET BY MOUTH ONCE DAILY FOR 1 WEEK, THEN TAKE NEEDED ascorbic acid (vitamin C) PO MOWEFR Eliquis 2.5 mg tablet 2.5 mg PO BID Qty: 90 3RF docusate sodium [Colace] 100 mg capsule 100 mg PO DAILY losartan 100 mg tablet See Rx Instructions .ROUTE .COMPLEX Qty: 90 3RF Dose Instruction: TAKE 1 TABLET EVERY DAY Rx Instructions: TAKE 1 TABLET EVERY DAY Primary Care Provider: Frank Ramirez NP Referrals: Frank Ramirez CONVERTIBLE SOFA BEDSPRING TESTER, CONVERTIBLE SOFA BEDSPRING TESTER-C [Primary Care Provider] - 1-2 Days if not improving Activity Restrictions/Additional Instructions: Continue your previous peritoneal dialysis. Follow-up with your primary care provider in the next 1 to 2 days if not improving. Return with new or worsening symptoms. Print Language: Wolof Disposition Disposition: Home, Self Care Discharge Date/Time: 10/06/24 19:13
[2024-10-06 17:59] LABS: Absolute Lymphocyte Count 0.54 X10^3/uL (0.83-4.51); Absolute Neutrophil Count 6.9 X10^3/uL (2.0-7.7); Basophil# 0.08 X10^3/uL; Basophil% 0.9 % (0-1); Eosinophil# 0.26 X10^3/uL; Hematocrit 26.2 % (37-47); Hemoglobin 8.6 g/dL (12.0-15.0); Lymphocyte # 0.54 X10^3/ul (0.83-4.51); Lymphocyte % 6.3 % (19-41); Mean Corp Hgb Conc 32.8 g/dL (32-36); Mean Corpuscular Volume 94.6 fL (81-99); Mean Platelet Vol. 9.2 fl (6.2-12.0); Monocyte# 0.76 X10^3/uL; Monocyte% 8.9 % (0-10); NRBC Flagged by Analyzer 0 % (0-5); Neutrophil # 6.88 X10^3/uL (2.7-7.7); Neutrophil % 80.3 % (47-70); POSITIVE DIFFERENTIAL YES; Platelet Count 241 K/mm3 (150-450); RBC Distribution Width CV 14.4 % (11.6-14.6); RBC Distribution Width SD 49.9 fl (35.1-43.9); Red Blood Count 2.77 M/mm3 (4.2-5.4); White Blood Count 8.6 K/mm3 (4.4-11.0)
[2024-10-06 18:02] VITALS: BP 142/54; PULSE 55; RESP 16; TEMP 36.7; O2SAT 95
[2024-10-06 18:39] LABS: ALB/GLOB Ratio 1.2 RATIO (0.9-2.4); AST(SGOT) 21 U/L (<=31); Alanine Aminotransfer ALT/SGPT 16 U/L (<=34); Albumin, Serum 3.3 g/dL (3.4-4.8); Alkaline Phosphatase 73 U/L (35-104); Anion Gap 21 (5-15); BUN 67 mg/dL (4-19); BUN/Creat Ratio 7.2 RATIO (10-20); Calcium,Total 9.3 mg/dL (7.6-11.0); Carbon Dioxide 22.7 mmol/L (21.0-32.0); Chloride 95 mmol/L (98-108); EST Glomerular Filtration Rate 4 (>60); Estimated Creatinine Clearance 5.14 ml/min (50-250); Globulin 2.8 g/dL (2.2-4.2); Glucose 131 mg/dL (70-99); Potassium 3.9 mmol/L (3.3-5.1); Protein, Total 6.1 g/dL (5.9-8.4); Sodium Level 139 mmol/L (133-145); Total Bilirubin 0.23 mg/dL (0.00-1.30)
--- NOTE | 2024-10-06 18:40 | ED.RN ---
Critical creatinine of 9.[address] Humphrey notified
[2024-10-06 18:59] VITALS: BP 150/51; PULSE 59; RESP 20; O2SAT 96
[2024-10-06 19:07] VITALS: BP 150/51; PULSE 59; RESP 20; TEMP 36.7; O2SAT 96
== END 2024-10-06 19:13 | disposition home or self-care (01) ==
PROVIDERS: Nurse Practitioner; Emergency Provider Emergency Medicine; PCP Nurse Practitioner Family; Visit Provider Emergency Medicine
DX: R55 Syncope and collapse (principal); N18.6 End stage renal disease; I12.0 Hypertensive chronic kidney disease with stage 5 chronic kidney disease or end stage renal disease; I48.0 Paroxysmal atrial fibrillation; E11.22 Type 2 diabetes mellitus with diabetic chronic kidney disease; R42 Dizziness and giddiness; Z99.2 Dependence on renal dialysis; Z79.01 Long term (current) use of anticoagulants; E78.5 Hyperlipidemia, unspecified; E66.9 Obesity, unspecified
CPT/HCPCS: 80053; 85025; 93005; 96360; 96361; 99285

== ENCOUNTER → 2024-12-21 | Outpatient (CLI) | payer MEDICARE, OTHER, SELFPAY ==
[2024-12-21 12:46] LABS: Hematocrit 29.9 % (37-47); Hemoglobin 9.3 g/dL (12.0-15.0); Mean Corp Hgb Conc 31.1 g/dL (32-36); Mean Corpuscular Hgb 31.4 pg (27.0-32.0); Mean Platelet Vol. 9.8 fl (6.2-12.0); Platelet Count 250 K/mm3 (150-450); RBC Distribution Width CV 14.8 % (11.6-14.6); RBC Distribution Width SD 54.1 fl (35.1-43.9); Red Blood Count 2.96 M/mm3 (4.2-5.4); White Blood Count 7.8 K/mm3 (4.4-11.0)
[2024-12-21 13:09] LABS: Hemoglobin A1c 4.9 % (<=5.6)
[2024-12-21 13:26] LABS: Microalbumin:Creatinine Ratio 742.2 mg/g CRE
[2024-12-21 13:27] LABS: PTHIN 77 pg/mL (11-61)
[2024-12-21 13:37] LABS: ALB/GLOB Ratio 1.3 RATIO (0.9-2.4); AST(SGOT) 24 U/L (<=31); Alanine Aminotransfer ALT/SGPT 16 U/L (<=34); Albumin, Serum 3.6 g/dL (3.4-4.8); Alkaline Phosphatase 68 U/L (35-104); Anion Gap 17 (5-15); BUN 50 mg/dL (4-19); BUN/Creat Ratio 6.8 RATIO (10-20); Calcium,Total 9.8 mg/dL (7.6-11.0); Carbon Dioxide 25.2 mmol/L (21.0-32.0); Chloride 100 mmol/L (98-108); Cholesterol 137 mg/dL (<=200); EST Glomerular Filtration Rate 5 (>60); Globulin 2.8 g/dL (2.2-4.2); Glucose 121 mg/dL (70-99); High Density Lipoprotein 51 mg/dL; Low Density Lipoprotein Calc. 71 mg/dL; Potassium 4.5 mmol/L (3.3-5.1); Protein, Total 6.4 g/dL (5.9-8.4); Sodium Level 142 mmol/L (133-145); Total Bilirubin 0.38 mg/dL (0.00-1.30); Triglycerides 75 mg/dL; Very Low Density Lipoprotein 15 mg/dL (5-40)
[2024-12-21 13:38] LABS: Vitamin D,25 Hydroxy 49.2 ng/mL (30-100)
== END | disposition home or self-care (01) ==
LOC: LAB 12:01
PROVIDERS: PCP Nurse Practitioner Family; Referring Provider Nurse Practitioner Family; Visit Provider Nurse Practitioner Family
DX: I12.9 Hypertensive chronic kidney disease with stage 1 through stage 4 chronic kidney disease, or unspecified chronic kidney disease (principal); N18.4 Chronic kidney disease, stage 4 (severe); E11.22 Type 2 diabetes mellitus with diabetic chronic kidney disease; E03.9 Hypothyroidism, unspecified; E21.3 Hyperparathyroidism, unspecified; E55.9 Vitamin D deficiency, unspecified; E78.5 Hyperlipidemia, unspecified; D63.1 Anemia in chronic kidney disease
CPT/HCPCS: 36415; 80053; 80061; 82043; 82306; 82570; 83036; 83970; 84439; 84443; 85027

== ENCOUNTER 2025-03-24 10:39 | Emergency (ER) | payer MEDICARE, OTHER, SELFPAY ==
[2025-03-24] VITALS (10 sets, daily range): BP systolic 105–152; BP diastolic 55–79; PULSE 76–85; RESP 16–30; TEMP 36.4–36.6; O2SAT 88–98; BMI 31.8
--- NOTE | 2025-03-24 11:00 | RAD_ITS ---
PROCEDURE: CHEST 1 VIEW (PORTABLE) 03/24/2025 REASON FOR EXAM: CHEST PAIN TECHNIQUE: Frontal view of the chest. COMPARISON: May 18, 2022 FINDINGS: Hardware: EKG leads are seen. Heart: Enlarged status post TAVR Lungs: Central congestion. Bones: Degenerative changes are identified within the thoracic spine. RAD/Chest 1 View (Portable) IMPRESSION: Cardiac enlargement. Mild edema. Reading Location: [id number]
--- NOTE | 2025-03-24 11:00 | EKG12_ITS ---
Test Reason : CP Blood Pressure : */* mmHG Vent. Rate : 86 BPM Atrial Rate : 86 BPM P-R Int : 204 ms QRS Dur : 134 ms QT Int : 398 ms P-R-T Axes : 84 -56 101 degrees QTcB Int : 476 ms Normal sinus rhythm Left axis deviation Left ventricular hypertrophy with QRS widening and repolarization abnormality ( R in aVL , Grant product ) Cannot rule out Septal infarct , age undetermined Abnormal ECG Confirmed by Isiah Dotson ([id number]), visual effects editor JUAN J HOBBS ([id number]) on 03/26/2025 7:16:23 AM Referred By: DEVONTE/LEONOR Confirmed By: Isiah Dotson
--- NOTE | 2025-03-24 11:01 | ED.VIS.CHEST ---
HPI History of Present Illness Chief Complaint: Chest Pain Detail of Chief Complaint: Chest pain Informant: patient Narrative Narrative: Patient presents with chest pain that started around 630 this morning when she first woke up she noticed some aching in her left arm. Describes some mild chest discomfort. She also tells me she has had a cough and cold symptoms for about 2 days. Patient has history of an aortic valve replacement. She is currently on Eliquis. She has history of paroxysmal A-fib. She denies recent travel or surgery. Patient also has history of chronic kidney disease and is on peritoneal dialysis. [facility] Medical History History of transcatheter aortic valve replacement (TAVR) (~07/09/22) PAF (paroxysmal atrial fibrillation) Left ventricular diastolic dysfunction Secondary pulmonary arterial hypertension Right renal artery stenosis Obesity Nonrheumatic aortic (valve) stenosis with insufficiency Essential (primary) hypertension H/O renal calculi Anemia Hyperparathyroidism Chronic kidney disease (CKD) stage G3b/A1, moderately decreased glomerular filtration rate (GFR) between 30-44 mL/min/1.73 square meter and albuminuria creatinine ratio less than 30 mg/g Obesity due to excess calories Type 2 diabetes mellitus without complications Hyperlipidemia Home Medications ?Medication ?Instructions ?Recorded ?Last Taken ?Type atorvastatin 20 mg tablet (Lipitor) 20 mg PO QHS 06/06/17 03/23/25 History metoprolol succinate 100 mg 100 mg PO QDAY 06/06/17 03/24/25 History tablet,extended release 24 hr (Toprol XL) multivitamin,[id number] 1 tab PO QDAY 06/06/17 03/23/25 History (Complete Multivitamin tablet) aspirin 81 mg tablet,delayed 81 mg PO DAILY 03/13/22 03/24/25 History release (Adult Aspirin Regimen) pioglitazone 15 mg tablet 15 mg PO DAILY 12/12/22 03/24/25 History docusate sodium 100 mg capsule 100 mg PO DAILY 05/19/24 03/23/25 History (Colace) allopurinol 100 mg tablet 50 mg PO Q OTHER DAY 08/06/24 03/23/25 History apixaban 2.5 mg tablet (Eliquis) 2.5 mg PO BID #90 tabs 08/06/24 03/24/25 Rx levothyroxine 25 mcg tablet 25 mcg PO DAILY 08/06/24 03/24/25 History losartan 50 mg tablet 50 mg PO DAILY #90 tabs 02/10/25 03/24/25 Rx Allergy/AdvReac Type Severity Reaction Status Date / Time erythromycin base (From Allergy Unknown Verified 03/24/25 10:39 Erythrocin) Macrolide Antibiotics Allergy Unknown Verified 03/24/25 10:39 Penicillins Allergy Unknown Verified 03/24/25 10:39 Surgical History History of bilateral cataract extraction History of stent insertion of renal artery (03/28/22) Hx of cholecystectomy H/O bilateral salpingectomy Social History Smoking Status: Never smoker alcohol intake: current alcohol intake frequency: holidays/special occasions only substance use type: does not use caffeine: No ROS ROS ED Review of Systems ROS Unobtainable: other Constitutional Constitutional ED: Reports lethargy; Denies chills, fever(s), sweats or weight loss Eyes Eyes: Denies blurry vision, change in vision or diplopia ENT ENT ED: Denies rhinorrhea or sore throat Cardiovascular Cardiovascular: Reports chest pain; Denies orthopnea or racing heartbeat Respiratory/Chest Respiratory/Chest: Denies cough, dyspnea, dyspnea on exertion, orthopnea or sputum Gastrointestinal Gastrointestinal: Denies abdominal pain, diarrhea, nausea or vomiting Genitourinary Genitourinary ED: Denies dysuria, hematuria or urinary frequency Musculoskeletal Musculoskeletal: Denies arthralgias, back pain, myalgias or neck pain Integumentary Denies abscess, Abrasions or rash Neurologic Neurologic: Denies headache(s) or weakness Psychiatric Psychiatric: Denies anxiety, depression or suicidal thoughts Endocrine Endocrinology: Denies polydipsia, polyphagia or polyuria Hematologic/Lymphatic Hematologic/Lymphatic: Denies easy bleeding, easy bruising or lymphadenopathy Allergic/Immunologic Allergic/Immunologic ED: Denies mouth swelling, tongue swelling or urticaria EXAM Physical Exam Const Vital Signs: 03/24/25 10:40 03/24/25 11:13 03/24/25 11:17 Temperature 97.6 F L Temperature Source Temporal Pulse Rate 85 76 Respiratory Rate 16 Respiratory Effort Normal Non-Labored Blood Pressure 105/55 L 137/75 H Blood Pressure Mean 71 Pulse Ox 97 Oxygen Delivery Method Oxygen Flow Rate (L/min) 03/24/25 11:17 03/24/25 11:39 03/24/25 12:00 Temperature Temperature Source Pulse Rate 76 Respiratory Rate 19 H 23 H Respiratory Effort Blood Pressure 127/59 H 137/70 H Blood Pressure Mean 81 92 Pulse Ox 98 98 Oxygen Delivery Method Room Air Room Air Room Air Oxygen Flow Rate (L/min) 03/24/25 13:35 03/24/25 13:36 03/24/25 13:38 Temperature Temperature Source Pulse Rate 78 76 Respiratory Rate 25 H Respiratory Effort Blood Pressure 137/78 H 137/78 H Blood Pressure Mean 97 Pulse Ox 88 95 Oxygen Delivery Method Room Air Nasal Cannula Oxygen Flow Rate (L/min) 2 03/24/25 14:00 Temperature Temperature Source Pulse Rate 78 Respiratory Rate 27 H Respiratory Effort Blood Pressure 137/78 H Blood Pressure Mean 97 Pulse Ox 96 Oxygen Delivery Method Nasal Cannula Oxygen Flow Rate (L/min) 2 Positive well nourished and well developed General Appearance ED: well developed and NAD HEENT Reports TM's clear and moist mucous membranes normocephalic and atraumatic; Negative for trauma or tenderness Tympanic Membrane ED: Yes TM's clear Eyes PERRL and EOMs intact bilaterally General Eye ED: Negative for pale conjunctiva or scleral icterus Neck no lymphadenopathy, supple and no JVD General: Negative for tenderness Chest Wall inspection of chest normal and palpation of chest normal Chest: Negative for tenderness Resp normal respiratory effort and clear to auscultation bilaterally Effort and Inspection: Negative for respiratory distress or pain with movement Auscultation: Negative for rhonchi, wheezes or diminished lung sounds Cardio regular rate, regular rhythm, S1 normal heart sound, S2 normal heart sound and no murmurs Peripheral Pulses: pulses 2+ throughout GI normal to inspection, nondistended, normoactive bowel sounds, soft to palpation, non-tender, non-distended and no masses Back/Spine no CVA tenderness and no thoracic nor lumbar tenderness Extremity normal to inspection General Extremety ED: Negative for edema General Extremity: Negative for edema Neuro oriented x3, CN's II-XII intact bilaterally, no sensory deficits noted and gait normal Sensorium / Orientation: awake, alert, oriented to person, oriented to place and oriented to time Motor Exam: strength 5/5 throughout and strength abnormal Psych mental status grossly normal Skin no rashes or lesions noted and no wounds MDM MDM MDM Narrative Medical decision making narrative: Patient presents with left arm pain and mild chest discomfort. Negative heart cath in 2021. On Eliquis. EKG obtained showed sinus rhythm with rate of 86 bpm with nonspecific intraventricular conduction delay and ST elevation in leads V1 and V2 with Q waves in these leads. She had some subtle ST depression in V4 5 and 6 when compared with prior EKG from October 06, 2024. Discussed case with cardiology on-call Dr. Byrnes who also was able to evaluate EKGs and felt given that she had a negative cath in 2021 and the fact that she is on Eliquis and chest pain is mild at this time and we will wait for enzyme testing. Did not feel STEMI team needed to be called at this time. I am in agreement with this plan. Will obtain labs. Patient CBC with differential showed a white count of 9.2 with hemoglobin 8.6 and platelet count of 328. Chemistries unremarkable. BUN 15 creatinine 7.09. Troponin elevated to 40. I repeated the EKG which is unchanged from the first 1 with sinus rhythm with rate of 75 bpm with nonspecific intraventricular conduction delay and concern for ST elevation in V1 and V2. Discussed case with process improvement analyst Dr. Byrnes once again and patient continues to have mild discomfort. Patient will go to the [facility]. Discussed case also with hospitalist to evaluate patient for admission. After discussing case with hospitalist that was told she could not be admitted here because she has peritoneal dialysis. I attempted to contact cardiology however patient was already taken to the heart lab tester. Patient will likely require transfer to another facility due to the peritoneal dialysis after her intervention/cardiac cath evaluation. Spoke with process improvement analyst at [facility] Dr. Ovalles who accepted transfer of patient to their facility. Lab Data Attestation: I reviewed the patient's lab results. Labs: Laboratory Results - last 24 hr 03/24/25 03/24/25 11:09 13:55 WBC 9.2 RBC 2.93 L Hgb 8.6 L Hct 27.1 L MCV 92.5 MCH 29.4 MCHC 31.7 L RDW Std Deviation 56.8 H RDW Coeff of [place]rec[place] 17.1 H Plt Count 328 MPV 9.4 Immature Gran % (Auto) 1.400 H Neut % (Auto) 80.1 H Lymph % (Auto) 5.4 L [place] % (Auto) 6.8 Eos % (Auto) 5.3 H Baso % (Auto) 1.0 Absolute Neuts (auto) 7.4 Absolute Lymphs (auto) 0.50 L Nucleated RBC % 0.2 Sodium 138 Potassium 3.9 Chloride 95 L Carbon Dioxide 22.3 Anion Gap 21 H BUN 50 H Creatinine 7.09 H Estim Creat Clear Calc 6.37 L* Est GFR (MDRD) Non-Af 5 L BUN/Creatinine Ratio 7.0 L Glucose 215 H Calcium 9.8 Troponin T High Sens 240 H* Troponin T Hi Sens 2 Hr 267 H* Radiography Diagnostic Testing: Clinical Impression(s) from Imaging Studies Chest X-Ray 03/24/25 11:00 IMPRESSION: Cardiac enlargement. Mild edema. Reading Location: [facility] 1 view chest x-ray obtained interpreted by myself as no evidence of infiltrate or pneumothorax or acute disease process. Patient was felt by radiology to have cardiac enlargement and mild edema. Discharge Plan Dx/Rx/DC Orders Clinical Impression: Chest pain, Acute coronary syndrome, Chronic kidney disease Disposition Disposition: Acute Care [facility]
[2025-03-24] MEDS: Nitroglycerin SL (ED/IMG/CATH) 0.4 MG TABLET SL (11:13)
[2025-03-24 11:30] LABS: Hematocrit 27.1 % (37-47); Hemoglobin 8.6 g/dL (12.0-15.0); Immature Granulocytes Count 0.130 X10^3/uL (0.0-0.0); Mean Corp Hgb Conc 31.7 g/dL (32-36); Mean Corpuscular Volume 92.5 fL (81-99); Mean Platelet Vol. 9.4 fl (6.2-12.0); NRBC Flagged by Analyzer 0.2 % (0-5); POSITIVE DIFFERENTIAL YES; Platelet Count 328 K/mm3 (150-450); RBC Distribution Width CV 17.1 % (11.6-14.6); RBC Distribution Width SD 56.8 fl (35.1-43.9); Red Blood Count 2.93 M/mm3 (4.2-5.4); White Blood Count 9.2 K/mm3 (4.4-11.0)
[2025-03-24 11:51] LABS: Anion Gap 21 (5-15); BUN 50 mg/dL (4-19); BUN/Creat Ratio 7.0 RATIO (10-20); Calcium,Total 9.8 mg/dL (7.6-11.0); Carbon Dioxide 22.3 mmol/L (21.0-32.0); Chloride 95 mmol/L (98-108); Estimated Creatinine Clearance 6.37 ml/min (50-250); Glucose 215 mg/dL (70-99); Potassium 3.9 mmol/L (3.3-5.1); Troponin T High Sensitivity 240 ng/L (<=14)
--- NOTE | 2025-03-24 11:52 | EKG12_ITS ---
Test Reason : REPEAT Blood Pressure : */* mmHG Vent. Rate : 75 BPM Atrial Rate : 75 BPM P-R Int : 212 ms QRS Dur : 132 ms QT Int : 416 ms P-R-T Axes : 59 -50 107 degrees QTcB Int : 464 ms Sinus rhythm with 1st degree A-V block Left axis deviation Left ventricular hypertrophy with QRS widening and repolarization abnormality ( Cannot rule out Septal infarct , age undetermined Marked ST abnormality, possible anterior subendocardial injury Abnormal ECG Confirmed by Isiah Dotson ([id number]), sports editor JUAN J HOBBS ([id number]) on 03/26/2025 7:16:06 AM Referred By: Confirmed By: Isiah Dotson
--- NOTE | 2025-03-24 11:52 | ED.RN ---
Dr Borrero notified of critical troponin
[2025-03-24] MEDS: 0.9% Normal Saline (1000mL) 1,000 ML 150 ML IV (12:03)
--- NOTE | 2025-03-24 12:33 | ED.RN ---
Pt left for labor economics professor at 1225.
--- NOTE | 2025-03-24 13:24 | ED.RN ---
Pt returned to ED at 1325. Unable to complete cath. Will work on transfer.
[2025-03-24] MEDS: Nitroglycerin Oint 1 INCH PACKET TD (13:38)
[2025-03-24 14:25] LABS: Troponin T High Sens 2 HR 267 ng/L (<=14)
--- NOTE | 2025-03-24 15:35 | ED.RN ---
Report given to crime laboratory analyst at [place]
--- NOTE | 2025-03-24 15:55 | ED.RN ---
[facility] TRANSPORT TEAM AT [facility]. REPORT PROVIDED.
[2025-03-24 16:01] LABS: Troponin T High Sens 4 HR 370 ng/L (<=14)
== END 2025-03-24 16:02 | disposition short-term general hospital (02) ==
PROVIDERS: Emergency Provider Emergency Medicine; PCP Nurse Practitioner Family; Visit Provider Emergency Medicine
DX: R07.9 Chest pain, unspecified (principal); I48.0 Paroxysmal atrial fibrillation; I24.9 Acute ischemic heart disease, unspecified; E11.22 Type 2 diabetes mellitus with diabetic chronic kidney disease; N18.32 Chronic kidney disease, stage 3b; I12.9 Hypertensive chronic kidney disease with stage 1 through stage 4 chronic kidney disease, or unspecified chronic kidney disease; Z79.01 Long term (current) use of anticoagulants; Z99.2 Dependence on renal dialysis; I45.89 Other specified conduction disorders; E78.5 Hyperlipidemia, unspecified; Z79.899 Other long term (current) drug therapy; Z79.82 Long term (current) use of aspirin; Z79.890 Hormone replacement therapy
CPT/HCPCS: 71045; 80048; 84484; 85025; 87631; 93005; 96360; 96361; 99285; C1894; A4216; C1769

== ENCOUNTER 2025-04-08 14:05 | Emergency (ER) | payer MEDICARE, OTHER, SELFPAY ==
[2025-04-08] VITALS (8 sets, daily range): BP systolic 82–101; BP diastolic 41–53; PULSE 46–57; RESP 13–23; TEMP 36.4–36.6; O2SAT 97–99; BMI 33.6
--- NOTE | 2025-04-08 14:22 | EKG12_ITS ---
Test Reason : WEAKNESS Blood Pressure : */* mmHG Vent. Rate : 49 BPM Atrial Rate : 49 BPM P-R Int : 240 ms QRS Dur : 140 ms QT Int : 516 ms P-R-T Axes : 48 -31 144 degrees QTcB Int : 466 ms Sinus bradycardia with 1st degree A-V block Left axis deviation Left ventricular hypertrophy with QRS widening and repolarization abnormality ( R in aVL , Neeses product ) Septal infarct (cited on or before 24-Mar-2025) Abnormal ECG Confirmed by RENÉE FINNEY, GUNNAR ([id number]), video effects editor JUAN J HOBBS ([id number]) on 04/09/2025 8:33:15 AM Referred By: Confirmed By: GUNNAR CHINCHILLA MD
--- NOTE | 2025-04-08 14:24 | EX.ED.DYSGE1 ---
HPI History of Present Illness Chief Complaint: Weakness Detail of Chief Complaint: Weakness Informant: patient and spouse/S.O. Narrative Narrative: Patient presents with generalized weakness x 5 days. Patient seen in this emergency department 2 weeks ago and had a NV and was transferred to [facility] due to the fact that patient is a peritoneal dialysis patient and that is not performed at our facility. Patient tells me she had a stent placed. She has been home about 5 days and she has been having home health care coming into the home. She said decreased appetite and decreased p.o. intake. She has not been making urine very much since her heart attack. She denies fevers. She denies chest pain. She denies difficulty breathing. Today she was supposed to go get some blood work done she is so weak that she is having a hard time ambulating. states that there is a facility in [place] that is a rehab facility they would like to try to get her into at some point. Patient on Eliquis currently. She denies blood in her stool or black tarry stool. [facility] Medical History History of transcatheter aortic valve replacement (TAVR) (~07/09/22) PAF (paroxysmal atrial fibrillation) Left ventricular diastolic dysfunction Secondary pulmonary arterial hypertension Right renal artery stenosis Obesity Nonrheumatic aortic (valve) stenosis with insufficiency Essential (primary) hypertension H/O renal calculi Anemia Hyperparathyroidism Chronic kidney disease (CKD) stage G3b/A1, moderately decreased glomerular filtration rate (GFR) between 30-44 mL/min/1.73 square meter and albuminuria creatinine ratio less than 30 mg/g Obesity due to excess calories Type 2 diabetes mellitus without complications Hyperlipidemia Home Medications ?Medication ?Instructions ?Recorded ?Last Taken ?Type multivitamin,[id number] 1 tab PO QDAY SUPPLEMENT 06/06/17 04/08/25 History (Complete Multivitamin tablet) docusate sodium 100 mg capsule 100 mg PO DAILY STOOL SOFTNER 05/19/24 04/07/25 History (Colace) allopurinol 100 mg tablet 50 mg PO Q OTHER DAY GOUT 08/06/24 04/08/25 History levothyroxine 25 mcg tablet 25 mcg PO DAILY THYROID 08/06/24 04/08/25 History losartan 50 mg tablet 50 mg PO DAILY HYPERTENSION #90 02/10/25 04/08/25 Rx tabs amiodarone 200 mg tablet 200 mg PO DAILY HEART 04/08/25 04/08/25 History apixaban 5 mg tablet (Eliquis) 5 mg PO BID BLOOD THINNER 04/08/25 04/08/25 History atorvastatin 40 mg tablet 40 mg PO DAILY CHOLESTEROL 04/08/25 04/07/25 History clopidogrel 75 mg tablet 75 mg PO DAILY HEART 04/08/25 04/08/25 History metoprolol succinate 25 mg 50 mg PO BIDCM HYPERTENSION 04/08/25 Unknown History tablet,extended release 24 hr pantoprazole 40 mg tablet,delayed 40 mg PO DAILY GERD 04/08/25 04/01/25 History release sevelamer carbonate 800 mg tablet 800 mg PO TID KIDNEY DISEASE 04/08/25 Unknown History Allergy/AdvReac Type Severity Reaction Status Date / Time erythromycin base (From Allergy Unknown Verified 04/08/25 14:06 Erythrocin) Macrolide Antibiotics Allergy Unknown Verified 04/08/25 14:06 Penicillins Allergy Unknown Verified 04/08/25 14:06 Surgical History History of bilateral cataract extraction History of stent insertion of renal artery (03/28/22) Hx of cholecystectomy H/O bilateral salpingectomy Social History Smoking Status: Never smoker alcohol intake: current alcohol intake frequency: holidays/special occasions only substance use type: does not use caffeine: No ROS ROS ED Review of Systems ROS Unobtainable: other Constitutional Constitutional ED: Reports lethargy; Denies chills, fever(s), sweats or weight loss Eyes Eyes: Denies blurry vision, change in vision or diplopia ENT ENT ED: Denies rhinorrhea or sore throat Cardiovascular Cardiovascular: Denies chest pain, orthopnea or racing heartbeat Respiratory/Chest Respiratory/Chest: Denies cough, dyspnea, dyspnea on exertion, orthopnea or sputum Gastrointestinal Gastrointestinal: Reports other Details: Decreased p.o. intake ; Denies abdominal pain, diarrhea, nausea or vomiting Genitourinary Genitourinary ED: Denies dysuria, hematuria or urinary frequency Musculoskeletal Musculoskeletal: Denies arthralgias, back pain, myalgias or neck pain Integumentary Denies abscess, Abrasions or rash Neurologic Neurologic: Reports weakness; Denies headache(s) Psychiatric Psychiatric: Denies anxiety, depression or suicidal thoughts Endocrine Endocrinology: Denies polydipsia, polyphagia or polyuria Hematologic/Lymphatic Hematologic/Lymphatic: Denies easy bleeding, easy bruising or lymphadenopathy Allergic/Immunologic Allergic/Immunologic ED: Denies mouth swelling, tongue swelling or urticaria EXAM Physical Exam Const Vital Signs: 04/08/25 14:06 04/08/25 14:15 04/08/25 16:05 Temperature 97.7 F L Temperature Source Oral Pulse Rate 52 L 52 L Respiratory Rate 18 16 Respiratory Effort Normal Respiratory Pattern Normal Blood Pressure 95/43 L 82/42 L Blood Pressure Mean 60 55 Blood Pressure Source Blood Pressure Position Blood Pressure Location Pulse Ox 98 98 Oxygen Delivery Method Room Air Room Air 04/08/25 16:31 04/08/25 16:36 04/08/25 16:51 Temperature 97.7 F L 97.7 F L 97.8 F Temperature Source Oral Oral Oral Pulse Rate 46 L 53 L 54 L Respiratory Rate 13 14 16 Respiratory Effort Respiratory Pattern Blood Pressure 85/42 L 92/44 L 94/41 L Blood Pressure Mean 56 60 58 Blood Pressure Source Monitor Monitor Monitor Blood Pressure Position Semi-Fowlers Semi-Fowlers Semi-Fowlers Blood Pressure Location Right Arm Right Arm Right Arm Pulse Ox 99 99 Oxygen Delivery Method Room Air Room Air Room Air 04/08/25 17:51 Temperature 97.6 F L Temperature Source Oral Pulse Rate 54 L Respiratory Rate 23 H Respiratory Effort Respiratory Pattern Blood Pressure 101/44 L Blood Pressure Mean 63 Blood Pressure Source Monitor Blood Pressure Position Semi-Fowlers Blood Pressure Location Right Arm Pulse Ox 99 Oxygen Delivery Method Room Air Positive well nourished and well developed General Appearance ED: well developed and NAD HEENT Reports TM's clear and moist mucous membranes normocephalic and atraumatic; Negative for trauma or tenderness Tympanic Membrane ED: Yes TM's clear Eyes PERRL and EOMs intact bilaterally General Eye ED: Negative for pale conjunctiva or scleral icterus Neck no lymphadenopathy, supple and no JVD General: Negative for tenderness Chest Wall inspection of chest normal and palpation of chest normal Chest: Negative for tenderness Resp normal respiratory effort and clear to auscultation bilaterally Effort and Inspection: Negative for respiratory distress or pain with movement Auscultation: Negative for rhonchi, wheezes or diminished lung sounds Cardio regular rate, regular rhythm, S1 normal heart sound, S2 normal heart sound and no murmurs Peripheral Pulses: pulses 2+ throughout GI normal to inspection, nondistended, normoactive bowel sounds, soft to palpation, non-tender, non-distended and no masses Back/Spine no CVA tenderness and no thoracic nor lumbar tenderness Extremity normal to inspection General Extremety ED: Negative for edema General Extremity: Negative for edema Neuro oriented x3, CN's II-XII intact bilaterally, no sensory deficits noted and gait normal Sensorium / Orientation: awake, alert, oriented to person, oriented to place and oriented to time Motor Exam: strength 5/5 throughout and strength abnormal Psych mental status grossly normal Skin no rashes or lesions noted and no wounds MDM MDM MDM Narrative Medical decision making narrative: Patient presents to the emergency department with generalized weakness little over 2 weeks post stent placement for an NV. believes it was to the LAD. Had to have a initial procedure and then a second procedure the following day. She has not been having any chest pain. She complains of generalized weakness. Currently on Eliquis. Last dialysis was last evening. EKG obtained on arrival showed a sinus bradycardia with a rate of 49 bpm with first-degree AV block and nonspecific ventricular conduction delay on my interpretation. CBC with differential obtained showed a white count of 14.8 with hemoglobin 6.9 and platelet count of 316. Sodium 132 potassium 4.1 chloride 88. BUN 73 and creatinine 7.8. Troponin elevated 9158. I ordered a type and cross for 1 unit packed red cells for the patient. This point feel patient will require transfer to [facility] where she had her intervention. She is a peritoneal dialysis patient and cannot be admitted at our facility. She and her would like to go back to [facility]. Patient and her state that she had 1 unit of blood prior to discharge from [facility]. Discussed case with cardiology at [place] as well as medicine physician Dr. Roman who accepted transfer patient to their facility. Discussed case with [facility] as [place] was unsure if they would have beds available tonight. [facility] excepted patient in transfer to their facility for definitive care. Lab Data Attestation: I reviewed the patient's lab results. Labs: Laboratory Results - last 24 hr 04/08/25 04/08/2525 14:11 15:00 15:30 WBC 14.8 H RBC 2.38 L Hgb 6.9 L Hct 22.5 L MCV 94.5 MCH 29.0 MCHC 30.7 L RDW Std Deviation 62.0 H RDW Coeff of [place]rec[place] 18.4 H Plt Count 316 MPV 10.0 Immature Gran % (Auto) 1.600 H Neut % (Auto) 89.4 H Lymph % (Auto) 2.0 L Eddy % (Auto) 6.0 Eos % (Auto) 0.9 Baso % (Auto) 0.1 Absolute Neuts (auto) 13.2 H Absolute Lymphs (auto) 0.29 L Nucleated RBC % 0.1 Sodium 132 L Potassium 4.1 Chloride 88 L Carbon Dioxide 24.9 Anion Gap 20 H BUN 73 H Creatinine 7.80 H* Estim Creat Clear Calc 5.95 L* Est GFR (MDRD) Non-Af 5 L BUN/Creatinine Ratio 9.3 L Glucose 208 H Calcium 9.4 Total Bilirubin 0.28 AST 38 H ALT 31 Alkaline Phosphatase 96 Troponin T High Sens 9158 H* D Troponin T Hi Sens 2 Hr Total Protein 6.4 Albumin 2.9 L Globulin 3.5 Albumin/Globulin Ratio 0.8 L Urine Color Leslye Urine Clarity Sl. Cloudy Urine pH 5.0 Ur Specific [place] 1.015 Urine Protein 100 H Urine Glucose (UA) 50 H Urine Ketones Negative Urine Occult Blood 250 H Urine Nitrite Negative Urine Bilirubin 1 H Urine Urobilinogen Normal Ur Leukocyte Esterase 100 H Urine RBC 25-50 SEEN Urine WBC 5-10 SEEN Ur Squamous Epith Cells 0 SEEN Urine Bacteria 1+ Urine Mucus 0 SEEN Blood Type A POSITIVE Antibody Screen NEGATIVE Crossmatch See Detail 04/08/25 15:51 WBC RBC Hgb Hct MCV MCH MCHC RDW Std Deviation RDW Coeff of [place]rec[place] Plt Count MPV Immature Gran % (Auto) Neut % (Auto) Lymph % (Auto) Eddy % (Auto) Eos % (Auto) Baso % (Auto) Absolute Neuts (auto) Absolute Lymphs (auto) Nucleated RBC % Sodium Potassium Chloride Carbon Dioxide Anion Gap BUN Creatinine Estim Creat Clear Calc Est GFR (MDRD) Non-Af BUN/Creatinine Ratio Glucose Calcium Total Bilirubin AST ALT Alkaline Phosphatase Troponin T High Sens Troponin T Hi Sens 2 Hr 8908 H* Total Protein Albumin Globulin Albumin/Globulin Ratio Urine Color Urine Clarity Urine pH Ur Specific [place] Urine Protein Urine Glucose (UA) Urine Ketones Urine Occult Blood Urine Nitrite Urine Bilirubin Urine Urobilinogen Ur Leukocyte Esterase Urine RBC Urine WBC Ur Squamous Epith Cells Urine Bacteria Urine Mucus Blood Type Antibody Screen Crossmatch Radiography Diagnostic Testing: Clinical Impression(s) from Imaging Studies Chest X-Ray 04/08/25 14:55 IMPRESSION: Cardiomegaly. The lungs are clear. Reading Location: [facility] 1 view chest x-ray obtained interpreted by myself as cardiac enlargement and no evidence of infiltrate or effusion or pneumothorax or other acute process. Radiology in agreement. EKG Initial EKG: Attestation: I personally reviewed and interpreted this EKG as follows: Comments: Sinus rhythm with ventricular rate of 49 bpm with first-degree AV block and nonspecific intraventricular conduction delay Discharge Plan Triage Chief Complaint: Weakness ED Provider: Jaimee Rodgers Dx/Rx/DC Orders Clinical Impression: Weakness, Anemia, Elevated troponin, Adult failure to thrive Prescriptions: No Action Complete Multivitamin tablet 1 tab PO QDAY allopurinol 100 mg tablet 50 mg PO Q OTHER DAY levothyroxine 25 mcg tablet 25 mcg PO DAILY Patient Comments: [NO ORIGINAL SIG] atorvastatin 40 mg tablet 40 mg PO DAILY amiodarone 200 mg tablet 200 mg PO DAILY clopidogrel 75 mg tablet 75 mg PO DAILY metoprolol succinate 25 mg tablet extended release 24 hr 50 mg PO BIDCM Patient Comments: [NO ORIGINAL SIG] sevelamer carbonate 800 mg tablet 800 mg PO TID Patient Comments: PT HAS BEEN UNABLE TO SWALLOW SO HAS NOT BEEN TAKING Eliquis 5 mg tablet 5 mg PO BID pantoprazole 40 mg tablet,delayed release (DR/EC) 40 mg PO DAILY docusate sodium [Colace] 100 mg capsule 100 mg PO DAILY losartan 50 mg tablet 50 mg PO DAILY Qty: 90 3RF Primary Care Provider: Frank Ramirez NP Referrals: Frank Ramirez NP, JORDAN WORKER-C [Primary Care Provider, Family Practice] Print Language: Cuban Disposition Disposition: DC/Tx to Another Type of HCF
[2025-04-08 14:36] LABS: Hematocrit 22.5 % (37-47); Hemoglobin 6.9 g/dL (12.0-15.0); Immature Granulocytes Count 0.230 X10^3/uL (0.0-0.0); Mean Corp Hgb Conc 30.7 g/dL (32-36); Mean Corpuscular Volume 94.5 fL (81-99); Mean Platelet Vol. 10.0 fl (6.2-12.0); NRBC Flagged by Analyzer 0.1 % (0-5); POSITIVE DIFFERENTIAL YES; Platelet Count 316 K/mm3 (150-450); RBC Distribution Width CV 18.4 % (11.6-14.6); RBC Distribution Width SD 62.0 fl (35.1-43.9); Red Blood Count 2.38 M/mm3 (4.2-5.4); White Blood Count 14.8 K/mm3 (4.4-11.0)
[2025-04-08] MEDS: 0.9% Normal Saline (1000mL) 1,000 ML 150 ML IV (14:40)
--- NOTE | 2025-04-08 14:55 | RAD_ITS ---
PROCEDURE: CHEST 1 VIEW (PORTABLE) 04/08/2025 REASON FOR EXAM: WEAKNESS TECHNIQUE: Frontal view of the chest. COMPARISON: Prior study dated March 24, 2025. FINDINGS: Hardware: EKG electrodes are seen. Heart: Heart size is moderately enlarged. Lungs: The lungs are clear. Bones: Degenerative changes are identified within the thoracic spine. RAD/Chest 1 View (Portable) IMPRESSION: Cardiomegaly. The lungs are clear. Reading Location: [place] [id number]
[2025-04-08 15:32] LABS: AST(SGOT) 38 U/L (<=31); Alanine Aminotransfer ALT/SGPT 31 U/L (<=34); Albumin, Serum 2.9 g/dL (3.4-4.8); Alkaline Phosphatase 96 U/L (35-104); Anion Gap 20 (5-15); BUN 73 mg/dL (4-19); BUN/Creat Ratio 9.3 RATIO (10-20); Calcium,Total 9.4 mg/dL (7.6-11.0); Carbon Dioxide 24.9 mmol/L (21.0-32.0); Chloride 88 mmol/L (98-108); Estimated Creatinine Clearance 5.95 ml/min (50-250); Globulin 3.5 g/dL (2.2-4.2); Glucose 208 mg/dL (70-99); Potassium 4.1 mmol/L (3.3-5.1); Troponin T High Sensitivity 9158 ng/L (<=14)
[2025-04-08 15:40] LABS: Mucous, Urine 0 SEEN /hpf (<or=2+); Squamous Epithelial Cells - UA 0 SEEN /hpf (5-10)
[2025-04-08 16:04] LABS: Color, Urine Amber (Yellow); Glucose, Dipstick 50 mg/dl (Normal); Ketone-Dipstick Negative (Negative); Leukocyte Esterase-Dipstick 100 /ul (Negative); Nitrite-Dipstick Negative (Negative); Occult Blood-Urine 250 /ul (Negative); Protein-Dipstick 100 mg/dl (Negative); Specific Gravity, Urine 1.015 (1.002-1.030)
[2025-04-08 16:11] LABS: Urine Bilirubin Dipstick 1 mg/dL (Negative)
[2025-04-08 16:16] LABS: Red Blood Cells-Urine 25-50 SEEN /hpf (0-5)
[2025-04-08 16:36] LABS: Troponin T High Sens 2 HR 8908 ng/L (<=14)
--- NOTE | 2025-04-08 19:00 | ED.RN ---
4Hr trop not drawn per ED MD
== END 2025-04-08 21:00 | disposition other institution (70) ==
PROVIDERS: Emergency Provider Emergency Medicine; PCP Nurse Practitioner Family; Visit Provider Emergency Medicine
DX: R53.1 Weakness (principal); I48.0 Paroxysmal atrial fibrillation; I21.9 Acute myocardial infarction, unspecified; E11.22 Type 2 diabetes mellitus with diabetic chronic kidney disease; N18.32 Chronic kidney disease, stage 3b; I12.9 Hypertensive chronic kidney disease with stage 1 through stage 4 chronic kidney disease, or unspecified chronic kidney disease; D64.9 Anemia, unspecified; Z99.2 Dependence on renal dialysis; Z95.5 Presence of coronary angioplasty implant and graft; R62.7 Adult failure to thrive; I44.0 Atrioventricular block, first degree; E78.5 Hyperlipidemia, unspecified; Z79.02 Long term (current) use of antithrombotics/antiplatelets; Z79.899 Other long term (current) drug therapy; Z79.890 Hormone replacement therapy; Z79.01 Long term (current) use of anticoagulants; R79.89 Other specified abnormal findings of blood chemistry
CPT/HCPCS: 36430; 71045; 80053; 81001; 84484; 85025; 86850; 86900; 86901; 86920; 93005; 96360; 96361; 99285; P9016; A4216